=== PATIENT | male | born 1945 | race Two or more races ===

== ENCOUNTER 2016-03-14 21:24 | Inpatient (IN) | payer MEDICARE, MEDICAID ==
[~2016-03-14] VITALS: Ht 162.6 cm; Wt 75.9 kg
[~2016-03-14 21:24] MED LIST: ASPI-266 PO; CLON0.1T PO; DONE5TAB11 OR; ENAL-3 PO; FAMO10TA9 PO; GABA100C PO; GINK500C PO; METF-312 PO; NITROGLYCERIN SL; TAM04C PO; [UNRECOGNIZED DRUG - CODE] PO
[2016-03-14 22:21] LABS: Basophils # (auto) 0 uL; Basophils % (auto) 0.7 % (0.0-2.0); Eosinophils # (auto) 0.2 uL; Eosinophils % (auto) 3.2 % (0.0-7.0); Hematocrit 42.3 % (41.0-53.0); Hemoglobin 13.4 g/dL (13.5-17.5); Lymphocytes # (auto) 1.4 uL; Lymphocytes % (auto) 23.8 % (10.0-50.0); Mean Corpuscular Hemoglobin 27.8 pg (28.0-32.0); Mean Corpuscular Hgb Conc. 31.6 g/dL (32.0-36.0); Mean Corpuscular Volume 88.1 fL (80.0-100.0); Mean Platelet Volume 7.7 fL (7.4-10.4); Monocytes # (auto) 0.7 uL; Monocytes % (auto) 11.3 % (0.0-12.0); Neutrophils # (auto) 3.7 uL; Platelet Count (auto) 230 10^3/uL (140-450); Red Cell Distribution Width 15.7 % (11.6-16.0)
[2016-03-14] MEDS ORDERED: IOHEXOL 300 MG/ML 100ML BOTTLE IJ ONE (22:37)
[2016-03-14 22:38] LABS: Albumin 3.6 g/dL (3.4-5.0); BUN/Creatinine Ratio 35.9; Calcium 8.4 mg/dL (8.5-10.1); Partial Thromboplastin Time 28.3 sec (22.64-33.71); Prothrombin Time 10.3 sec (9.37-12.3)
[2016-03-14 22:41] LABS: Bilirubin, Total 0.4 mg/dL (0.2-1.0); Total Protein 7.1 g/dL (6.4-8.2)
[2016-03-15] MEDS ORDERED: cloNIDine HCL 0.1 MG TAB PO PRN (01:15)
[2016-03-15] MEDS ORDERED: DEXTROSE (50%) 50ML SYRG IV PRN (01:30)
[2016-03-15] MEDS ORDERED: NITROGLYCERIN 0.4 MG SL TAB SL PRN (01:30)
[2016-03-15] MEDS ORDERED: MORPHINE SULF INJ 2 MG/ML SYRINGE 1ML IV PRN (01:30)
[2016-03-15] MEDS ORDERED: LACTULOSE 20Gm/30ML SOLN PO PRN (01:30)
[2016-03-15] MEDS: SODIUM CHLORIDE 0.9% 1,000 ML IV SCH ×2 (02:00→13:44)
[2016-03-15] MEDS: ACCU-CHEK COMFORT CURVE STRIP VI SCH ×3 (06:04→17:46)
[2016-03-15] MEDS: PIPERACILLIN-TAZOB 3.375GM 100 ML IV SCH ×4 (06:04→23:39)
[2016-03-15] MEDS: ALPRAZolam 0.5 MG TAB PO SCH ×3 (06:04→22:09)
[2016-03-15] MEDS: GABAPENTIN 100 MG CAP PO SCH ×3 (06:04→22:08)
[2016-03-15] MEDS: InsuLIN REG 1unit/0.01ml Soln (100units/ml) SC SCH ×4 (06:13→23:52)
[2016-03-15] MEDS: PANTOPRAZOLE SODIUM 40 MG/10 ML VIAL IV SCH (10:00)
[2016-03-15] MEDS ORDERED: ENOXAPARIN SOD 30 MG/0.3 ML SYRINGE SC SCH (10:00)
[2016-03-15] MEDS: NITROGLYCERIN 0.2MG/HR TOPICAL PATCH TD SCH ×2 (10:00→10:26)
[2016-03-15] MEDS: ENOXAPARIN SOD 40 MG/0.4 ML SYRINGE SC SCH (10:25)
[2016-03-15] MEDS: CARVEDILOL 3.125 MG TAB PO SCH ×2 (10:26→22:09)
[2016-03-15] MEDS: ENALAPRIL MALEATE 10 MG TAB PO SCH (10:27)
[2016-03-15] MEDS: METOPROLOL TARTRATE 25 MG TAB PO SCH ×2 (10:27→22:08)
[2016-03-15] MEDS: ASPirin 81 mg TAB PO SCH (10:28)
[2016-03-15] MEDS ORDERED: FUROSEMIDE 40 MG/4 ML VIAL IV ONE (13:15)
[2016-03-15] MEDS ORDERED: POTASSIUM CHL 10% (20 MEQ/15ML) ORAL SOLN PO ONE (13:15)
[2016-03-15] MEDS: HCTZ 25 MG TAB PO SCH (13:37)
[2016-03-15] MEDS ORDERED: TAMSULOSIN HYDROCHLORIDE 0.4 MG CAP PO SCH (18:00)
[2016-03-15 20:00] VITALS: BP 118/77
[2016-03-15 21:30] VITALS: BP 118/77
[2016-03-15] MEDS ORDERED: ATORVASTATIN 20 MG TAB PO SCH (22:00)
[2016-03-15] MEDS ORDERED: DONEPEZIL HYDROCHLORIDE 5 MG TAB PO SCH (22:00)
[2016-03-16] MEDS: ACCU-CHEK COMFORT CURVE STRIP VI SCH ×3 (00:05→12:28)
[2016-03-16] MEDS: SODIUM CHLORIDE 0.9% 1,000 ML IV SCH ×2 (02:17→14:47)
[2016-03-16 05:00] VITALS: BP 101/64
[2016-03-16] MEDS: GABAPENTIN 100 MG CAP PO SCH ×2 (05:47→14:55)
[2016-03-16] MEDS: ALPRAZolam 0.5 MG TAB PO SCH ×2 (05:47→14:55)
[2016-03-16] MEDS: PIPERACILLIN-TAZOB 3.375GM 100 ML IV SCH ×2 (05:48→12:00)
[2016-03-16 06:03] LABS: Albumin 3.4 g/dL (3.4-5.0); BUN/Creatinine Ratio 21.1; Calcium 8.5 mg/dL (8.5-10.1); Potassium 4.1 mmol/L (3.5-5.1)
[2016-03-16 06:05] LABS: Bilirubin, Total 0.9 mg/dL (0.2-1.0); Total Protein 7.2 g/dL (6.4-8.2)
[2016-03-16 06:08] LABS: Basophils # (auto) 0 uL; Basophils % (auto) 0.5 % (0.0-2.0); Eosinophils # (auto) 0.2 uL; Eosinophils % (auto) 3.5 % (0.0-7.0); Hematocrit 46.2 % (41.0-53.0); Hemoglobin 14.5 g/dL (13.5-17.5); Lymphocytes # (auto) 1.3 uL; Lymphocytes % (auto) 20.6 % (10.0-50.0); Mean Corpuscular Hemoglobin 27.9 pg (28.0-32.0); Mean Corpuscular Hgb Conc. 31.5 g/dL (32.0-36.0); Mean Corpuscular Volume 88.6 fL (80.0-100.0); Mean Platelet Volume 7.8 fL (7.4-10.4); Monocytes # (auto) 0.6 uL; Monocytes % (auto) 10.2 % (0.0-12.0); Neutrophils # (auto) 4.1 uL; Neutrophils % (auto) 65.2 % (37.0-80.0); Platelet Count (auto) 241 10^3/uL (140-450); Red Cell Distribution Width 15.8 % (11.6-16.0); White Blood Cell 6.3 10^3/uL (4.4-10.8)
[2016-03-16] MEDS: InsuLIN REG 1unit/0.01ml Soln (100units/ml) SC SCH ×2 (06:44→12:00)
[2016-03-16 08:51] VITALS: BP 120/75
[2016-03-16] MEDS: NITROGLYCERIN 0.2MG/HR TOPICAL PATCH TD SCH (10:00)
[2016-03-16] MEDS ORDERED: POTASSIUM CHL 20 Meq TABLET PO SCH (10:00)
[2016-03-16] MEDS ORDERED: FUROSEMIDE 40 MG TAB PO SCH (10:00)
[2016-03-16] MEDS: ENALAPRIL MALEATE 10 MG TAB PO SCH (10:23)
[2016-03-16] MEDS: HCTZ 25 MG TAB PO SCH (10:25)
[2016-03-16] MEDS: CARVEDILOL 3.125 MG TAB PO SCH (10:25)
[2016-03-16] MEDS: ENOXAPARIN SOD 40 MG/0.4 ML SYRINGE SC SCH (10:26)
[2016-03-16] MEDS: METOPROLOL TARTRATE 25 MG TAB PO SCH (10:26)
[2016-03-16] MEDS: ASPirin 81 mg TAB PO SCH (10:26)
[2016-03-16] MEDS: PANTOPRAZOLE SODIUM 40 MG/10 ML VIAL IV SCH (10:27)
[2016-03-16 13:01] VITALS: BP 119/67
== END 2016-03-16 16:44 | disposition home or self-care (01) | DRG 291 ==
LOC: ER 21:31 → TELE 21:32 → TELE-E-ADS 03-15 08:55 → TELE-WESTW 03-15 10:12
PROVIDERS: ADMIT Family Medicine; ATTEND Family Medicine
DX: I13.0 Hypertensive heart and chronic kidney disease with heart failure and stage 1 through stage 4 chronic kidney disease, or unspecified chronic kidney disease (principal); I50.33 Acute on chronic diastolic (congestive) heart failure; E03.9 Hypothyroidism, unspecified; E11.22 Type 2 diabetes mellitus with diabetic chronic kidney disease; E78.5 Hyperlipidemia, unspecified; F03.90 Unspecified dementia, unspecified severity, without behavioral disturbance, psychotic disturbance, mood disturbance, and anxiety; R07.89 Other chest pain; G47.33 Obstructive sleep apnea (adult) (pediatric); I27.2 Other secondary pulmonary hypertension; I71.4 Abdominal aortic aneurysm, without rupture; J44.9 Chronic obstructive pulmonary disease, unspecified; M19.90 Unspecified osteoarthritis, unspecified site; N18.2 Chronic kidney disease, stage 2 (mild); N40.0 Benign prostatic hyperplasia without lower urinary tract symptoms; F41.9 Anxiety disorder, unspecified; I25.10 Atherosclerotic heart disease of native coronary artery without angina pectoris; Z79.899 Other long term (current) drug therapy; Z79.82 Long term (current) use of aspirin; Z90.49 Acquired absence of other specified parts of digestive tract; Z83.3 Family history of diabetes mellitus; Z86.14 Personal history of Methicillin resistant Staphylococcus aureus infection; Z86.79 Personal history of other diseases of the circulatory system; Z95.1 Presence of aortocoronary bypass graft; Z87.891 Personal history of nicotine dependence; Z98.890 Other specified postprocedural states
CPT/HCPCS: 36415; 71260; 74177; 80053; 80061; 82962; 83036; 84484; 85025; 85610; 85730; 87081; 93005; 96374; C9113; J1815; J2543

== ENCOUNTER 2016-11-30 19:12 | Emergency (ER) | payer MEDICARE, MEDICAID ==
[~2016-11-30] VITALS: Ht 170.2 cm; Wt 74.4 kg
[~2016-11-30 19:12] MED LIST changes: +CARV6.2551 PO; -METF-312 PO; +METF-370 PO
[2016-11-30 20:21] LABS: Basophils # (auto) 0.1 uL; Eosinophils # (auto) 0.2 uL; Eosinophils % (auto) 4.5 % (0.0-7.0); Hematocrit 43.7 % (41.0-53.0); Hemoglobin 14.5 g/dL (13.5-17.5); Lymphocytes # (auto) 1.3 uL; Lymphocytes % (auto) 24.1 % (10.0-50.0); Mean Corpuscular Hemoglobin 30.1 pg (28.0-32.0); Mean Corpuscular Hgb Conc. 33.2 g/dL (32.0-36.0); Mean Corpuscular Volume 90.7 fL (80.0-100.0); Mean Platelet Volume 7.4 fL (6.9-10.8); Monocytes # (auto) 0.6 uL; Monocytes % (auto) 11.3 % (0.0-12.0); Neutrophils # (auto) 3.2 uL; Neutrophils % (auto) 59.1 % (37.0-80.0); Nucleated Red Blood Cells % 0.1 %; Platelet Count (auto) 224 10^3/uL (140-450); Red Cell Distribution Width 15.5 % (11.8-14.3); White Blood Cell 5.4 10^3/uL (4.4-10.8)
[2016-11-30 20:44] LABS: Albumin 3.8 g/dL (3.4-5.0); Alkaline Phosphatase 128 U/L (45-117); Amylase 37 U/L (25-115); Anion Gap 10 (5-15); Aspartate Aminotransferase 11 U/L (15-37); BUN/Creatinine Ratio 21.2; Bilirubin, Total 0.7 mg/dL (0.2-1.0); Blood Urea Nitrogen 18 mg/dL (7-18); Calcium 8.9 mg/dL (8.5-10.1); Carbon Dioxide 26 mmol/L (21-32); Chloride 105 mmol/L (98-107); GFR African American 114 mL/min; GFR Non-African American 94 mL/min; Glucose 130 mg/dL (74-106); Potassium 4.8 mmol/L (3.5-5.1); Sodium 141 mmol/L (136-145); Total Protein 7.8 g/dL (6.4-8.2)
[2016-12-01 10:07] VITALS: BP 131/78
== END 2016-12-01 09:33 | disposition home or self-care (01) ==
LOC: EDBD 19:12 → ER 19:15
DX: K80.20 Calculus of gallbladder without cholecystitis without obstruction (principal); K80.50 Calculus of bile duct without cholangitis or cholecystitis without obstruction; E11.9 Type 2 diabetes mellitus without complications; I10 Essential (primary) hypertension; E78.5 Hyperlipidemia, unspecified; I20.9 Angina pectoris, unspecified; Z95.1 Presence of aortocoronary bypass graft; Z90.89 Acquired absence of other organs
CPT/HCPCS: 36415; 76705; 80053; 82150; 83690; 84484; 85025; 93005

== ENCOUNTER 2017-06-27 20:30 | Emergency (ER) | payer MEDICARE, MEDICAID ==
[~2017-06-27] VITALS: Ht 167.6 cm; Wt 72.6 kg
[2017-06-28 01:42] LABS: Albumin 3.7 g/dL (3.4-5.0); Anion Gap 8 (5-15); Blood Urea Nitrogen 25 mg/dL (7-18); Calcium 8.7 mg/dL (8.5-10.1); Carbon Dioxide 26 mmol/L (21-32); Chloride 106 mmol/L (98-107); Glucose 138 mg/dL (74-106); Magnesium 2.1 mg/dL (1.6-2.6); Potassium 3.9 mmol/L (3.5-5.1); Sodium 140 mmol/L (136-145)
[2017-06-28 01:44] LABS: Alanine Aminotransferase 21 U/L (16-61); Aspartate Aminotransferase 6 U/L (15-37); BUN/Creatinine Ratio 36.2; GFR African American 145 mL/min; GFR Non-African American 120 mL/min
[2017-06-28 01:48] LABS: Alkaline Phosphatase 88 U/L (45-117); Bilirubin, Total 0.6 mg/dL (0.2-1.0); Total Protein 7.4 g/dL (6.4-8.2)
[2017-06-28 01:50] LABS: INR 0.97 (0.9-1.15); Partial Thromboplastin Time 27.4 sec (22.64-33.71); Prothrombin Time 10.6 sec (9.37-12.3)
[2017-06-28 01:51] LABS: Basophils # (auto) 0 uL; Basophils % (auto) 0.7 % (0.0-2.0); Eosinophils # (auto) 0.2 uL; Eosinophils % (auto) 3.7 % (0.0-7.0); Hematocrit 44.5 % (41.0-53.0); Hemoglobin 14.7 g/dL (13.5-17.5); Lymphocytes # (auto) 1.8 uL; Lymphocytes % (auto) 26.9 % (10.0-50.0); Mean Corpuscular Volume 90.8 fL (80.0-100.0); Monocytes # (auto) 0.6 uL; Monocytes % (auto) 9.3 % (0.0-12.0); Neutrophils # (auto) 3.9 uL; Neutrophils % (auto) 59.4 % (37.0-80.0); Platelet Count (auto) 203 10^3/uL (140-450); Red Cell Distribution Width 14.7 % (11.8-14.3); White Blood Cell 6.6 10^3/uL (4.4-10.8)
[2017-06-28 05:31] VITALS: BP 146/90
[2017-06-28] MEDS ORDERED: IOHEXOL 350 MG/ML 100ML IJ ONE (06:05)
== END 2017-06-28 09:11 | disposition home or self-care (01) ==
LOC: ER 20:35
DX: I10 Essential (primary) hypertension (principal); R07.9 Chest pain, unspecified; R79.1 Abnormal coagulation profile; R06.02 Shortness of breath; I25.810 Atherosclerosis of coronary artery bypass graft(s) without angina pectoris; E78.5 Hyperlipidemia, unspecified; E11.9 Type 2 diabetes mellitus without complications; Z95.1 Presence of aortocoronary bypass graft; Z79.82 Long term (current) use of aspirin; Z90.49 Acquired absence of other specified parts of digestive tract
CPT/HCPCS: 36415; 71046; 71275; 80053; 83735; 84484; 85025; 85379; 85610; 85730; 93005

== ENCOUNTER 2017-06-30 17:15 | Inpatient (IN) | payer MEDICARE, MEDICAID ==
[~2017-06-30] VITALS: Ht 170.2 cm; Wt 75.6 kg
[2017-06-30] MEDS ORDERED: SODIUM CHLORIDE 0.9% 1,000 ML IV ONE (17:48)
[2017-06-30] MEDS ORDERED: ONDANSETRON HCL 4 MG/2 ML VIAL IV ONE (18:00)
[2017-06-30] MEDS ORDERED: MORPHINE SULFATE 4 MG/ML SYR/VIAL IV ONE (18:00)
[2017-06-30 18:11] LABS: Basophils # (auto) 0.1 uL; Basophils % (auto) 1.7 % (0.0-2.0); Eosinophils # (auto) 0.2 uL; Eosinophils % (auto) 3.8 % (0.0-7.0); Hematocrit 42.9 % (41.0-53.0); Lymphocytes # (auto) 1.2 uL; Lymphocytes % (auto) 19.4 % (10.0-50.0); Mean Corpuscular Hemoglobin 29.9 pg (28.0-32.0); Mean Corpuscular Hgb Conc. 32.7 g/dL (32.0-36.0); Mean Corpuscular Volume 91.6 fL (80.0-100.0); Monocytes # (auto) 0.7 uL; Monocytes % (auto) 10.7 % (0.0-12.0); Neutrophils % (auto) 64.4 % (37.0-80.0); Nucleated Red Blood Cells % 0.1 %; Platelet Count (auto) 208 10^3/uL (140-450); Red Blood Cells 4.69 10^6/uL (4.5-5.90); Red Cell Distribution Width 14.8 % (11.8-14.3); White Blood Cell 6.2 10^3/uL (4.4-10.8)
[2017-06-30 18:41] LABS: Alanine Aminotransferase 20 U/L (16-61); Albumin 3.7 g/dL (3.4-5.0); Alkaline Phosphatase 95 U/L (45-117); Anion Gap 9 (5-15); Aspartate Aminotransferase 13 U/L (15-37); BUN/Creatinine Ratio 32.5; Bilirubin, Total 0.6 mg/dL (0.2-1.0); Blood Urea Nitrogen 25 mg/dL (7-18); Calcium 8.2 mg/dL (8.5-10.1); Carbon Dioxide 24 mmol/L (21-32); Chloride 109 mmol/L (98-107); GFR African American 128 mL/min; GFR Non-African American 106 mL/min; Glucose 145 mg/dL (74-106); Magnesium 2.3 mg/dL (1.6-2.6); Potassium 4.5 mmol/L (3.5-5.1); Sodium 142 mmol/L (136-145); Total Protein 7.1 g/dL (6.4-8.2)
[2017-06-30 18:45] LABS: INR 0.94 (0.9-1.15); Partial Thromboplastin Time 27.5 sec (23.78-33.04); Prothrombin Time 10.1 sec (9.27-12.13)
[2017-06-30] MEDS ORDERED: MORPHINE SULFATE INJECTION 1 ML ONE (18:46)
[2017-06-30] MEDS ORDERED: MORPHINE SULFATE 8mg/ml INJ SDV IV ONE (19:15)
[2017-06-30] MEDS ORDERED: IOHEXOL 350 MG/ML 100ML IJ ONE (19:31)
[2017-06-30] MEDS ORDERED: ONDANSETRON HCL 4 MG/2 ML VIAL IV PRN (19:45)
[2017-06-30] MEDS ORDERED: ALUM & MAG HYDROX-SIMETH LIQ(MAALOX) 30 ML PO ONE (19:45)
[2017-06-30] MEDS ORDERED: cloNIDine HCL 0.1 MG TAB PO PRN (19:45)
[2017-06-30] MEDS ORDERED: DEXTROSE (50%) 50ML SYRG IV PRN (19:45)
[2017-06-30] MEDS ORDERED: LORazepam 0.5 MG TAB PO PRN (19:45)
[2017-06-30] MEDS ORDERED: NITROGLYCERIN 0.4 MG SL TAB SL PRN ×2 (19:45)
[2017-06-30] MEDS ORDERED: ACETAMINOPHEN 325 MG TAB PO PRN (19:45)
[2017-06-30] MEDS ORDERED: MORPHINE SULFATE 4 MG/ML SYR/VIAL IV PRN ×2 (19:45)
[2017-06-30] MEDS: DONEPEZIL HYDROCHLORIDE 5 MG TAB PO SCH (22:00)
[2017-06-30] MEDS: CARVEDILOL 3.125 MG TAB PO SCH (22:00)
[2017-06-30] MEDS: ATORVASTATIN 20 MG TAB PO SCH (23:36)
[2017-06-30] MEDS: GABAPENTIN 100 MG CAP PO SCH (23:38)
[2017-07-01] VITALS (7 sets, daily range): BP systolic 121–158; BP diastolic 66–91
[2017-07-01] MEDS: SODIUM CHLOR 0.9% PF (SALINE LOCK) 10ML VIAL/SYR IV SCH ×4 (00:05→21:44)
[2017-07-01] MEDS: ACCU-CHEK COMFORT CURVE STRIP VI SCH ×5 (00:06→21:48)
[2017-07-01] MEDS: InsuLIN REG 1unit/0.01ml Soln (100units/ml) SC SCH ×6 (00:06→21:47)
[2017-07-01] MEDS: ZOLPIDEM TARTRATE 5 MG TAB PO PRN ×2 (01:07→23:36)
[2017-07-01 05:54] LABS: Basophils # (auto) 0 uL; Basophils % (auto) 0.7 % (0.0-2.0); Eosinophils # (auto) 0.3 uL; Eosinophils % (auto) 4.8 % (0.0-7.0); Hemoglobin 13.3 g/dL (13.5-17.5); Lymphocytes # (auto) 1.3 uL; Lymphocytes % (auto) 22.9 % (10.0-50.0); Mean Corpuscular Hemoglobin 30.4 pg (28.0-32.0); Mean Corpuscular Hgb Conc. 33.2 g/dL (32.0-36.0); Mean Corpuscular Volume 91.7 fL (80.0-100.0); Monocytes # (auto) 0.6 uL; Monocytes % (auto) 10.9 % (0.0-12.0); Neutrophils # (auto) 3.4 uL; Neutrophils % (auto) 60.7 % (37.0-80.0); Nucleated Red Blood Cells % 0.1 %; Platelet Count (auto) 179 10^3/uL (140-450); Red Blood Cells 4.37 10^6/uL (4.5-5.90); Red Cell Distribution Width 14.7 % (11.8-14.3); White Blood Cell 5.6 10^3/uL (4.4-10.8)
[2017-07-01 06:13] LABS: Albumin 3.3 g/dL (3.4-5.0); BUN/Creatinine Ratio 27.6; Bilirubin, Total 0.5 mg/dL (0.2-1.0); Calcium 8.1 mg/dL (8.5-10.1); Potassium 4.3 mmol/L (3.5-5.1); Total Protein 6.3 g/dL (6.4-8.2)
[2017-07-01] MEDS: GABAPENTIN 100 MG CAP PO SCH ×3 (06:29→21:47)
[2017-07-01 09:57] LABS: Urine Bacteria NONE SEEN /hpf (None Seen); Urine Blood Negative /uL (Negative); Urine Specific Gravity 1.018 (1.001-1.035); Urine WBC 1 /hpf (0 - 3)
[2017-07-01] MEDS: ASPirin 81 mg TAB PO SCH (10:20)
[2017-07-01] MEDS: DOCUSATE SOD 100 MG CAP PO SCH (10:20)
[2017-07-01] MEDS: CLOPIDOGREL BISULFATE 75 MG TAB PO SCH (10:21)
[2017-07-01] MEDS: LISINOPRIL 20 MG TAB PO SCH (10:21)
[2017-07-01] MEDS: CARVEDILOL 3.125 MG TAB PO SCH ×2 (10:21→21:46)
[2017-07-01] MEDS ORDERED: TAMSULOSIN HYDROCHLORIDE 0.4 MG CAP PO SCH (18:00)
[2017-07-01] MEDS: DONEPEZIL HYDROCHLORIDE 5 MG TAB PO SCH (21:45)
[2017-07-01] MEDS: ATORVASTATIN 20 MG TAB PO SCH (21:47)
[2017-07-02 04:50] VITALS: BP 135/77
[2017-07-02] MEDS: SODIUM CHLOR 0.9% PF (SALINE LOCK) 10ML VIAL/SYR IV SCH (06:15)
[2017-07-02] MEDS: GABAPENTIN 100 MG CAP PO SCH (06:36)
[2017-07-02] MEDS: InsuLIN REG 1unit/0.01ml Soln (100units/ml) SC SCH ×2 (07:29→12:21)
[2017-07-02] MEDS: ACCU-CHEK COMFORT CURVE STRIP VI SCH ×2 (07:29→12:22)
[2017-07-02 08:51] VITALS: BP 138/84
[2017-07-02] MEDS: DOCUSATE SOD 100 MG CAP PO SCH (09:43)
[2017-07-02] MEDS: CLOPIDOGREL BISULFATE 75 MG TAB PO SCH (09:43)
[2017-07-02] MEDS: ASPirin 81 mg TAB PO SCH (09:43)
[2017-07-02] MEDS: LISINOPRIL 20 MG TAB PO SCH (09:44)
[2017-07-02] MEDS: CARVEDILOL 3.125 MG TAB PO SCH (09:45)
[2017-07-02 12:59] VITALS: BP 154/78
== END 2017-07-02 16:25 | disposition home or self-care (01) | DRG 309 ==
LOC: EDBD 17:15 → ER 17:16 → TELE 17:18 → TELE-WESTW 22:25 → UNDODISIN 07-01 10:38
PROVIDERS: ADMIT Internal Medicine; ATTEND Internal Medicine
DX: I48.1 Persistent atrial fibrillation (principal); D68.69 Other thrombophilia; E11.9 Type 2 diabetes mellitus without complications; I25.10 Atherosclerotic heart disease of native coronary artery without angina pectoris; I48.92 Unspecified atrial flutter; E83.51 Hypocalcemia; E78.5 Hyperlipidemia, unspecified; I10 Essential (primary) hypertension; F41.9 Anxiety disorder, unspecified; I71.4 Abdominal aortic aneurysm, without rupture; Z83.3 Family history of diabetes mellitus; Z95.1 Presence of aortocoronary bypass graft; Z90.49 Acquired absence of other specified parts of digestive tract
CPT/HCPCS: 36415; 71045; 71046; 71275; 80053; 80061; 81001; 82962; 83036; 83735; 83880; 84443; 84484; 85025; 85379; 85610; 85730; 87086; 93005; 94761; 96361; 96374; 96375; 96376; J1815; J2270; J2405

== ENCOUNTER 2017-10-25 22:29 | Inpatient (IN) | payer MEDICARE, MEDICAID ==
[~2017-10-25] VITALS: Ht 170.2 cm; Wt 77.8 kg
[2017-10-25 23:09] LABS: Basophils # (auto) 0 uL; Basophils % (auto) 0.7 % (0.0-2.0); Eosinophils # (auto) 0.1 uL; Eosinophils % (auto) 1.9 % (0.0-7.0); Hematocrit 43.7 % (41.0-53.0); Hemoglobin 14.2 g/dL (13.5-17.5); Lymphocytes # (auto) 1.3 uL; Lymphocytes % (auto) 19.7 % (10.0-50.0); Mean Corpuscular Hemoglobin 30.3 pg (28.0-32.0); Mean Corpuscular Hgb Conc. 32.6 g/dL (32.0-36.0); Monocytes # (auto) 0.7 uL; Neutrophils # (auto) 4.6 uL; Neutrophils % (auto) 67.7 % (37.0-80.0); Nucleated Red Blood Cells % 0.1 %; Platelet Count (auto) 217 10^3/uL (140-450); Red Blood Cells 4.69 10^6/uL (4.5-5.90); Red Cell Distribution Width 13.9 % (11.8-14.3); White Blood Cell 6.8 10^3/uL (4.4-10.8)
[2017-10-25 23:24] LABS: Partial Thromboplastin Time 28.1 sec (23.78-33.04); Prothrombin Time 10.7 sec (9.27-12.13)
[2017-10-25 23:25] LABS: Albumin 3.5 g/dL (3.4-5.0); Anion Gap 9 (5-15); BUN/Creatinine Ratio 31.4; Blood Urea Nitrogen 27 mg/dL (7-18); Calcium 7.9 mg/dL (8.5-10.1); Carbon Dioxide 25 mmol/L (21-32); Chloride 108 mmol/L (98-107); GFR African American 112 mL/min; GFR Non-African American 93 mL/min; Glucose 150 mg/dL (74-106); Magnesium 1.9 mg/dL (1.6-2.6); Potassium 3.7 mmol/L (3.5-5.1); Sodium 142 mmol/L (136-145)
[2017-10-25 23:31] LABS: Alanine Aminotransferase 23 U/L (16-61); Alkaline Phosphatase 91 U/L (45-117); Aspartate Aminotransferase 10 U/L (15-37); Bilirubin, Total 0.7 mg/dL (0.2-1.0)
[2017-10-26] MEDS ORDERED: IOHEXOL 350 MG/ML 100ML IJ ONE (04:06)
[2017-10-26] MEDS ORDERED: MORPHINE SULF INJ 2 MG/ML SYRINGE 1ML IV PRN (05:30)
[2017-10-26] MEDS ORDERED: NITROGLYCERIN 0.4 MG SL TAB SL PRN (05:30)
[2017-10-26] MEDS ORDERED: ONDANSETRON HCL 4 MG/2 ML VIAL IV PRN (06:00)
[2017-10-26] MEDS ORDERED: cloNIDine HCL 0.1 MG TAB PO PRN (06:00)
[2017-10-26] MEDS ORDERED: ACETAMINOPHEN 500 MG TAB PO PRN (06:00)
[2017-10-26] MEDS ORDERED: HYDROcodone-ACET 5/325MG TAB PO PRN (06:00)
[2017-10-26] MEDS: GABAPENTIN 300 MG CAP PO SCH ×3 (06:35→21:48)
[2017-10-26] MEDS ORDERED: DEXTROSE (50%) 50ML SYRG IV PRN (07:45)
[2017-10-26 08:36] VITALS: BP 153/74
[2017-10-26 08:40] VITALS: BP 153/74
[2017-10-26] MEDS: CARVEDILOL 3.125 MG TAB PO SCH ×2 (10:00→21:47)
[2017-10-26] MEDS: ASPirin-EC 81 mg tab PO SCH (11:13)
[2017-10-26] MEDS: ACCU-CHEK COMFORT CURVE STRIP VI SCH ×3 (11:14→21:49)
[2017-10-26] MEDS: InsuLIN REG 1unit/0.01ml Soln (100units/ml) SC SCH ×3 (11:14→21:49)
[2017-10-26 11:28] LABS: Basophils # (auto) 0 uL; Basophils % (auto) 0.8 % (0.0-2.0); Eosinophils # (auto) 0.1 uL; Eosinophils % (auto) 2.9 % (0.0-7.0); Hematocrit 44.7 % (41.0-53.0); Hemoglobin 14.9 g/dL (13.5-17.5); Lymphocytes # (auto) 1.2 uL; Lymphocytes % (auto) 23.4 % (10.0-50.0); Mean Corpuscular Hgb Conc. 33.3 g/dL (32.0-36.0); Mean Corpuscular Volume 92.9 fL (80.0-100.0); Monocytes # (auto) 0.5 uL; Neutrophils # (auto) 3.3 uL; Neutrophils % (auto) 63.9 % (37.0-80.0); Nucleated Red Blood Cells % 0.1 %; Platelet Count (auto) 210 10^3/uL (140-450); Red Blood Cells 4.81 10^6/uL (4.5-5.90); Red Cell Distribution Width 14.1 % (11.8-14.3); White Blood Cell 5.2 10^3/uL (4.4-10.8)
[2017-10-26 11:59] LABS: BUN/Creatinine Ratio 28.9; Calcium 8.6 mg/dL (8.5-10.1)
[2017-10-26 12:07] LABS: Cholesterol 117 mg/dL (< 200); HDL Cholesterol 53 mg/dL (40-59); LDL Cholesterol 67 mg/dL (< 100); Triglycerides 37 mg/dL (< 150)
[2017-10-26 12:51] VITALS: BP 122/70
[2017-10-26] MEDS: PIPERACILLIN-TAZOB 3.375GM 100 ML IV SCH ×2 (15:00→17:45)
[2017-10-26 17:42] VITALS: BP 140/77
[2017-10-26] MEDS ORDERED: TAMSULOSIN HYDROCHLORIDE 0.4 MG CAP PO SCH (18:00)
[2017-10-26 18:57] LABS: Urine Bacteria NONE SEEN /hpf (None Seen); Urine Blood Negative /uL (Negative); Urine Specific Gravity 1.034 (1.001-1.035); Urine WBC 1 /hpf (0 - 3)
[2017-10-26 21:32] VITALS: BP 140/69
[2017-10-26] MEDS ORDERED: ATORVASTATIN 20 MG TAB PO SCH (22:00)
[2017-10-27] MEDS: PIPERACILLIN-TAZOB 3.375GM 100 ML IV SCH ×3 (00:16→12:03)
[2017-10-27 05:30] VITALS: BP 130/74
[2017-10-27] MEDS: GABAPENTIN 300 MG CAP PO SCH ×2 (05:39→14:00)
[2017-10-27] MEDS: ACCU-CHEK COMFORT CURVE STRIP VI SCH ×3 (06:43→15:51)
[2017-10-27] MEDS: InsuLIN REG 1unit/0.01ml Soln (100units/ml) SC SCH ×3 (06:43→15:51)
[2017-10-27 08:44] VITALS: BP 117/66
[2017-10-27] MEDS ORDERED: ADENOSINE 65 MG in GIVE UN-DILUTED 0 ML IV STA (08:52)
[2017-10-27 09:30] VITALS: BP 137/77
[2017-10-27] MEDS: CARVEDILOL 3.125 MG TAB PO SCH (10:54)
[2017-10-27] MEDS: ASPirin-EC 81 mg tab PO SCH (10:55)
[2017-10-27 13:00] VITALS: BP 128/73
[2017-10-27 13:51] VITALS: BP 128/73
== END 2017-10-27 17:22 | disposition home or self-care (01) | DRG 309 ==
LOC: ER 22:29 → EDBD 22:29 → TELE 22:30 → TELE-CENTR 10-26 08:34
PROVIDERS: ADMIT Nurse Practitioner Family; ATTEND Family Medicine
DX: I48.91 Unspecified atrial fibrillation (principal); J44.1 Chronic obstructive pulmonary disease with (acute) exacerbation; I10 Essential (primary) hypertension; I25.10 Atherosclerotic heart disease of native coronary artery without angina pectoris; R07.89 Other chest pain; I71.4 Abdominal aortic aneurysm, without rupture; E78.5 Hyperlipidemia, unspecified; E78.00 Pure hypercholesterolemia, unspecified; E11.42 Type 2 diabetes mellitus with diabetic polyneuropathy; N28.9 Disorder of kidney and ureter, unspecified; F41.9 Anxiety disorder, unspecified; G89.29 Other chronic pain; M54.9 Dorsalgia, unspecified; N40.0 Benign prostatic hyperplasia without lower urinary tract symptoms; I25.2 Old myocardial infarction; Z79.84 Long term (current) use of oral hypoglycemic drugs; Z80.0 Family history of malignant neoplasm of digestive organs; Z82.49 Family history of ischemic heart disease and other diseases of the circulatory system; Z82.5 Family history of asthma and other chronic lower respiratory diseases; Z83.3 Family history of diabetes mellitus; Z85.05 Personal history of malignant neoplasm of liver; Z86.79 Personal history of other diseases of the circulatory system; Z91.19 Patient's noncompliance with other medical treatment and regimen; Z95.1 Presence of aortocoronary bypass graft
CPT/HCPCS: 36415; 71045; 71275; 74176; 78452; 80048; 80053; 80061; 81001; 82962; 83036; 83735; 83880; 84154; 84443; 84484; 85025; 85379; 85610; 85730; 93005; 93017; 93306; 93886; 94761; J0153; J1815; J2543

== ENCOUNTER 2018-05-16 17:40 | Emergency (ER) | payer MEDICARE, MEDICAID ==
[~2018-05-16] VITALS: Ht 170.2 cm; Wt 74.4 kg
[~2018-05-16 17:40] MED LIST changes: -DONE5TAB11 OR; -[UNRECOGNIZED DRUG - CODE] PO
[2018-05-16] MEDS ORDERED: SODIUM CHLORIDE 0.9% 500 ML IV ONE (19:00)
[2018-05-16] MEDS ORDERED: IOHEXOL 300 MG/ML 100ML BOTTLE IJ ONE (19:39)
[2018-05-16 20:14] LABS: Basophils # (auto) 0 uL; Basophils % (auto) 0.8 % (0.0-2.0); Eosinophils # (auto) 0.2 uL; Eosinophils % (auto) 2.8 % (0.0-7.0); Hematocrit 43.2 % (41.0-53.0); Hemoglobin 14.3 g/dL (13.5-17.5); Lymphocytes # (auto) 1.4 uL; Lymphocytes % (auto) 23.5 % (10.0-50.0); Mean Corpuscular Hemoglobin 29.9 pg (28.0-32.0); Mean Corpuscular Volume 90.4 fL (80.0-100.0); Monocytes # (auto) 0.8 uL; Monocytes % (auto) 13.6 % (0.0-12.0); Neutrophils # (auto) 3.6 uL; Neutrophils % (auto) 59.3 % (37.0-80.0); Nucleated Red Blood Cells % 0.1 %; Platelet Count (auto) 225 10^3/uL (140-450); Red Blood Cells 4.78 10^6/uL (4.5-5.90); Red Cell Distribution Width 14.6 % (11.8-14.3); White Blood Cell 6.1 10^3/uL (4.4-10.8)
[2018-05-16 20:29] LABS: Albumin 3.7 g/dL (3.4-5.0); Calcium 9.2 mg/dL (8.5-10.1)
[2018-05-16 20:34] LABS: BUN/Creatinine Ratio 36.7; Bilirubin, Total 0.4 mg/dL (0.2-1.0); Total Protein 7.4 g/dL (6.4-8.2)
[2018-05-16 21:03] VITALS: BP 114/54
== END 2018-05-16 22:15 | disposition home or self-care (01) ==
LOC: MERGE 17:40 → ER 17:40
DX: S30.1XXA Contusion of abdominal wall, initial encounter (principal); M25.551 Pain in right hip; E11.9 Type 2 diabetes mellitus without complications; I10 Essential (primary) hypertension; I25.2 Old myocardial infarction; Z95.1 Presence of aortocoronary bypass graft; V49.9XXA Car occupant (driver) (passenger) injured in unspecified traffic accident, initial encounter; Y93.89 Activity, other specified; Y92.89 Other specified places as the place of occurrence of the external cause; Y99.8 Other external cause status
CPT/HCPCS: 36415; 72100; 73502; 74177; 80053; 82962; 85025; 93005; 99284; J7040; Q9967; 96360

== ENCOUNTER 2018-12-06 14:04 | Inpatient (IN) | payer MEDICARE, MEDICAID ==
[~2018-12-06] VITALS: Ht 170.2 cm; Wt 78.5 kg
[~2018-12-06 14:04] MED LIST changes: -ENAL-3 PO; +ENAL10TA2 PO
[2018-12-06] MEDS ORDERED: SODIUM CHLORIDE 0.9% 1,000 ML IV ONE (14:15)
[2018-12-06 16:37] LABS: Basophils # (auto) 0.1 uL; Basophils % (auto) 0.8 % (0.0-2.0); Eosinophils # (auto) 0.1 uL; Eosinophils % (auto) 1.5 % (0.0-7.0); Hematocrit 44.1 % (41.0-53.0); Hemoglobin 14.7 g/dL (13.5-17.5); Lymphocytes # (auto) 1.1 uL; Lymphocytes % (auto) 15.8 % (10.0-50.0); Mean Corpuscular Hemoglobin 30.6 pg (28.0-32.0); Mean Corpuscular Hgb Conc. 33.3 g/dL (32.0-36.0); Mean Corpuscular Volume 91.9 fL (80.0-100.0); Monocytes # (auto) 0.5 uL; Monocytes % (auto) 8.3 % (0.0-12.0); Neutrophils # (auto) 4.9 uL; Neutrophils % (auto) 73.6 % (37.0-80.0); Platelet Count (auto) 198 10^3/uL (140-450); Red Cell Distribution Width 13.6 % (11.8-14.3); White Blood Cell 6.7 10^3/uL (4.4-10.8)
[2018-12-06 16:56] LABS: Alanine Aminotransferase 19 U/L (16-61); Albumin 3.3 g/dL (3.4-5.0); Anion Gap 6 (5-15); Blood Urea Nitrogen 23 mg/dL (7-18); Calcium 8.4 mg/dL (8.5-10.1); Carbon Dioxide 26 mmol/L (21-32); Chloride 109 mmol/L (98-107); Glucose 118 mg/dL (74-106); Potassium 3.9 mmol/L (3.5-5.1); Sodium 141 mmol/L (136-145)
[2018-12-06 17:01] LABS: Alkaline Phosphatase 97 U/L (45-117); Aspartate Aminotransferase 10 U/L (15-37); BUN/Creatinine Ratio 29.9; Bilirubin, Total 0.4 mg/dL (0.2-1.0); GFR African American 127 mL/min; GFR Non-African American 105 mL/min; Total Protein 6.8 g/dL (6.4-8.2)
[2018-12-06 17:04] LABS: INR 0.99 (0.9-1.15); Partial Thromboplastin Time 28.2 sec (23.64-32.05)
[2018-12-06] MEDS ORDERED: LABETALOL HCL 5 MG/ML ML 20ML VIAL IV PRN (19:30)
[2018-12-06] MEDS ORDERED: MORPHINE SULF INJ 2 MG/ML SYRINGE 1ML IV PRN ×2 (19:30)
[2018-12-06] MEDS ORDERED: ONDANSETRON HCL 4 MG/2 ML VIAL IV PRN (19:30)
[2018-12-06] MEDS ORDERED: NITROGLYCERIN 0.4 MG SL TAB SL PRN (19:30)
[2018-12-06] MEDS ORDERED: HYDROcodone-ACET 5/325MG TAB PO PRN (19:30)
[2018-12-06] MEDS ORDERED: ACETAMINOPHEN 500 MG TAB PO PRN (19:30)
[2018-12-06] MEDS: CARVEDILOL 3.125 MG TAB PO SCH (22:00)
[2018-12-06] MEDS: ATORVASTATIN 20 MG TAB PO SCH (22:00)
[2018-12-06 22:01] VITALS: BP 133/64
--- NOTE | 2018-12-06 22:15 | NUR ---
MS admit from MARIA VICTORIA JETT admitted to tele/MS. Patient oriented to Karine PachecoRN primary RN, unit, room, bed, and unit policies regarding patient care and visiting hours. AAOx4, ambulatory and on room air. No acute S/S of distress, SOB or pain. Patient weighed by bed scale and encouraged to call if they need something. All questions and concerns addressed, patient verbalized understanding. Bed in lowest locked position, side rails up x2, call light within reach. Will continue to monitor every hour and as needed.
[2018-12-07 05:30] VITALS: BP 103/70
[2018-12-07 07:02] LABS: Basophils # (auto) 0.1 uL; Basophils % (auto) 0.9 % (0.0-2.0); Eosinophils # (auto) 0.1 uL; Eosinophils % (auto) 2.2 % (0.0-7.0); Hematocrit 45.5 % (41.0-53.0); Lymphocytes # (auto) 1.2 uL; Lymphocytes % (auto) 20.8 % (10.0-50.0); Mean Corpuscular Hemoglobin 30.6 pg (28.0-32.0); Mean Corpuscular Hgb Conc. 32.9 g/dL (32.0-36.0); Mean Corpuscular Volume 92.9 fL (80.0-100.0); Monocytes # (auto) 0.6 uL; Monocytes % (auto) 10.8 % (0.0-12.0); Neutrophils # (auto) 3.7 uL; Neutrophils % (auto) 65.3 % (37.0-80.0); Platelet Count (auto) 193 10^3/uL (140-450); Red Cell Distribution Width 13.5 % (11.8-14.3); White Blood Cell 5.7 10^3/uL (4.4-10.8)
[2018-12-07 07:16] LABS: INR 0.98 (0.9-1.15); Partial Thromboplastin Time 27.9 sec (23.64-32.05)
[2018-12-07 07:25] LABS: Anion Gap 7 (5-15); Blood Urea Nitrogen 22 mg/dL (7-18); Calcium 8.8 mg/dL (8.5-10.1); Carbon Dioxide 27 mmol/L (21-32); Chloride 109 mmol/L (98-107); Glucose 147 mg/dL (74-106); Potassium 4.2 mmol/L (3.5-5.1); Sodium 143 mmol/L (136-145)
[2018-12-07 07:31] LABS: BUN/Creatinine Ratio 27.8; GFR African American 124 mL/min; GFR Non-African American 102 mL/min
[2018-12-07 08:02] VITALS: BP 115/61
[2018-12-07 08:50] VITALS: BP 115/61
[2018-12-07] MEDS: ENALAPRIL MALEATE 2.5 MG TAB PO SCH (10:00)
[2018-12-07] MEDS: FAMOTIDINE 20 MG TAB PO SCH (10:30)
[2018-12-07] MEDS: ASPirin-EC 81 mg tab PO SCH (10:30)
[2018-12-07] MEDS: CARVEDILOL 3.125 MG TAB PO SCH ×2 (10:32→21:12)
[2018-12-07] MEDS ORDERED: ENOXAPARIN SOD 80 MG/0.8ML SYRINGE SC ONE (11:00)
--- NOTE | 2018-12-07 12:00 | NUR ---
Performed EKG; normal sinus rhythm, hospitalist aware and signed off, and informed Damian MENCHACA of results.
--- NOTE | 2018-12-07 12:00 | NUR ---
Dr. Metz, Hospitalist, at bedside; new orders received.
[2018-12-07] MEDS ORDERED: DEXTROSE (50%) 50ML SYRG IV PRN (12:15)
[2018-12-07 13:00] VITALS: BP 138/73
--- NOTE | 2018-12-07 14:35 | NUR ---
Patient states "I would like to go home, I do not feel any more chest pressure and am ready to be released". Notified , Dr. Metz, and MD came to bedside and updated pt on POC. Patient verbalized understanding and states he will remain in the hospital until cleared.
--- NOTE | 2018-12-07 14:43 | NUR ---
Opening Shift Note Assumed care of patient, awake and alert. No S/S of distress/SOB or pain. Instructed on POC and to call for assist PRN, will continue to monitor for changes Q1hr and PRN. Bed set in lowest locked position with call light within reach. Addendum: 12/07/18 at 1452 by ADELE WELCH RN RN Time on note above should read 0730.
[2018-12-07 16:54] VITALS: BP 147/79
[2018-12-07] MEDS: InsuLIN REG 1unit/0.01ml Soln (100units/ml) SC SCH ×2 (17:17→21:38)
[2018-12-07] MEDS: ACCU-CHEK COMFORT CURVE STRIP VI SCH ×2 (17:17→21:13)
--- NOTE | 2018-12-07 17:35 | NUR ---
Received medical record of previous echocardiogram and stress test from Dr. Carlitos Camejo MD via fax; informed Damian Apodaca NP, of receipt of documents.
[2018-12-07] MEDS: ATORVASTATIN 20 MG TAB PO SCH (21:12)
[2018-12-07] MEDS: ENOXAPARIN SOD 80 MG/0.8ML SYRINGE SC SCH (21:13)
[2018-12-07 21:52] VITALS: BP 151/80
[2018-12-07] MEDS ORDERED: TEMAZEPAM 15 MG CAP PO ONE (22:45)
[2018-12-08 05:00] VITALS: BP 126/73
[2018-12-08 05:57] LABS: Basophils # (auto) 0.1 uL; Basophils % (auto) 1.1 % (0.0-2.0); Eosinophils # (auto) 0.2 uL; Eosinophils % (auto) 2.7 % (0.0-7.0); Hematocrit 47.5 % (41.0-53.0); Lymphocytes # (auto) 1.5 uL; Lymphocytes % (auto) 23.4 % (10.0-50.0); Mean Corpuscular Hgb Conc. 33.6 g/dL (32.0-36.0); Mean Corpuscular Volume 92.3 fL (80.0-100.0); Monocytes # (auto) 0.7 uL; Monocytes % (auto) 11.2 % (0.0-12.0); Neutrophils # (auto) 4.1 uL; Neutrophils % (auto) 61.6 % (37.0-80.0); Platelet Count (auto) 208 10^3/uL (140-450); Red Blood Cells 5.15 10^6/uL (4.5-5.90); Red Cell Distribution Width 13.6 % (11.8-14.3); White Blood Cell 6.6 10^3/uL (4.4-10.8)
[2018-12-08 06:08] LABS: Chloride 107 mmol/L (98-107); Potassium 4.7 mmol/L (3.5-5.1); Sodium 141 mmol/L (136-145)
[2018-12-08 06:20] LABS: Anion Gap 5 (5-15); BUN/Creatinine Ratio 20.5; Blood Urea Nitrogen 18 mg/dL (7-18); Calcium 9.2 mg/dL (8.5-10.1); Carbon Dioxide 29 mmol/L (21-32); GFR African American 109 mL/min; GFR Non-African American 90 mL/min; Glucose 128 mg/dL (74-106)
[2018-12-08] MEDS: ACCU-CHEK COMFORT CURVE STRIP VI SCH ×2 (06:56→13:10)
[2018-12-08] MEDS: InsuLIN REG 1unit/0.01ml Soln (100units/ml) SC SCH ×2 (06:56→13:10)
--- NOTE | 2018-12-08 07:00 | NUR ---
Opening Shift Note Received report on the patient. Awake lying in bed. Patient shows no signs of distress at this time. Discussed plan of care with the patient. Bed is in the lowest position, side rails up x2, and call light is within reach. Will continue to monitor.
[2018-12-08 09:00] VITALS: BP 142/86
--- NOTE | 2018-12-08 09:30 | NUR ---
DOCTOR CALDWELL AT BEDSIDE.
[2018-12-08] MEDS: ENOXAPARIN SOD 80 MG/0.8ML SYRINGE SC SCH (10:13)
[2018-12-08] MEDS: FAMOTIDINE 20 MG TAB PO SCH (10:14)
[2018-12-08] MEDS: ASPirin-EC 81 mg tab PO SCH (10:14)
[2018-12-08] MEDS: ENALAPRIL MALEATE 2.5 MG TAB PO SCH (10:14)
[2018-12-08] MEDS: CARVEDILOL 3.125 MG TAB PO SCH (10:15)
[2018-12-08 13:00] VITALS: BP 136/80
== END 2018-12-08 14:45 | disposition home or self-care (01) | DRG 309 ==
LOC: ER 14:04 → EDBD 14:04 → TELE 14:05 → TELE-WESTW 21:23
PROVIDERS: ADMIT Nurse Practitioner Acute Care; ATTEND Internal Medicine
DX: I48.92 Unspecified atrial flutter (principal); I50.42 Chronic combined systolic (congestive) and diastolic (congestive) heart failure; I48.0 Paroxysmal atrial fibrillation; E11.21 Type 2 diabetes mellitus with diabetic nephropathy; I11.0 Hypertensive heart disease with heart failure; I08.1 Rheumatic disorders of both mitral and tricuspid valves; I25.10 Atherosclerotic heart disease of native coronary artery without angina pectoris; K43.9 Ventral hernia without obstruction or gangrene; F41.9 Anxiety disorder, unspecified; I70.0 Atherosclerosis of aorta; Z79.84 Long term (current) use of oral hypoglycemic drugs; Z86.79 Personal history of other diseases of the circulatory system; Z95.1 Presence of aortocoronary bypass graft; Z90.49 Acquired absence of other specified parts of digestive tract; Z79.899 Other long term (current) drug therapy; Z79.82 Long term (current) use of aspirin
CPT/HCPCS: 36415; 71045; 80048; 80053; 82306; 82962; 83735; 83880; 84443; 84484; 85025; 85610; 85730; 86141; 93005; 93306; G0378; J1815

== ENCOUNTER 2018-12-21 01:47 | Emergency (ER) | payer MEDICARE, MEDICAID ==
[~2018-12-21] VITALS: Ht 170.2 cm; Wt 77.1 kg
[2018-12-21] MEDS ORDERED: ASPirin 81 mg TAB PO ONE (02:15)
[2018-12-21] MEDS ORDERED: NITROGLYCERIN 0.4 MG SL TAB SL PRN (02:15)
[2018-12-21 02:30] LABS: Basophils # (auto) 0.1 uL; Basophils % (auto) 0.9 % (0.0-2.0); Eosinophils # (auto) 0.1 uL; Eosinophils % (auto) 2.1 % (0.0-7.0); Hematocrit 43.9 % (41.0-53.0); Hemoglobin 14.8 g/dL (13.5-17.5); Lymphocytes # (auto) 1.4 uL; Lymphocytes % (auto) 21.2 % (10.0-50.0); Mean Corpuscular Hemoglobin 30.7 pg (28.0-32.0); Mean Corpuscular Hgb Conc. 33.6 g/dL (32.0-36.0); Mean Corpuscular Volume 91.4 fL (80.0-100.0); Monocytes # (auto) 0.6 uL; Monocytes % (auto) 9.6 % (0.0-12.0); Neutrophils # (auto) 4.3 uL; Neutrophils % (auto) 66.2 % (37.0-80.0); Platelet Count (auto) 195 10^3/uL (140-450); Red Cell Distribution Width 13.5 % (11.8-14.3); White Blood Cell 6.5 10^3/uL (4.4-10.8)
[2018-12-21 02:47] LABS: Albumin 3.7 g/dL (3.4-5.0); Anion Gap 4 (5-15); Blood Urea Nitrogen 25 mg/dL (7-18); Calcium 8.5 mg/dL (8.5-10.1); Carbon Dioxide 27 mmol/L (21-32); Chloride 108 mmol/L (98-107); Glucose 154 mg/dL (74-106); Sodium 139 mmol/L (136-145)
[2018-12-21 02:49] LABS: Alanine Aminotransferase 19 U/L (16-61); Aspartate Aminotransferase 7 U/L (15-37); BUN/Creatinine Ratio 31.6; GFR African American 124 mL/min; GFR Non-African American 102 mL/min; INR 0.95 (0.9-1.15); Partial Thromboplastin Time 26.8 sec (23.64-32.05)
[2018-12-21 02:52] LABS: Alkaline Phosphatase 112 U/L (45-117); Bilirubin, Total 0.6 mg/dL (0.2-1.0); Total Protein 7.2 g/dL (6.4-8.2)
[2018-12-21 10:15] VITALS: BP 119/75
== END 2018-12-21 10:15 | disposition home or self-care (01) ==
LOC: ER 02:01
DX: K29.70 Gastritis, unspecified, without bleeding (principal); R07.89 Other chest pain; E11.9 Type 2 diabetes mellitus without complications; E78.5 Hyperlipidemia, unspecified; I10 Essential (primary) hypertension; Z95.1 Presence of aortocoronary bypass graft; Z88.6 Allergy status to analgesic agent; Z79.899 Other long term (current) drug therapy
CPT/HCPCS: 36415; 71045; 80053; 80329; 82962; 83880; 84484; 85025; 85379; 85610; 85730; 93005

== ENCOUNTER 2019-02-13 23:15 | Emergency (ER) | payer MEDICARE, MEDICAID ==
[~2019-02-13] VITALS: Ht 170.2 cm; Wt 77.6 kg
[2019-02-14 02:25] LABS: Basophils # (auto) 0.1 uL; Basophils % (auto) 1.6 % (0.0-2.0); Eosinophils # (auto) 0.1 uL; Eosinophils % (auto) 1.6 % (0.0-7.0); Hematocrit 41.1 % (41.0-53.0); Hemoglobin 13.3 g/dL (13.5-17.5); Lymphocytes # (auto) 1.5 uL; Lymphocytes % (auto) 20.7 % (10.0-50.0); Mean Corpuscular Hgb Conc. 32.4 g/dL (32.0-36.0); Mean Corpuscular Volume 92.6 fL (80.0-100.0); Monocytes # (auto) 0.6 uL; Monocytes % (auto) 8.7 % (0.0-12.0); Neutrophils % (auto) 67.4 % (37.0-80.0); Platelet Count (auto) 184 10^3/uL (140-450); Red Blood Cells 4.44 10^6/uL (4.5-5.90); Red Cell Distribution Width 14.6 % (11.8-14.3); White Blood Cell 7.4 10^3/uL (4.4-10.8)
[2019-02-14 02:34] LABS: Alanine Aminotransferase 18 U/L (16-61); Albumin 3.3 g/dL (3.4-5.0); Anion Gap 7 (5-15); Aspartate Aminotransferase 11 U/L (15-37); BUN/Creatinine Ratio 30.9; Blood Urea Nitrogen 30 mg/dL (7-18); Calcium 8.6 mg/dL (8.5-10.1); Carbon Dioxide 23 mmol/L (21-32); Chloride 112 mmol/L (98-107); GFR African American 98 mL/min; GFR Non-African American 81 mL/min; Glucose 151 mg/dL (74-106); Potassium 4.3 mmol/L (3.5-5.1); Sodium 142 mmol/L (136-145)
[2019-02-14 02:40] LABS: Alkaline Phosphatase 118 U/L (45-117); Bilirubin, Total 0.7 mg/dL (0.2-1.0); Total Protein 6.5 g/dL (6.4-8.2)
[2019-02-14 07:15] VITALS: BP 113/63
== END 2019-02-14 07:35 | disposition home or self-care (01) ==
LOC: EDBD 23:15 → EDUNIT# 23:15 → ER 23:19
DX: R00.2 Palpitations (principal); I25.10 Atherosclerotic heart disease of native coronary artery without angina pectoris; I49.1 Atrial premature depolarization; E11.9 Type 2 diabetes mellitus without complications; I10 Essential (primary) hypertension; E78.00 Pure hypercholesterolemia, unspecified; Z95.1 Presence of aortocoronary bypass graft; Z90.49 Acquired absence of other specified parts of digestive tract; Z90.89 Acquired absence of other organs; Z88.5 Allergy status to narcotic agent; Z79.82 Long term (current) use of aspirin; Z79.899 Other long term (current) drug therapy
CPT/HCPCS: 36415; 71045; 80053; 83735; 83880; 84484; 85025; 93005

== ENCOUNTER 2023-12-07 20:38 | Inpatient (IN) | payer MEDICARE, MEDICAID ==
[~2023-12-07] VITALS: Ht 170.2 cm; Wt 70.2 kg
[~2023-12-07 20:38] MED LIST changes: -ASPI-266 PO; +ASPI81TA28 PO; -ENAL10TA2 PO; +ENAL1TAB47 PO; -GINK500C PO; -TAM04C PO; +TAMS-35 PO; +[UNRECOGNIZED DRUG - CODE] PO
--- NOTE | 2023-12-07 21:04 | ED.PDOC ---
History of Present Illness HPI Comments 78 y/o M, with a Hx of AAA, AFIB, anemia, angina, atherosclerotic vascular disease, BPH, CABG, CAD, prostate CA, CHF, COPD, DM II w/neuropathy, GERD, HLD, MN, pacemaker, is BIBA for c/o ALOC, today. Per EMS report, patient is a resident of [facility] and was brought after faculty staff found the patient in altered state from his usual baseline of A&Ox3 in addition to being hypotensive since this morning. On scene, patient was found A&Ox1, not following command and answering questions with his name in response in addition to having a blood glucose of 166. Patient was stated to have been found tachycardic and hypotensive, with staff endorsing on patient no receiving any of his medications, earlier. Patient is stated on not having any known recent injuries, sick contact, travel, spoiled food intake, or substance use/exposure. Patient has no reported additional symptoms or modifiers at this time. Time Seen by MD: 20:45 Primary Care Provider: JHONATAN Reviewed Notes: Nurses Notes, Crotch Breaker Notes, Medications, Allergies Allergies: Coded Allergies: Morphine (Verified Allergy, Unknown, 12/21/18) Home Meds Reported Medications Carvedilol (Carvedilol) 6.25 Mg Tab, 6.25 MG PO BID, TAB 05/08/16 Ginkgo Biloba Leigh (GINKGO BILOBA) 500 Mg Cap, 100 MG PO DAILY, CAP 11/10/15 Tamsulosin Hcl (Flomax) 0.4 Mg Cap, 0.4 MG PO QPM, CAP 11/10/15 [Nitrostat Sub 0.4MGNITROSTA] No Conflict Check, SL PRN 08/29/12 [Clonidine Hcl0.1 Mg] (Clonidine Hcl) 0.1 MG TAB No Conflict Check, MG PO DAILYPRN 08/29/12 Metformin Hydrochloride (Metformin Hcl) 500 Mg Tab, 2 TAB PO TWICE DAILY 02/22/12 [Aspirin Ec81 Mg] (Aspirin Ec) 81 MG TAB No Conflict Check, 81 MG PO DAILY, 0 Refills 02/22/12 [Enalapril Malea10 Mg] (Enalapril Maleate) 10 MG TAB No Conflict Check, 10 MG PO DAILY, 0 Refills 02/22/12 Famotidine (Acid Controller) 10 Mg Tab, PO DAILY 01/24/10 Gabapentin (Neurontin) 100 Mg Cap, 100 MG PO TID 09/08/09 Information Source: Patient, Emergency Med Personnel Mode of Arrival: EMS Severity: Moderate Timing: Hours Duration: Since onset Prehospital treatment: 12 Lead EKG, Accucheck (166), 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 Past Medical History PAST MEDICAL HISTORY: AFIB, Anemia, Angina, Anxiety, CAD, Cancer (prostate CA ), CHF, COPD, DM (type II w/neuropathy), GERD, High Lipids, HTN, MN Past Medical History (Other): AAA, atherosclerotic vascular disease, BPH Surgical History: Appendectomy, CABG, Hernia Repair, Pacemaker, Tonsillectomy Surgical History (Other): aortic aneurysm repair, gastric bypass, right hip repair Family History Family History: No family hx of DM, Unobtainable Social History Smoker: Non-Smoker Alcohol: Denies ETOH Use Drugs: Denies Drug Use Lives In: Detention Constitutional: denies: chills, diaphoresis, fatigue, fever, malaise, sweats, weakness, others EENTM: denies: blurred vision, double vision, ear bleeding, ear discharge, ear drainage, ear pain, ear ringing, eye pain, eye redness, hearing loss, mouth pain, mouth swelling, nasal discharge, nose bleeding, nose congestion, nose pain, photophobia, tearing, throat pain, throat swelling, voice changes, others Respiratory: denies: cough, hemoptysis, orthopnea, SOB at rest, shortness of breath, SOB with excertion, stridor, wheezing, others Cardiovascular: denies: chest pain, dizzy spells, diaphoresis, Dyspnea on exertion, edema, irregular heart beat, left arm pain, lightheadedness, palpitations, PND, syncope, others Gastrointestinal: denies: abdomen distended, abdominal pain, blood streaked bowels, constipated, diarrhea, dysphagia, difficulty swallowing, hematemesis, melena, nausea, poor appetite, poor fluid intake, rectal bleeding, rectal pain, vomiting, others Genitourinary: denies: burning, dysuria, flank pain, frequency, hematuria, incontinence, penile discharge, penile sore, pain, testicle pain, testicle swelling, urgency, others Neurological: reports: others (ALOC); denies: dizziness, fainting, headache, left sided numbness, left sided weakness, numbness, paresthesia, pre-existing deficit, right sided numbness, right sided weakness, seizure, speech problems, tingling, tremors, weakness Musculoskeletal: denies: back pain, gout, joint pain, joint swelling, muscle pain, muscle stiffness, neck pain, others Integumetry: denies: bruises, change in color, change in hair/nails, dryness, laceration, lesions, lumps, rash, wounds, others Allergic/Immunocompromised: denies: Difficulty Healing, Frequent Infections, Hives, Itching, others Hematologic/Lymphatic: denies: anemia, blood clots, easy bleeding, easy bruising, swollen glands, others Endocrine: denies: excessive hunger, excessive sweating, excessive thirst, excessive urination, flushing, intolerance to cold, intolerance to heat, unexplained weight gain, unexplained weight loss, others Psychiatric: denies: anxiety, bipolar disorder, depression, hopeless, panic di sorder, schizophrenia, sleepless, suicidal, others All Other Systems: Reviewed and Negative Physical Exam General Appearance: No Apparent Distress, Normal HEENT: Normal ENT Inspection, PERRL/EOMI (1mm bilateral pupils), Pharynx Normal, TMs Normal Neck: Full Range of Motion, Non-Tender, Normal, Normal Inspection Respiratory: Chest Non-Tender, Lungs Clear, No Accessory Muscle Use, No Respi ratory Distress, Normal Breath Sounds Cardiovascular: No Edema, No JVD, No Murmur, No Gallop, Normal Peripheral Pulses, Regular Rate/Rhythm Breast Exam: Deferred Gastrointestinal: No Organomegaly, Non Tender, No Pulsatile Mass, Normal Bowel Sounds, Soft Genitalia: Deferred Pelvic: Deferred Rectal: Deferred Extremities: No calf tenderness, Normal capillary refill, Normal inspection, Normal range of motion, Non-tender, No pedal edema Musculoskeletal : Apperance: Normal Neurologic: service officer II-XII nml as Tested, No Motor Deficits, No Sensory Deficits, Other (arousable but confused to tactile stimuli ) Cerebellar Function: Normal Reflexes: Normal Skin: Dry, Normal Color, Warm Lymphatic: No Adenopathy Was a procedure done? Was a procedure done?: No Differential Dx Considerations may include: electrolyte imbalance, dehydration, encephalopathy, viral syndrome, sepsis, hypoglycemia, sepsis, cva, intracranial bleed, intracranial mass, dementia with delirium X-Ray, Labs, Meds, VS Vital Signs Date Time Temp Pulse Resp B/P (MAP) Pulse Ox O2 Delivery O2 Flow Rate FiO2 12/07/23 21:25 100.6 105 12 94/47 (63) 89 100.6 12/07/23 21:20 105 12 89 Nasal Cannula* 4 36 12/07/23 20:47 98.6 109 22 96/58 (71) 93 12/07/23 20:38 107 Lab Test 12/07/23 21:01 Range/Units White Blood Count 5.5 4.4-10.8 10^3/uL Red Blood Count 2.93 L 4.5-5.90 10^6/uL Hemoglobin 8.3 L 13.5-17.5 g/dL Hematocrit 26.2 L 41.0-53.0 % Mean Corpuscular Volume 89.3 80.0-100.0 fL Mean Corpuscular Hemoglobin 28.4 28.0-32.0 pg Mean Corpuscular Hemoglobin Concent 31.7 L 32.0-36.0 g/dL Red Cell Distribution Width 18.1 H 11.8-14.3 % Platelet Count 220 140-450 10^3/uL Mean Platelet Volume 6.7 L 6.9-10.8 fL Neutrophils (%) (Auto) 37.0-80.0 % Lymphocytes (%) (Auto) 10.0-50.0 % Monocytes (%) (Auto) 0.0-12.0 % Basophils (%) (Auto) 0.0-2.0 % Neutrophils # (Auto) 1.6-8.6 10 ^3/uL Lymphocytes # (Auto) 0.4-5.4 10 ^3/uL Monocytes # (Auto) 0-1.3 10 ^3/uL Differential Total Cells Counted 100.0 100 Neutrophils % (Manual) 72 37.0-80.0 Band Neutrophils % (Manual) 2 Lymphocytes % (Manual) 19 10.0-50.0 Monocytes % (Manual) 7 0-12 Eosinophils % (Manual) 0 0-7 Basophils % (Manual) 0 0.0-2.0 Metamyelocytes % (manual) 0 Myelocytes % (Manual) 0 Promyelocytes % (Manual) 0 Blast Cells % (Manual) 0 Reactive Lymphocytes 0 Platelet Estimate Adequate Anisocytosis (manual) Slight Prothrombin Time Pending Prothrombin Time INR Pending Activated Partial Thromboplast Time Pending Sodium Level 136 136-145 mmol/L Potassium Level 5.3 H 3.5-5.1 mmol/L Chloride Level 105 98-107 mmol/L Carbon Dioxide Level 23 20-31 mmol/L Anion Gap 8 5-15 Blood Urea Nitrogen 20 9-23 mg/dL Creatinine 0.70 0.700-1.30 mg/dL Glomerular Filtration Rate Calc 94 >90 mL/min BUN/Creatinine Ratio 28.6 H 10.0-20.0 Serum Glucose 177 H 74-106 mg/dL Calcium Level 8.3 L 8.7-10.4 mg/dL Total Bilirubin 0.4 0.2-1.0 mg/dL Aspartate Amino Transferase (AST) 34 13-40 U/L Alanine Aminotransferase (ALT) 9 7-40 U/L Alkaline Phosphatase 315 H 46-116 U/L Troponin I High Sensitivity 4 </=54 ng/L Total Protein 6.4 5.7-8.2 g/dL Albumin 3.5 3.2-4.8 g/dL Plasma/Serum Blood Alcohol < 3.0 <10 mg/dL Current Medications Medications (Trade) Dose Ordered Sig/Evgeny Route Start Time Stop Time Status Last Admin Sodium Chloride 500 ml @ 500 mls/hr Q1H ONCE IVB 12/07/23 21:00 12/07/23 21:59 DC 12/07/23 21:20 Tried to reach all contact members listed on the patient's SNF medical record to no answer. No voicemail to leave a message either. Time of 1ST Reevaluation: 21:15 Reevaluation 1ST: Unchanged Time of 2ND Reevaluation: 22:51 (patient is awake and alert, denies any complaints and was seen having a conversation with his nurse) Reevaluation 2ND: Improved Time of 3RD Reevaluation: 23:34 Reevaluation 3RD: Improved Patient Education/Counseling: Other (patient is altered ) Family Education/Counseling: No Family Present Additional Information pt presented with altered mental status. however, he is now awake, alert and conversational. he does have severe sepsis with hypotension and a large left sided infiltrate on the cxr. due to this obvious cause for the hypoxia and other symptoms, and his instability on pressors, i willdc the cta for now. also, with him being alert and oriented now, the head ct will also be unnecessary. pt will be admitted for severe sepsis due to pneumonia, with shock Sepsis Sepsis Reasesment Focused Exam Sepsis focused exam: focus exam completed, time: (2333) Departure 1 Departure Time of Disposition: 23:38 Impression: Primary Impression: Severe sepsis Additional Impressions: Septic shock Anemia Qualified Codes: D64.9 - Anemia, unspecified Altered awareness, transient Pneumonitis Respiratory failure with hypoxia Qualified Codes: J96.01 - Acute respiratory failure with hypoxia Disposition: ADMITTED INPATIENT Admit to: ICU Condition: Serious Critical Care Note Critical Care Time?: Yes (55 min-critical care time only) Critical care comment: due to the possibility of acute deterioration of pt's condition, his care required my highest level of attention. i assessed him and formulated a care plan, communicated with medical personnel, and reviewed his results, reassessed him and provided updates. total time excludes any procedures Stability Stability form required: No Heart Score Heart Score: Heart Score Response (Comments) Value History N/A 0 EKG N/A 0 Age N/A 0 Risk Factors N/A 0 Troponin N/A 0 Total 0 I personally scribed for BABAK KNIGTH MD ([email or web address]) on 12/07/23 at 21:04. Electronically submitted by Torin Pagan ([email or web address]). I personally scribed for BABAK KNIGHT MD ([email or web address]) on 12/07/23 at 21:51. Electronically submitted by Torin Pagan ([email or web address]). I personally scribed for BABAK KNIGHT MD ([email or web address]) on 12/07/23 at 21:52. Electronically submitted by Torin Pagan ([email or web address]). I personally scribed for BABAK KNIGHT MD (KORY) on 12/07/23 at 22:52. Electronically submitted by Torin Pagan ([email or web address]). BABAK KNIGHT MD Dec 07, 2023 21:04
[2023-12-07] MEDS: IOHEXOL 350 MG/ML 100ML IJ ONE (21:06)
[2023-12-07 21:15] LABS: Hemoglobin 8.3 g/dL (13.5-17.5)
[2023-12-07 21:17] LABS: Hematocrit 26.2 % (41.0-53.0); Mean Corpuscular Hemoglobin 28.4 pg (28.0-32.0); Mean Corpuscular Hgb Conc. 31.7 g/dL (32.0-36.0); Mean Corpuscular Volume 89.3 fL (80.0-100.0); Platelet Count (auto) 220 10^3/uL (140-450); Red Blood Cells 2.93 10^6/uL (4.5-5.90); Red Cell Distribution Width 18.1 % (11.8-14.3); White Blood Cell 5.5 10^3/uL (4.4-10.8)
[2023-12-07 21:20] VITALS: PULSE 105; RESP 12; O2SAT 89
[2023-12-07 21:20] LABS: Basophils % (manual) 0 (0.0-2.0); Blast Cells 0; Eosinophils % (manual) 0 (0-7); Metamyelocytes % 0; Myelocytes % 0; Promyelocytes % 0; Reactive Lymphocytes 0
[2023-12-07] MEDS: SODIUM CHLORIDE 0.9% 500 ML IVB ONE (21:20)
[2023-12-07 21:36] LABS: Albumin 3.5 g/dL (3.2-4.8); Alkaline Phosphatase 315 U/L (46-116); Anion Gap 8 (5-15); Aspartate Aminotransferase 34 U/L (13-40); BUN/Creatinine Ratio 28.6 (10.0-20.0); Blood Alcohol < 3.0 mg/dL (<10); Blood Urea Nitrogen 20 mg/dL (9-23); Calcium 8.3 mg/dL (8.7-10.4); Carbon Dioxide 23 mmol/L (20-31); Chloride 105 mmol/L (98-107); Glucose 177 mg/dL (74-106); Potassium 5.3 mmol/L (3.5-5.1); Sodium 136 mmol/L (136-145)
[2023-12-07 21:37] LABS: Bilirubin, Total 0.4 mg/dL (0.2-1.0); Total Protein 6.4 g/dL (5.7-8.2)
[2023-12-07 21:38] LABS: Alanine Aminotransferase 9 U/L (7-40)
[2023-12-07 21:44] LABS: Anisocytosis Slight; Band Neutrophils % (manual) 2; Lymphocytes % (manual) 19 (10.0-50.0); Monocytes % (manual) 7 (0-12); Platelet Estimate Adequate
[2023-12-07] MEDS ORDERED: VANCOMYCIN 1GM/200ML PREMIX 200 ML IV SCH (22:00)
[2023-12-07] MEDS ORDERED: NITROGLYCERIN 0.4 MG SL TAB SL PRN (22:00)
[2023-12-07] MEDS ORDERED: MORPHINE SULFATE INJ 2 MG/ml SYRG IV PRN (22:00)
[2023-12-07] MEDS: NOREPINEPHRINE 8 MG/250ML KIT 250 ML IV SCH (22:00)
[2023-12-07 22:30] VITALS: PULSE 107; RESP 11; O2SAT 92
[2023-12-07] MEDS ORDERED: PIPERACILLIN-TAZOB 3.375GM 100 ML IV ONE ×2 (22:30)
[2023-12-07] MEDS: SODIUM CHLORIDE 0.9% 2,000 ML IV ONE (22:45)
[2023-12-07] MEDS ORDERED: VANCOMYCIN 1GM/200ML PREMIX IV ONE (23:00)
[2023-12-07] MEDS: LORazepam 2MG/ML-1ML VIAL IV ONE (23:19)
[2023-12-07] MEDS: PIPERACILLIN-TAZO 4.5GM 100 ML IV ONE (23:20)
[2023-12-07] MEDS: ALBUTEROL SULF 2.5 MG/0.5ML(0.5%) NEB SOLN NEB ONE (23:21)
[2023-12-07] MEDS: VANCOMYCIN 1GM/200ML PREMIX 200 ML IV ONE (23:45)
--- NOTE | 2023-12-08 00:07 | DVH ---
CLINICAL HISTORY: altered TECHNIQUE: Helical imaging carried out from skull base to vertex without intravenous contrast. This e xam was performed according to our departmental dose optimization program. Up-to-date CT equipment an d radiation dose reduction techniques are utilized as appropriate. CTDIVol: [CTDIvol] mGy DLP: 1483.05 mGy-cm WID: COMPARISON: CT head from 11/11/2023 FINDINGS: Generalized cerebral volume loss with concordant prominence of the subarachnoid spaces and ventricles . There is mild patchy low attenuation in the cerebral white matter consistent with nonspecific white matter disease. Calcified plaque in the intracranial internal carotid and vertebral arteries. There is a small chronic left cerebellar infarct. There is a small chronic lacunar infarct in the right cau date head and anterior right basal ganglia. There is no midline shift or mass effect. The petty white matter interfaces are maintained. The basal cisterns are patent. There is no evidence of acute intracranial hemorrhage or extra-axial fluid justin ection. Small bilateral mastoid air cell effusions. There is mild paranasal sinus mucosal thickening and mucous retention cyst or polyps in the bilateral maxillary sinuses, larger on the right. The rica ent is edentulous in the maxilla. IMPRESSION: 1. No acute intracranial abnormality. 2. Generalized cerebral volume loss and mild chronic microvascular ischemic change 3. Chronic lacunar infarcts in the right caudate head and anterior right basal ganglia. 4. Small chronic left cerebellar infarct.
--- NOTE | 2023-12-08 00:18 | DVH ---
EXAM: XY CHEST PORTABLE CLINICAL HISTORY: altered mental status TECHNIQUE: Single AP view of the chest WID: COMPARISON: CTA chest from same day FINDINGS: Lines and tubes: There is a left-sided dual lead pacemaker in place. Prior median sternotomy and CAB G. Chest: Mild cardiomegaly with mild pulmonary vascular congestion. There are bilateral pleural effusions mode rate on the left. Patchy airspace opacities throughout the bilateral lungs also greater on the left. No pneumothorax. The osseous structures are grossly intact. Multilevel thoracic spondylosis. IMPRESSION: 1. Cardiomegaly and pulmonary vascular congestion. 2. Zxfe-[id number]-bopf-right pleural effusions and patchy opacities throughout the roxw-[id number]-[id number]-ri ght lungs which could reflect atelectasis.
[2023-12-08 00:45] LABS: Urine Bacteria MANY /hpf (None Seen); Urine Blood 1+ /uL (Negative); Urine Budding Yeast MODERATE /hpf (None Seen); Urine Clarity Turbid (Clear); Urine Color Light-Yellow (Yellow); Urine Mucus FEW (None Seen); Urine Protein, UAD 1+ (Negative); Urine Specific Gravity 1.033 (1.001-1.035); Urine Urobilinogen Normal (Negative); Urine WBC 127 /hpf (0 - 3); Urine WBC Clumps PRESENT /hpf (None Seen); Urine pH 5.5 (5.0-9.0)
[2023-12-08 00:48] LABS: Rapid Influenza A Negative (Negative)
[2023-12-08 00:52] LABS: INR 1.32 (0.9-1.15); Partial Thromboplastin Time 38.4 SEC (24.5-34.5); Prothrombin Time 13.7 sec (9.3-11.8)
[2023-12-08 00:54] LABS: COVID19 ANTIGEN SOFIA FIA POSITIVE (NEGATIVE); Rapid Influenza B Positive (Negative)
--- NOTE | 2023-12-08 00:56 | ECG ---
[facility] Test Date: 2023-12-07 Test Time: 23:15:18 Pat Name: MARIA VICTORIA ROJAS Department: ED Room: 0238T Gender: M Literacy Coach: IVÁN : 1945 Requested By: BABAK KNIGHT Order Number: [id number] Reading MD: Paul Machado Measurements Intervals Shanks Rate: 113 P: 35 MI: 142 QRS: 46 QRSD: 85 T: 257 QT: 328 QTc: 450 Interpretive Statements Sinus tachycardia Atrial premature complex Probable left atrial enlargement Nonspecific T abnormalities, diffuse leads Electronically Signed On 12-11-2023 14:27:32 PDT by Paul Machado Please click the below link to view image of tracing.
--- NOTE | 2023-12-08 01:54 | DVH ---
Patient Name: MARIA VICTORIA ROJAS Patient : 1945 Patient Gender: Male Patient Class: Inpatient Patient Location: [facility] Reading Location: [facility] Signed Date: 12/08/2023 Ord. Doc: BABAK KNIGHT DOS: 12/07/2023 Status: Draft Procedure: CT CT ANGIO CHEST CONTRAST CLINICAL HISTORY: r/o pe TECHNIQUE: CT angiogram of the chest was performed with intravenous contrast. ml of was administered intravenously. 3D MIP reconstructed images were created and archived on the PACS system. This exam was performed according to our departmental dose optimization program. Up-to-date CT equipment and radiation dose reduction techniques are utilized as appropriate. CTDI: [CTDIvol] DLP: WID: COMPARISON: None FINDINGS: Lower Neck: Unremarkable Axilla, Mediastinum and Eloisa: Unremarkable. Heart and Great Vessels: Unremarkable. Airway, Lungs and Pleura: Unremarkable. Chest Wall and Osseous Structures: Unremarkable. Upper abdomen: Unremarkable IMPRESSION: G TRINIDAD
[2023-12-08] MEDS: PIPERACILLIN-TAZO 4.5GM 100 ML IV SCH (06:00)
[2023-12-08] MEDS: PIPERACILLIN-TAZO 4.5GM 100 ML IV ONE (06:01)
--- NOTE | 2023-12-08 07:34 | DVHHP2 ---
Admitting Diagnosis: ALOC History of Present Illness Patient is a 78 year old male presenting to the ED with ALOC. Patient has a history of AFIB, angina, BPH, CABG, CAD, prostate CA, CHF, COPD, GERD, DMII with neuropathy, pacemaker, AL, atherosclerotic vascular disease, AAA and HLD. Patient is a resident from [facility] and EMS was called due to staff finding the pt in an altered state from his usal baseline of alert and oriented x3. Patient was not following commands nor was answering questions with EMS. Patient is stated on not having any known recent injuries, sick contact, travel, spoiled food intake, or substance use/exposure. Patient has no reported additional symptoms or modifiers at this time. While in the emergency department the patient was evaluated by the provider, Labs, vital signs, and imagining monitored. Patient will be admitted for further evaluation and treatment. I discussed admission with the patient/family and is in agreement to treatment plan. Patient Family History: Chronic obstructive lung disease (situation) G8 FATHER FH: liver cancer Family history: Cardiovascular disease G8 MOTHER Family history: Diabetes mellitus G8 MOTHER 19 CHILD Allergies: Coded Allergies: Morphine (Verified Allergy, Unknown, 12/21/18) Home Meds Reported Medications Carvedilol (Carvedilol) 6.25 Mg Tab, 6.25 MG PO BID, TAB 05/08/16 Ginkgo Biloba [place] (GINKGO BILOBA) 500 Mg Cap, 100 MG PO DAILY, CAP 11/10/15 Tamsulosin Hcl (Flomax) 0.4 Mg Cap, 0.4 MG PO QPM, CAP 11/10/15 [Nitrostat Sub 0.4MGNITROSTA] No Conflict Check, SL PRN 08/29/12 [Clonidine Hcl0.1 Mg] (Clonidine Hcl) 0.1 MG TAB No Conflict Check, MG PO DAILYPRN 08/29/12 Metformin Hydrochloride (Metformin Hcl) 500 Mg Tab, 2 TAB PO TWICE DAILY 02/22/12 [Aspirin Ec81 Mg] (Aspirin Ec) 81 MG TAB No Conflict Check, 81 MG PO DAILY, 0 Refills 02/22/12 [Enalapril Malea10 Mg] (Enalapril Maleate) 10 MG TAB No Conflict Check, 10 MG PO DAILY, 0 Refills 02/22/12 Famotidine (Acid Controller) 10 Mg Tab, PO DAILY 01/24/10 Gabapentin (Neurontin) 100 Mg Cap, 100 MG PO TID 09/08/09 Current Medications Current Medications Medications (Trade) Dose Ordered Sig/Evgeny Route PRN Reason Start Time Stop Time Status Last Admin Norepinephrine Bitartrate 250 ml @ 3.75 mls/hr Q24H IV 12/07/23 22:00 12/08/23 07:58 DC Vancomycin HCl 200 ml @ 200 mls/hr Q12HR IV 12/07/23 22:00 UNV Piperacillin Sod/ Tazobactam Sod 100 ml @ 25 mls/hr Q8HR IV 12/08/23 06:00 12/08/23 14:47 Nitroglycerin (Ntrostat Sublingual) 0.4 mg Q5MINP PRN SL FOR CHEST PAIN 12/07/23 22:00 Morphine Sulfate 2 mg Q30M PRN IV FOR CHEST PAIN 12/07/23 22:00 Ondansetron HCl (Zofran) 4 mg Q4HP PRN IV NAUSEA / VOMITING 12/08/23 07:45 Nitroglycerin (Ntrostat Sublingual) 0.4 mg Q5MINP PRN SL FOR CHEST PAIN 12/08/23 07:45 Morphine Sulfate 2 mg Q30M PRN IV FOR CHEST PAIN 12/08/23 07:45 12/08/23 08:46 DC Oseltamivir Phosphate (Tamiflu 75MG Capsule) 75 mg BID PO 12/08/23 10:00 12/13/23 09:59 12/08/23 10:04 Albuterol (Ventolin Hfa) 90 mcg TID IN 12/08/23 14:00 Hydromorphone HCl (Dilaudid Injection) 0.5 mg Q4HP PRN IV PAIN SCALE 7 THRU 10 12/08/23 08:15 Oxycodone/ Acetaminophen (Percocet 5/ 325MG Tablet) 1 tab Q4HP PRN PO MODERATE PAIN (4-6 PAIN SCALE) 12/08/23 08:15 12/08/23 14:53 Apixaban (Eliquis) 5 mg BID PO 12/08/23 10:00 12/08/23 10:03 Ferrous Sulfate 325 mg BID PO 12/08/23 10:00 12/08/23 10:03 Tamsulosin HCl (Flomax) 0.4 mg QPM PO 10/28/24 18:00 12/08/23 17:00 Enalapril Maleate (Vasotec Tablet) 10 mg DAILY PO 12/08/23 10:00 12/08/23 10:04 Carvedilol (Coreg Tablet) 6.25 mg BID PO 12/08/23 10:00 12/08/23 15:31 DC 12/08/23 10:05 Diagnostic Test (Pha) (Accu-Chek Comfort Curve T) 1 strip ACHS 12/08/23 11:30 12/08/23 16:53 Insulin Human Regular (InsuLIN R) HS SC 12/08/23 22:00 Insulin Human Regular (InsuLIN R) AC SC 12/08/23 11:30 12/08/23 13:02 Dextrose 50 ml UD PRN IV Blood Sugar LESS THAN 60 12/08/23 09:30 Vancomycin HCl 0 ml @ 0 mls/hr UD IV 12/08/23 10:15 Vancomycin HCl 150 ml @ 150 mls/hr Q12H IV 12/08/23 11:00 12/08/23 13:01 Polyethylene Glycol (Miralax 17GM Powder) 17 gm DAILY PO 12/09/23 10:00 Ascorbic Acid (Vitamin C Tablet) 500 mg DAILY PO 12/09/23 10:00 Cholecalciferol (Vitamin D3 Tablet) 1,000 unit DAILY PO 12/09/23 10:00 Zinc Sulfate 220 mg DAILY PO 12/09/23 10:00 Sucralfate (Carafate Susp) 1 gm QID@0600,1130,1700,2200 GT 12/08/23 17:00 12/08/23 17:00 Sodium Chloride 1,000 ml @ 100 mls/hr Q10H IV 12/08/23 12:30 12/08/23 13:03 Amiodarone HCl (Cordarone Tablet) 200 mg Q12HR PO 12/08/23 22:00 Metoprolol Succinate (Toprol Xl) 25 mg DAILY PO 12/09/23 10:00 Review of Systems Constitutional: denies chills, denies fever, denies malaise Eyes: denies eye pain, denies vision change ENT: denies ear pain, denies headache, denies nasal congestion, denies painful swallowing, denies voice change Cardiovascular: denies chest pain, denies edema, denies orthopnea, denies palpitations, denies paroxysmal nocturnal dyspnea Respiratory: denies cough, denies shortness of breath Gastrointestinal: denies constipation, denies diarrhea, denies nausea, denies vomiting Genitourinary: denies dysuria, denies frequent urination, denies urethral discharge Musculoskeletal: denies back pain, denies joint pain, denies muscle pain Skin: denies bruising, denies itching, denies rash Neurological: denies focal weakness, denies headache, denies sensory changes Psychiatric: denies anxiety, denies depression Endocrine: denies polydipsia, denies polyuria Hematologic/Lymphatic: denies easy bleeding, denies easy bruising, denies enlarged lymph nodes Allergic/Immunologic: denies allergy, denies hives Vital Signs Vital Signs Date Time Temp Pulse Resp B/P (MAP) Pulse Ox O2 Delivery O2 Flow Rate FiO2 12/08/23 16:00 95 12/08/23 16:00 19 121/63 (82) 95 12/08/23 14:07 97.8 3.0 32 97.8 12/08/23 14:00 Nasal Cannula* Physical Exam General Appearance: alert, no distress HEENT: EOMI, PERRLA, normal external inspect of ears, no icterus, no nasal drainage Neck: no carotid bruit, no jugular venous distention (JVD), no lymphadenopathy Chest: normal thorax Respiratory: clear to auscultation Cardiovascular: no diastolic murmur, no jugular venous distention (JVD), no rub, no systolic murmur Abdominal: soft, no hepatomegaly, no mass, no splenomegaly, no tenderness Genitourinary: grossly normal external Musculoskeletal: no joint tenderness, no swelling Extremities: normal pulses, no calf tenderness, no clubbing, no cyanosis, no edema Skin: no bruising, no jaundice, no rash Results Labs Test 12/08/23 16:56 12/08/23 16:29 12/08/23 00:10 12/08/23 00:02 Range/Units POC Glucose 76 70-106 mg/dl White Blood Count 5.5 4.4-10.8 10^3/uL Red Blood Count 3.09 L 4.5-5.90 10^6/uL Hemoglobin 8.7 L 13.5-17.5 g/dL Hematocrit 27.8 L 41.0-53.0 % Mean Corpuscular Volume 90.0 80.0-100.0 fL Mean Corpuscular Hemoglobin 28.2 28.0-32.0 pg Mean Corpuscular Hemoglobin Concent 31.3 L 32.0-36.0 g/dL Red Cell Distribution Width 18.4 H 11.8-14.3 % Platelet Count 211 140-450 10^3/uL Mean Platelet Volume 6.8 L 6.9-10.8 fL Neutrophils (%) (Auto) 37.0-80.0 % Lymphocytes (%) (Auto) 10.0-50.0 % Monocytes (%) (Auto) 0.0-12.0 % Basophils (%) (Auto) 0.0-2.0 % Neutrophils # (Auto) 1.6-8.6 10 ^3/uL Lymphocytes # (Auto) 0.4-5.4 10 ^3/uL Monocytes # (Auto) 0-1.3 10 ^3/uL Sodium Level 140 136-145 mmol/L Potassium Level 4.0 3.5-5.1 mmol/L Chloride Level 107 98-107 mmol/L Carbon Dioxide Level 23 20-31 mmol/L Anion Gap 10 5-15 Hemoglobin A1c 7.1 H <5.7 % A1C Calcium Level 7.8 L 8.7-10.4 mg/dL Prothrombin Time 13.7 H 9.3-11.8 sec Prothrombin Time INR 1.32 H 0.9-1.15 Activated Partial Thromboplast Time 38.4 H 24.5-34.5 SEC Lactic Acid Level 1.4 0.4-2.0 mmol/L Troponin I High Sensitivity 5 </=54 ng/L Influenza Type A Antigen Negative Negative Influenza Type B Antigen Positive Negative SARS-CoV-2 Antigen (Rapid) Positive *A NEGATIVE Test 12/07/23 23:54 12/07/23 21:01 Range/Units Urine Color Light-yellow Yellow Urine Clarity Turbid H Clear Urine pH 5.5 5.0-9.0 Urine Specific [place] 1.033 1.001-1.035 Urine Protein 1+ H Negative Urine Ketones Trace Negative Urine Blood 1+ H Negative /uL Urine Nitrite Negative Negative Urine Bilirubin Negative Negative Urine Urobilinogen Normal Negative mg/dL Urine Leukocyte Esterase 3+ Negative /uL Urine RBC 9 0 - 3 /hpf Urine WBC 127 0 - 3 /hpf Urine WBC Clumps Present None Seen /hpf Urine Squamous Epithelial Cells Few <5 /hpf Urine Bacteria Many H None Seen /hpf Urine Mucus Few None Seen Urine Yeast (Budding) Moderate None Seen /hpf Urine Glucose Normal Normal mg/dL Anisocytosis (manual) Slight Total Bilirubin 0.4 0.2-1.0 mg/dL Aspartate Amino Transferase (AST) 34 13-40 U/L Alanine Aminotransferase (ALT) 9 7-40 U/L Alkaline Phosphatase 315 H 46-116 U/L B-Type Natriuretic Peptide 288.16 0-100 pg/mL Total Protein 6.4 5.7-8.2 g/dL Albumin 3.5 3.2-4.8 g/dL Plasma/Serum Blood Alcohol < 3.0 <10 mg/dL Admitting Diagnosis: 1. Severe sepsis ID Consult, meds 2. Septic Shock ID consult 3. Paroxysmal AFIB Cardiology Consult 4. CAD Cardiology consult 5. Prostate cancer with mets to bone Medication, monitoring 6. HX of CABG Cardiology consult 7. Chronic Anticoagulation Medication, monitoring 8. Anemia of chronic disease Supplemental O2 9. Influenza B Restart Home meds 10. COVID 19 Covid trial meds, Monitoring 11. DMI w/ neuropathy Insulin Sliding Scale 12. Metabolic Encephalopathy neurology consult Plan discussed with: Patient, Other ALEXYS DAIGLE NP Dec 08, 2023 07:34
[2023-12-08] MEDS ORDERED: NITROGLYCERIN 0.4 MG SL TAB SL PRN (07:45)
[2023-12-08] MEDS ORDERED: MORPHINE SULFATE INJ 2 MG/ml SYRG IV PRN (07:45)
[2023-12-08] MEDS ORDERED: ACCU-CHEK COMFORT CURVE STRIP VI ONE (08:30)
[2023-12-08] MEDS ORDERED: DEXTROSE (50%) 50ML SYRG IV ONE (08:30)
[2023-12-08] MEDS: InsuLIN REG 1unit/0.01ml Soln (100units/ml) SC ONE (09:26)
[2023-12-08] MEDS ORDERED: DEXTROSE (50%) 50ML SYRG IV PRN (09:30)
[2023-12-08] MEDS: APIXABAN 5 MG TAB PO SCH (10:03)
[2023-12-08] MEDS: FERROUS SULFATE 325mg EC TAB PO SCH (10:03)
[2023-12-08] MEDS: OSELTAMIVIR 75 MG CAP PO SCH (10:04)
[2023-12-08] MEDS: PANTOPRAZOLE 40 MG TAB PO ONE (10:04)
[2023-12-08] MEDS: ENALAPRIL MALEATE 10 MG TAB PO SCH (10:04)
[2023-12-08] MEDS: CARVEDILOL 3.125 MG TAB PO SCH (10:05)
[2023-12-08] MEDS ORDERED: VANCOMYCIN PER PHARMACY 0 MG IV SCH (10:15)
[2023-12-08] MEDS: ACCU-CHEK COMFORT CURVE STRIP VI SCH (11:30)
[2023-12-08] MEDS: VANCOMYCIN 750mg/150ml 150 ML IV SCH (13:01)
[2023-12-08] MEDS: InsuLIN REG 1unit/0.01ml Soln (100units/ml) SC SCH (13:02)
[2023-12-08] MEDS: SODIUM CHLORIDE 0.9% 1,000 ML IV SCH (13:03)
[2023-12-08 14:00] VITALS: O2SAT 98
[2023-12-08] MEDS: ALBUTEROL SULF HFA 90MCG INH 200DOSE IN SCH (14:00)
[2023-12-08 14:07] VITALS: PULSE 106; RESP 18; TEMP 97.8; O2SAT 98
[2023-12-08] MEDS: OXYCODONE W/ ACETAMINOPHEN 5/325MG TABLET PO PRN (14:53)
--- NOTE | 2023-12-08 15:32 | DVHINCON2 ---
Date Seen: Dec 08, 2023 Referring Physician NIKOLAI Bowling Reason for Consultation Tachycardia, hx of Afib History of Present Illness This is a 78-year-old male patient who presents to the emergency room for chief complaint of altered level mentation. The patient was brought in from [facility] when the staff noticed that the patient was altered. EMS was called and the patient was brought to the emergency room. Cardiology has now been consulted for sinus tachycardia with a history of atrial fibrillation. Initial twelve lead electrocardiogram reveals sinus tachycardia with nonspecific ST depression to anterolateral leads and prolonged QTc at 510. The patient denies any cardiac symptoms such as chest pain, palpitations, or shortness of breath at time of assessment. Serial troponin levels have been negative. At the time of assessment, the patient alert and oriented to self and place only. Past medical history obtained from patient's medical records. Significant past medical history includes severe coronary artery disease s/p triple-vessel CABG in 2011, hypertension, paroxysmal atrial fibrillation (on Eliquis and Amiodarone), AAA repair, presence of permanent pacemaker (Medtronic), type 2 diabetes mellitus, BPH, and prostate cancer with metastasis to bones. Patient reports he sees harmonica maker in the outpatient setting. Of note, the patient was found to be positive for influenza type B and COVID on this admission. Past Medical History Past medical history reviewed. No other significant than mentioned above. Past Surgical History Triple-vessel CABG in 2011 Permanent pacemaker (Medtronic) Family History: Chronic obstructive lung disease (situation) G8 FATHER FH: liver cancer Family history: Cardiovascular disease G8 MOTHER Family history: Diabetes mellitus G8 MOTHER 19 CHILD Family History Family history reviewed. Social History Denies the use of tobacco, alcohol or illicit drugs. Allergies: Coded Allergies: Morphine (Verified Allergy, Unknown, 12/21/18) Home Meds Reported Medications Carvedilol (Carvedilol) 6.25 Mg Tab, 6.25 MG PO BID, TAB 05/08/16 Ginkgo Biloba [place] (GINKGO BILOBA) 500 Mg Cap, 100 MG PO DAILY, CAP 11/10/15 Tamsulosin Hcl (Flomax) 0.4 Mg Cap, 0.4 MG PO QPM, CAP 11/10/15 [Nitrostat Sub 0.4MGNITROSTA] No Conflict Check, SL PRN 08/29/12 [Clonidine Hcl0.1 Mg] (Clonidine Hcl) 0.1 MG TAB No Conflict Check, MG PO DAILYPRN 08/29/12 Metformin Hydrochloride (Metformin Hcl) 500 Mg Tab, 2 TAB PO TWICE DAILY 02/22/12 [Aspirin Ec81 Mg] (Aspirin Ec) 81 MG TAB No Conflict Check, 81 MG PO DAILY, 0 Refills 02/22/12 [Enalapril Malea10 Mg] (Enalapril Maleate) 10 MG TAB No Conflict Check, 10 MG PO DAILY, 0 Refills 02/22/12 Famotidine (Acid Controller) 10 Mg Tab, PO DAILY 01/24/10 Gabapentin (Neurontin) 100 Mg Cap, 100 MG PO TID 09/08/09 Home Meds Home medications reviewed. Current Medications Current Medications Medications (Trade) Dose Ordered Sig/Evgeny Route PRN Reason Start Time Stop Time Status Last Admin Norepinephrine Bitartrate 250 ml @ 3.75 mls/hr Q24H IV 12/07/23 22:00 12/08/23 07:58 DC Vancomycin HCl 200 ml @ 200 mls/hr Q12HR IV 12/07/23 22:00 UNV Piperacillin Sod/ Tazobactam Sod 100 ml @ 25 mls/hr Q8HR IV 12/08/23 06:00 12/08/23 14:47 Nitroglycerin (Ntrostat Sublingual) 0.4 mg Q5MINP PRN SL FOR CHEST PAIN 12/07/23 22:00 Morphine Sulfate 2 mg Q30M PRN IV FOR CHEST PAIN 12/07/23 22:00 Ondansetron HCl (Zofran) 4 mg Q4HP PRN IV NAUSEA / VOMITING 12/08/23 07:45 Nitroglycerin (Ntrostat Sublingual) 0.4 mg Q5MINP PRN SL FOR CHEST PAIN 12/08/23 07:45 Morphine Sulfate 2 mg Q30M PRN IV FOR CHEST PAIN 12/08/23 07:45 12/08/23 08:46 DC Oseltamivir Phosphate (Tamiflu 75MG Capsule) 75 mg BID PO 12/08/23 10:00 12/13/23 09:59 12/08/23 10:04 Albuterol (Ventolin Hfa) 90 mcg TID IN 12/08/23 14:00 Hydromorphone HCl (Dilaudid Injection) 0.5 mg Q4HP PRN IV PAIN SCALE 7 THRU 10 12/08/23 08:15 Oxycodone/ Acetaminophen (Percocet 5/ 325MG Tablet) 1 tab Q4HP PRN PO MODERATE PAIN (4-6 PAIN SCALE) 12/08/23 08:15 Apixaban (Eliquis) 5 mg BID PO 12/08/23 10:00 12/08/23 10:03 Ferrous Sulfate 325 mg BID PO 12/08/23 10:00 12/08/23 10:03 Tamsulosin HCl (Flomax) 0.4 mg QPM PO 12/08/23 18:00 Enalapril Maleate (Vasotec Tablet) 10 mg DAILY PO 12/08/23 10:00 12/08/23 10:04 Carvedilol (Coreg Tablet) 6.25 mg BID PO 12/08/23 10:00 12/08/23 10:05 Diagnostic Test (Pha) (Accu-Chek Comfort Curve T) 1 strip ACHS 12/08/23 11:30 12/08/23 11:30 Insulin Human Regular (InsuLIN R) HS SC 12/08/23 22:00 Insulin Human Regular (InsuLIN R) AC SC 12/08/23 11:30 12/08/23 13:02 Dextrose 50 ml UD PRN IV Blood Sugar LESS THAN 60 12/08/23 09:30 Vancomycin HCl 0 ml @ 0 mls/hr UD IV 12/08/23 10:15 Vancomycin HCl 150 ml @ 150 mls/hr Q12H IV 12/08/23 11:00 12/08/23 13:01 Polyethylene Glycol (Miralax 17GM Powder) 17 gm DAILY PO 12/09/23 10:00 Ascorbic Acid (Vitamin C Tablet) 500 mg DAILY PO 12/09/23 10:00 Cholecalciferol (Vitamin D3 Tablet) 1,000 unit DAILY PO 12/09/23 10:00 Zinc Sulfate 220 mg DAILY PO 12/09/23 10:00 Sucralfate (Carafate Susp) 1 gm QID@0600,1130,1700,2200 GT 12/08/23 17:00 Sodium Chloride 1,000 ml @ 100 mls/hr Q10H IV 12/08/23 12:30 12/08/23 13:03 Review of Systems Constitutional: No symptom reported Ears, Nose, & Throat: No symptom reported Eyes: No symptom reported Neurological: Altered level of mentation Pulmonary/Respiratory: No symptoms reported Cardiovascular: No symptom reported Gastrointestinal: No symptom reported Genitourinary: No symptom reported Musculoskeletal: No symptom reported Skin: No symptom reported Psychiatric: No symptom reported Endocrine: No symptom reported Hematologic/Lymphatic: No symptom reported Vital Signs Vital Signs Date Time Temp Pulse Resp B/P (MAP) Pulse Ox O2 Delivery O2 Flow Rate FiO2 12/08/23 12:07 110 135/60 12/08/23 12:00 18 98 12/08/23 08:00 97.8 97.8 12/08/23 07:20 Nasal Cannula* 3 32 Physical Exam General Appearance: Cooperative. Well-developed. Well-nourished. No acute distress. Pulmonary/Respiratory: Diminished bilateral lower lobes. Cardiovascular/Chest: Regular rate and rhythm. Peripheral Pulses: 2+ Radial (R). 2+ Radial (L). 2+ Pedal (R). 2+ Pedal (L) Abdominal Exam: Normal bowel sounds. Ankle Exam: Negative ankle edema Lower extremities: Negative lower extremity edema Neuro/Mental Status: A/OX2, confused Thoughts/Psych: Appropriate mood and affect Appearance: No acute distress. Skin Exam: Normal inspection. Normal color. Warm and dry. Labs/Diagnostic Data Labs Test 12/08/23 00:10 12/08/23 00:02 12/07/23 23:54 12/07/23 21:01 Range/Units Prothrombin Time 13.7 H 9.3-11.8 sec Prothrombin Time INR 1.32 H 0.9-1.15 Activated Partial Thromboplast Time 38.4 H 24.5-34.5 SEC Lactic Acid Level 1.4 0.4-2.0 mmol/L Troponin I High Sensitivity 5 </=54 ng/L Influenza Type A Antigen Negative Negative Influenza Type B Antigen Positive Negative SARS-CoV-2 Antigen (Rapid) Positive *A NEGATIVE Urine Color Light-yellow Yellow Urine Clarity Turbid H Clear Urine pH 5.5 5.0-9.0 Urine Specific [place] 1.033 1.001-1.035 Urine Protein 1+ H Negative Urine Ketones Trace Negative Urine Blood 1+ H Negative /uL Urine Nitrite Negative Negative Urine Bilirubin Negative Negative Urine Urobilinogen Normal Negative mg/dL Urine Leukocyte Esterase 3+ Negative /uL Urine RBC 9 0 - 3 /hpf Urine WBC 127 0 - 3 /hpf Urine WBC Clumps Present None Seen /hpf Urine Squamous Epithelial Cells Few <5 /hpf Urine Bacteria Many H None Seen /hpf Urine Mucus Few None Seen Urine Yeast (Budding) Moderate None Seen /hpf Urine Glucose Normal Normal mg/dL White Blood Count 5.5 4.4-10.8 10^3/uL Red Blood Count 2.93 L 4.5-5.90 10^6/uL Hemoglobin 8.3 L 13.5-17.5 g/dL Hematocrit 26.2 L 41.0-53.0 % Mean Corpuscular Volume 89.3 80.0-100.0 fL Mean Corpuscular Hemoglobin 28.4 28.0-32.0 pg Mean Corpuscular Hemoglobin Concent 31.7 L 32.0-36.0 g/dL Red Cell Distribution Width 18.1 H 11.8-14.3 % Platelet Count 220 140-450 10^3/uL Mean Platelet Volume 6.7 L 6.9-10.8 fL Neutrophils (%) (Auto) 37.0-80.0 % Lymphocytes (%) (Auto) 10.0-50.0 % Monocytes (%) (Auto) 0.0-12.0 % Basophils (%) (Auto) 0.0-2.0 % Neutrophils # (Auto) 1.6-8.6 10 ^3/uL Lymphocytes # (Auto) 0.4-5.4 10 ^3/uL Monocytes # (Auto) 0-1.3 10 ^3/uL Differential Total Cells Counted 100.0 100 Neutrophils % (Manual) 72 37.0-80.0 Band Neutrophils % (Manual) 2 Lymphocytes % (Manual) 19 10.0-50.0 Monocytes % (Manual) 7 0-12 Eosinophils % (Manual) 0 0-7 Basophils % (Manual) 0 0.0-2.0 Metamyelocytes % (manual) 0 Myelocytes % (Manual) 0 Promyelocytes % (Manual) 0 Blast Cells % (Manual) 0 Reactive Lymphocytes 0 Platelet Estimate Adequate Anisocytosis (manual) Slight Sodium Level 136 136-145 mmol/L Potassium Level 5.3 H 3.5-5.1 mmol/L Chloride Level 105 98-107 mmol/L Carbon Dioxide Level 23 20-31 mmol/L Anion Gap 8 5-15 Blood Urea Nitrogen 20 9-23 mg/dL Creatinine 0.70 0.700-1.30 mg/dL Glomerular Filtration Rate Calc 94 >90 mL/min BUN/Creatinine Ratio 28.6 H 10.0-20.0 Serum Glucose 177 H 74-106 mg/dL Calcium Level 8.3 L 8.7-10.4 mg/dL Total Bilirubin 0.4 0.2-1.0 mg/dL Aspartate Amino Transferase (AST) 34 13-40 U/L Alanine Aminotransferase (ALT) 9 7-40 U/L Alkaline Phosphatase 315 H 46-116 U/L B-Type Natriuretic Peptide 288.16 0-100 pg/mL Total Protein 6.4 5.7-8.2 g/dL Albumin 3.5 3.2-4.8 g/dL Plasma/Serum Blood Alcohol < 3.0 <10 mg/dL Assessment Sinus tachycardia likely secondary to COVID and influenza B Severe coronary artery disease status post triple-vessel CABG Rule out structural heart disease Paroxysmal atrial fibrillation, Stage 3A(on Eliquis and Amiodarone) Hypertension AAA repair Type 2 diabetes mellitus Prostate cancer with metastasis to bones Plan/Recommendation We will continue with the following plan/recommendations (Dr. Bass): We will proceed with obtaining a transthoracic echocardiogram to evaluate cardiac function. Sinus tachycardia likely secondary to confirmed COVID and influenza B infection. We will recommend to treat the underlying cause of tachycardia. We will also reinitiate patient's Eliquis, amiodarone, and metoprolol for paroxysmal atrial fibrillation. Continue single antiplatelet therapy and lipid-lowering agent. In the setting of an unremarkable transthoracic echocardiogram, there is no further inpatient cardiac workup indicated at this time. Patient to follow up with his primary harmonica maker Dr. Camejo in the outpatient setting in 1-2 weeks post discharge. Thank you for allowing us to care for this patient. Please call with any questions or concerns. Critical care time spent: 40 minutes This medical document was created using an electronic medical record system with voice recognition software and computerized dictation system. Although this document has been carefully reviewed, there might still be some phonetic and typographical errors. Occasional wrong-word or ``sound-alike substitutions may have occurred due to the inherent limitations of voice recognition software. These areas are purely typographical due to imperfections of the software programs and do not reflect any compromise in the patient's medical care. Please read the chart carefully and recognize, using context, where these substitutions have occurred. Plan discussed with: Patient, Other (Bedside RN) Date of Service: Dec 08, 2023 Billing Provider: FELICIA BASS MD Cardiology Common Codes: [id number] INP/OBS CARE (High) AMISHA MAIER SENIOR PROCESS ENGINEER Dec 08, 2023 15:32
[2023-12-08] MEDS: TAMSULOSIN HYDROCHLORIDE 0.4 MG CAP PO SCH (17:00)
[2023-12-08] MEDS: SUCRALFATE 1 GM/10 ML ORAL SUSP GT SCH (17:00)
[2023-12-08 17:02] LABS: Hematocrit 27.8 % (41.0-53.0); Hemoglobin 8.7 g/dL (13.5-17.5); Mean Corpuscular Hemoglobin 28.2 pg (28.0-32.0); Mean Corpuscular Hgb Conc. 31.3 g/dL (32.0-36.0); Platelet Count (auto) 211 10^3/uL (140-450); Red Blood Cells 3.09 10^6/uL (4.5-5.90); Red Cell Distribution Width 18.4 % (11.8-14.3); White Blood Cell 5.5 10^3/uL (4.4-10.8)
[2023-12-08 17:18] LABS: Chloride 107 mmol/L (98-107); Sodium 140 mmol/L (136-145)
[2023-12-08 17:19] LABS: Anion Gap 10 (5-15); Basophils % (manual) 0 (0.0-2.0); Blast Cells 0; Calcium 7.8 mg/dL (8.7-10.4); Carbon Dioxide 23 mmol/L (20-31); Myelocytes % 0; Promyelocytes % 0; Reactive Lymphocytes 0
[2023-12-08 17:24] LABS: BUN/Creatinine Ratio 23.6 (10.0-20.0); Blood Urea Nitrogen 13 mg/dL (9-23); Glucose 85 mg/dL (74-106)
[2023-12-08 17:25] LABS: Magnesium 1.7 mg/dL (1.6-2.6)
[2023-12-08 17:51] LABS: Band Neutrophils % (manual) 8; Eosinophils % (manual) 1 (0-7); Lymphocytes % (manual) 11 (10.0-50.0); Metamyelocytes % 2; Monocytes % (manual) 9 (0-12); Platelet Estimate Adequate
[2023-12-08 17:57] LABS: Triglycerides 117 mg/dL (< 150)
[2023-12-08 17:58] LABS: LDL Cholesterol 89 mg/dL (< 100)
[2023-12-08 17:59] LABS: Cholesterol 141 mg/dL (< 200); HDL Cholesterol 29 mg/dL (40-59)
[2023-12-08 19:40] VITALS: PULSE 94; RESP 14; O2SAT 97
--- NOTE | 2023-12-08 20:31 | DVHINCON2 ---
Date of service: Dec 08, 2023 Referring Physician Deyanira Reason for Consultation metabolic encephalopathy History of Present Illness Mr. Cash is a 78 years old gentleman with a history of hypertension, diabetes, dyslipidemia, coronary artery disease, heart attack, atrial fibrillation, congestive heart failure, AAA, peripheral vascular disease, COPD, anxiety, prostate cancer, BPH, he was admitted to the [facility] on 12/07 23 with a chief company of altered mental status, at that time, the patient was is awake, oriented to person, place, he knows year, but is a poor historian. He said he was here because somebody send him to the hospital. According to ER documentation, the patient was was found to be more mentally altered compared to his baseline, which was oriented x3, in addition, the patient was found to be hypotensive since the morning on 12/07/23, EMS personnel reported the patient was oriented x1 only. He reports a lot of pain in the left ankle, knee and hip, with the hip more affected as a result, he does not want to move the left leg In the ER, the patient was found to have COVID-19, UTI [phone], not in service, , no answer, it is an office number SARS-CoV-2 antigen, 12/08/2023: Positive UDS, 12/07/2023: Plasma alcohol, normal Urinalysis, 12/07/2023: WBC: 127/urine leukocyte esterase: 3+ WBC/HB/PLT/MCV, 12/08/2023: 5.5/8.7/211/90 PT/INR/PTT, 12/08/2023: 13.7/1.32/38.4 HGB A1c, 12/08/2023: 7.1 Liver function tests, 12/07/2023: Unremarkable TG/HDL/LDL/HDL, 12/08/2023: 117/141/89/29 TSH, 12/08/2023: 0.6 CT head, 12/08/2023: 1. No acute intracranial abnormality. 2. Generalized cerebral volume loss and mild chronic microvascular ischemic change 3. Chronic lacunar infarcts in the right caudate head and anterior right basal ganglia. 4. Small chronic left cerebellar infarct. Past Medical History Hypertension, diabetes, dyslipidemia, coronary artery disease, heart attack, atrial fibrillation, congestive heart failure, AAA, peripheral vascular disease, COPD, GERD, anxiety, prostate cancer, BPH Past Surgical History Appendectomy, CABG, hernia repair, pacemaker insertion, tonsillectomy, aorta aneurysm repair, gastric bypass, right hip surgery Family History: Chronic obstructive lung disease (situation) G8 FATHER FH: liver cancer Family history: Cardiovascular disease G8 MOTHER Family history: Diabetes mellitus G8 MOTHER 19 CHILD Family History Diabetes, heart disease, liver cancer Social History Smoker: Non-Smoker Alcohol: Denies ETOH Use Drugs: Denies Drug Use Lives In: Detention Allergies: Coded Allergies: Morphine (Verified Allergy, Unknown, 12/21/18) Home Meds Reported Medications Carvedilol (Carvedilol) 6.25 Mg Tab, 6.25 MG PO BID, TAB 05/08/16 Ginkgo Biloba [place] (GINKGO BILOBA) 500 Mg Cap, 100 MG PO DAILY, CAP 11/10/15 Tamsulosin Hcl (Flomax) 0.4 Mg Cap, 0.4 MG PO QPM, CAP 11/10/15 [Nitrostat Sub 0.4MGNITROSTA] No Conflict Check, SL PRN 08/29/12 [Clonidine Hcl0.1 Mg] (Clonidine Hcl) 0.1 MG TAB No Conflict Check, MG PO DAILYPRN 08/29/12 Metformin Hydrochloride (Metformin Hcl) 500 Mg Tab, 2 TAB PO TWICE DAILY 02/22/12 [Aspirin Ec81 Mg] (Aspirin Ec) 81 MG TAB No Conflict Check, 81 MG PO DAILY, 0 Refills 02/22/12 [Enalapril Malea10 Mg] (Enalapril Maleate) 10 MG TAB No Conflict Check, 10 MG PO DAILY, 0 Refills 02/22/12 Famotidine (Acid Controller) 10 Mg Tab, PO DAILY 01/24/10 Gabapentin (Neurontin) 100 Mg Cap, 100 MG PO TID 09/08/09 Current Medications Current Medications Medications (Trade) Dose Ordered Sig/Evgeny Route PRN Reason Start Time Stop Time Status Last Admin Norepinephrine Bitartrate 250 ml @ 3.75 mls/hr Q24H IV 12/07/23 22:00 12/08/23 07:58 DC Vancomycin HCl 200 ml @ 200 mls/hr Q12HR IV 12/07/23 22:00 UNV Piperacillin Sod/ Tazobactam Sod 100 ml @ 25 mls/hr Q8HR IV 12/08/23 06:00 12/08/23 14:47 Nitroglycerin (Ntrostat Sublingual) 0.4 mg Q5MINP PRN SL FOR CHEST PAIN 12/07/23 22:00 Morphine Sulfate 2 mg Q30M PRN IV FOR CHEST PAIN 12/07/23 22:00 Ondansetron HCl (Zofran) 4 mg Q4HP PRN IV NAUSEA / VOMITING 12/08/23 07:45 Nitroglycerin (Ntrostat Sublingual) 0.4 mg Q5MINP PRN SL FOR CHEST PAIN 12/08/23 07:45 Morphine Sulfate 2 mg Q30M PRN IV FOR CHEST PAIN 12/08/23 07:45 12/08/23 08:46 DC Oseltamivir Phosphate (Tamiflu 75MG Capsule) 75 mg BID PO 12/08/23 10:00 12/13/23 09:59 12/08/23 10:04 Albuterol (Ventolin Hfa) 90 mcg TID IN 12/08/23 14:00 Hydromorphone HCl (Dilaudid Injection) 0.5 mg Q4HP PRN IV PAIN SCALE 7 THRU 10 12/08/23 08:15 Oxycodone/ Acetaminophen (Percocet 5/ 325MG Tablet) 1 tab Q4HP PRN PO MODERATE PAIN (4-6 PAIN SCALE) 12/08/23 08:15 12/08/23 14:53 Apixaban (Eliquis) 5 mg BID PO 12/08/23 10:00 12/08/23 10:03 Ferrous Sulfate 325 mg BID PO 12/08/23 10:00 12/08/23 10:03 Tamsulosin HCl (Flomax) 0.4 mg QPM PO 12/08/23 18:00 12/08/23 17:00 Enalapril Maleate (Vasotec Tablet) 10 mg DAILY PO 12/08/23 10:00 12/08/23 10:04 Carvedilol (Coreg Tablet) 6.25 mg BID PO 12/08/23 10:00 12/08/23 15:31 DC 12/08/23 10:05 Diagnostic Test (Pha) (Accu-Chek Comfort Curve T) 1 strip ACHS 12/08/23 11:30 12/08/23 16:53 Insulin Human Regular (InsuLIN R) HS SC 12/08/23 22:00 Insulin Human Regular (InsuLIN R) AC SC 12/08/23 11:30 12/08/23 13:02 Dextrose 50 ml UD PRN IV Blood Sugar LESS THAN 60 12/08/23 09:30 Vancomycin HCl 0 ml @ 0 mls/hr UD IV 12/08/23 10:15 Vancomycin HCl 150 ml @ 150 mls/hr Q12H IV 12/08/23 11:00 12/08/23 13:01 Polyethylene Glycol (Miralax 17GM Powder) 17 gm DAILY PO 12/09/23 10:00 Ascorbic Acid (Vitamin C Tablet) 500 mg DAILY PO 12/09/23 10:00 Cholecalciferol (Vitamin D3 Tablet) 1,000 unit DAILY PO 12/09/23 10:00 Zinc Sulfate 220 mg DAILY PO 12/09/23 10:00 Sucralfate (Carafate Susp) 1 gm QID@0600,1130,1700,2200 GT 12/08/23 17:00 12/08/23 17:00 Sodium Chloride 1,000 ml @ 100 mls/hr Q10H IV 12/08/23 12:30 12/08/23 13:03 Amiodarone HCl (Cordarone Tablet) 200 mg Q12HR PO 12/08/23 22:00 Metoprolol Succinate (Toprol Xl) 25 mg DAILY PO 12/09/23 10:00 Atorvastatin Calcium (Lipitor) 40 mg HS PO 12/08/23 22:00 Review of Systems Unobtainable Vital Signs Vital Signs Date Time Temp Pulse Resp B/P (MAP) Pulse Ox O2 Delivery O2 Flow Rate FiO2 12/08/23 18:00 93 17 119/55 (76) 95 12/08/23 14:07 97.8 3.0 32 97.8 12/08/23 14:00 Nasal Cannula* Physical Exam GENERAL EXAM: General: the patient is well developed and nourished. No acute distress. HEENT: Normocephalic, neck is supple, no carotid bruits. No mass. RESPIRATORY: Normal respiratory effort with symmetrical lung expansion. Lungs clear to auscultation. CARDIOVASCULAR: Regular rate and rhythm with no murmurs. S1, S2. ABDOMEN: Soft, nontender, normal bowel sound Tenderness in the left hip, knee and ankle NEUROLOGICAL: MENTAL STATUS: Awake and alert. Oriented to person, place, he knows year, poor historian SPEECH, LANGUAGE, HIGHER CORTICAL FUNCTION: no aphasia or dysathria. CRANIAL NERVES: #2: Intact visual piper to confrontation. The optic discs were sharp. #3,4,6: Pupils are equal, round and reactive. EOMs full and conjugate. No nystagmus. #5: Facial sensation intact in all three divisions bilaterally. Mandibular strength intact. #7: Facial muscles symmetrical and strength intact. #8: Hearing grossly normal to voice. #9,10: Uvula and soft palate rise in the midline. Swallow and voice are normal. #11: Trapezius and sternomastoid strength intact bilaterally. #12: Tongue midline. No fasciculations or atrophy. SENSATION: Sensation to touch and pinprick is normal. MOTOR: Normal tone in the upper and lower extremity. Normal muscle bulk. No fasciculations. No abnormal movements or posturing. Muscle strength of the major groups in the upper extremities is 5/5. Muscle strength of the major groups in the lower extremities is: Rt: 4/5, Lt: 2/5. REFLEXES: Deep tendon reflexes are symmetrical. No pathological reflexes. CEREBELLAR/COORDINATION: Finger to nose and heel to becerra are normal bilaterally. GAIT/STATION: deferred. Labs/Diagnostic Data Labs Test 12/08/23 16:56 12/08/23 16:29 12/08/23 00:10 12/08/23 00:02 Range/Units POC Glucose 76 70-106 mg/dl White Blood Count 5.5 4.4-10.8 10^3/uL Red Blood Count 3.09 L 4.5-5.90 10^6/uL Hemoglobin 8.7 L 13.5-17.5 g/dL Hematocrit 27.8 L 41.0-53.0 % Mean Corpuscular Volume 90.0 80.0-100.0 fL Mean Corpuscular Hemoglobin 28.2 28.0-32.0 pg Mean Corpuscular Hemoglobin Concent 31.3 L 32.0-36.0 g/dL Red Cell Distribution Width 18.4 H 11.8-14.3 % Platelet Count 211 140-450 10^3/uL Mean Platelet Volume 6.8 L 6.9-10.8 fL Neutrophils (%) (Auto) 37.0-80.0 % Lymphocytes (%) (Auto) 10.0-50.0 % Monocytes (%) (Auto) 0.0-12.0 % Basophils (%) (Auto) 0.0-2.0 % Neutrophils # (Auto) 1.6-8.6 10 ^3/uL Lymphocytes # (Auto) 0.4-5.4 10 ^3/uL Monocytes # (Auto) 0-1.3 10 ^3/uL Differential Total Cells Counted 100.0 100 Neutrophils % (Manual) 69 37.0-80.0 Band Neutrophils % (Manual) 8 Lymphocytes % (Manual) 11 10.0-50.0 Monocytes % (Manual) 9 0-12 Eosinophils % (Manual) 1 0-7 Basophils % (Manual) 0 0.0-2.0 Metamyelocytes % (manual) 2 Myelocytes % (Manual) 0 Promyelocytes % (Manual) 0 Blast Cells % (Manual) 0 Reactive Lymphocytes 0 Platelet Estimate Adequate Sodium Level 140 136-145 mmol/L Potassium Level 4.0 3.5-5.1 mmol/L Chloride Level 107 98-107 mmol/L Carbon Dioxide Level 23 20-31 mmol/L Anion Gap 10 5-15 Blood Urea Nitrogen 13 9-23 mg/dL Creatinine 0.55 L 0.700-1.30 mg/dL Glomerular Filtration Rate Calc 101 >90 mL/min BUN/Creatinine Ratio 23.6 H 10.0-20.0 Serum Glucose 85 74-106 mg/dL Hemoglobin A1c 7.1 H <5.7 % A1C Calcium Level 7.8 L 8.7-10.4 mg/dL Magnesium Level 1.7 1.6-2.6 mg/dL Triglycerides Level 117 < 150 mg/dL Cholesterol Level 141 < 200 mg/dL LDL Cholesterol 89 < 100 mg/dL HDL Cholesterol 29 L 40-59 mg/dL Thyroid Stimulating Hormone (TSH) 0.60 0.55-4.78 uIU/mL Prothrombin Time 13.7 H 9.3-11.8 sec Prothrombin Time INR 1.32 H 0.9-1.15 Activated Partial Thromboplast Time 38.4 H 24.5-34.5 SEC Lactic Acid Level 1.4 0.4-2.0 mmol/L Troponin I High Sensitivity 5 </=54 ng/L Influenza Type A Antigen Negative Negative Influenza Type B Antigen Positive Negative SARS-CoV-2 Antigen (Rapid) Positive *A NEGATIVE Test 12/07/23 23:54 12/07/23 21:01 Range/Units Urine Color Light-yellow Yellow Urine Clarity Turbid H Clear Urine pH 5.5 5.0-9.0 Urine Specific [place] 1.033 1.001-1.035 Urine Protein 1+ H Negative Urine Ketones Trace Negative Urine Blood 1+ H Negative /uL Urine Nitrite Negative Negative Urine Bilirubin Negative Negative Urine Urobilinogen Normal Negative mg/dL Urine Leukocyte Esterase 3+ Negative /uL Urine RBC 9 0 - 3 /hpf Urine WBC 127 0 - 3 /hpf Urine WBC Clumps Present None Seen /hpf Urine Squamous Epithelial Cells Few <5 /hpf Urine Bacteria Many H None Seen /hpf Urine Mucus Few None Seen Urine Yeast (Budding) Moderate None Seen /hpf Urine Glucose Normal Normal mg/dL Anisocytosis (manual) Slight Total Bilirubin 0.4 0.2-1.0 mg/dL Aspartate Amino Transferase (AST) 34 13-40 U/L Alanine Aminotransferase (ALT) 9 7-40 U/L Alkaline Phosphatase 315 H 46-116 U/L B-Type Natriuretic Peptide 288.16 0-100 pg/mL Total Protein 6.4 5.7-8.2 g/dL Albumin 3.5 3.2-4.8 g/dL Plasma/Serum Blood Alcohol < 3.0 <10 mg/dL Assessment Altered mental status, likely metabolic encephalopathy Metabolic encephalopathy secondary to urinary tract infection and COVID-19 Urinary tract infection COVID-19 Sepsis Septic shock Hypotension secondary to septic shock AFib Pain in the left hip, knee and ankle Plan/Recommendation Monitoring Supportive treatment VIT B12, FOLIC ACID EEG Left hip CT scan ICU care Aerosol isolation Stabilize vitals Respiratory support p.r.n. IV antibiotics Eliquis 5 mg daily Vitamin-C Vitamin-D Zinc sulfate Lipitor 40 mg daily More recommendation per clinical course Progress: Critical This medical document was created using an electronic medical record system with [employer] dictation system. Although this document has been carefully reviewed, there may still be some phonetic and typographical errors. These areas are purely typographical due to imperfections of the software programs, and do not reflect any compromise in the patient's medical care. Plan discussed with: Other BRANDY MEYERS MD Dec 08, 2023 20:31
--- NOTE | 2023-12-08 21:29 | DVHINCON2 ---
Date of service: Dec 08, 2023 Referring Physician NIKOLAI Bowling Reason for Consultation Septic shock Pneumonia Acute hypoxic respiratory failure History of Present Illness 70-year-old man history of atrial fibrillation, anemia, angina, BPH, CAD status post CABG, prostate cancer, CHF, COPD, diabetes mellitus type 2 with neuropathy, GERD, hyperlipidemia he was brought in for altered level of consciousness initially. He was a resident of [facility]. He was found to be tachycardic and hypotensive. Pulmonary consultation is called for evaluation of septic shock, pneumonitis, and acute hypoxic respiratory failure. Review of systems: 14 point review of systems is negative unless otherwise noted above. Past medical history: atrial fibrillation, anemia, angina, BPH, CAD status post CABG, prostate cancer, CHF, COPD, diabetes mellitus type 2 with neuropathy, GERD, hyperlipidemia Past surgical history: Appendectomy, CAD status post CABG, hernia repair, pacemaker, tonsillectomy, aortic aneurysm repair, gastric bypass, right hip repair Medications: Reviewed Allergies: Morphine Family history: No family history of premature CAD. No family history of lung disease Social history: Nonsmoker. No alcohol or illicit drug use. Resident at [facility] Family History: Chronic obstructive lung disease (situation) G8 FATHER FH: liver cancer Family history: Cardiovascular disease G8 MOTHER Family history: Diabetes mellitus G8 MOTHER 19 CHILD Allergies: Coded Allergies: Morphine (Verified Allergy, Unknown, 12/21/18) Home Meds Reported Medications Carvedilol (Carvedilol) 6.25 Mg Tab, 6.25 MG PO BID, TAB 05/08/16 Ginkgo Biloba [place] (GINKGO BILOBA) 500 Mg Cap, 100 MG PO DAILY, CAP 11/10/15 Tamsulosin Hcl (Flomax) 0.4 Mg Cap, 0.4 MG PO QPM, CAP 11/10/15 [Nitrostat Sub 0.4MGNITROSTA] No Conflict Check, SL PRN 08/29/12 [Clonidine Hcl0.1 Mg] (Clonidine Hcl) 0.1 MG TAB No Conflict Check, MG PO DAILYPRN 08/29/12 Metformin Hydrochloride (Metformin Hcl) 500 Mg Tab, 2 TAB PO TWICE DAILY 02/22/12 [Aspirin Ec81 Mg] (Aspirin Ec) 81 MG TAB No Conflict Check, 81 MG PO DAILY, 0 Refills 02/22/12 [Enalapril Malea10 Mg] (Enalapril Maleate) 10 MG TAB No Conflict Check, 10 MG PO DAILY, 0 Refills 02/22/12 Famotidine (Acid Controller) 10 Mg Tab, PO DAILY 01/24/10 Gabapentin (Neurontin) 100 Mg Cap, 100 MG PO TID 09/08/09 Current Medications Current Medications Medications (Trade) Dose Ordered Sig/Evgeny Route PRN Reason Start Time Stop Time Status Last Admin Norepinephrine Bitartrate 250 ml @ 3.75 mls/hr Q24H IV 12/07/23 22:00 12/08/23 07:58 DC Vancomycin HCl 200 ml @ 200 mls/hr Q12HR IV 12/07/23 22:00 UNV Piperacillin Sod/ Tazobactam Sod 100 ml @ 25 mls/hr Q8HR IV 12/08/23 06:00 12/08/23 14:47 Nitroglycerin (Ntrostat Sublingual) 0.4 mg Q5MINP PRN SL FOR CHEST PAIN 12/07/23 22:00 Morphine Sulfate 2 mg Q30M PRN IV FOR CHEST PAIN 12/07/23 22:00 Ondansetron HCl (Zofran) 4 mg Q4HP PRN IV NAUSEA / VOMITING 12/08/23 07:45 Nitroglycerin (Ntrostat Sublingual) 0.4 mg Q5MINP PRN SL FOR CHEST PAIN 12/08/23 07:45 Morphine Sulfate 2 mg Q30M PRN IV FOR CHEST PAIN 12/08/23 07:45 12/08/23 08:46 DC Oseltamivir Phosphate (Tamiflu 75MG Capsule) 75 mg BID PO 12/08/23 10:00 12/13/23 09:59 12/08/23 10:04 Albuterol (Ventolin Hfa) 90 mcg TID IN 12/08/23 14:00 Hydromorphone HCl (Dilaudid Injection) 0.5 mg Q4HP PRN IV PAIN SCALE 7 THRU 10 12/08/23 08:15 Oxycodone/ Acetaminophen (Percocet 5/ 325MG Tablet) 1 tab Q4HP PRN PO MODERATE PAIN (4-6 PAIN SCALE) 12/08/23 08:15 12/08/23 14:53 Apixaban (Eliquis) 5 mg BID PO 12/08/23 10:00 12/08/23 10:03 Ferrous Sulfate 325 mg BID PO 12/08/23 10:00 12/08/23 10:03 Tamsulosin HCl (Flomax) 0.4 mg QPM PO 12/08/23 18:00 12/08/23 17:00 Enalapril Maleate (Vasotec Tablet) 10 mg DAILY PO 12/08/23 10:00 12/08/23 10:04 Carvedilol (Coreg Tablet) 6.25 mg BID PO 12/08/23 10:00 12/08/23 15:31 DC 12/08/23 10:05 Diagnostic Test (Pha) (Accu-Chek Comfort Curve T) 1 strip ACHS 12/08/23 11:30 12/08/23 16:53 Insulin Human Regular (InsuLIN R) HS SC 12/08/23 22:00 Insulin Human Regular (InsuLIN R) AC SC 12/08/23 11:30 12/08/23 13:02 Dextrose 50 ml UD PRN IV Blood Sugar LESS THAN 60 12/08/23 09:30 Vancomycin HCl 0 ml @ 0 mls/hr UD IV 12/08/23 10:15 Vancomycin HCl 150 ml @ 150 mls/hr Q12H IV 12/08/23 11:00 12/08/23 13:01 Polyethylene Glycol (Miralax 17GM Powder) 17 gm DAILY PO 12/09/23 10:00 Ascorbic Acid (Vitamin C Tablet) 500 mg DAILY PO 12/09/23 10:00 Cholecalciferol (Vitamin D3 Tablet) 1,000 unit DAILY PO 12/09/23 10:00 Zinc Sulfate 220 mg DAILY PO 12/09/23 10:00 Sucralfate (Carafate Susp) 1 gm QID@0600,1130,1700,2200 GT 12/08/23 17:00 12/08/23 17:00 Sodium Chloride 1,000 ml @ 100 mls/hr Q10H IV 12/08/23 12:30 12/08/23 13:03 Amiodarone HCl (Cordarone Tablet) 200 mg Q12HR PO 12/08/23 22:00 Metoprolol Succinate (Toprol Xl) 25 mg DAILY PO 12/09/23 10:00 Atorvastatin Calcium (Lipitor) 40 mg HS PO 12/08/23 22:00 Vital Signs Vital Signs Date Time Temp Pulse Resp B/P (MAP) Pulse Ox O2 Delivery O2 Flow Rate FiO2 12/08/23 20:00 86 12/08/23 20:00 14 117/59 (78) 97 12/08/23 19:40 Nasal Cannula* 3 32 12/08/23 19:25 98.9 98.9 Physical Exam Gen.: Patient lying in bed in no apparent distress. On supplemental oxygen. Head: Normocephalic, atraumatic Eyes: EOMI/PERRLA. Ears: Normal hearing. Normal anatomy. Neck/trachea: Trachea midline, supple. Nose: Normal external anatomy. Mouth: Moist mucous membranes. Chest: Fair air entry bilaterally. No wheezing or rhonchi. Cardio vascular: Positive S1, positive S2. Regular rate and rhythm. Abdomen: Positive bowel sounds in all 4 quadrants. Soft, non-tender, non- distended. : Deferred. Rectal: Deferred Skin: Warm, dry. Extremities: 2+ radial pulses bilaterally. No lower extremity edema. Neuro: Awake, alert, oriented x2. No gross motor or sensory deficits. Cranial nerves II through XII intact. Gait not assessed. Labs/Diagnostic Data Labs Test 12/08/23 16:56 12/08/23 16:29 12/08/23 00:10 12/08/23 00:02 Range/Units POC Glucose 76 70-106 mg/dl White Blood Count 5.5 4.4-10.8 10^3/uL Red Blood Count 3.09 L 4.5-5.90 10^6/uL Hemoglobin 8.7 L 13.5-17.5 g/dL Hematocrit 27.8 L 41.0-53.0 % Mean Corpuscular Volume 90.0 80.0-100.0 fL Mean Corpuscular Hemoglobin 28.2 28.0-32.0 pg Mean Corpuscular Hemoglobin Concent 31.3 L 32.0-36.0 g/dL Red Cell Distribution Width 18.4 H 11.8-14.3 % Platelet Count 211 140-450 10^3/uL Mean Platelet Volume 6.8 L 6.9-10.8 fL Neutrophils (%) (Auto) 37.0-80.0 % Lymphocytes (%) (Auto) 10.0-50.0 % Monocytes (%) (Auto) 0.0-12.0 % Basophils (%) (Auto) 0.0-2.0 % Neutrophils # (Auto) 1.6-8.6 10 ^3/uL Lymphocytes # (Auto) 0.4-5.4 10 ^3/uL Monocytes # (Auto) 0-1.3 10 ^3/uL Differential Total Cells Counted 100.0 100 Neutrophils % (Manual) 69 37.0-80.0 Band Neutrophils % (Manual) 8 Lymphocytes % (Manual) 11 10.0-50.0 Monocytes % (Manual) 9 0-12 Eosinophils % (Manual) 1 0-7 Basophils % (Manual) 0 0.0-2.0 Metamyelocytes % (manual) 2 Myelocytes % (Manual) 0 Promyelocytes % (Manual) 0 Blast Cells % (Manual) 0 Reactive Lymphocytes 0 Platelet Estimate Adequate Sodium Level 140 136-145 mmol/L Potassium Level 4.0 3.5-5.1 mmol/L Chloride Level 107 98-107 mmol/L Carbon Dioxide Level 23 20-31 mmol/L Anion Gap 10 5-15 Blood Urea Nitrogen 13 9-23 mg/dL Creatinine 0.55 L 0.700-1.30 mg/dL Glomerular Filtration Rate Calc 101 >90 mL/min BUN/Creatinine Ratio 23.6 H 10.0-20.0 Serum Glucose 85 74-106 mg/dL Hemoglobin A1c 7.1 H <5.7 % A1C Calcium Level 7.8 L 8.7-10.4 mg/dL Magnesium Level 1.7 1.6-2.6 mg/dL Triglycerides Level 117 < 150 mg/dL Cholesterol Level 141 < 200 mg/dL LDL Cholesterol 89 < 100 mg/dL HDL Cholesterol 29 L 40-59 mg/dL Thyroid Stimulating Hormone (TSH) 0.60 0.55-4.78 uIU/mL Prothrombin Time 13.7 H 9.3-11.8 sec Prothrombin Time INR 1.32 H 0.9-1.15 Activated Partial Thromboplast Time 38.4 H 24.5-34.5 SEC Lactic Acid Level 1.4 0.4-2.0 mmol/L Troponin I High Sensitivity 5 </=54 ng/L Influenza Type A Antigen Negative Negative Influenza Type B Antigen Positive Negative SARS-CoV-2 Antigen (Rapid) Positive *A NEGATIVE Test 12/07/23 23:54 12/07/23 21:01 Range/Units Urine Color Light-yellow Yellow Urine Clarity Turbid H Clear Urine pH 5.5 5.0-9.0 Urine Specific [place] 1.033 1.001-1.035 Urine Protein 1+ H Negative Urine Ketones Trace Negative Urine Blood 1+ H Negative /uL Urine Nitrite Negative Negative Urine Bilirubin Negative Negative Urine Urobilinogen Normal Negative mg/dL Urine Leukocyte Esterase 3+ Negative /uL Urine RBC 9 0 - 3 /hpf Urine WBC 127 0 - 3 /hpf Urine WBC Clumps Present None Seen /hpf Urine Squamous Epithelial Cells Few <5 /hpf Urine Bacteria Many H None Seen /hpf Urine Mucus Few None Seen Urine Yeast (Budding) Moderate None Seen /hpf Urine Glucose Normal Normal mg/dL Anisocytosis (manual) Slight Total Bilirubin 0.4 0.2-1.0 mg/dL Aspartate Amino Transferase (AST) 34 13-40 U/L Alanine Aminotransferase (ALT) 9 7-40 U/L Alkaline Phosphatase 315 H 46-116 U/L B-Type Natriuretic Peptide 288.16 0-100 pg/mL Total Protein 6.4 5.7-8.2 g/dL Albumin 3.5 3.2-4.8 g/dL Plasma/Serum Blood Alcohol < 3.0 <10 mg/dL Assessment Impression: Severe sepsis Acute hypoxic respiratory failure Pneumonitis Anemia COVID-19 infection Influenza type A positive Plan: On supplemental oxygen, 3 liters/minute via nasal cannula. Keep O2 saturation above 92%. IV fluid hydration with normal saline at 100 mL an hour. Decadron course Continue antibiotics Follow up cultures ID recommendations appreciated. Albuterol HFA inhaler t.i.d. Atrial fibrillation On Eliquis 5 mg p.o. b.i.d. On amiodarone 200 mg p.o. q.12 hours Accu-Cheks, insulin sliding scale Tamiflu course for influenza type a DVT prophylaxis- Eliquis Condition: Critical Prognosis: Poor given multiple comorbidities. Rest of plan per hospitalist and other consultants. Thank you NIKOLAI Bowling for allowing me to participate in this patient's care. Further recommendations will depend on patient's clinical course. Please do not hesitate to contact me if you have any questions or concerns. This medical document was created using an electronic medical record system with [employer] dictation system. Although this document has been carefully reviewed, there may still be some phonetic and typographical errors. These areas are purely typographical due to imperfections of the software programs, and do not reflect any compromise in the patient's medical care. Plan discussed with: Patient, Other (RN, ADMINISTRATIVE PROGRAM SPECIALIST) WES BURNS MD Dec 08, 2023 21:29
[2023-12-08 22:00] VITALS: O2SAT 95
[2023-12-08 22:10] VITALS: BP 124/65; PULSE 98; RESP 18; TEMP 98.1; O2SAT 98
[2023-12-08 22:16] LABS: Folate (Folic Acid) 9.28 ng/mL (>5.38)
[2023-12-08] MEDS: AMIODARONE HCL 200 MG TAB PO SCH (23:46)
[2023-12-08] MEDS: ATORVASTATIN 20 MG TAB PO SCH (23:47)
[2023-12-09] VITALS (10 sets, daily range): BP systolic 121–129; BP diastolic 60–74; PULSE 81–112; RESP 17–20; TEMP 97.1–98.4; O2SAT 93–98
[2023-12-09] MEDS: InsuLIN REG 1unit/0.01ml Soln (100units/ml) SC SCH (00:22)
[2023-12-09] MEDS: PIPERACILLIN-TAZO 4.5GM 100 ML IV SCH (01:03)
[2023-12-09 05:44] LABS: Hemoglobin 8.3 g/dL (13.5-17.5); Platelet Count (auto) 214 10^3/uL (140-450)
[2023-12-09 05:47] LABS: Hematocrit 25.2 % (41.0-53.0); Mean Corpuscular Hemoglobin 29.1 pg (28.0-32.0); Mean Corpuscular Hgb Conc. 32.8 g/dL (32.0-36.0); Mean Corpuscular Volume 88.8 fL (80.0-100.0); Red Blood Cells 2.84 10^6/uL (4.5-5.90); Red Cell Distribution Width 17.7 % (11.8-14.3); White Blood Cell 5.9 10^3/uL (4.4-10.8)
[2023-12-09 05:50] LABS: Band Neutrophils % (manual) 0; Basophils % (manual) 0 (0.0-2.0); Blast Cells 0; Promyelocytes % 0; Reactive Lymphocytes 0
[2023-12-09 06:03] LABS: Alanine Aminotransferase 12 U/L (7-40); Albumin 3.4 g/dL (3.2-4.8); Alkaline Phosphatase 317 U/L (46-116); Anion Gap 13 (5-15); Aspartate Aminotransferase 45 U/L (13-40); BUN/Creatinine Ratio 20.4 (10.0-20.0); Blood Urea Nitrogen 11 mg/dL (9-23); Calcium 8.4 mg/dL (8.7-10.4); Carbon Dioxide 20 mmol/L (20-31); Chloride 105 mmol/L (98-107); Glucose 154 mg/dL (74-106); Potassium 3.7 mmol/L (3.5-5.1); Sodium 138 mmol/L (136-145)
[2023-12-09 06:04] LABS: Bilirubin, Total 0.6 mg/dL (0.2-1.0); Total Protein 6.3 g/dL (5.7-8.2)
[2023-12-09 06:53] LABS: Eosinophils % (manual) 1 (0-7); Lymphocytes % (manual) 13 (10.0-50.0); Metamyelocytes % 2; Monocytes % (manual) 11 (0-12); Myelocytes % 1; Platelet Estimate Adequate
[2023-12-09 06:54] LABS: Anisocytosis Slight
--- NOTE | 2023-12-09 07:16 | DVHPN2 ---
Progress Note - Dictate Date Seen: Dec 09, 2023 Medical Necessity Reason Pt with a Central, PICC or Fol: No vital signs Vital Sign Date Time Temp Pulse Resp B/P (MAP) Pulse Ox O2 Delivery O2 Flow Rate FiO2 12/09/23 05:00 98.4 89 17 128/68 (88) 95 98.4 12/08/23 22:00 Nasal Cannula* 3 32 Total Intake and Output 12/08/23 12/08/23 12/09/23 15:00 23:00 07:00 Intake Total 325 ml 800 ml 400 ml Output Total 600 ml Balance 325 ml 800 ml -200 ml medications Current Medications Medications Dose Ordered Sig/Evgeny Route Start Time Stop Time Status Last Admin Dose Admin Vancomycin HCl 200 ml @ 200 mls/hr Q12HR IV 12/07/23 22:00 UNV Nitroglycerin 0.4 mg Q5MINP PRN SL 12/07/23 22:00 Morphine Sulfate 2 mg Q30M PRN IV 12/07/23 22:00 Ondansetron HCl 4 mg Q4HP PRN IV 12/08/23 07:45 Nitroglycerin 0.4 mg Q5MINP PRN SL 12/08/23 07:45 Oseltamivir Phosphate 75 mg BID PO 12/08/23 10:00 12/13/23 09:59 12/08/23 23:47 75 MG Albuterol 90 mcg TID IN 12/08/23 14:00 12/08/23 22:00 90 MCG Hydromorphone HCl 0.5 mg Q4HP PRN IV 12/08/23 08:15 Oxycodone/ Acetaminophen 1 tab Q4HP PRN PO 12/08/23 08:15 12/09/23 00:17 1 TAB Apixaban 5 mg BID PO 12/08/23 10:00 12/08/23 23:46 5 MG Ferrous Sulfate 325 mg BID PO 12/08/23 10:00 12/08/23 23:45 325 MG Tamsulosin HCl 0.4 mg QPM PO 12/08/23 18:00 12/08/23 17:00 0.4 MG Enalapril Maleate 10 mg DAILY PO 12/08/23 10:00 12/08/23 10:04 10 MG Diagnostic Test (Pha) 1 strip ACHS 12/08/23 11:30 12/09/23 06:54 1 STRIP Insulin Human Regular HS SC 12/08/23 22:00 12/09/23 00:22 2 UNITS Insulin Human Regular AC SC 12/08/23 11:30 12/09/23 06:59 3 UNITS Dextrose 50 ml UD PRN IV 12/08/23 09:30 Vancomycin HCl 0 ml @ 0 mls/hr UD IV 12/08/23 10:15 Vancomycin HCl 150 ml @ 150 mls/hr Q12H IV 12/08/23 11:00 12/08/23 13:01 150 MLS/HR Polyethylene Glycol 17 gm DAILY PO 12/09/23 10:00 Ascorbic Acid 500 mg DAILY PO 12/09/23 10:00 Cholecalciferol 1,000 unit DAILY PO 12/09/23 10:00 Zinc Sulfate 220 mg DAILY PO 12/09/23 10:00 Sucralfate 1 gm QID@0600,1130,1700,2200 GT 12/08/23 17:00 12/09/23 05:15 1 GM Amiodarone HCl 200 mg Q12HR PO 12/08/23 22:00 12/08/23 23:46 200 MG Metoprolol Succinate 25 mg DAILY PO 12/09/23 10:00 Atorvastatin Calcium 40 mg HS PO 12/08/23 22:00 12/08/23 23:47 40 MG Dexamethasone 6 mg DAILY PO 12/09/23 10:00 12/19/23 09:59 Piperacillin Sod/ Tazobactam Sod 100 ml @ 25 mls/hr Q8HR IV 12/09/23 01:00 12/09/23 01:03 25 MLS/HR objective General Appearance: alert, no distress HEENT: EOMI, PERRLA, normal external inspect of ears, no icterus, no nasal drainage Neck: no carotid bruit, no jugular venous distention (JVD), no lymphadenopathy Chest: normal thorax Respiratory: clear to auscultation, normal air movement Cardiovascular: regular rate and rhythm, no diastolic murmur, no jugular venous distention (JVD), no rub, no systolic murmur Abdominal: soft, no hepatomegaly, no mass, no splenomegaly, no tenderness Genitourinary: grossly normal external Musculoskeletal: no joint tenderness, no swelling Extremities: normal pulses, no calf tenderness, no clubbing, no cyanosis, no edema Skin: no bruising, no jaundice, no rash Neurological: alert, No focal deficit laboratory and microbiology Laboratory Tests 12/09/23 05:07 Test 12/09/23 05:07 Range/Units Serum Glucose 154 H 74-106 mg/dL Problem List 1. Severe sepsis ID Consult, meds 2. Septic Shock ID consult 3. Paroxysmal AFIB Cardiology Consult 4. CAD Cardiology consult 5. Prostate cancer with mets to bone Medication, monitoring 6. HX of CABG Cardiology consult 7. Chronic Anticoagulation Medication, monitoring 8. Anemia of chronic disease Supplemental O2 9. Influenza B Restart Home meds 10. COVID 19 Covid trial meds, Monitoring 11. DMI w/ neuropathy Insulin Sliding Scale 12. Metabolic Encephalopathy neurology consult Assessment/Plan Subjective Patient is awake and alert. Objective Patient's mentation is at baseline. I spoke with patient and patient's separately at bedside. Patient has prostate cancer with mets to his bones. Patient has been declining over the past several months. Patient has had prolonged hospital stays at [facility] and was only at [facility] for 3 days. Patient is now positive for influenza and COVID. Patient is very deconditioned and has not walked for some time. Plan Physical therapy evaluation. does not want patient to return to [facility]. She is wanting home health with physical therapy. Patient will need to increase his appetite and can start physical therapy here in the hospital prior to discharge. Continue Med-Neb treatments and IV antibiotics for sepsis. Plan discussed with: Patient, Other ALEXYS DAIGLE NP Dec 09, 2023 07:16
[2023-12-09] MEDS ORDERED: DOCU-94 PO (08:16)
[2023-12-09] MEDS ORDERED: APIX5TAB PO (08:16)
[2023-12-09] MEDS ORDERED: ATOR10TA52 PO (08:16)
[2023-12-09] MEDS ORDERED: CLON0.1T PO (08:17)
[2023-12-09] MEDS ORDERED: METO25TA5 PO (08:17)
[2023-12-09] MEDS ORDERED: AMIO200T33 PO (08:17)
[2023-12-09] MEDS ORDERED: MORP1TAB14 PO (08:18)
[2023-12-09] MEDS ORDERED: TRAZ-227 PO (08:19)
[2023-12-09] MEDS ORDERED: ALPR0.254 PO (08:19)
[2023-12-09] MEDS: DexAMETHasone 4 MG TAB PO SCH (08:48)
[2023-12-09] MEDS: ZINC SULFATE 220mg CAP or TAB PO SCH (08:49)
[2023-12-09] MEDS: CHOLECALCIFEROL (VITD3) 1,000UNIT=25mCg TAB PO SCH (08:49)
[2023-12-09] MEDS: ASCORBIC ACID 500 MG TAB PO SCH (08:49)
[2023-12-09] MEDS: METOPROLOL SUCCINATE XL 50 MG TAB PO SCH (08:54)
[2023-12-09] MEDS: HYDROmorphone HCL 2 MG/ML VL/or syr IV PRN (08:55)
--- NOTE | 2023-12-09 09:18 | DVHSR ---
APPROVED REPORT EXAM: Two-dimensional and M-mode echocardiogram with Doppler and color Doppler. Blood Pressure: 135/60 mmHg INDICATION Evaluate cardiac function Surgery/Intervention Pacemaker: RISK FACTORS Height: 5'7", Weight: 180 DIMENSIONS LVDd4.5 (3.8-5.7cm)LA (2D) (1.9-4.0cm)Aortic Root3.7 (2.0-3.7cm) LVDs2.9 (2.5-4.0cm)LA (MM) (1.9-4.0cm)Aortic Cusp Exc2.0 (1.5-2.0cm) EF (%) 65.0 (55-70%)Rt. Atrium (1.9-4.0cm)Asc. Aorta cm IVSd1.1 (0.7-1.1cm)RV (D) (1.8-2.4cm) PWd1.0 (0.7-1.1cm) Mitral Valve MitralMitral Stenosis E wave0.68m/sMV Mean GR.mmHg A wave0.65m/sMV Peak GR.mmHg E/A ratio1.02D MVAcm2 DECEL [id number] 1/2 Timems Aortic Valve Aortic ValveAortic Stenosis V10.80m/Aamir Mean GR.3mmHg V21.19m/Aamir Peak GR.6mmHg LVOT Diameter2.2 (1.8-2.4cm)Doppler AVA2.55cm2 Pulmonic Valve V20.91m/s Tricuspid Valve TR Velocity3.64m/s [id number] Other Information Quality : Technically LimitedRhythm : Technically limited study due to body habitus, patient lying flat. Conclusion Normal left ventricular size and dimension. Normal left ventricular systolic function estimated ejec tion fraction 55%. There is a grade2 diastolic dysfunction. Normal right ventricular size and dimension. Normal right ventricular systolic function. Severely e levated right ventricular systolic pressure 60 mm of mercury. Normal biatrial size and dimension. Normal aortic valve structure and function. Normal mitral valve structure and function. Normal tricuspid valve structure and function. The pulmonary valve is grossly normal. No pericardial effusion.
--- NOTE | 2023-12-09 11:36 | ECG ---
[facility] Test Date: 2023-12-07 Test Time: 20:36:52 Pat Name: MARIA VICTORIA ROJAS Department: ED Room: 0238T A Gender: M [employer] Measurer: IVÁN : 1945 Requested By: BABAK KNIGHT Order Number: [id number] Reading MD: Paul Machado Measurements Intervals [place] Rate: 107 P: 52 PA: 150 QRS: 52 QRSD: 76 T: 242 QT: 382 QTc: 510 Interpretive Statements Sinus tachycardia Probable left atrial enlargement Abnrm T, consider ischemia, anterolateral lds Prolonged QT interval Electronically Signed On 12-11-2023 14:26:45 PDT by Paul Machado Please click the below link to view image of tracing.
[2023-12-09] MEDS: POLYETHYLENE GLYCOL 17 GM PWDR PO SCH (12:17)
[2023-12-09] MEDS ORDERED: ALPRAZolam 0.25 MG TAB PO SCH (14:00)
--- NOTE | 2023-12-09 17:09 | DVH ---
CT CT L HIP WITH OUT CONTRAST INDICATION: Hip pain EXAM DATE: 12/09/2023 03:53 PM COMPARISON: CT HEAD WITHOUT CONTRAST on DOS: 12/07/23, CT CT ANGIO CHEST CONTRAST on DOS: 12/07/23 RADIATION DOSE: CTDIvol: 15.55 mGy, DLP: 491.37 mGy*cm PROCEDURE: Helical CT images were obtained of the left hip without intravenous contrast. Sagittal an d coronal reconstructions are provided. ADDITIONAL IMAGES: None FINDINGS: BONES: No fracture.Normal anatomic alignment. Multiple round sclerotic lesions throughout the pelvis, sacrum, acetabulum, and left femur JOINT SPACES: Maintained. No joint effusion. SOFT TISSUES: within normal limits. VESSELS: Atherosclerotic. IMPRESSION: Multiple round sclerotic lesions throughout the pelvis, sacrum, acetabulum, and left femur could be m etastatic disease. No acute fracture seen.
[2023-12-09] MEDS: metFORMIN HYDROCHLORIDE 500 MG TAB PO SCH (18:05)
[2023-12-09] MEDS: MEGESTROL ACET 400MG/10ML ORAL SUSP GT SCH (18:05)
[2023-12-09] MEDS: fentaNYL 25MCG/HR 25 MCG/HR PAT TD SCH (18:09)
[2023-12-09] MEDS: Glucerna Carbsteady SHAKE Stawberry 8oz PO SCH (18:10)
--- NOTE | 2023-12-09 18:36 | DVHPN2 ---
Progress Note - Dictate Date Seen: Dec 09, 2023 Medical Necessity Reason Pt with a Central, PICC or Fol: Yes The following are medically ne: Barksdale Catheter Reason for barksdale catheter: Strict I&O Subjective Patient seen and examined at bedside. Breathing comfortably on room air. Overnight events reviewed. vital signs Vital Sign Date Time Temp Pulse Resp B/P (MAP) Pulse Ox O2 Delivery O2 Flow Rate FiO2 12/09/23 18:09 123/67 12/09/23 17:00 97.1 93 20 95 97.1 12/09/23 14:07 Nasal Cannula* 3 32 Total Intake and Output 12/08/23 12/08/23 12/09/23 15:00 23:00 07:00 Intake Total 325 ml 800 ml 640 ml Output Total 1240 ml Balance 325 ml 800 ml -600 ml medications Current Medications Medications Dose Ordered Sig/Evgeny Route Start Time Stop Time Status Last Admin Dose Admin Vancomycin HCl 200 ml @ 200 mls/hr Q12HR IV 12/07/23 22:00 UNV Nitroglycerin 0.4 mg Q5MINP PRN SL 12/07/23 22:00 Morphine Sulfate 2 mg Q30M PRN IV 12/07/23 22:00 Ondansetron HCl 4 mg Q4HP PRN IV 12/08/23 07:45 Nitroglycerin 0.4 mg Q5MINP PRN SL 12/08/23 07:45 Oseltamivir Phosphate 75 mg BID PO 12/08/23 10:00 12/13/23 09:59 12/09/23 08:49 75 MG Albuterol 90 mcg TID IN 12/08/23 14:00 12/09/23 14:07 90 MCG Hydromorphone HCl 0.5 mg Q4HP PRN IV 12/08/23 08:15 12/09/23 15:43 0.5 MG Oxycodone/ Acetaminophen 1 tab Q4HP PRN PO 12/08/23 08:15 12/09/23 12:11 1 TAB Apixaban 5 mg BID PO 12/08/23 10:00 12/09/23 08:48 5 MG Ferrous Sulfate 325 mg BID PO 12/08/23 10:00 12/09/23 08:48 325 MG Tamsulosin HCl 0.4 mg QPM PO 12/08/23 18:00 12/09/23 18:05 0.4 MG Enalapril Maleate 10 mg DAILY PO 12/08/23 10:00 12/09/23 08:54 10 MG Diagnostic Test (Pha) 1 strip ACHS 12/08/23 11:30 12/09/23 18:09 1 STRIP Insulin Human Regular HS SC 12/08/23 22:00 12/09/23 00:22 2 UNITS Insulin Human Regular AC SC 12/08/23 11:30 12/09/23 12:09 3 UNITS Dextrose 50 ml UD PRN IV 12/08/23 09:30 Vancomycin HCl 0 ml @ 0 mls/hr UD IV 12/08/23 10:15 Polyethylene Glycol 17 gm DAILY PO 12/09/23 10:00 12/09/23 12:17 17 GM Ascorbic Acid 500 mg DAILY PO 12/09/23 10:00 12/09/23 08:49 500 MG Cholecalciferol 1,000 unit DAILY PO 12/09/23 10:00 12/09/23 08:49 1,000 UNIT Zinc Sulfate 220 mg DAILY PO 12/09/23 10:00 12/09/23 08:49 220 MG Sucralfate 1 gm QID@0600,1130,1700,2200 GT 12/08/23 17:00 12/09/23 18:05 1 GM Amiodarone HCl 200 mg Q12HR PO 12/08/23 22:00 12/09/23 08:49 200 MG Metoprolol Succinate 25 mg DAILY PO 12/09/23 10:00 12/09/23 08:54 25 MG Atorvastatin Calcium 40 mg HS PO 12/08/23 22:00 12/08/23 23:47 40 MG Dexamethasone 6 mg DAILY PO 12/09/23 10:00 12/19/23 09:59 12/09/23 08:48 6 MG Piperacillin Sod/ Tazobactam Sod 100 ml @ 25 mls/hr Q8HR IV 12/09/23 01:00 12/09/23 18:05 25 MLS/HR Phenol/Menthol 1 spr Q2HP PRN MT 12/09/23 07:30 Vancomycin HCl 150 ml @ 150 mls/hr Q12H IV 12/09/23 20:30 Fentanyl 25 mcg Q72H TD 12/09/23 12:15 12/09/23 18:09 25 MCG Megestrol Acetate 400 mg BID GT 12/09/23 12:30 12/09/23 18:05 400 MG Alprazolam 0.25 mg TID PO 12/09/23 14:00 Hold Docusate Sodium 100 mg BID PO 12/09/23 22:00 Metformin HCl 1,000 mg BIDAC PO 12/09/23 17:00 12/09/23 18:05 1,000 MG Enteral Nutritional Formula 240 ml TIDWM PO 12/09/23 18:00 12/09/23 18:10 240 ML objective Gen.: Patient lying in bed in no apparent distress. Breathing on room air. Head: Normocephalic, atraumatic. Eyes: EOMI/PERRLA. Ears: Normal hearing. Normal anatomy. Neck/trachea: Trachea midline, supple. Nose: Normal external anatomy. Mouth: Moist mucous membranes. Chest: Decreased air entry bilaterally. No wheezing or rhonchi. Cardiovascular: Positive S1, positive S2. Regular rate and rhythm. Abdomen: Positive bowel sounds in all 4 quadrants. Soft, non-tender, non- distended. : Deferred. Rectal: Deferred. Skin: Warm, dry. Intact. Extremities: 2+ radial pulses bilaterally. No lower extremity edema. Neuro: Awake, alert, oriented x3. No gross motor or sensory deficits. Cranial nerves II through XII intact. Gait not assessed. laboratory and microbiology Laboratory Tests 12/09/23 05:07 Test 12/09/23 05:07 Range/Units Serum Glucose 154 H 74-106 mg/dL Assessment/Plan Impression: Severe sepsis Acute hypoxic respiratory failure Pneumonitis Anemia COVID-19 infection Influenza type A positive Events: Breathing on room air No respiratory distress. Continue antibiotics - vancomycin, Zosyn Tamiflu Continue Decadron Incentive spirometry Pain control Avoid oversedation Labs and imaging reviewed. Rest of plan as noted below. Plan: Supplemental oxygen PRN. Keep O2 saturation above 92%. IV fluid hydration with normal saline at 100 mL an hour. Decadron course Continue antibiotics Follow up cultures ID recommendations appreciated. Albuterol HFA inhaler t.i.d. Atrial fibrillation On Eliquis 5 mg p.o. b.i.d. On amiodarone 200 mg p.o. q.12 hours Accu-Cheks, insulin sliding scale Tamiflu course for influenza type a DVT prophylaxis- Eliquis Prognosis: Guarded given multiple comorbidities. Rest of plan per hospitalist and other consultants. Thank you NIKOLAI Bowling for allowing me to participate in this patient's care. Further recommendations will depend on patient's clinical course. Please do not hesitate to contact me if you have any questions or concerns. This medical document was created using an electronic medical record system with [employer] dictation system. Although this document has been carefully reviewed, there may still be some phonetic and typographical errors. These areas are purely typographical due to imperfections of the software programs, and do not reflect any compromise in the patient's medical care. Plan discussed with: Patient, Other (RN) WES BURNS MD Dec 09, 2023 18:36
[2023-12-09] MEDS: VANCOMYCIN 750mg/150ml 150 ML IV SCH (20:43)
[2023-12-09] MEDS: DOCUSATE SOD 100 MG CAP PO SCH (23:11)
[2023-12-10] VITALS (12 sets, daily range): BP systolic 108–130; BP diastolic 58–69; PULSE 84–105; RESP 14–20; TEMP 97.3–98.7; O2SAT 93–99
--- NOTE | 2023-12-10 00:08 | DVHPN2 ---
Progress Note - Dictate Date Seen: Dec 09, 2023 Medical Necessity Reason Pt with a Central, PICC or Fol: No Subjective Mr. Cash is a 78 years old gentleman with a history of hypertension, diabetes, dyslipidemia, coronary artery disease, heart attack, atrial fibrillation, congestive heart failure, AAA, peripheral vascular disease, COPD, anxiety, prostate cancer, BPH, he was admitted to the [facility] on 12/07/23 with a chief company of altered mental status I have seen and examined the patient, I have talked to his nurse and other medical staff, he is alert, oriented to person, place, he tells me he came to the hospital this to returned to work, he was complained that eight one asked him about the place, the hours, he request to light him walking SARS-CoV-2 antigen, 12/08/2023: Positive UDS, 12/07/2023: Plasma alcohol, normal Urinalysis, 12/07/2023: WBC: 127/urine leukocyte esterase: 3+ WBC/HB/PLT/MCV, 12/08/2023: 5.5/8.7/211/90 PT/INR/PTT, 12/08/2023: 13.7/1.32/38.4 HGB A1c, 12/08/2023: 7.1 Liver function tests, 12/07/2023: Unremarkable TG/HDL/LDL/HDL, 12/08/2023: 117/141/89/29 VIT B12, 11/2023: 346 FOLIC ACID, 11/2023: 9.28 TSH, 12/08/2023: 0.6 CT head, 12/08/2023: 1. No acute intracranial abnormality. 2. Generalized cerebral volume loss and mild chronic microvascular ischemic change 3. Chronic lacunar infarcts in the right caudate head and anterior right basal ganglia. 4. Small chronic left cerebellar infarct. CT, left hip, 12/09/2023: Multiple round sclerotic lesions throughout the pelvis, sacrum, acetabulum, and left femur could be metastatic disease. No acute fracture seen vital signs Vital Sign Date Time Temp Pulse Resp B/P (MAP) Pulse Ox O2 Delivery O2 Flow Rate FiO2 12/09/23 21:00 94 19 124/63 (83) 95 12/09/23 18:56 Room Air* 0 21 12/09/23 17:00 97.1 97.1 Total Intake and Output 12/09/23 12/09/23 12/10/23 15:00 23:00 07:00 Intake Total 240 ml 220 ml Output Total 350 ml Balance 240 ml -130 ml medications Current Medications Medications Dose Ordered Sig/Evgeny Route Start Time Stop Time Status Last Admin Dose Admin Vancomycin HCl 200 ml @ 200 mls/hr Q12HR IV 12/07/23 22:00 UNV Nitroglycerin 0.4 mg Q5MINP PRN SL 12/07/23 22:00 Morphine Sulfate 2 mg Q30M PRN IV 12/07/23 22:00 Ondansetron HCl 4 mg Q4HP PRN IV 12/08/23 07:45 Nitroglycerin 0.4 mg Q5MINP PRN SL 12/08/23 07:45 Oseltamivir Phosphate 75 mg BID PO 12/08/23 10:00 12/13/23 09:59 12/09/23 23:13 75 MG Albuterol 90 mcg TID IN 12/08/23 14:00 12/09/23 18:57 90 MCG Hydromorphone HCl 0.5 mg Q4HP PRN IV 12/08/23 08:15 12/09/23 15:43 0.5 MG Oxycodone/ Acetaminophen 1 tab Q4HP PRN PO 12/08/23 08:15 12/09/23 23:14 1 TAB Apixaban 5 mg BID PO 12/08/23 10:00 12/09/23 23:12 5 MG Ferrous Sulfate 325 mg BID PO 12/08/23 10:00 12/09/23 23:10 325 MG Tamsulosin HCl 0.4 mg QPM PO 12/08/23 18:00 12/09/23 18:05 0.4 MG Enalapril Maleate 10 mg DAILY PO 12/08/23 10:00 12/09/23 08:54 10 MG Diagnostic Test (Pha) 1 strip ACHS 12/08/23 11:30 12/09/23 23:39 1 STRIP Insulin Human Regular HS SC 12/08/23 22:00 12/09/23 23:47 6 UNITS Insulin Human Regular AC SC 12/08/23 11:30 12/09/23 12:09 3 UNITS Dextrose 50 ml UD PRN IV 12/08/23 09:30 Vancomycin HCl 0 ml @ 0 mls/hr UD IV 12/08/23 10:15 Polyethylene Glycol 17 gm DAILY PO 12/09/23 10:00 12/09/23 12:17 17 GM Ascorbic Acid 500 mg DAILY PO 12/09/23 10:00 12/09/23 08:49 500 MG Cholecalciferol 1,000 unit DAILY PO 12/09/23 10:00 12/09/23 08:49 1,000 UNIT Zinc Sulfate 220 mg DAILY PO 12/09/23 10:00 12/09/23 08:49 220 MG Sucralfate 1 gm QID@0600,1130,1700,2200 GT 12/08/23 17:00 12/09/23 23:07 1 GM Amiodarone HCl 200 mg Q12HR PO 12/08/23 22:00 12/09/23 23:11 200 MG Metoprolol Succinate 25 mg DAILY PO 12/09/23 10:00 12/09/23 08:54 25 MG Atorvastatin Calcium 40 mg HS PO 12/08/23 22:00 12/09/23 23:28 40 MG Dexamethasone 6 mg DAILY PO 12/09/23 10:00 12/19/23 09:59 12/09/23 08:48 6 MG Piperacillin Sod/ Tazobactam Sod 100 ml @ 25 mls/hr Q8HR IV 12/09/23 01:00 12/09/23 23:10 25 MLS/HR Phenol/Menthol 1 spr Q2HP PRN MT 12/09/23 07:30 Vancomycin HCl 150 ml @ 150 mls/hr Q12H IV 12/09/23 20:30 12/09/23 20:43 150 MLS/HR Fentanyl 25 mcg Q72H TD 12/09/23 12:15 12/09/23 18:09 25 MCG Megestrol Acetate 400 mg BID GT 12/09/23 12:30 12/09/23 23:09 400 MG Alprazolam 0.25 mg TID PO 12/09/23 14:00 Hold Docusate Sodium 100 mg BID PO 12/09/23 22:00 12/09/23 23:11 100 MG Metformin HCl 1,000 mg BIDAC PO 12/09/23 17:00 12/09/23 18:05 1,000 MG Enteral Nutritional Formula 240 ml TIDWM PO 12/09/23 18:00 12/09/23 18:10 240 ML objective General: the patient is well developed and nourished. No acute distress. MENTAL STATUS: Awake and alert. Oriented to person, place, he knows year, poor historian SPEECH, LANGUAGE, HIGHER CORTICAL FUNCTION: no aphasia or dysathria. CRANIAL NERVES: Pupils are equal, round and reactive. EOMs full and conjugate. No nystagmus. Facial sensation intact in all three divisions bilaterally. Mandibular strength intact. Facial muscles symmetrical and strength intact. SENSATION: Sensation to touch and pinprick is normal. MOTOR: Normal tone in the upper and lower extremity. Normal muscle bulk. No fasciculations. No abnormal movements or posturing. Muscle strength of the major groups in the upper extremities is 5/5. Muscle strength of the major groups in the lower extremities is: Rt: 4/5, Lt: 2/5. REFLEXES: Deep tendon reflexes are symmetrical. No pathological reflexes. CEREBELLAR/COORDINATION: Finger to nose and heel to becerra are normal bilaterally. GAIT/STATION: deferred. laboratory and microbiology Laboratory Tests 12/09/23 05:07 Test 12/09/23 05:07 Range/Units Serum Glucose 154 H 74-106 mg/dL Problem List Altered mental status, likely metabolic encephalopathy Metabolic encephalopathy secondary to urinary tract infection and COVID-19 Urinary tract infection COVID-19 Sepsis Septic shock Hypotension secondary to septic shock AFib Prostatic cancer Pain in the left hip, knee and ankle, ? Secondary to metastatic cancer Assessment/Plan Monitoring Supportive treatment EEG Telemetry IV antibiotics Eliquis 5 mg daily Lipitor 40 mg daily Haldol 2.5 mg IM Q 8 hours p.r.n. for agitation Oncology evaluation More recommendation per clinical course This medical document was created using an electronic medical record system with [employer] dictation system. Although this document has been carefully reviewed, there may still be some phonetic and typographical errors. These areas are purely typographical due to imperfections of the software programs, and do not reflect any compromise in the patient's medical care Prognosis poor Plan discussed with: Other Critical Care Time(min): 40 BRANDY MEYERS MD Dec 10, 2023 00:08
--- NOTE | 2023-12-10 00:50 | DVHEEG2 ---
Neurology EEG Procedural Note Procedural Note EXAM DATE: 12/09/23 REFERRING DOCTOR: Dr. Meyers TECHNIQUE: Eighteen channels of EEG, 2 channels of EOG, and 1 channel of EKG were recorded using the [employer] 10/20 system. CLINICAL DATA: The patient was referred for an EEG evaluation for the evidence of seizure disorder. MEDICATIONS: See chart BACKGROUND ACTIVITY: There was significant amount of artifacts. While the patient was awake, the background activity consisted of fairly regulated 9Hz rhythmic waveforms, symmetrically distributed over both posterior quadrants and was reactive to eye opening. ACTIVATION: Hyperventilation: Not done Photic Stimulation: Not done Sleep: Not seen IMPRESSION: This is a normal EEG. No focal, lateralized, or epileptiform features are noted. If clinically indicated to rule out a seizure disorder, recommend repeat EEG with sleep deprivation. The EKG channel showed an irregular heart rate of 96 per minute[place] [address] BRANDY MEYERS MD Dec 10, 2023 00:50
[2023-12-10 05:47] LABS: Hematocrit 28.3 % (41.0-53.0); Hemoglobin 8.8 g/dL (13.5-17.5); Mean Corpuscular Hgb Conc. 31.2 g/dL (32.0-36.0); Platelet Count (auto) 262 10^3/uL (140-450); Red Blood Cells 3.15 10^6/uL (4.5-5.90); Red Cell Distribution Width 18.4 % (11.8-14.3); White Blood Cell 7.1 10^3/uL (4.4-10.8)
[2023-12-10 06:00] LABS: Basophils % (manual) 0 (0.0-2.0); Blast Cells 0; Eosinophils % (manual) 0 (0-7); Metamyelocytes % 0; Myelocytes % 0; Promyelocytes % 0; Reactive Lymphocytes 0
[2023-12-10] MEDS: SORE THROAT SPRAY 6OZ BOTTLE MT PRN (09:00)
[2023-12-10 09:01] LABS: Band Neutrophils % (manual) 3; Lymphocytes % (manual) 21 (10.0-50.0); Monocytes % (manual) 7 (0-12); Platelet Estimate Adequate
[2023-12-10] MEDS: ONDANSETRON HCL 4 MG/2 ML VIAL IV PRN (10:53)
--- NOTE | 2023-12-10 10:53 | DVHPN2 ---
Progress Note - Dictate Date Seen: Dec 10, 2023 Medical Necessity Reason Pt with a Central, PICC or Fol: No Subjective Mr. Cash is a 78 years old gentleman with a history of hypertension, diabetes, dyslipidemia, coronary artery disease, heart attack, atrial fibrillation, congestive heart failure, AAA, peripheral vascular disease, COPD, anxiety, prostate cancer, BPH, he was admitted to the [facility] on 12/07/23 with a chief company of altered mental status I have seen and examined the patient, I have talked to his nurse. He was doing better, oriented x 2-3, feeling hot with a good conversation, he was confused last night, better this morning, he talked about that he needed to work this morning I have discussed the case with Dr. Gomez Re: Prostate cancer with metastasis SARS-CoV-2 antigen, 12/08/2023: Positive UDS, 12/07/2023: Plasma alcohol, normal Urinalysis, 12/07/2023: WBC: 127/urine leukocyte esterase: 3+ WBC/HB/PLT/MCV, 12/08/2023: 5.5/8.7/211/90 PT/INR/PTT, 12/08/2023: 13.7/1.32/38.4 HGB A1c, 12/08/2023: 7.1 Liver function tests, 12/07/2023: Unremarkable TG/HDL/LDL/HDL, 12/08/2023: 117/141/89/29 VIT B12, 11/2023: 346 FOLIC ACID, 11/2023: 9.28 TSH, 12/08/2023: 0.6 EEG, 12/09/2023: Normal CT head, 12/08/2023: 1. No acute intracranial abnormality. 2. Generalized cerebral volume loss and mild chronic microvascular ischemic change 3. Chronic lacunar infarcts in the right caudate head and anterior right basal ganglia. 4. Small chronic left cerebellar infarct. CT, left hip, 12/09/2023: Multiple round sclerotic lesions throughout the pelvis, sacrum, acetabulum, and left femur could be metastatic disease. No acute fracture seen vital signs Vital Sign Date Time Temp Pulse Resp B/P (MAP) Pulse Ox O2 Delivery O2 Flow Rate FiO2 12/10/23 09:56 94 18 114/59 12/10/23 09:00 97.6 99 97.6 12/10/23 07:15 Nasal Cannula 3.0 12/10/23 07:15 32 Total Intake and Output 12/09/23 12/09/23 12/10/23 15:00 23:00 07:00 Intake Total 240 ml 220 ml 225 ml Output Total 350 ml 375 ml Balance 240 ml -130 ml -150 ml medications Current Medications Medications Dose Ordered Sig/Evgeny Route Start Time Stop Time Status Last Admin Dose Admin Vancomycin HCl 200 ml @ 200 mls/hr Q12HR IV 12/07/23 22:00 UNV Nitroglycerin 0.4 mg Q5MINP PRN SL 12/07/23 22:00 Morphine Sulfate 2 mg Q30M PRN IV 12/07/23 22:00 Ondansetron HCl 4 mg Q4HP PRN IV 12/08/23 07:45 Nitroglycerin 0.4 mg Q5MINP PRN SL 12/08/23 07:45 Oseltamivir Phosphate 75 mg BID PO 12/08/23 10:00 12/13/23 09:59 12/10/23 09:19 75 MG Albuterol 90 mcg TID IN 12/08/23 14:00 12/10/23 07:15 90 MCG Hydromorphone HCl 0.5 mg Q4HP PRN IV 12/08/23 08:15 12/10/23 08:50 0.5 MG Oxycodone/ Acetaminophen 1 tab Q4HP PRN PO 12/08/23 08:15 12/10/23 06:28 1 TAB Apixaban 5 mg BID PO 12/08/23 10:00 12/10/23 09:19 5 MG Ferrous Sulfate 325 mg BID PO 12/08/23 10:00 12/10/23 09:19 325 MG Tamsulosin HCl 0.4 mg QPM PO 12/08/23 18:00 12/09/23 18:05 0.4 MG Enalapril Maleate 10 mg DAILY PO 12/08/23 10:00 12/09/23 08:54 10 MG Diagnostic Test (Pha) 1 strip ACHS 12/08/23 11:30 12/10/23 08:03 1 STRIP Insulin Human Regular HS SC 12/08/23 22:00 12/09/23 23:47 6 UNITS Insulin Human Regular AC SC 12/08/23 11:30 12/10/23 08:08 6 UNITS Dextrose 50 ml UD PRN IV 12/08/23 09:30 Vancomycin HCl 0 ml @ 0 mls/hr UD IV 12/08/23 10:15 Polyethylene Glycol 17 gm DAILY PO 12/09/23 10:00 12/10/23 09:18 17 GM Ascorbic Acid 500 mg DAILY PO 12/09/23 10:00 12/10/23 09:19 500 MG Cholecalciferol 1,000 unit DAILY PO 12/09/23 10:00 12/10/23 09:19 1,000 UNIT Zinc Sulfate 220 mg DAILY PO 12/09/23 10:00 12/10/23 09:19 220 MG Sucralfate 1 gm QID@0600,1130,1700,2200 GT 12/08/23 17:00 12/10/23 06:26 1 GM Amiodarone HCl 200 mg Q12HR PO 12/08/23 22:00 12/10/23 09:19 200 MG Metoprolol Succinate 25 mg DAILY PO 12/09/23 10:00 12/09/23 08:54 25 MG Atorvastatin Calcium 40 mg HS PO 12/08/23 22:00 12/09/23 23:28 40 MG Dexamethasone 6 mg DAILY PO 12/09/23 10:00 12/19/23 09:59 12/10/23 09:19 6 MG Piperacillin Sod/ Tazobactam Sod 100 ml @ 25 mls/hr Q8HR IV 12/09/23 01:00 12/10/23 06:26 25 MLS/HR Phenol/Menthol 1 spr Q2HP PRN MT 12/09/23 07:30 Vancomycin HCl 150 ml @ 150 mls/hr Q12H IV 12/09/23 20:30 12/10/23 09:18 150 MLS/HR Fentanyl 25 mcg Q72H TD 12/09/23 12:15 12/09/23 18:09 25 MCG Megestrol Acetate 400 mg BID GT 12/09/23 12:30 12/10/23 09:20 400 MG Alprazolam 0.25 mg TID PO 12/09/23 14:00 Hold Docusate Sodium 100 mg BID PO 12/09/23 22:00 12/10/23 09:19 100 MG Metformin HCl 1,000 mg BIDAC PO 12/09/23 17:00 12/10/23 06:27 1,000 MG Enteral Nutritional Formula 240 ml TIDWM PO 12/09/23 18:00 12/10/23 08:00 240 ML Haloperidol Lactate 2.5 mg Q8HP PRN IM 12/10/23 00:45 objective General: the patient is well developed and nourished. No acute distress. MENTAL STATUS: Subjective SPEECH, LANGUAGE, HIGHER CORTICAL FUNCTION: no aphasia or dysathria. CRANIAL NERVES: Pupils are equal, round and reactive. EOMs full and conjugate. No nystagmus. Facial sensation intact in all three divisions bilaterally. Mandibular strength intact. Facial muscles symmetrical and strength intact. SENSATION: Sensation to touch and pinprick is normal. MOTOR: Normal tone in the upper and lower extremity. Normal muscle bulk. No fasciculations. No abnormal movements or posturing. Muscle strength of the major groups in the upper extremities is 5/5. Muscle strength of the major groups in the lower extremities is: Rt: 4/5, Lt: 2/5. REFLEXES: Deep tendon reflexes are symmetrical. No pathological reflexes. CEREBELLAR/COORDINATION: Finger to nose and heel to becerra are normal bilaterally. GAIT/STATION: deferred. laboratory and microbiology Laboratory Tests 12/10/23 05:05 12/09/23 05:07 Test 12/09/23 05:07 Range/Units Serum Glucose 154 H 74-106 mg/dL Problem List Altered mental status, likely metabolic encephalopathy Metabolic encephalopathy secondary to urinary tract infection and COVID-19 Urinary tract infection COVID-19 Sepsis Septic shock Hypotension secondary to septic shock AFib Prostatic cancer Pain in the left hip, knee and ankle, Secondary to metastatic cancer Assessment/Plan Monitoring Supportive treatment Telemetry IV antibiotics Eliquis 5 mg daily Lipitor 40 mg daily Haldol 2.5 mg IM Q 8 hours p.r.n. for agitation Oncology on case More recommendation per clinical course This medical document was created using an electronic medical record system with [employer] dictation system. Although this document has been carefully reviewed, there may still be some phonetic and typographical errors. These areas are purely typographical due to imperfections of the software programs, and do not reflect any compromise in the patient's medical care Prognosis poor Dietary Evaluation Review Comments: 1) Consider Mayo BID for promoting wound healing, 2)Follow current diet regimen prescribed as 2g NA CCHO and Cardiac Lofat LoChol diet plus nepro 240ml PO supplement. 3) Monitor PO intake to reach at least 75% of his needs. Expected Outcomes/Goals: Controlled DM, healed wounds and maintain current Body Weight. Plan discussed with: Other Total Time (mins): 35 BRANDY MEYERS MD Dec 10, 2023 10:53
--- NOTE | 2023-12-10 11:45 | DVHPN2 ---
Progress Note - Dictate Date Seen: Dec 10, 2023 Medical Necessity Reason Pt with a Central, PICC or Fol: No vital signs Vital Sign Date Time Temp Pulse Resp B/P (MAP) Pulse Ox O2 Delivery O2 Flow Rate FiO2 12/10/23 09:56 94 18 114/59 12/10/23 09:00 97.6 99 97.6 12/10/23 07:15 Nasal Cannula 3.0 12/10/23 07:15 32 Total Intake and Output 12/09/23 12/09/23 12/10/23 15:00 23:00 07:00 Intake Total 240 ml 220 ml 225 ml Output Total 350 ml 375 ml Balance 240 ml -130 ml -150 ml medications Current Medications Medications Dose Ordered Sig/Evgeny Route Start Time Stop Time Status Last Admin Dose Admin Vancomycin HCl 200 ml @ 200 mls/hr Q12HR IV 12/07/23 22:00 UNV Nitroglycerin 0.4 mg Q5MINP PRN SL 12/07/23 22:00 Morphine Sulfate 2 mg Q30M PRN IV 12/07/23 22:00 Ondansetron HCl 4 mg Q4HP PRN IV 12/08/23 07:45 12/10/23 10:53 4 MG Nitroglycerin 0.4 mg Q5MINP PRN SL 12/08/23 07:45 Oseltamivir Phosphate 75 mg BID PO 12/08/23 10:00 12/13/23 09:59 12/10/23 09:19 75 MG Albuterol 90 mcg TID IN 12/08/23 14:00 12/10/23 07:15 90 MCG Hydromorphone HCl 0.5 mg Q4HP PRN IV 12/08/23 08:15 12/10/23 08:50 0.5 MG Oxycodone/ Acetaminophen 1 tab Q4HP PRN PO 12/08/23 08:15 12/10/23 06:28 1 TAB Apixaban 5 mg BID PO 12/08/23 10:00 12/10/23 09:19 5 MG Ferrous Sulfate 325 mg BID PO 12/08/23 10:00 12/10/23 09:19 325 MG Tamsulosin HCl 0.4 mg QPM PO 12/08/23 18:00 12/09/23 18:05 0.4 MG Enalapril Maleate 10 mg DAILY PO 12/08/23 10:00 12/09/23 08:54 10 MG Diagnostic Test (Pha) 1 strip ACHS 12/08/23 11:30 12/10/23 08:03 1 STRIP Insulin Human Regular HS SC 12/08/23 22:00 12/09/23 23:47 6 UNITS Insulin Human Regular AC SC 12/08/23 11:30 12/10/23 08:08 6 UNITS Dextrose 50 ml UD PRN IV 12/08/23 09:30 Vancomycin HCl 0 ml @ 0 mls/hr UD IV 12/08/23 10:15 Polyethylene Glycol 17 gm DAILY PO 12/09/23 10:00 12/10/23 09:18 17 GM Ascorbic Acid 500 mg DAILY PO 12/09/23 10:00 12/10/23 09:19 500 MG Cholecalciferol 1,000 unit DAILY PO 12/09/23 10:00 12/10/23 09:19 1,000 UNIT Zinc Sulfate 220 mg DAILY PO 12/09/23 10:00 12/10/23 09:19 220 MG Sucralfate 1 gm QID@0600,1130,1700,2200 GT 12/08/23 17:00 12/10/23 06:26 1 GM Amiodarone HCl 200 mg Q12HR PO 12/08/23 22:00 12/10/23 09:19 200 MG Metoprolol Succinate 25 mg DAILY PO 12/09/23 10:00 12/09/23 08:54 25 MG Atorvastatin Calcium 40 mg HS PO 12/08/23 22:00 12/09/23 23:28 40 MG Dexamethasone 6 mg DAILY PO 12/09/23 10:00 12/19/23 09:59 12/10/23 09:19 6 MG Piperacillin Sod/ Tazobactam Sod 100 ml @ 25 mls/hr Q8HR IV 12/09/23 01:00 12/10/23 06:26 25 MLS/HR Phenol/Menthol 1 spr Q2HP PRN MT 12/09/23 07:30 Vancomycin HCl 150 ml @ 150 mls/hr Q12H IV 12/09/23 20:30 12/10/23 09:18 150 MLS/HR Fentanyl 25 mcg Q72H TD 12/09/23 12:15 12/09/23 18:09 25 MCG Megestrol Acetate 400 mg BID GT 12/09/23 12:30 12/10/23 09:20 400 MG Alprazolam 0.25 mg TID PO 12/09/23 14:00 Hold Docusate Sodium 100 mg BID PO 12/09/23 22:00 12/10/23 09:19 100 MG Metformin HCl 1,000 mg BIDAC PO 12/09/23 17:00 12/10/23 06:27 1,000 MG Enteral Nutritional Formula 240 ml TIDWM PO 12/09/23 18:00 12/10/23 08:00 240 ML Haloperidol Lactate 2.5 mg Q8HP PRN IM 12/10/23 00:45 objective General Appearance: alert, no distress HEENT: EOMI, PERRLA, normal external inspect of ears, no icterus, no nasal drainage Neck: no carotid bruit, no jugular venous distention (JVD), no lymphadenopathy Chest: normal thorax Respiratory: clear to auscultation, normal air movement Cardiovascular: regular rate and rhythm, no diastolic murmur, no jugular venous distention (JVD), no rub, no systolic murmur Abdominal: soft, no hepatomegaly, no mass, no splenomegaly, no tenderness Genitourinary: grossly normal external Musculoskeletal: no joint tenderness, no swelling Extremities: normal pulses, no calf tenderness, no clubbing, no cyanosis, no edema Skin: no bruising, no jaundice, no rash Neurological: alert, No focal deficit laboratory and microbiology Laboratory Tests 12/10/23 05:05 12/09/23 05:07 Test 12/09/23 05:07 Range/Units Serum Glucose 154 H 74-106 mg/dL Problem List 1. Severe sepsis ID Consult, meds 2. Septic Shock ID consult 3. Paroxysmal AFIB Cardiology Consult 4. CAD Cardiology consult 5. Prostate cancer with mets to bone Medication, monitoring 6. HX of CABG Cardiology consult 7. Chronic Anticoagulation Medication, monitoring 8. Anemia of chronic disease Supplemental O2 9. Influenza B Restart Home meds 10. COVID 19 Covid trial meds, Monitoring 11. DMI w/ neuropathy Insulin Sliding Scale 12. Metabolic Encephalopathy neurology consult Assessment/Plan Subjective Patient is awake and alert. Objective I spoke with patient at length about plan of care. Physical therapy stated patient had previously charted. Patient did not want to transfer to a chair but patient states he does not remember working with any physical therapy and he is requesting physical therapy in order to get better. Patient states he has been bedbound for 1 month but he was in the hospital for at [facility] due to small bowel obstruction. And he was too weak to ambulate at that time. Patient was previously ambulating. Patient and patient's are refusing to go back to his prison facility and are requesting physical therapy evaluation. Patient is currently eating 25% of his diet. Patient has prostate cancer with metastasis to bone. Patient was placed on a fentanyl patch yesterday he states his pain is better controlled. Patient is positive for influenza and COVID. [facility] prior to admission to the hospital. Plan Continue current treatment. Continue current pain medication regimen. Physical therapy to work with patient twice a day. DC planning home with home health and PT. Dietary Evaluation Review Comments: 1) Consider Mayo BID for promoting wound healing, 2)Follow current diet regimen prescribed as 2g NA CCHO and Cardiac Lofat LoChol diet plus nepro 240ml PO supplement. 3) Monitor PO intake to reach at least 75% of his needs. Expected Outcomes/Goals: Controlled DM, healed wounds and maintain current Body Weight. Plan discussed with: Patient, Other ALEXYS DAIGLE NP Dec 10, 2023 11:45
--- NOTE | 2023-12-10 14:04 | MEDREC ---
[facility] ASP Intervention Section I [facility] ASP Intervention: Review courses of therapy (PLEASE CONSIDER ADDING MICAFUNGIN BASED ON THE URINE CULTURE) SARITA JOYCE PHARMACIST Dec 10, 2023 14:04
[2023-12-10] MEDS: HALOPERIDOL LACTATE 5 MG/ML INJ VIAL IM PRN (15:21)
--- NOTE | 2023-12-10 22:27 | DVHPN2 ---
Progress Note - Dictate Date Seen: Dec 10, 2023 Medical Necessity Reason Pt with a Central, PICC or Fol: Yes The following are medically ne: Barksdale Catheter Reason for barksdale catheter: Strict I&O Subjective Patient seen and examined at bedside. Breathing comfortably on room air. Overnight events reviewed. vital signs Vital Sign Date Time Temp Pulse Resp B/P (MAP) Pulse Ox O2 Delivery O2 Flow Rate FiO2 12/10/23 22:20 100 20 121/67 12/10/23 21:18 94 Room Air 0.0 12/10/23 21:18 21 12/10/23 16:43 98.6 98.6 Total Intake and Output 12/09/23 12/09/23 12/10/23 15:00 23:00 07:00 Intake Total 240 ml 220 ml 225 ml Output Total 350 ml 375 ml Balance 240 ml -130 ml -150 ml medications Current Medications Medications Dose Ordered Sig/Evgeny Route Start Time Stop Time Status Last Admin Dose Admin Vancomycin HCl 200 ml @ 200 mls/hr Q12HR IV 12/07/23 22:00 UNV Nitroglycerin 0.4 mg Q5MINP PRN SL 12/07/23 22:00 Morphine Sulfate 2 mg Q30M PRN IV 12/07/23 22:00 Ondansetron HCl 4 mg Q4HP PRN IV 12/08/23 07:45 12/10/23 18:40 4 MG Nitroglycerin 0.4 mg Q5MINP PRN SL 12/08/23 07:45 Oseltamivir Phosphate 75 mg BID PO 12/08/23 10:00 12/13/23 09:59 12/10/23 22:18 75 MG Albuterol 90 mcg TID IN 12/08/23 14:00 12/10/23 21:18 90 MCG Hydromorphone HCl 0.5 mg Q4HP PRN IV 12/08/23 08:15 12/10/23 22:20 0.5 MG Oxycodone/ Acetaminophen 1 tab Q4HP PRN PO 12/08/23 08:15 12/10/23 20:52 1 TAB Apixaban 5 mg BID PO 12/08/23 10:00 12/10/23 22:21 5 MG Ferrous Sulfate 325 mg BID PO 12/08/23 10:00 12/10/23 22:19 325 MG Tamsulosin HCl 0.4 mg QPM PO 12/08/23 18:00 12/10/23 17:55 0.4 MG Enalapril Maleate 10 mg DAILY PO 12/08/23 10:00 12/09/23 08:54 10 MG Diagnostic Test (Pha) 1 strip ACHS 12/08/23 11:30 12/10/23 22:09 1 STRIP Insulin Human Regular HS SC 12/08/23 22:00 12/09/23 23:47 6 UNITS Insulin Human Regular AC SC 12/08/23 11:30 12/10/23 18:42 9 UNITS Dextrose 50 ml UD PRN IV 12/08/23 09:30 Vancomycin HCl 0 ml @ 0 mls/hr UD IV 12/08/23 10:15 Polyethylene Glycol 17 gm DAILY PO 12/09/23 10:00 12/10/23 09:18 17 GM Ascorbic Acid 500 mg DAILY PO 12/09/23 10:00 12/10/23 09:19 500 MG Cholecalciferol 1,000 unit DAILY PO 12/09/23 10:00 12/10/23 09:19 1,000 UNIT Zinc Sulfate 220 mg DAILY PO 12/09/23 10:00 12/10/23 09:19 220 MG Sucralfate 1 gm QID@0600,1130,1700,2200 GT 12/08/23 17:00 12/10/23 17:56 1 GM Amiodarone HCl 200 mg Q12HR PO 12/08/23 22:00 12/10/23 22:19 200 MG Metoprolol Succinate 25 mg DAILY PO 12/09/23 10:00 12/09/23 08:54 25 MG Atorvastatin Calcium 40 mg HS PO 12/08/23 22:00 12/10/23 22:18 40 MG Dexamethasone 6 mg DAILY PO 12/09/23 10:00 12/19/23 09:59 12/10/23 09:19 6 MG Piperacillin Sod/ Tazobactam Sod 100 ml @ 25 mls/hr Q8HR IV 12/09/23 01:00 12/10/23 22:21 25 MLS/HR Phenol/Menthol 1 spr Q2HP PRN MT 12/09/23 07:30 12/10/23 09:00 1 SPR Vancomycin HCl 150 ml @ 150 mls/hr Q12H IV 12/09/23 20:30 12/10/23 20:52 150 MLS/HR Fentanyl 25 mcg Q72H TD 12/09/23 12:15 12/09/23 18:09 25 MCG Megestrol Acetate 400 mg BID GT 12/09/23 12:30 12/10/23 22:18 400 MG Alprazolam 0.25 mg TID PO 12/09/23 14:00 Hold Docusate Sodium 100 mg BID PO 12/09/23 22:00 12/10/23 22:18 100 MG Metformin HCl 1,000 mg BIDAC PO 12/09/23 17:00 12/10/23 17:55 1,000 MG Enteral Nutritional Formula 240 ml TIDWM PO 12/09/23 18:00 12/10/23 18:12 240 ML Haloperidol Lactate 2.5 mg Q8HP PRN IM 12/10/23 00:45 12/10/23 15:21 2.5 MG objective Gen.: Patient lying in bed in no apparent distress. Breathing on room air. Head: Normocephalic, atraumatic. Eyes: EOMI/PERRLA. Ears: Normal hearing. Normal anatomy. Neck/trachea: Trachea midline, supple. Nose: Normal external anatomy. Mouth: Moist mucous membranes. Chest: Decreased air entry bilaterally. No wheezing or rhonchi. Cardiovascular: Positive S1, positive S2. Regular rate and rhythm. Abdomen: Positive bowel sounds in all 4 quadrants. Soft, non-tender, non- distended. : Deferred. Rectal: Deferred. Skin: Warm, dry. Intact. Extremities: 2+ radial pulses bilaterally. No lower extremity edema. Neuro: Awake, alert, oriented x3. No gross motor or sensory deficits. Cranial nerves II through XII intact. Gait not assessed. laboratory and microbiology Laboratory Tests 12/10/23 05:05 12/09/23 05:07 Test 12/09/23 05:07 Range/Units Serum Glucose 154 H 74-106 mg/dL Assessment/Plan Impression: Severe sepsis Acute hypoxic respiratory failure Pneumonitis Anemia COVID-19 infection Influenza type A positive Events: Breathing on room air No respiratory distress. Continue antibiotics - vancomycin, Zosyn Tamiflu d/t influenza Continue Decadron Incentive spirometry Pain control Avoid oversedation Labs and imaging reviewed. Rest of plan as noted below. Plan: Supplemental oxygen PRN. Keep O2 saturation above 92%. IV fluid hydration with normal saline at 100 mL an hour. Decadron course Continue antibiotics Follow up cultures ID recommendations appreciated. Albuterol HFA inhaler t.i.d. Atrial fibrillation On Eliquis 5 mg p.o. b.i.d. On amiodarone 200 mg p.o. q.12 hours Accu-Cheks, insulin sliding scale Tamiflu course for influenza type a DVT prophylaxis- Eliquis Prognosis: Guarded given multiple comorbidities. Rest of plan per hospitalist and other consultants. Thank you NIKOLAI Bowling for allowing me to participate in this patient's care. Further recommendations will depend on patient's clinical course. Please do not hesitate to contact me if you have any questions or concerns. This medical document was created using an electronic medical record system with [employer] dictation system. Although this document has been carefully reviewed, there may still be some phonetic and typographical errors. These areas are purely typographical due to imperfections of the software programs, and do not reflect any compromise in the patient's medical care. Dietary Evaluation Review Comments: 1) Consider Mayo BID for promoting wound healing, 2)Follow current diet regimen prescribed as 2g NA CCHO and Cardiac Lofat LoChol diet plus nepro 240ml PO supplement. 3) Monitor PO intake to reach at least 75% of his needs. Expected Outcomes/Goals: Controlled DM, healed wounds and maintain current Body Weight. Plan discussed with: Patient, Other (ROVERTO De Leon) WES BURNS MD Dec 10, 2023 22:27
[2023-12-11] VITALS (13 sets, daily range): BP systolic 115–136; BP diastolic 62–71; PULSE 92–104; RESP 8–20; TEMP 97.5–98.1; O2SAT 91–98
--- NOTE | 2023-12-11 09:05 | DVHINCON2 ---
Date of service: Dec 11, 2023 Referring Physician Maegan Bowling Reason for Consultation Metastatic prostate cancer History of Present Illness 78 years old gentleman who has a history of Metastatic prostate carcinoma with extensive bony mets since August 2019. The patient having pains in the hips and ankles shoulders and losing weight. S/p radiation therapy Started Lupron and Casodex and Zometa BRCA negative [ Status post Xtandi At present he is getting treatment like Lupron and Xtandi He recently fell down and hurt his hip and had altered level of consciousness. He was found to be hypotensive on 12/07/2023. At present the patient is not complaining of any significant pains. He wishes to walk. He is found to have COVID-19 positivity. The patient is oriented at present. Does complain of some nausea vomiting. Had a CT of the brain which showed chronic lacunar infarcts in the right caudate head and anterior right basal ganglia His CBC showed a white count of 7.1 hemoglobin 8.8 platelets 262 Insert normal renal functions. Lactic acid 1.4 normal liver functions. Alkaline phosphatase 317 total protein 6.3 albumin 3.4 B12 346 folic acid 9.28 TSH 0.6 Has a history of coronary artery disease status post bypass surgery, diabetes, hypertension, abdominal aortic aneurysm, dyslipidemia, diabetes, history of KS, history of AFib and congestive heart failure and peripheral arterial disease, COPD Past Medical History DVTs, hypertension, dyslipidemia, coronary artery disease bypass surgery, KS, AFib, congestive heart failure, abdominal aortic aneurysm, peripheral arterial disease, COPD, anxiety, prostate cancer History of appendectomy, pacemaker and aortic aneurysm repair right hip surgery Family History: Chronic obstructive lung disease (situation) G8 FATHER FH: liver cancer Family history: Cardiovascular disease G8 MOTHER Family history: Diabetes mellitus G8 MOTHER 19 CHILD Family History On the market for malignancy or hematological disorders Social History No smoking. Occasionally does drink wine Allergies: Coded Allergies: Morphine (Verified Allergy, Unknown, 12/21/18) Home Meds Reported Medications Trazodone Hcl (Trazodone Hcl) 50 Mg Tab, 50 MG PO, MG 12/09/23 Alprazolam (Alprazolam) 0.25 Mg Tab, 1 TAB PO TID, #90 TAB 12/09/23 Morphine Sulfate (Morphine Sulfate Er) 60 Mg Tab, 30 MG PO, TAB 12/09/23 Metoprolol Tartrate (Metoprolol Tartrate) 25 Mg Tab, 25 MG PO for 30 Days, MG 12/09/23 Clonidine Hydrochloride (Clonidine Hcl) 0.1 Mg Tab, 0.1 MG PO BID for 30 Days, MG 12/09/23 Amiodarone Hcl (Amiodarone Hcl) 200 Mg Tab, 200 MG PO DAILY for 30 Days 12/09/23 Docusate Sodium (Colace) 100 Mg Cap, 1 CAP PO BID, #30 CAP 12/09/23 Apixaban Base (ELIQUIS) 5 Mg Tab, 5 MG PO BID, TAB 12/09/23 Atorvastatin Calcium (ATORVASTATIN CALCIUM) 10 Mg Tab, 1 TAB PO DAILY, #30 TAB 5 Refills 12/09/23 Carvedilol (Carvedilol) 6.25 Mg Tab, 6.25 MG PO BID, TAB 05/08/16 Ginkgo Biloba Galva (GINKGO BILOBA) 500 Mg Cap, 100 MG PO DAILY, CAP 11/10/15 Tamsulosin Hcl (Flomax) 0.4 Mg Cap, 0.4 MG PO QPM, CAP 11/10/15 [Nitrostat Sub 0.4MGNITROSTA] No Conflict Check, SL PRN 08/29/12 [Clonidine Hcl0.1 Mg] (Clonidine Hcl) 0.1 MG TAB No Conflict Check, MG PO DAILYPRN 08/29/12 Metformin Hydrochloride (Metformin Hcl) 500 Mg Tab, 2 TAB PO TWICE DAILY 02/22/12 [Aspirin Ec81 Mg] (Aspirin Ec) 81 MG TAB No Conflict Check, 81 MG PO DAILY, 0 Refills 02/22/12 [Enalapril Malea10 Mg] (Enalapril Maleate) 10 MG TAB No Conflict Check, 10 MG PO DAILY, 0 Refills 02/22/12 Famotidine (Acid Controller) 10 Mg Tab, PO DAILY 01/24/10 Gabapentin (Neurontin) 100 Mg Cap, 100 MG PO TID 09/08/09 Vital Signs Vital Signs Date Time Temp Pulse Resp B/P (MAP) Pulse Ox O2 Delivery O2 Flow Rate FiO2 12/11/23 07:03 93 Room Air 0.0 12/11/23 07:03 100 16 12/11/23 07:03 21 12/11/23 05:00 97.9 129/69 (89) 97.9 Physical Exam Moderately built and nourished, in no acute distress, alert and oriented. No jaundice Head and neck: Unremarkable for any masses or neck nodes. No conjunctival or mucosal hemorrhage Lungs: Clear Cardiovascular: S1-S2 heard well Abdomen: No organomegaly, tenderness or ascites. Bowel sounds are present. Extremities: No clubbing edema cyanosis or calf tenderness. Skin: Unremarkable for petechia purpura ecchymosis Lymphadenopathy: None Neurological exam: No focal deficit Labs/Diagnostic Data Labs Test 12/11/23 07:01 12/10/23 19:25 12/10/23 05:05 12/09/23 05:07 Range/Units POC Glucose 126 H 70-106 mg/dl Vancomycin Level Trough 15.3 H 5-10 ug/mL White Blood Count 7.1 4.4-10.8 10^3/uL Red Blood Count 3.15 L 4.5-5.90 10^6/uL Hemoglobin 8.8 L 13.5-17.5 g/dL Hematocrit 28.3 #L 41.0-53.0 % Mean Corpuscular Volume 90.0 80.0-100.0 fL Mean Corpuscular Hemoglobin 28.0 28.0-32.0 pg Mean Corpuscular Hemoglobin Concent 31.2 L 32.0-36.0 g/dL Red Cell Distribution Width 18.4 H 11.8-14.3 % Platelet Count 262 140-450 10^3/uL Mean Platelet Volume 6.7 L 6.9-10.8 fL Neutrophils (%) (Auto) 37.0-80.0 % Lymphocytes (%) (Auto) 10.0-50.0 % Monocytes (%) (Auto) 0.0-12.0 % Basophils (%) (Auto) 0.0-2.0 % Neutrophils # (Auto) 1.6-8.6 10 ^3/uL Lymphocytes # (Auto) 0.4-5.4 10 ^3/uL Monocytes # (Auto) 0-1.3 10 ^3/uL Differential Total Cells Counted 100.0 100 Neutrophils % (Manual) 69 37.0-80.0 Band Neutrophils % (Manual) 3 Lymphocytes % (Manual) 21 10.0-50.0 Monocytes % (Manual) 7 0-12 Eosinophils % (Manual) 0 0-7 Basophils % (Manual) 0 0.0-2.0 Metamyelocytes % (manual) 0 Myelocytes % (Manual) 0 Promyelocytes % (Manual) 0 Blast Cells % (Manual) 0 Reactive Lymphocytes 0 Platelet Estimate Adequate Creatinine 0.58 L 0.700-1.30 mg/dL Glomerular Filtration Rate Calc 100 >90 mL/min Nucleated Red Blood Cells 1.0 % Anisocytosis (manual) Slight Schistocytes Few Sodium Level 138 136-145 mmol/L Potassium Level 3.7 3.5-5.1 mmol/L Chloride Level 105 98-107 mmol/L Carbon Dioxide Level 20 20-31 mmol/L Anion Gap 13 5-15 Blood Urea Nitrogen 11 9-23 mg/dL BUN/Creatinine Ratio 20.4 H 10.0-20.0 Serum Glucose 154 H 74-106 mg/dL Calcium Level 8.4 L 8.7-10.4 mg/dL Total Bilirubin 0.6 0.2-1.0 mg/dL Aspartate Amino Transferase (AST) 45 H 13-40 U/L Alanine Aminotransferase (ALT) 12 7-40 U/L Alkaline Phosphatase 317 H 46-116 U/L Total Protein 6.3 5.7-8.2 g/dL Albumin 3.4 3.2-4.8 g/dL Test 12/08/23 16:29 12/08/23 00:10 12/08/23 00:02 12/07/23 23:54 Range/Units Hemoglobin A1c 7.1 H <5.7 % A1C Magnesium Level 1.7 1.6-2.6 mg/dL Triglycerides Level 117 < 150 mg/dL Cholesterol Level 141 < 200 mg/dL LDL Cholesterol 89 < 100 mg/dL HDL Cholesterol 29 L 40-59 mg/dL Vitamin B12 Level 346 211-911 pg/mL Folic Acid 9.28 >5.38 ng/mL Thyroid Stimulating Hormone (TSH) 0.60 0.55-4.78 uIU/mL Prothrombin Time 13.7 H 9.3-11.8 sec Prothrombin Time INR 1.32 H 0.9-1.15 Activated Partial Thromboplast Time 38.4 H 24.5-34.5 SEC Lactic Acid Level 1.4 0.4-2.0 mmol/L Troponin I High Sensitivity 5 </=54 ng/L Influenza Type A Antigen Negative Negative Influenza Type B Antigen Positive Negative SARS-CoV-2 Antigen (Rapid) Positive *A NEGATIVE Urine Color Light-yellow Yellow Urine Clarity Turbid H Clear Urine pH 5.5 5.0-9.0 Urine Specific Matthews 1.033 1.001-1.035 Urine Protein 1+ H Negative Urine Ketones Trace Negative Urine Blood 1+ H Negative /uL Urine Nitrite Negative Negative Urine Bilirubin Negative Negative Urine Urobilinogen Normal Negative mg/dL Urine Leukocyte Esterase 3+ Negative /uL Urine RBC 9 0 - 3 /hpf Urine WBC 127 0 - 3 /hpf Urine WBC Clumps Present None Seen /hpf Urine Squamous Epithelial Cells Few <5 /hpf Urine Bacteria Many H None Seen /hpf Urine Mucus Few None Seen Urine Yeast (Budding) Moderate None Seen /hpf Urine Glucose Normal Normal mg/dL Test 12/07/23 21:01 Range/Units B-Type Natriuretic Peptide 288.16 0-100 pg/mL Plasma/Serum Blood Alcohol < 3.0 <10 mg/dL Microbiology Date/Time Source Procedure Growth Status 12/07/23 23:54 Urine - [place] Urine Culture - Preliminary Yeast, not Faith albicans Resulted 12/07/23 22:28 Blood Blood Culture - Preliminary NO GROWTH AFTER 72 HOURS OF INCUBATION. Resulted Assessment 1. History of metastatic prostate cancer into the bone since 2019 and is status post Lupron Casodex and Zometa and Xtandi and follows me the his oncologist as an outpatient Admitted altered level of consciousness which has improved concern about sepsis 3. Atrial fibrillation 4. Coronary artery disease 5. CABG 6. anemia which could be multifactorial secondary to the prostate cancer 7.COVID-19 positive 8. Diabetes mellitus Plan/Recommendation We will check direct Carlos Alberto LDH reticulocyte count iron panel ferritin Physical therapy to help him walk The patient to follow as an outpatient Plan discussed with: Patient KRISTI RÍOS MD Dec 11, 2023 09:05
[2023-12-11 11:30] LABS: % Iron Saturation 43.5 % (20-55)
--- NOTE | 2023-12-11 14:53 | DVHPN2 ---
Progress Note - Dictate Date Seen: Dec 11, 2023 Medical Necessity Reason Pt with a Central, PICC or Fol: Yes The following are medically ne: Barksdale Catheter Reason for barksdale catheter: Strict I&O vital signs Vital Sign Date Time Temp Pulse Resp B/P (MAP) Pulse Ox O2 Delivery O2 Flow Rate FiO2 12/11/23 14:05 97 16 131/67 93 0.0 21 12/11/23 09:00 97.7 97.7 12/11/23 07:03 Room Air Total Intake and Output 12/10/23 12/10/23 12/11/23 15:00 23:00 07:00 Intake Total 550 ml 620 ml Output Total 250 ml 450 ml Balance 300 ml 170 ml medications Current Medications Medications Dose Ordered Sig/Evgeny Route Start Time Stop Time Status Last Admin Dose Admin Vancomycin HCl 200 ml @ 200 mls/hr Q12HR IV 12/07/23 22:00 UNV Nitroglycerin 0.4 mg Q5MINP PRN SL 12/07/23 22:00 Morphine Sulfate 2 mg Q30M PRN IV 12/07/23 22:00 Ondansetron HCl 4 mg Q4HP PRN IV 12/08/23 07:45 12/11/23 04:03 4 MG Nitroglycerin 0.4 mg Q5MINP PRN SL 12/08/23 07:45 Oseltamivir Phosphate 75 mg BID PO 12/08/23 10:00 12/13/23 09:59 12/11/23 09:19 75 MG Albuterol 90 mcg TID IN 12/08/23 14:00 12/11/23 14:07 90 MCG Hydromorphone HCl 0.5 mg Q4HP PRN IV 12/08/23 08:15 12/11/23 12:36 0.5 MG Oxycodone/ Acetaminophen 1 tab Q4HP PRN PO 12/08/23 08:15 12/11/23 02:19 1 TAB Apixaban 5 mg BID PO 12/08/23 10:00 12/11/23 09:18 5 MG Ferrous Sulfate 325 mg BID PO 12/08/23 10:00 12/11/23 09:18 325 MG Tamsulosin HCl 0.4 mg QPM PO 12/08/23 18:00 12/10/23 17:55 0.4 MG Enalapril Maleate 10 mg DAILY PO 12/08/23 10:00 12/11/23 09:21 10 MG Diagnostic Test (Pha) 1 strip ACHS 12/08/23 11:30 12/11/23 11:59 1 STRIP Insulin Human Regular HS SC 12/08/23 22:00 12/10/23 22:00 3 UNITS Insulin Human Regular AC SC 12/08/23 11:30 12/10/23 18:42 9 UNITS Dextrose 50 ml UD PRN IV 12/08/23 09:30 Vancomycin HCl 0 ml @ 0 mls/hr UD IV 12/08/23 10:15 Polyethylene Glycol 17 gm DAILY PO 12/09/23 10:00 12/11/23 09:22 17 GM Ascorbic Acid 500 mg DAILY PO 12/09/23 10:00 12/11/23 09:18 500 MG Cholecalciferol 1,000 unit DAILY PO 12/09/23 10:00 12/11/23 09:19 1,000 UNIT Zinc Sulfate 220 mg DAILY PO 12/09/23 10:00 12/11/23 09:18 220 MG Sucralfate 1 gm QID@0600,1130,1700,2200 GT 12/08/23 17:00 12/11/23 05:39 1 GM Amiodarone HCl 200 mg Q12HR PO 12/08/23 22:00 12/11/23 09:18 200 MG Metoprolol Succinate 25 mg DAILY PO 12/09/23 10:00 12/11/23 09:27 25 MG Atorvastatin Calcium 40 mg HS PO 12/08/23 22:00 12/10/23 22:18 40 MG Dexamethasone 6 mg DAILY PO 12/09/23 10:00 12/19/23 09:59 12/11/23 11:59 6 MG Phenol/Menthol 1 spr Q2HP PRN MT 12/09/23 07:30 12/10/23 09:00 1 SPR Vancomycin HCl 150 ml @ 150 mls/hr Q12H IV 12/09/23 20:30 12/11/23 09:23 150 MLS/HR Fentanyl 25 mcg Q72H TD 12/09/23 12:15 12/09/23 18:09 25 MCG Megestrol Acetate 400 mg BID GT 12/09/23 12:30 12/10/23 09:20 400 MG Alprazolam 0.25 mg TID PO 12/09/23 14:00 Hold Docusate Sodium 100 mg BID PO 12/09/23 22:00 12/11/23 09:19 100 MG Metformin HCl 1,000 mg BIDAC PO 12/09/23 17:00 12/10/23 17:55 1,000 MG Enteral Nutritional Formula 240 ml TIDWM PO 12/09/23 18:00 12/11/23 12:27 240 ML Haloperidol Lactate 2.5 mg Q8HP PRN IM 12/10/23 00:45 12/11/23 02:33 2.5 MG Piperacillin Sod/ Tazobactam Sod 100 ml @ 25 mls/hr Q8HR IV 12/11/23 14:00 objective General Appearance: alert, no distress HEENT: EOMI, PERRLA, normal external inspect of ears, no icterus, no nasal drainage Neck: no carotid bruit, no jugular venous distention (JVD), no lymphadenopathy Chest: normal thorax Respiratory: clear to auscultation, normal air movement Cardiovascular: regular rate and rhythm, no diastolic murmur, no jugular venous distention (JVD), no rub, no systolic murmur Abdominal: soft, no hepatomegaly, no mass, no splenomegaly, no tenderness Genitourinary: grossly normal external Musculoskeletal: no joint tenderness, no swelling Extremities: normal pulses, no calf tenderness, no clubbing, no cyanosis, no edema Skin: no bruising, no jaundice, no rash Neurological: alert, No focal deficit laboratory and microbiology Laboratory Tests 12/10/23 05:05 12/09/23 05:07 Test 12/09/23 05:07 Range/Units Serum Glucose 154 H 74-106 mg/dL Problem List 1. Severe sepsis ID Consult, meds 2. Septic Shock ID consult 3. Paroxysmal AFIB Cardiology Consult 4. CAD Cardiology consult 5. Prostate cancer with mets to bone Medication, monitoring 6. HX of CABG Cardiology consult 7. Chronic Anticoagulation Medication, monitoring 8. Anemia of chronic disease Supplemental O2 9. Influenza B Restart Home meds 10. COVID 19 Covid trial meds, Monitoring 11. DMI w/ neuropathy Insulin Sliding Scale 12. Metabolic Encephalopathy neurology consult Assessment/Plan Subjective: Patient is awake and alert. Objective: The patient was admitted for generalized weakness and previously stayed at [facility] for three days, with a prior admission to [facility]. He has a history of prostate cancer with bone metastases and a recent history of a small bowel obstruction, leading to a 25-day stay at [facility]. He has experienced significant weight loss. The patient is requesting physical therapy for rehabilitation. According to his , they do not plan to return to a shelter facility. Plan: Continue current treatment. Arrange for physical therapy to assist with ambulation or transfer to a chair twice daily. The patient is tolerating Boost supplements, and his diet has increased. Continue Tamiflu treatment and monitor respiratory status, as he is COVID-positive. Pulmonary recommendations are appreciated. Dietary Evaluation Review Comments: 1) Consider Mayo BID for promoting wound healing, 2)Follow current diet regimen prescribed as 2g NA CCHO and Cardiac Lofat LoChol diet plus nepro 240ml PO supplement. 3) Monitor PO intake to reach at least 75% of his needs. Expected Outcomes/Goals: Controlled DM, healed wounds and maintain current Body Weight. Plan discussed with: Patient, Other ALEXYS DAIGLE NP Dec 11, 2023 14:53
[2023-12-11] MEDS: PIPERACILLIN-TAZOB 3.375GM 100 ML IV SCH (15:33)
--- NOTE | 2023-12-11 21:31 | DVHPN2 ---
Progress Note - Dictate Date Seen: Dec 11, 2023 Medical Necessity Reason Pt with a Central, PICC or Fol: Yes The following are medically ne: Barksdale Catheter Reason for barksdale catheter: Strict I&O Subjective Mr. Cash is a 78 years old gentleman with a history of hypertension, diabetes, dyslipidemia, coronary artery disease, heart attack, atrial fibrillation, congestive heart failure, AAA, peripheral vascular disease, COPD, anxiety, prostate cancer, BPH, he was admitted to the [facility] on 12/07/23 with a chief company of altered mental status I have seen and examined the patient, I have talked to his nurse. He is doing better, he is oriented to person, place, knows year and the month, he can hold a good conversation, nurse reports he is confused sometimes SARS-CoV-2 antigen, 12/08/2023: Positive UDS, 12/07/2023: Plasma alcohol, normal Urinalysis, 12/07/2023: WBC: 127/urine leukocyte esterase: 3+ WBC/HB/PLT/MCV, 12/08/2023: 5.5/8.7/211/90 PT/INR/PTT, 12/08/2023: 13.7/1.32/38.4 HGB A1c, 12/08/2023: 7.1 Liver function tests, 12/07/2023: Unremarkable TG/HDL/LDL/HDL, 12/08/2023: 117/141/89/29 VIT B12, 11/2023: 346 FOLIC ACID, 11/2023: 9.28 TSH, 12/08/2023: 0.6 EEG, 12/09/2023: Normal CT head, 12/08/2023: 1. No acute intracranial abnormality. 2. Generalized cerebral volume loss and mild chronic microvascular ischemic change 3. Chronic lacunar infarcts in the right caudate head and anterior right basal ganglia. 4. Small chronic left cerebellar infarct. CT, left hip, 12/09/2023: Multiple round sclerotic lesions throughout the pelvis, sacrum, acetabulum, and left femur could be metastatic disease. No acute fracture seen vital signs Vital Sign Date Time Temp Pulse Resp B/P (MAP) Pulse Ox O2 Delivery O2 Flow Rate FiO2 12/11/23 17:00 97.9 98 17 136/66 (89) 91 97.9 12/11/23 14:07 Room Air* 0 21 Total Intake and Output 12/10/23 12/10/23 12/11/23 15:00 23:00 07:00 Intake Total 550 ml 620 ml Output Total 250 ml 450 ml Balance 300 ml 170 ml medications Current Medications Medications Dose Ordered Sig/Evgeny Route Start Time Stop Time Status Last Admin Dose Admin Vancomycin HCl 200 ml @ 200 mls/hr Q12HR IV 12/07/23 22:00 UNV Nitroglycerin 0.4 mg Q5MINP PRN SL 12/07/23 22:00 Morphine Sulfate 2 mg Q30M PRN IV 12/07/23 22:00 Ondansetron HCl 4 mg Q4HP PRN IV 12/08/23 07:45 12/11/23 04:03 4 MG Nitroglycerin 0.4 mg Q5MINP PRN SL 12/08/23 07:45 Oseltamivir Phosphate 75 mg BID PO 12/08/23 10:00 12/13/23 09:59 12/11/23 09:19 75 MG Albuterol 90 mcg TID IN 12/08/23 14:00 12/11/23 14:07 90 MCG Hydromorphone HCl 0.5 mg Q4HP PRN IV 12/08/23 08:15 12/11/23 12:36 0.5 MG Oxycodone/ Acetaminophen 1 tab Q4HP PRN PO 12/08/23 08:15 12/11/23 02:19 1 TAB Apixaban 5 mg BID PO 12/08/23 10:00 12/11/23 09:18 5 MG Ferrous Sulfate 325 mg BID PO 12/08/23 10:00 12/11/23 09:18 325 MG Tamsulosin HCl 0.4 mg QPM PO 12/08/23 18:00 12/11/23 18:45 0.4 MG Enalapril Maleate 10 mg DAILY PO 12/08/23 10:00 12/11/23 09:21 10 MG Diagnostic Test (Pha) 1 strip ACHS 12/08/23 11:30 12/11/23 18:52 1 STRIP Insulin Human Regular HS SC 12/08/23 22:00 12/10/23 22:00 3 UNITS Insulin Human Regular AC SC 12/08/23 11:30 12/11/23 19:13 15 UNITS Dextrose 50 ml UD PRN IV 12/08/23 09:30 Vancomycin HCl 0 ml @ 0 mls/hr UD IV 12/08/23 10:15 Polyethylene Glycol 17 gm DAILY PO 12/09/23 10:00 12/11/23 09:22 17 GM Ascorbic Acid 500 mg DAILY PO 12/09/23 10:00 12/11/23 09:18 500 MG Cholecalciferol 1,000 unit DAILY PO 12/09/23 10:00 12/11/23 09:19 1,000 UNIT Zinc Sulfate 220 mg DAILY PO 12/09/23 10:00 12/11/23 09:18 220 MG Sucralfate 1 gm QID@0600,1130,1700,2200 GT 12/08/23 17:00 12/11/23 05:39 1 GM Amiodarone HCl 200 mg Q12HR PO 12/08/23 22:00 12/11/23 09:18 200 MG Metoprolol Succinate 25 mg DAILY PO 12/09/23 10:00 12/11/23 09:27 25 MG Atorvastatin Calcium 40 mg HS PO 12/08/23 22:00 12/10/23 22:18 40 MG Dexamethasone 6 mg DAILY PO 12/09/23 10:00 12/19/23 09:59 12/11/23 11:59 6 MG Phenol/Menthol 1 spr Q2HP PRN MT 12/09/23 07:30 12/10/23 09:00 1 SPR Vancomycin HCl 150 ml @ 150 mls/hr Q12H IV 12/09/23 20:30 12/11/23 20:30 150 MLS/HR Fentanyl 25 mcg Q72H TD 12/09/23 12:15 12/09/23 18:09 25 MCG Megestrol Acetate 400 mg BID GT 12/09/23 12:30 12/10/23 09:20 400 MG Alprazolam 0.25 mg TID PO 12/09/23 14:00 Hold Docusate Sodium 100 mg BID PO 12/09/23 22:00 12/11/23 09:19 100 MG Metformin HCl 1,000 mg BIDAC PO 12/09/23 17:00 12/11/23 18:46 1,000 MG Enteral Nutritional Formula 240 ml TIDWM PO 12/09/23 18:00 12/11/23 18:51 240 ML Haloperidol Lactate 2.5 mg Q8HP PRN IM 12/10/23 00:45 12/11/23 02:33 2.5 MG Piperacillin Sod/ Tazobactam Sod 100 ml @ 25 mls/hr Q8HR IV 12/11/23 14:00 12/11/23 15:33 25 MLS/HR objective General: the patient is well developed and nourished. No acute distress. MENTAL STATUS: Subjective SPEECH, LANGUAGE, HIGHER CORTICAL FUNCTION: no aphasia or dysathria. CRANIAL NERVES: Pupils are equal, round and reactive. EOMs full and conjugate. No nystagmus. Facial sensation intact in all three divisions bilaterally. Mandibular strength intact. Facial muscles symmetrical and strength intact. SENSATION: Sensation to touch and pinprick is normal. MOTOR: Normal tone in the upper and lower extremity. Normal muscle bulk. No fasciculations. No abnormal movements or posturing. Muscle strength of the major groups in the upper extremities is 5/5. Muscle strength of the major groups in the lower extremities is: Rt: 4/5, Lt: 2/5. REFLEXES: Deep tendon reflexes are symmetrical. No pathological reflexes. CEREBELLAR/COORDINATION: Finger to nose and heel to becerra are normal bilaterally. GAIT/STATION: deferred. laboratory and microbiology Laboratory Tests 12/10/23 05:05 12/09/23 05:07 Test 12/09/23 05:07 Range/Units Serum Glucose 154 H 74-106 mg/dL Problem List Altered mental status, likely metabolic encephalopathy Metabolic encephalopathy secondary to urinary tract infection and COVID-19 Urinary tract infection COVID-19 Sepsis Septic shock Hypotension secondary to septic shock AFib Prostatic cancer Pain in the left hip, knee and ankle, Secondary to metastatic cancer Assessment/Plan Monitoring Supportive treatment Telemetry IV antibiotics Eliquis 5 mg daily Lipitor 40 mg daily Haldol 2.5 mg IM Q 8 hours p.r.n. for agitation Oncology on case More recommendation per clinical course This medical document was created using an electronic medical record system with [employer] dictation system. Although this document has been carefully reviewed, there may still be some phonetic and typographical errors. These areas are purely typographical due to imperfections of the software programs, and do not reflect any compromise in the patient's medical care Prognosis poor Dietary Evaluation Review Comments: 1) Consider Mayo BID for promoting wound healing, 2)Follow current diet regimen prescribed as 2g NA CCHO and Cardiac Lofat LoChol diet plus nepro 240ml PO supplement. 3) Monitor PO intake to reach at least 75% of his needs. Expected Outcomes/Goals: Controlled DM, healed wounds and maintain current Body Weight. Plan discussed with: Other BRANDY MEYERS MD Dec 11, 2023 21:31
--- NOTE | 2023-12-11 21:41 | DVHPN2 ---
Progress Note - Dictate Date Seen: Dec 11, 2023 Medical Necessity Reason Pt with a Central, PICC or Fol: Yes The following are medically ne: Barksdale Catheter Reason for barksdale catheter: Strict I&O Subjective Patient seen and examined at bedside. Breathing comfortably on room air. Overnight events reviewed. vital signs Vital Sign Date Time Temp Pulse Resp B/P (MAP) Pulse Ox O2 Delivery O2 Flow Rate FiO2 12/11/23 17:00 97.9 98 17 136/66 (89) 91 97.9 12/11/23 14:07 Room Air* 0 21 Total Intake and Output 12/10/23 12/10/23 12/11/23 15:00 23:00 07:00 Intake Total 550 ml 620 ml Output Total 250 ml 450 ml Balance 300 ml 170 ml medications Current Medications Medications Dose Ordered Sig/Evgeny Route Start Time Stop Time Status Last Admin Dose Admin Vancomycin HCl 200 ml @ 200 mls/hr Q12HR IV 12/07/23 22:00 UNV Nitroglycerin 0.4 mg Q5MINP PRN SL 12/07/23 22:00 Morphine Sulfate 2 mg Q30M PRN IV 12/07/23 22:00 Ondansetron HCl 4 mg Q4HP PRN IV 12/08/23 07:45 12/11/23 04:03 4 MG Nitroglycerin 0.4 mg Q5MINP PRN SL 12/08/23 07:45 Oseltamivir Phosphate 75 mg BID PO 12/08/23 10:00 12/13/23 09:59 12/11/23 09:19 75 MG Albuterol 90 mcg TID IN 12/08/23 14:00 12/11/23 21:31 90 MCG Hydromorphone HCl 0.5 mg Q4HP PRN IV 12/08/23 08:15 12/11/23 12:36 0.5 MG Oxycodone/ Acetaminophen 1 tab Q4HP PRN PO 12/08/23 08:15 12/11/23 02:19 1 TAB Apixaban 5 mg BID PO 12/08/23 10:00 12/11/23 09:18 5 MG Ferrous Sulfate 325 mg BID PO 12/08/23 10:00 12/11/23 09:18 325 MG Tamsulosin HCl 0.4 mg QPM PO 12/08/23 18:00 12/11/23 18:45 0.4 MG Enalapril Maleate 10 mg DAILY PO 12/08/23 10:00 12/11/23 09:21 10 MG Diagnostic Test (Pha) 1 strip ACHS 12/08/23 11:30 12/11/23 18:52 1 STRIP Insulin Human Regular HS SC 12/08/23 22:00 12/10/23 22:00 3 UNITS Insulin Human Regular AC SC 12/08/23 11:30 12/11/23 19:13 15 UNITS Dextrose 50 ml UD PRN IV 12/08/23 09:30 Vancomycin HCl 0 ml @ 0 mls/hr UD IV 12/08/23 10:15 Polyethylene Glycol 17 gm DAILY PO 12/09/23 10:00 12/11/23 09:22 17 GM Ascorbic Acid 500 mg DAILY PO 12/09/23 10:00 12/11/23 09:18 500 MG Cholecalciferol 1,000 unit DAILY PO 12/09/23 10:00 12/11/23 09:19 1,000 UNIT Zinc Sulfate 220 mg DAILY PO 12/09/23 10:00 12/11/23 09:18 220 MG Sucralfate 1 gm QID@0600,1130,1700,2200 GT 12/08/23 17:00 12/11/23 05:39 1 GM Amiodarone HCl 200 mg Q12HR PO 12/08/23 22:00 12/11/23 09:18 200 MG Metoprolol Succinate 25 mg DAILY PO 12/09/23 10:00 12/11/23 09:27 25 MG Atorvastatin Calcium 40 mg HS PO 12/08/23 22:00 12/10/23 22:18 40 MG Dexamethasone 6 mg DAILY PO 12/09/23 10:00 12/19/23 09:59 12/11/23 11:59 6 MG Phenol/Menthol 1 spr Q2HP PRN MT 12/09/23 07:30 12/10/23 09:00 1 SPR Vancomycin HCl 150 ml @ 150 mls/hr Q12H IV 12/09/23 20:30 12/11/23 20:30 150 MLS/HR Fentanyl 25 mcg Q72H TD 12/09/23 12:15 12/09/23 18:09 25 MCG Megestrol Acetate 400 mg BID GT 12/09/23 12:30 12/10/23 09:20 400 MG Alprazolam 0.25 mg TID PO 12/09/23 14:00 Hold Docusate Sodium 100 mg BID PO 12/09/23 22:00 12/11/23 09:19 100 MG Metformin HCl 1,000 mg BIDAC PO 12/09/23 17:00 12/11/23 18:46 1,000 MG Enteral Nutritional Formula 240 ml TIDWM PO 12/09/23 18:00 12/11/23 18:51 240 ML Haloperidol Lactate 2.5 mg Q8HP PRN IM 12/10/23 00:45 12/11/23 02:33 2.5 MG Piperacillin Sod/ Tazobactam Sod 100 ml @ 25 mls/hr Q8HR IV 12/11/23 14:00 12/11/23 15:33 25 MLS/HR objective Gen.: Patient lying in bed in no apparent distress. Breathing on room air. Head: Normocephalic, atraumatic. Eyes: EOMI/PERRLA. Ears: Normal hearing. Normal anatomy. Neck/trachea: Trachea midline, supple. Nose: Normal external anatomy. Mouth: Moist mucous membranes. Chest: Decreased air entry bilaterally. No wheezing or rhonchi. Cardiovascular: Positive S1, positive S2. Regular rate and rhythm. Abdomen: Positive bowel sounds in all 4 quadrants. Soft, non-tender, non- distended. : Deferred. Rectal: Deferred. Skin: Warm, dry. Intact. Extremities: 2+ radial pulses bilaterally. No lower extremity edema. Neuro: Awake, alert, oriented x3. No gross motor or sensory deficits. Cranial nerves II through XII intact. Gait not assessed. laboratory and microbiology Laboratory Tests 12/10/23 05:05 12/09/23 05:07 Test 12/09/23 05:07 Range/Units Serum Glucose 154 H 74-106 mg/dL Assessment/Plan Impression: Severe sepsis Acute hypoxic respiratory failure Pneumonitis Anemia COVID-19 infection Influenza type A positive Events: Breathing on room air No respiratory distress. Continue antibiotics - vancomycin, Zosyn Tamiflu d/t influenza Albuterol HFA Continue Decadron Incentive spirometry Pain control Avoid oversedation Labs and imaging reviewed. Rest of plan as noted below. Plan: Supplemental oxygen PRN. Keep O2 saturation above 92%. IV fluid hydration with normal saline at 100 mL an hour. Decadron course Continue antibiotics Follow up cultures ID recommendations appreciated. Albuterol HFA inhaler t.i.d. Atrial fibrillation On Eliquis 5 mg p.o. b.i.d. On amiodarone 200 mg p.o. q.12 hours Accu-Cheks, insulin sliding scale Tamiflu course for influenza type a DVT prophylaxis- Eliquis Prognosis: Guarded given multiple comorbidities. Rest of plan per hospitalist and other consultants. Thank you NIKOLAI Bowling for allowing me to participate in this patient's care. Further recommendations will depend on patient's clinical course. Please do not hesitate to contact me if you have any questions or concerns. This medical document was created using an electronic medical record system with [employer] dictation system. Although this document has been carefully reviewed, there may still be some phonetic and typographical errors. These areas are purely typographical due to imperfections of the software programs, and do not reflect any compromise in the patient's medical care. Dietary Evaluation Review Comments: 1) Consider Mayo BID for promoting wound healing, 2)Follow current diet regimen prescribed as 2g NA CCHO and Cardiac Lofat LoChol diet plus nepro 240ml PO supplement. 3) Monitor PO intake to reach at least 75% of his needs. Expected Outcomes/Goals: Controlled DM, healed wounds and maintain current Body Weight. Plan discussed with: Patient, Other (ROVERTO Quintana) WES BURNS MD Dec 11, 2023 21:41
[2023-12-12] VITALS (12 sets, daily range): BP systolic 96–140; BP diastolic 47–64; PULSE 83–98; RESP 16–19; TEMP 97.5–98.2; O2SAT 92–99
--- NOTE | 2023-12-12 10:41 | DVHPN2 ---
Progress Note - Dictate Date Seen: Dec 12, 2023 Medical Necessity Reason Pt with a Central, PICC or Fol: Yes The following are medically ne: Barksdale Catheter Reason for barksdale catheter: Strict I&O vital signs Vital Sign Date Time Temp Pulse Resp B/P (MAP) Pulse Ox O2 Delivery O2 Flow Rate FiO2 12/12/23 09:00 97.8 98 18 122/47 (72) 96 97.8 12/12/23 06:46 Room Air* 0 21 Total Intake and Output 12/11/23 12/11/23 12/12/23 15:00 23:00 07:00 Intake Total 950 ml 225 ml Output Total 840 ml 1550 ml Balance 110 ml -1325 ml medications Current Medications Medications Dose Ordered Sig/Evgeny Route Start Time Stop Time Status Last Admin Dose Admin Vancomycin HCl 200 ml @ 200 mls/hr Q12HR IV 12/07/23 22:00 UNV Nitroglycerin 0.4 mg Q5MINP PRN SL 12/07/23 22:00 Morphine Sulfate 2 mg Q30M PRN IV 12/07/23 22:00 Ondansetron HCl 4 mg Q4HP PRN IV 12/08/23 07:45 12/11/23 04:03 4 MG Nitroglycerin 0.4 mg Q5MINP PRN SL 12/08/23 07:45 Oseltamivir Phosphate 75 mg BID PO 12/08/23 10:00 12/13/23 09:59 12/12/23 08:42 75 MG Albuterol 90 mcg TID IN 12/08/23 14:00 12/12/23 06:46 90 MCG Hydromorphone HCl 0.5 mg Q4HP PRN IV 12/08/23 08:15 12/12/23 04:26 0.5 MG Oxycodone/ Acetaminophen 1 tab Q4HP PRN PO 12/08/23 08:15 12/12/23 08:51 1 TAB Apixaban 5 mg BID PO 12/08/23 10:00 12/12/23 08:42 5 MG Ferrous Sulfate 325 mg BID PO 12/08/23 10:00 12/12/23 08:43 325 MG Tamsulosin HCl 0.4 mg QPM PO 12/08/23 18:00 12/11/23 18:45 0.4 MG Enalapril Maleate 10 mg DAILY PO 12/08/23 10:00 12/12/23 08:43 10 MG Diagnostic Test (Pha) 1 strip ACHS 12/08/23 11:30 12/12/23 06:13 1 STRIP Insulin Human Regular HS SC 12/08/23 22:00 12/10/23 22:00 3 UNITS Insulin Human Regular AC SC 12/08/23 11:30 12/11/23 19:13 15 UNITS Dextrose 50 ml UD PRN IV 12/08/23 09:30 Vancomycin HCl 0 ml @ 0 mls/hr UD IV 12/08/23 10:15 Polyethylene Glycol 17 gm DAILY PO 12/09/23 10:00 12/12/23 08:41 17 GM Ascorbic Acid 500 mg DAILY PO 12/09/23 10:00 12/12/23 08:42 500 MG Cholecalciferol 1,000 unit DAILY PO 12/09/23 10:00 12/12/23 08:42 1,000 UNIT Zinc Sulfate 220 mg DAILY PO 12/09/23 10:00 12/12/23 08:42 220 MG Sucralfate 1 gm QID@0600,1130,1700,2200 GT 12/08/23 17:00 12/11/23 05:39 1 GM Amiodarone HCl 200 mg Q12HR PO 12/08/23 22:00 12/12/23 08:42 200 MG Metoprolol Succinate 25 mg DAILY PO 12/09/23 10:00 12/12/23 08:43 25 MG Atorvastatin Calcium 40 mg HS PO 12/08/23 22:00 12/11/23 22:26 40 MG Dexamethasone 6 mg DAILY PO 12/09/23 10:00 12/19/23 09:59 12/12/23 08:42 6 MG Phenol/Menthol 1 spr Q2HP PRN MT 12/09/23 07:30 12/10/23 09:00 1 SPR Vancomycin HCl 150 ml @ 150 mls/hr Q12H IV 12/09/23 20:30 12/12/23 08:37 150 MLS/HR Fentanyl 25 mcg Q72H TD 12/09/23 12:15 12/09/23 18:09 25 MCG Megestrol Acetate 400 mg BID GT 12/09/23 12:30 12/10/23 09:20 400 MG Alprazolam 0.25 mg TID PO 12/09/23 14:00 Hold Docusate Sodium 100 mg BID PO 12/09/23 22:00 12/12/23 08:42 100 MG Enteral Nutritional Formula 240 ml TIDWM PO 12/09/23 18:00 12/11/23 18:51 240 ML Haloperidol Lactate 2.5 mg Q8HP PRN IM 12/10/23 00:45 12/11/23 02:33 2.5 MG Piperacillin Sod/ Tazobactam Sod 100 ml @ 25 mls/hr Q8HR IV 12/11/23 14:00 12/12/23 05:44 25 MLS/HR objective General Appearance: alert, no distress HEENT: EOMI, PERRLA, normal external inspect of ears, no icterus, no nasal drainage Neck: no carotid bruit, no jugular venous distention (JVD), no lymphadenopathy Chest: normal thorax Respiratory: clear to auscultation, normal air movement Cardiovascular: regular rate and rhythm, no diastolic murmur, no jugular venous distention (JVD), no rub, no systolic murmur Abdominal: soft, no hepatomegaly, no mass, no splenomegaly, no tenderness Genitourinary: grossly normal external Musculoskeletal: no joint tenderness, no swelling Extremities: normal pulses, no calf tenderness, no clubbing, no cyanosis, no edema Skin: no bruising, no jaundice, no rash Neurological: alert, No focal deficit laboratory and microbiology Laboratory Tests 12/10/23 05:05 12/09/23 05:07 Test 12/09/23 05:07 Range/Units Serum Glucose 154 H 74-106 mg/dL Problem List 1. Severe sepsis ID Consult, meds 2. Septic Shock ID consult 3. Paroxysmal AFIB Cardiology Consult 4. CAD Cardiology consult 5. Prostate cancer with mets to bone Medication, monitoring 6. HX of CABG Cardiology consult 7. Chronic Anticoagulation Medication, monitoring 8. Anemia of chronic disease Supplemental O2 9. Influenza B Restart Home meds 10. COVID 19 Covid trial meds, Monitoring 11. DMI w/ neuropathy Insulin Sliding Scale 12. Metabolic Encephalopathy neurology consult Assessment/Plan Subjective Patient is awake and alert. Objective Patient is somewhat lethargic today. I did speak with RN on plan of care. Patient was sleeping during assessment. She states he has been working with physical therapy twice a day and has been able to take 2 steps and pivot and transfer to a chair. Patient has prostate cancer with mets to the bone. He has been bedbound for about a month due to 25-day stay recently at [facility]. Patient had a small bowel obstruction and was on TPN and clear liquid diet for several weeks. Patient had multiple bowel movements here. Patient was restarted on his chemo medications Plan Continue current treatment. is refusing for patient to return to [facility] facility. We will plan for discharge with home health and physical therapy outpatient. Dietary Evaluation Review Comments: 1) Consider Mayo BID for promoting wound healing, 2)Follow current diet regimen prescribed as 2g NA CCHO and Cardiac Lofat LoChol diet plus nepro 240ml PO supplement. 3) Monitor PO intake to reach at least 75% of his needs. Expected Outcomes/Goals: Controlled DM, healed wounds and maintain current Body Weight. Plan discussed with: Patient, Other ALEXYS DAIGLE NP Dec 12, 2023 10:41
--- NOTE | 2023-12-12 19:01 | DVHPN2 ---
Progress Note - Dictate Date Seen: Dec 12, 2023 Medical Necessity Reason Pt with a Central, PICC or Fol: Yes The following are medically ne: Barksdale Catheter Reason for barksdale catheter: Strict I&O Subjective ID CONSULT DICTATED [id number] vital signs Vital Sign Date Time Temp Pulse Resp B/P (MAP) Pulse Ox O2 Delivery O2 Flow Rate FiO2 12/12/23 17:00 97.8 85 18 126/58 (80) 99 97.8 12/12/23 14:20 Room Air* 0 21 Total Intake and Output 12/11/23 12/11/23 12/12/23 15:00 23:00 07:00 Intake Total 950 ml 225 ml Output Total 840 ml 1550 ml Balance 110 ml -1325 ml medications Current Medications Medications Dose Ordered Sig/Evgeny Route Start Time Stop Time Status Last Admin Dose Admin Vancomycin HCl 200 ml @ 200 mls/hr Q12HR IV 12/07/23 22:00 UNV Nitroglycerin 0.4 mg Q5MINP PRN SL 12/07/23 22:00 Morphine Sulfate 2 mg Q30M PRN IV 12/07/23 22:00 Ondansetron HCl 4 mg Q4HP PRN IV 12/08/23 07:45 12/12/23 11:34 4 MG Nitroglycerin 0.4 mg Q5MINP PRN SL 12/08/23 07:45 Oseltamivir Phosphate 75 mg BID PO 12/08/23 10:00 12/13/23 09:59 12/12/23 08:42 75 MG Albuterol 90 mcg TID IN 12/08/23 14:00 12/12/23 14:20 90 MCG Hydromorphone HCl 0.5 mg Q4HP PRN IV 12/08/23 08:15 12/12/23 11:49 0.5 MG Oxycodone/ Acetaminophen 1 tab Q4HP PRN PO 12/08/23 08:15 12/12/23 17:07 1 TAB Apixaban 5 mg BID PO 12/08/23 10:00 12/12/23 08:42 5 MG Ferrous Sulfate 325 mg BID PO 12/08/23 10:00 12/12/23 08:43 325 MG Tamsulosin HCl 0.4 mg QPM PO 12/08/23 18:00 12/12/23 17:06 0.4 MG Enalapril Maleate 10 mg DAILY PO 12/08/23 10:00 12/12/23 08:43 10 MG Diagnostic Test (Pha) 1 strip ACHS 12/08/23 11:30 12/12/23 17:12 1 STRIP Insulin Human Regular HS SC 12/08/23 22:00 12/10/23 22:00 3 UNITS Insulin Human Regular AC SC 12/08/23 11:30 12/12/23 17:12 9 UNITS Dextrose 50 ml UD PRN IV 12/08/23 09:30 Vancomycin HCl 0 ml @ 0 mls/hr UD IV 12/08/23 10:15 Polyethylene Glycol 17 gm DAILY PO 12/09/23 10:00 12/12/23 08:41 17 GM Ascorbic Acid 500 mg DAILY PO 12/09/23 10:00 12/12/23 08:42 500 MG Cholecalciferol 1,000 unit DAILY PO 12/09/23 10:00 12/12/23 08:42 1,000 UNIT Zinc Sulfate 220 mg DAILY PO 12/09/23 10:00 12/12/23 08:42 220 MG Sucralfate 1 gm QID@0600,1130,1700,2200 GT 12/08/23 17:00 12/12/23 17:12 1 GM Amiodarone HCl 200 mg Q12HR PO 12/08/23 22:00 12/12/23 08:42 200 MG Metoprolol Succinate 25 mg DAILY PO 12/09/23 10:00 12/12/23 08:43 25 MG Atorvastatin Calcium 40 mg HS PO 12/08/23 22:00 12/11/23 22:26 40 MG Dexamethasone 6 mg DAILY PO 12/09/23 10:00 12/19/23 09:59 12/12/23 08:42 6 MG Phenol/Menthol 1 spr Q2HP PRN MT 12/09/23 07:30 12/10/23 09:00 1 SPR Vancomycin HCl 150 ml @ 150 mls/hr Q12H IV 12/09/23 20:30 12/12/23 08:37 150 MLS/HR Fentanyl 25 mcg Q72H TD 12/09/23 12:15 12/09/23 18:09 25 MCG Megestrol Acetate 400 mg BID GT 12/09/23 12:30 12/12/23 11:54 400 MG Alprazolam 0.25 mg TID PO 12/09/23 14:00 Hold Docusate Sodium 100 mg BID PO 12/09/23 22:00 12/12/23 08:42 100 MG Enteral Nutritional Formula 240 ml TIDWM PO 12/09/23 18:00 12/12/23 12:00 240 ML Haloperidol Lactate 2.5 mg Q8HP PRN IM 12/10/23 00:45 12/11/23 02:33 2.5 MG Piperacillin Sod/ Tazobactam Sod 100 ml @ 25 mls/hr Q8HR IV 12/11/23 14:00 12/12/23 14:50 25 MLS/HR laboratory and microbiology Laboratory Tests 12/10/23 05:05 12/09/23 05:07 Test 12/09/23 05:07 Range/Units Serum Glucose 154 H 74-106 mg/dL Dietary Evaluation Review Comments: 1) Consider Mayo BID for promoting wound healing, 2)Follow current diet regimen prescribed as 2g NA CCHO and Cardiac Lofat LoChol diet plus nepro 240ml PO supplement. 3) Monitor PO intake to reach at least 75% of his needs. Expected Outcomes/Goals: Controlled DM, healed wounds and maintain current Body Weight. Plan discussed with: Patient CHRIS ASCENCIO MD Dec 12, 2023 19:01
[2023-12-12] MEDS: REMDESIVIR 200 MG in NS 210ml LOADING DOSE ADULT IV ONE (20:12)
--- NOTE | 2023-12-12 22:27 | DVHPN2 ---
Progress Note - Dictate Date Seen: Dec 12, 2023 Medical Necessity Reason Pt with a Central, PICC or Fol: Yes The following are medically ne: Barksdale Catheter Reason for barksdale catheter: Strict I&O vital signs Vital Sign Date Time Temp Pulse Resp B/P (MAP) Pulse Ox O2 Delivery O2 Flow Rate FiO2 12/12/23 21:00 97.8 83 19 136/64 (88) 99 97.8 12/12/23 18:53 Room Air 0.0 12/12/23 18:53 21 Total Intake and Output 12/11/23 12/11/23 12/12/23 14:59 22:59 06:59 Intake Total 950 ml 225 ml Output Total 840 ml 1550 ml Balance 110 ml -1325 ml medications Current Medications Medications Dose Ordered Sig/Evgeny Route Start Time Stop Time Status Last Admin Dose Admin Vancomycin HCl 200 ml @ 200 mls/hr Q12HR IV 12/07/23 22:00 UNV Nitroglycerin 0.4 mg Q5MINP PRN SL 12/07/23 22:00 Morphine Sulfate 2 mg Q30M PRN IV 12/07/23 22:00 Ondansetron HCl 4 mg Q4HP PRN IV 12/08/23 07:45 12/12/23 20:53 4 MG Nitroglycerin 0.4 mg Q5MINP PRN SL 12/08/23 07:45 Oseltamivir Phosphate 75 mg BID PO 12/08/23 10:00 12/13/23 09:59 12/12/23 20:53 75 MG Albuterol 90 mcg TID IN 12/08/23 14:00 12/12/23 18:53 90 MCG Hydromorphone HCl 0.5 mg Q4HP PRN IV 12/08/23 08:15 12/12/23 11:49 0.5 MG Oxycodone/ Acetaminophen 1 tab Q4HP PRN PO 12/08/23 08:15 12/12/23 21:17 1 TAB Apixaban 5 mg BID PO 12/08/23 10:00 12/12/23 20:52 5 MG Ferrous Sulfate 325 mg BID PO 12/08/23 10:00 12/12/23 20:52 325 MG Tamsulosin HCl 0.4 mg QPM PO 12/08/23 18:00 12/12/23 17:06 0.4 MG Enalapril Maleate 10 mg DAILY PO 12/08/23 10:00 12/12/23 08:43 10 MG Diagnostic Test (Pha) 1 strip ACHS 12/08/23 11:30 12/12/23 17:12 1 STRIP Insulin Human Regular HS SC 12/08/23 22:00 12/12/23 21:43 2 UNITS Insulin Human Regular AC SC 12/08/23 11:30 12/12/23 17:12 9 UNITS Dextrose 50 ml UD PRN IV 12/08/23 09:30 Vancomycin HCl 0 ml @ 0 mls/hr UD IV 12/08/23 10:15 Polyethylene Glycol 17 gm DAILY PO 12/09/23 10:00 12/12/23 08:41 17 GM Ascorbic Acid 500 mg DAILY PO 12/09/23 10:00 12/12/23 08:42 500 MG Cholecalciferol 1,000 unit DAILY PO 12/09/23 10:00 12/12/23 08:42 1,000 UNIT Zinc Sulfate 220 mg DAILY PO 12/09/23 10:00 12/12/23 08:42 220 MG Sucralfate 1 gm QID@0600,1130,1700,2200 GT 12/08/23 17:00 12/12/23 20:58 1 GM Amiodarone HCl 200 mg Q12HR PO 12/08/23 22:00 12/12/23 20:53 200 MG Metoprolol Succinate 25 mg DAILY PO 12/09/23 10:00 12/12/23 08:43 25 MG Atorvastatin Calcium 40 mg HS PO 12/08/23 22:00 12/12/23 20:53 40 MG Dexamethasone 6 mg DAILY PO 12/09/23 10:00 12/19/23 09:59 12/12/23 08:42 6 MG Phenol/Menthol 1 spr Q2HP PRN MT 12/09/23 07:30 12/10/23 09:00 1 SPR Vancomycin HCl 150 ml @ 150 mls/hr Q12H IV 12/09/23 20:30 12/12/23 20:47 150 MLS/HR Fentanyl 25 mcg Q72H TD 12/09/23 12:15 12/12/23 18:46 25 MCG Megestrol Acetate 400 mg BID GT 12/09/23 12:30 12/12/23 20:52 400 MG Alprazolam 0.25 mg TID PO 12/09/23 14:00 Hold Docusate Sodium 100 mg BID PO 12/09/23 22:00 12/12/23 08:42 100 MG Enteral Nutritional Formula 240 ml TIDWM PO 12/09/23 18:00 12/12/23 18:00 240 ML Haloperidol Lactate 2.5 mg Q8HP PRN IM 12/10/23 00:45 12/11/23 02:33 2.5 MG Piperacillin Sod/ Tazobactam Sod 100 ml @ 25 mls/hr Q8HR IV 12/11/23 14:00 12/12/23 14:50 25 MLS/HR Remdesivir 100 mg/ Sodium Chloride 250 ml @ 250 mls/hr DAILY@1500 IV 12/13/23 15:00 12/16/23 15:59 laboratory and microbiology Laboratory Tests 12/10/23 05:05 12/09/23 05:07 Test 12/09/23 05:07 Range/Units Serum Glucose 154 H 74-106 mg/dL Dietary Evaluation Review Comments: 1) Consider Mayo BID for promoting wound healing, 2)Follow current diet regimen prescribed as 2g NA CCHO and Cardiac Lofat LoChol diet plus nepro 240ml PO supplement. 3) Monitor PO intake to reach at least 75% of his needs. Expected Outcomes/Goals: Controlled DM, healed wounds and maintain current Body Weight. NICOLE COLLINS [facility] Dec 12, 2023 22:27
[2023-12-13] VITALS (12 sets, daily range): BP systolic 111–125; BP diastolic 54–69; PULSE 66–105; RESP 15–20; TEMP 97.3–98.4; O2SAT 92–99
--- NOTE | 2023-12-13 00:18 | DVHINCON2 ---
DATE OF CONSULTATION: 12/12/2023 ATTENDING PHYSICIAN: Dr. Flores. CONSULTING PHYSICIAN: Dr. Salina Chowdary. REASON FOR CONSULTATION: Pneumonia. HISTORY OF PRESENT ILLNESS: The patient is a 78-year-old gentleman with a past medical history of diabetes mellitus, history of chronic obstructive pulmonary disease, patient has AFib angina, BPH, coronary artery bypass graft, prostate cancer, CHF, COPD, GERD, diabetic neuropathy and pacemaker. The patient was brought in here from [facility] because of the altered level of consciousness. The patient also has shortness of breath, but he is denying any cough. The patient's started developing altered mental status, noticed by the staff and the patient was not following commands over there, so they called ambulance and the patient's was brought in to the [facility] where he was evaluated in the ER and got admitted. His further workup reveals he has COVID test positive as well as influenza test is positive. The patient denies any headache. No vision change. No abdominal pain, nausea, vomiting, diarrhea or urinary symptoms. The patient has shortness of breath and is on oxygen. PAST MEDICAL HISTORY: Significant for AFib, angina. The patient has coronary artery disease, diabetes mellitus, COPD, CHF, gastroesophageal reflux disease, abdominal aortic aneurysm, hypercholesterolemia. PAST SURGICAL HISTORY: Unremarkable. ALLERGIES: MORPHINE. FAMILY HISTORY: Father has COPD and the liver cancer. Mother has diabetes mellitus and cardiovascular disease. MEDICATIONS: I have reviewed the medication reconciliation list. SOCIAL HISTORY: No history of smoking, ETOH, or IV drug abuse. REVIEW OF SYSTEMS: Negative for 10 review of system except as mentioned in the HPI. PHYSICAL EXAMINATION: Includes GENERAL APPEARANCE: This is a 78 years old gentleman, not in any acute distress. VITAL SIGNS: Temperature 97-98, respirations 16-18, the pulse 84, blood pressure is 126/58. HEENT: PERRLA. Conjunctivae pink. Sclerae anicteric. NECK: Supple. There is no JVD. There is no lymphadenopathy. LUNGS: The patient has bilaterally diminished breath sounds with a few basal rales. HEART: S1, S2 is regular. There is no murmur or gallops. ABDOMEN: Soft. Bowel sound is present. There is no tenderness. There is no rebound. EXTREMITIES: The patient has no pitting edema. Pedal pulses 2+. CENTRAL NERVOUS SYSTEM: The patient is alert and awake and no focal deficit. LABORATORY FINDINGS: Include the patient's white blood cell count is 7.1, hemoglobin is 8.8, hematocrit 28.3, platelet is 262. The patient has 69% neutrophils. The patient's chemistry shows potassium is 3.7, BUN is 11, creatinine 0.54, and glucose is 154. The patient's calcium is 8.4. AST is 45, ALT is 12 and a total bilirubin is 0.6, vitamin B12 level is 346. Folic acid is 9.28. UA shows bacteria, many and the patient's alcohol level in the blood is less than 3. Vancomycin trough level is 15.3. The patient's influenza B is positive and COVID test is positive. The patient's urine culture shows presumptive Faith tropicalis. Blood culture is negative for 72 hours. The patient's chest x-ray done and it shows cardiomegaly with pulmonary vascular congestion, left greater than the right pleural effusion and patchy opacity throughout the left greater than the right lungs which could reflect atelectasis. The patient has a CT chest angiogram done and CT chest angiogram shows chest wall and osseous structures unremarkable. Airway, lungs and pleura unremarkable. CT scan of the head done and shows no acute intracranial abnormality. Chronic lacunar infarct in the right caudate head and the anterior right basal ganglia. The patient has a small chronic left cerebellar infarct. The patient also has a CT scan of the hips done and the hips shows multiple round sclerotic lesions throughout the pelvis, sacrum, acetabulum and the left femur, could be metastatic disease. No acute fractures seen. ASSESSMENT: On this patient at this time, diagnoses: * Pneumonia from COVID-19 infections as well as influenza B. The patient is not vaccinated for the COVID. The patient never had COVID before. * Possible bacterial pneumonia is there along with viral pneumonia. * Urinary tract infection. * Prostate cancer with metastasis to the bone. * Coronary artery disease. * COPD. * Congestive heart failure. * Diabetes mellitus. * Altered mental status, could be metabolic encephalopathy. PLAN OF ACTION: At this point is: * To keep the patient on droplet precaution. * The patient is on 2 liters oxygen by nasal cannula. Continue monitor the oxygen saturation to keep the saturation above 90%. * IV or oral hydration. * Nutritional support. * Continue Zosyn 3.375 grams IV q. 8 hours. * To continue vancomycin. The patient is receiving 750 mg IV q. 12 hours. * Pharmacy to monitor vancomycin trough and adjust the dose. * The patient is getting Tamiflu 75 mg p.o. b.i.d., use this for 5 days total. * Pharmacy to monitor vancomycin trough. Keep the trough between 10 to 15 and adjust the dose as needed. * Since this patient is immunocompromised patient due to his age of 78 plus patient has diabetes and cardiac issues and the patient's also has malignancies of the prostate cancer with metastasis. In view of these, patients will be given remdesivir as per the protocol, initial dose of 200 mg, first dose followed by 100 mg IV daily for the next 4 days, total of 5 days course. It depends on the patient's clinical response also. * I discussed with the pharmacy and they will place an order for remdesivir for me. If the patient spiked any temperature, please do the blood culture x2. Further treatment will depend on the patient's clinical response and above test results. MD DEON Carlos/CHE TID: [id number] RECEIPT: [id number]
[2023-12-13] MEDS: MEGESTROL ACET 400MG/10ML ORAL SUSP PO SCH (07:45)
[2023-12-13] MEDS: SUCRALFATE 1 GM/10 ML ORAL SUSP PO SCH (09:47)
--- NOTE | 2023-12-13 10:20 | DVHPN2 ---
Progress Note - Dictate Date Seen: Dec 12, 2023 Medical Necessity Reason Pt with a Central, PICC or Fol: Yes The following are medically ne: Barksdale Catheter Reason for barksdale catheter: Strict I&O Subjective Patient seen and examined at bedside. Breathing comfortably on room air. Overnight events reviewed. vital signs Vital Sign Date Time Temp Pulse Resp B/P (MAP) Pulse Ox O2 Delivery O2 Flow Rate FiO2 12/13/23 09:52 88 123/80 12/13/23 09:00 97.5 15 97 97.5 12/13/23 07:07 Nasal Cannula 2.0 12/13/23 07:07 28 Total Intake and Output 12/12/23 12/12/23 12/13/23 15:00 23:00 07:00 Intake Total 150 ml 340 ml 750 ml Output Total 860 ml 700 ml Balance 150 ml -520 ml 50 ml medications Current Medications Medications Dose Ordered Sig/Evgeny Route Start Time Stop Time Status Last Admin Dose Admin Vancomycin HCl 200 ml @ 200 mls/hr Q12HR IV 12/07/23 22:00 UNV Nitroglycerin 0.4 mg Q5MINP PRN SL 12/07/23 22:00 Morphine Sulfate 2 mg Q30M PRN IV 12/07/23 22:00 Ondansetron HCl 4 mg Q4HP PRN IV 12/08/23 07:45 12/12/23 20:53 4 MG Nitroglycerin 0.4 mg Q5MINP PRN SL 12/08/23 07:45 Albuterol 90 mcg TID IN 12/08/23 14:00 12/13/23 07:07 90 MCG Hydromorphone HCl 0.5 mg Q4HP PRN IV 12/08/23 08:15 12/12/23 11:49 0.5 MG Oxycodone/ Acetaminophen 1 tab Q4HP PRN PO 12/08/23 08:15 12/13/23 09:53 1 TAB Apixaban 5 mg BID PO 12/08/23 10:00 12/13/23 09:48 5 MG Ferrous Sulfate 325 mg BID PO 12/08/23 10:00 12/13/23 09:48 325 MG Tamsulosin HCl 0.4 mg QPM PO 12/08/23 18:00 12/12/23 17:06 0.4 MG Enalapril Maleate 10 mg DAILY PO 12/08/23 10:00 12/13/23 09:52 10 MG Diagnostic Test (Pha) 1 strip ACHS 12/08/23 11:30 12/13/23 06:52 1 STRIP Insulin Human Regular HS SC 12/08/23 22:00 12/12/23 21:43 2 UNITS Insulin Human Regular AC SC 12/08/23 11:30 12/12/23 17:12 9 UNITS Dextrose 50 ml UD PRN IV 12/08/23 09:30 Vancomycin HCl 0 ml @ 0 mls/hr UD IV 12/08/23 10:15 Polyethylene Glycol 17 gm DAILY PO 12/09/23 10:00 12/13/23 09:49 17 GM Ascorbic Acid 500 mg DAILY PO 12/09/23 10:00 12/13/23 09:52 500 MG Cholecalciferol 1,000 unit DAILY PO 12/09/23 10:00 12/13/23 09:52 1,000 UNIT Zinc Sulfate 220 mg DAILY PO 12/09/23 10:00 12/13/23 09:52 220 MG Amiodarone HCl 200 mg Q12HR PO 12/08/23 22:00 12/13/23 09:49 200 MG Metoprolol Succinate 25 mg DAILY PO 12/09/23 10:00 12/13/23 09:52 25 MG Atorvastatin Calcium 40 mg HS PO 12/08/23 22:00 12/12/23 20:53 40 MG Dexamethasone 6 mg DAILY PO 12/09/23 10:00 12/19/23 09:59 12/13/23 09:50 6 MG Phenol/Menthol 1 spr Q2HP PRN MT 12/09/23 07:30 12/10/23 09:00 1 SPR Vancomycin HCl 150 ml @ 150 mls/hr Q12H IV 12/09/23 20:30 12/12/23 20:47 150 MLS/HR Fentanyl 25 mcg Q72H TD 12/09/23 12:15 12/12/23 18:46 25 MCG Alprazolam 0.25 mg TID PO 12/09/23 14:00 Hold Docusate Sodium 100 mg BID PO 12/09/23 22:00 12/13/23 09:49 100 MG Enteral Nutritional Formula 240 ml TIDWM PO 12/09/23 18:00 12/13/23 08:00 240 ML Haloperidol Lactate 2.5 mg Q8HP PRN IM 12/10/23 00:45 12/11/23 02:33 2.5 MG Piperacillin Sod/ Tazobactam Sod 100 ml @ 25 mls/hr Q8HR IV 12/11/23 14:00 12/13/23 06:46 25 MLS/HR Remdesivir 100 mg/ Sodium Chloride 250 ml @ 250 mls/hr DAILY@1500 IV 12/13/23 15:00 12/16/23 15:59 Megestrol Acetate 400 mg BID PO 12/13/23 07:45 12/13/23 07:45 400 MG Sucralfate 1 gm QID@0600,1130,1700,2200 PO 12/13/23 08:00 12/13/23 09:47 1 GM objective Gen.: Patient lying in bed in no apparent distress. Breathing on room air. Head: Normocephalic, atraumatic. Eyes: EOMI/PERRLA. Ears: Normal hearing. Normal anatomy. Neck/trachea: Trachea midline, supple. Nose: Normal external anatomy. Mouth: Moist mucous membranes. Chest: Decreased air entry bilaterally. No wheezing or rhonchi. Cardiovascular: Positive S1, positive S2. Regular rate and rhythm. Abdomen: Positive bowel sounds in all 4 quadrants. Soft, non-tender, non- distended. : Deferred. Rectal: Deferred. Skin: Warm, dry. Intact. Extremities: 2+ radial pulses bilaterally. No lower extremity edema. Neuro: Awake, alert, oriented x3. No gross motor or sensory deficits. Cranial nerves II through XII intact. Gait not assessed. laboratory and microbiology Laboratory Tests 12/13/23 05:07 12/10/23 05:05 12/09/23 05:07 Test 12/09/23 05:07 Range/Units Serum Glucose 154 H 74-106 mg/dL Assessment/Plan Impression: Severe sepsis Acute hypoxic respiratory failure Pneumonitis Anemia COVID-19 infection Influenza type A positive Events: Breathing on room air - sat 94% No respiratory distress. No cough Patient feels better. Continue antibiotics - vancomycin, Zosyn Tamiflu d/t influenza Albuterol HFA Continue Decadron Incentive spirometry Pain control Avoid oversedation Labs and imaging reviewed. Rest of plan as noted below. Plan: Supplemental oxygen PRN. Keep O2 saturation above 92%. IV fluid hydration with normal saline at 100 mL an hour. Decadron course Continue antibiotics Follow up cultures ID recommendations appreciated. Albuterol HFA inhaler t.i.d. Atrial fibrillation On Eliquis 5 mg p.o. b.i.d. On amiodarone 200 mg p.o. q.12 hours Accu-Cheks, insulin sliding scale Tamiflu course for influenza type a DVT prophylaxis- Eliquis Prognosis: Guarded given multiple comorbidities. Rest of plan per hospitalist and other consultants. Thank you NIKOLAI Bowling for allowing me to participate in this patient's care. Further recommendations will depend on patient's clinical course. Please do not hesitate to contact me if you have any questions or concerns. This medical document was created using an electronic medical record system with [employer] dictation system. Although this document has been carefully reviewed, there may still be some phonetic and typographical errors. These areas are purely typographical due to imperfections of the software programs, and do not reflect any compromise in the patient's medical care. Dietary Evaluation Review Comments: 1) Consider Mayo BID for promoting wound healing, 2)Follow current diet regimen prescribed as 2g NA CCHO and Cardiac Lofat LoChol diet plus nepro 240ml PO supplement. 3) Monitor PO intake to reach at least 75% of his needs. Expected Outcomes/Goals: Controlled DM, healed wounds and maintain current Body Weight. Plan discussed with: Patient, Other (RN) WES BURNS MD Dec 13, 2023 10:20
--- NOTE | 2023-12-13 15:16 | DVHPN2 ---
Progress Note - Dictate Date Seen: Dec 13, 2023 Medical Necessity Reason Pt with a Central, PICC or Fol: Yes The following are medically ne: Barksdale Catheter Reason for barksdale catheter: Strict I&O vital signs Vital Sign Date Time Temp Pulse Resp B/P (MAP) Pulse Ox O2 Delivery O2 Flow Rate FiO2 12/13/23 14:04 89 18 96 12/13/23 14:04 Room Air 12/13/23 14:04 0 21 12/13/23 12:59 97.3 125/54 (77) 97.3 Total Intake and Output 12/12/23 12/12/23 12/13/23 15:00 23:00 07:00 Intake Total 150 ml 340 ml 750 ml Output Total 860 ml 700 ml Balance 150 ml -520 ml 50 ml medications Current Medications Medications Dose Ordered Sig/Evgeny Route Start Time Stop Time Status Last Admin Dose Admin Vancomycin HCl 200 ml @ 200 mls/hr Q12HR IV 12/07/23 22:00 UNV Nitroglycerin 0.4 mg Q5MINP PRN SL 12/07/23 22:00 Morphine Sulfate 2 mg Q30M PRN IV 12/07/23 22:00 Ondansetron HCl 4 mg Q4HP PRN IV 12/08/23 07:45 12/12/23 20:53 4 MG Nitroglycerin 0.4 mg Q5MINP PRN SL 12/08/23 07:45 Albuterol 90 mcg TID IN 12/08/23 14:00 12/13/23 14:04 90 MCG Hydromorphone HCl 0.5 mg Q4HP PRN IV 12/08/23 08:15 12/12/23 11:49 0.5 MG Oxycodone/ Acetaminophen 1 tab Q4HP PRN PO 12/08/23 08:15 12/13/23 09:53 1 TAB Apixaban 5 mg BID PO 12/08/23 10:00 12/13/23 09:48 5 MG Ferrous Sulfate 325 mg BID PO 12/08/23 10:00 12/13/23 09:48 325 MG Tamsulosin HCl 0.4 mg QPM PO 12/08/23 18:00 12/12/23 17:06 0.4 MG Enalapril Maleate 10 mg DAILY PO 12/08/23 10:00 12/13/23 09:52 10 MG Diagnostic Test (Pha) 1 strip ACHS 12/08/23 11:30 12/13/23 11:43 1 STRIP Insulin Human Regular HS SC 12/08/23 22:00 12/12/23 21:43 2 UNITS Insulin Human Regular AC SC 12/08/23 11:30 12/13/23 11:30 6 UNITS Dextrose 50 ml UD PRN IV 12/08/23 09:30 Vancomycin HCl 0 ml @ 0 mls/hr UD IV 12/08/23 10:15 Polyethylene Glycol 17 gm DAILY PO 12/09/23 10:00 12/13/23 09:49 17 GM Ascorbic Acid 500 mg DAILY PO 12/09/23 10:00 12/13/23 09:52 500 MG Cholecalciferol 1,000 unit DAILY PO 12/09/23 10:00 12/13/23 09:52 1,000 UNIT Zinc Sulfate 220 mg DAILY PO 12/09/23 10:00 12/13/23 09:52 220 MG Amiodarone HCl 200 mg Q12HR PO 12/08/23 22:00 12/13/23 09:49 200 MG Metoprolol Succinate 25 mg DAILY PO 12/09/23 10:00 12/13/23 09:52 25 MG Atorvastatin Calcium 40 mg HS PO 12/08/23 22:00 12/12/23 20:53 40 MG Dexamethasone 6 mg DAILY PO 12/09/23 10:00 12/19/23 09:59 12/13/23 09:50 6 MG Phenol/Menthol 1 spr Q2HP PRN MT 12/09/23 07:30 12/10/23 09:00 1 SPR Vancomycin HCl 150 ml @ 150 mls/hr Q12H IV 12/09/23 20:30 12/13/23 08:30 150 MLS/HR Fentanyl 25 mcg Q72H TD 12/09/23 12:15 12/12/23 18:46 25 MCG Alprazolam 0.25 mg TID PO 12/09/23 14:00 Hold Docusate Sodium 100 mg BID PO 12/09/23 22:00 12/13/23 09:49 100 MG Enteral Nutritional Formula 240 ml TIDWM PO 12/09/23 18:00 12/13/23 08:00 240 ML Haloperidol Lactate 2.5 mg Q8HP PRN IM 12/10/23 00:45 12/11/23 02:33 2.5 MG Piperacillin Sod/ Tazobactam Sod 100 ml @ 25 mls/hr Q8HR IV 12/11/23 14:00 12/13/23 14:00 25 MLS/HR Remdesivir 100 mg/ Sodium Chloride 250 ml @ 250 mls/hr DAILY@1500 IV 12/13/23 15:00 12/16/23 15:59 Megestrol Acetate 400 mg BID PO 12/13/23 07:45 12/13/23 10:00 400 MG Sucralfate 1 gm QID@0600,1130,1700,2200 PO 12/13/23 08:00 12/13/23 11:44 1 GM objective General Appearance: alert, no distress HEENT: EOMI, PERRLA, normal external inspect of ears, no icterus, no nasal drainage Neck: no carotid bruit, no jugular venous distention (JVD), no lymphadenopathy Chest: normal thorax Respiratory: clear to auscultation, normal air movement Cardiovascular: regular rate and rhythm, no diastolic murmur, no jugular venous distention (JVD), no rub, no systolic murmur Abdominal: soft, no hepatomegaly, no mass, no splenomegaly, no tenderness Genitourinary: grossly normal external Musculoskeletal: no joint tenderness, no swelling Extremities: normal pulses, no calf tenderness, no clubbing, no cyanosis, no edema Skin: no bruising, no jaundice, no rash Neurological: alert, No focal deficit laboratory and microbiology Laboratory Tests 12/13/23 05:07 12/10/23 05:05 12/09/23 05:07 Test 12/09/23 05:07 Range/Units Serum Glucose 154 H 74-106 mg/dL Problem List 1. Severe sepsis ID Consult, meds 2. Septic Shock ID consult 3. Paroxysmal AFIB Cardiology Consult 4. CAD Cardiology consult 5. Prostate cancer with mets to bone Medication, monitoring 6. HX of CABG Cardiology consult 7. Chronic Anticoagulation Medication, monitoring 8. Anemia of chronic disease Supplemental O2 9. Influenza B Restart Home meds 10. COVID 19 Covid trial meds, Monitoring 11. DMI w/ neuropathy Insulin Sliding Scale 12. Metabolic Encephalopathy neurology consult Assessment/Plan Subjective Patient is awake and alert. Objective Patient was admitted for generalized weakness. Patient found to be positive for influenza B as well as COVID pneumonia. Patient was recently at [facility] for 2 to 3 days and he was previously at [facility] for 25 days for small bowel obstruction related to chronic pain medication. Patient had working with physical therapy he is eating food and is doing well on Megace. Plan Patient will continue physical therapy and rehab and continue pain medication as needed. I did speak with patient's and she is requesting patient to be able to walk several steps prior to discharge home. Dietary Evaluation Review Comments: 1) Consider Mayo BID for promoting wound healing, 2)Follow current diet regimen prescribed as 2g NA CCHO and Cardiac Lofat LoChol diet plus nepro 240ml PO supplement. 3) Monitor PO intake to reach at least 75% of his needs. Expected Outcomes/Goals: Controlled DM, healed wounds and maintain current Body Weight. Plan discussed with: Patient, Other ALEXYS DAIGLE NP Dec 13, 2023 15:16
[2023-12-13] MEDS: REMDESIVIR 100mg 100 MG in SODIUM CHL 0.9% 230 ML IV SCH (16:07)
[2023-12-13] MEDS: ALPRAZolam 0.25 MG TAB PO SCH (23:00)
[2023-12-14] VITALS (16 sets, daily range): BP systolic 109–142; BP diastolic 52–61; PULSE 81–102; RESP 18–20; TEMP 97.6–98.6; O2SAT 93–99
[2023-12-14 08:36] LABS: Hemoglobin 8.4 g/dL (13.5-17.5)
[2023-12-14 08:37] LABS: Hematocrit 26.3 % (41.0-53.0); Mean Corpuscular Hemoglobin 28.2 pg (28.0-32.0); Mean Corpuscular Hgb Conc. 31.9 g/dL (32.0-36.0); Mean Corpuscular Volume 88.2 fL (80.0-100.0); Platelet Count (auto) 262 10^3/uL (140-450); Red Blood Cells 2.98 10^6/uL (4.5-5.90); Red Cell Distribution Width 17.7 % (11.8-14.3); White Blood Cell 9.2 10^3/uL (4.4-10.8)
[2023-12-14 08:41] LABS: Basophils % (manual) 0 (0.0-2.0); Blast Cells 0; Eosinophils % (manual) 0 (0-7); Metamyelocytes % 0; Myelocytes % 0; Promyelocytes % 0; Reactive Lymphocytes 0
[2023-12-14 09:17] LABS: Band Neutrophils % (manual) 3; Lymphocytes % (manual) 22 (10.0-50.0); Monocytes % (manual) 5 (0-12); Platelet Estimate Adequate
--- NOTE | 2023-12-14 10:21 | DVHPN2 ---
Progress Note - Dictate Date Seen: Dec 14, 2023 Medical Necessity Reason Pt with a Central, PICC or Fol: Yes The following are medically ne: Barksdale Catheter Reason for barksdale catheter: Strict I&O vital signs Vital Sign Date Time Temp Pulse Resp B/P (MAP) Pulse Ox O2 Delivery O2 Flow Rate FiO2 12/14/23 10:00 93 Nasal Cannula 12/14/23 10:00 2 28 12/14/23 09:47 104 142/58 12/14/23 09:14 98.1 19 98.1 Total Intake and Output 12/13/23 12/13/23 12/14/23 15:00 23:00 07:00 Intake Total 950 ml 450 ml Output Total 1250 ml 1500 ml Balance -300 ml -1050 ml medications Current Medications Medications Dose Ordered Sig/Evgeny Route Start Time Stop Time Status Last Admin Dose Admin Vancomycin HCl 200 ml @ 200 mls/hr Q12HR IV 12/07/23 22:00 UNV Ondansetron HCl 4 mg Q4HP PRN IV 12/08/23 07:45 12/13/23 21:57 4 MG Nitroglycerin 0.4 mg Q5MINP PRN SL 12/08/23 07:45 Albuterol 90 mcg TID IN 12/08/23 14:00 12/14/23 07:12 90 MCG Hydromorphone HCl 0.5 mg Q4HP PRN IV 12/08/23 08:15 12/14/23 04:15 0.5 MG Oxycodone/ Acetaminophen 1 tab Q4HP PRN PO 12/08/23 08:15 12/14/23 09:37 1 TAB Apixaban 5 mg BID PO 12/08/23 10:00 12/14/23 09:47 5 MG Ferrous Sulfate 325 mg BID PO 12/08/23 10:00 12/14/23 09:47 325 MG Tamsulosin HCl 0.4 mg QPM PO 12/08/23 18:00 12/13/23 18:05 0.4 MG Enalapril Maleate 10 mg DAILY PO 12/08/23 10:00 12/14/23 09:47 10 MG Diagnostic Test (Pha) 1 strip ACHS 12/08/23 11:30 12/14/23 06:26 1 STRIP Insulin Human Regular HS SC 12/08/23 22:00 12/13/23 22:10 3 UNITS Insulin Human Regular AC SC 12/08/23 11:30 12/14/23 06:33 2 UNITS Dextrose 50 ml UD PRN IV 12/08/23 09:30 Vancomycin HCl 0 ml @ 0 mls/hr UD IV 12/08/23 10:15 Polyethylene Glycol 17 gm DAILY PO 12/09/23 10:00 12/13/23 09:49 17 GM Ascorbic Acid 500 mg DAILY PO 12/09/23 10:00 12/13/23 09:52 500 MG Cholecalciferol 1,000 unit DAILY PO 12/09/23 10:00 12/13/23 09:52 1,000 UNIT Zinc Sulfate 220 mg DAILY PO 12/09/23 10:00 12/13/23 09:52 220 MG Amiodarone HCl 200 mg Q12HR PO 12/08/23 22:00 12/14/23 09:46 200 MG Metoprolol Succinate 25 mg DAILY PO 12/09/23 10:00 12/14/23 09:47 25 MG Atorvastatin Calcium 40 mg HS PO 12/08/23 22:00 12/13/23 21:57 40 MG Dexamethasone 6 mg DAILY PO 12/09/23 10:00 12/19/23 09:59 12/14/23 09:47 6 MG Phenol/Menthol 1 spr Q2HP PRN MT 12/09/23 07:30 12/10/23 09:00 1 SPR Vancomycin HCl 150 ml @ 150 mls/hr Q12H IV 12/09/23 20:30 12/14/23 09:32 150 MLS/HR Fentanyl 25 mcg Q72H TD 12/09/23 12:15 12/12/23 18:46 25 MCG Alprazolam 0.25 mg TID PO 12/09/23 14:00 Cancel Docusate Sodium 100 mg BID PO 12/09/23 22:00 12/13/23 09:49 100 MG Enteral Nutritional Formula 240 ml TIDWM PO 12/09/23 18:00 12/14/23 09:42 240 ML Haloperidol Lactate 2.5 mg Q8HP PRN IM 12/10/23 00:45 12/11/23 02:33 2.5 MG Piperacillin Sod/ Tazobactam Sod 100 ml @ 25 mls/hr Q8HR IV 12/11/23 14:00 12/14/23 06:26 25 MLS/HR Remdesivir 100 mg/ Sodium Chloride 250 ml @ 250 mls/hr DAILY@1500 IV 12/13/23 15:00 12/16/23 15:59 12/13/23 16:07 250 MLS/HR Megestrol Acetate 400 mg BID PO 12/13/23 07:45 12/13/23 22:00 400 MG Sucralfate 1 gm QID@0600,1130,1700,2200 PO 12/13/23 08:00 12/14/23 06:26 1 GM Alprazolam 0.25 mg BID PO 12/13/23 22:00 12/14/23 09:48 0.25 MG objective General Appearance: alert, no distress HEENT: EOMI, PERRLA, normal external inspect of ears, no icterus, no nasal drainage Neck: no carotid bruit, no jugular venous distention (JVD), no lymphadenopathy Chest: normal thorax Respiratory: clear to auscultation, normal air movement Cardiovascular: regular rate and rhythm, no diastolic murmur, no jugular venous distention (JVD), no rub, no systolic murmur Abdominal: soft, no hepatomegaly, no mass, no splenomegaly, no tenderness Genitourinary: grossly normal external Musculoskeletal: no joint tenderness, no swelling Extremities: normal pulses, no calf tenderness, no clubbing, no cyanosis, no edema Skin: no bruising, no jaundice, no rash Neurological: alert, No focal deficit laboratory and microbiology Laboratory Tests 12/14/23 08:05 12/09/23 05:07 Test 12/09/23 05:07 Range/Units Serum Glucose 154 H 74-106 mg/dL Problem List 1. Severe sepsis ID Consult, meds 2. Septic Shock ID consult 3. Paroxysmal AFIB Cardiology Consult 4. CAD Cardiology consult 5. Prostate cancer with mets to bone Medication, monitoring 6. HX of CABG Cardiology consult 7. Chronic Anticoagulation Medication, monitoring 8. Anemia of chronic disease Supplemental O2 9. Influenza B Restart Home meds 10. COVID 19 Covid trial meds, Monitoring 11. DMI w/ neuropathy Insulin Sliding Scale 12. Metabolic Encephalopathy neurology consult Assessment/Plan Subjective Patient is awake and alert. Objective Patient was having some issues with uncontrolled pain. Patient appears to be doing somewhat better today. Patient has prostate cancer with mets to the bone. Patient has been primarily bed-bound. Patient was admitted from [facility]. He was there for 3 days and previously he was at [facility] for 25 days for uncontrolled pain and small bowel obstruction. Patient is very deconditioned. does not want him to return to a [facility] facility. Plan Continue physical therapy. is requesting him to at least take 3 steps prior to discharge home. financial services auditor consult to arrange for home health, physical therapy, and hospital bed. DC planning in 1-2 days. Dietary Evaluation Review Comments: 1) Consider Mayo BID for promoting wound healing, 2)Follow current diet regimen prescribed as 2g NA CCHO and Cardiac Lofat LoChol diet plus nepro 240ml PO supplement. 3) Monitor PO intake to reach at least 75% of his needs. Expected Outcomes/Goals: Controlled DM, healed wounds and maintain current Body Weight. Plan discussed with: Patient, Other ALEXYS DAIGLE NP Dec 14, 2023 10:21
--- NOTE | 2023-12-14 12:06 | DVH ---
CHEST RADIOGRAPH Indication:f/u pna Technique: Single frontal view of the chest was obtained COMPARISON: XY CHEST PORTABLE on DOS: 12/07/23, CHEST XRAY 1 VIEW on DOS: 02/14/19, CHEST PORTABLE on D OS: 12/21/18 FINDINGS: Lines and Tubes: Left chest wall pacemaker. Median sternotomy. Lungs: Multifocal airspace disease, [id number]. Pleura: No effusion. No pneumothorax. Cardiomediastinal contours: Unremarkable Bones: Unremarkable IMPRESSION: Multifocal airspace disease, [id number]. Findings may be slightly improved since 024.
[2023-12-15] VITALS (11 sets, daily range): BP systolic 110–131; BP diastolic 54–79; PULSE 82–103; RESP 18–20; TEMP 97.5–98.6; O2SAT 94–99
[2023-12-15] MEDS ORDERED: ALBUTEROL SULF 2.5 MG/0.5ML(0.5%) NEB SOLN NEB PRN (03:30)
[2023-12-15] MEDS ORDERED: ALBUTEROL SULF HFA 90MCG INH 200DOSE IN PRN (04:00)
[2023-12-15] MEDS: ALBUTEROL SULF HFA 90MCG INH 200DOSE IN PRN (04:57)
[2023-12-15] MEDS ORDERED: ALBUTEROL SULF HFA 90MCG INH 200DOSE IN SCH ×2 (06:00)
[2023-12-15] MEDS: ALBUTEROL SULF HFA 90MCG INH 200DOSE IN SCH (06:30)
[2023-12-15 06:47] LABS: Hemoglobin 8.3 g/dL (13.5-17.5); Platelet Count (auto) 263 10^3/uL (140-450)
[2023-12-15 06:50] LABS: Hematocrit 25.7 % (41.0-53.0); Mean Corpuscular Hemoglobin 28.7 pg (28.0-32.0); Mean Corpuscular Hgb Conc. 32.4 g/dL (32.0-36.0); Mean Corpuscular Volume 88.6 fL (80.0-100.0); Red Blood Cells 2.91 10^6/uL (4.5-5.90); Red Cell Distribution Width 18.3 % (11.8-14.3); White Blood Cell 9.8 10^3/uL (4.4-10.8)
[2023-12-15 07:04] LABS: Basophils % (manual) 0 (0.0-2.0); Blast Cells 0; Eosinophils % (manual) 0 (0-7); Metamyelocytes % 0; Myelocytes % 0; Promyelocytes % 0; Reactive Lymphocytes 0
[2023-12-15 08:39] LABS: Band Neutrophils % (manual) 2; Lymphocytes % (manual) 19 (10.0-50.0); Monocytes % (manual) 5 (0-12)
[2023-12-15 08:40] LABS: Platelet Estimate Adequate
--- NOTE | 2023-12-15 10:18 | DVHPN2 ---
Progress Note - Dictate Date Seen: Dec 15, 2023 Medical Necessity Reason Pt with a Central, PICC or Fol: Yes The following are medically ne: Barksdale Catheter Reason for barksdale catheter: Strict I&O Subjective Mr. Cash is a 78 years old gentleman with a history of hypertension, diabetes, dyslipidemia, coronary artery disease, heart attack, atrial fibrillation, congestive heart failure, AAA, peripheral vascular disease, COPD, anxiety, prostate cancer, BPH, he was admitted to the [facility] on 12/07/23 with a chief company of altered mental status I have seen and examined the patient, I have talked to his nurse. He is doing fine, he is oriented to person, place, knows year and the month, he reports ongoing pain in the hips, shoulders, worse in the left hip SARS-CoV-2 antigen, 12/08/2023: Positive UDS, 12/07/2023: Plasma alcohol, normal Urinalysis, 12/07/2023: WBC: 127/urine leukocyte esterase: 3+ WBC/HB/PLT/MCV, 12/08/2023: 5.5/8.7/211/90 PT/INR/PTT, 12/08/2023: 13.7/1.32/38.4 HGB A1c, 12/08/2023: 7.1 Liver function tests, 12/07/2023: Unremarkable TG/HDL/LDL/HDL, 12/08/2023: 117/141/89/29 VIT B12, 11/2023: 346 FOLIC ACID, 11/2023: 9.28 TSH, 12/08/2023: 0.6 EEG, 12/09/2023: Normal CT head, 12/08/2023: 1. No acute intracranial abnormality. 2. Generalized cerebral volume loss and mild chronic microvascular ischemic change 3. Chronic lacunar infarcts in the right caudate head and anterior right basal ganglia. 4. Small chronic left cerebellar infarct. CT, left hip, 12/09/2023: Multiple round sclerotic lesions throughout the pelvis, sacrum, acetabulum, and left femur could be metastatic disease. No acute fracture seen vital signs Vital Sign Date Time Temp Pulse Resp B/P (MAP) Pulse Ox O2 Delivery O2 Flow Rate FiO2 12/15/23 09:54 97.8 103 19 113/73 (86) 96 97.8 12/15/23 06:30 Nasal Cannula 2.0 12/15/23 06:30 28 Total Intake and Output 12/14/23 12/14/23 12/15/23 15:00 23:00 07:00 Intake Total 150 ml 575 ml 250 ml Output Total 1300 ml Balance 150 ml -725 ml 250 ml medications Current Medications Medications Dose Ordered Sig/Evgeny Route Start Time Stop Time Status Last Admin Dose Admin Vancomycin HCl 200 ml @ 200 mls/hr Q12HR IV 12/07/23 22:00 UNV Ondansetron HCl 4 mg Q4HP PRN IV 12/08/23 07:45 12/15/23 02:17 4 MG Nitroglycerin 0.4 mg Q5MINP PRN SL 12/08/23 07:45 Hydromorphone HCl 0.5 mg Q4HP PRN IV 12/08/23 08:15 12/15/23 04:55 0.5 MG Oxycodone/ Acetaminophen 1 tab Q4HP PRN PO 12/08/23 08:15 12/15/23 08:27 1 TAB Apixaban 5 mg BID PO 12/08/23 10:00 12/15/23 08:28 5 MG Ferrous Sulfate 325 mg BID PO 12/08/23 10:00 12/15/23 08:28 325 MG Tamsulosin HCl 0.4 mg QPM PO 12/08/23 18:00 12/14/23 17:14 0.4 MG Enalapril Maleate 10 mg DAILY PO 12/08/23 10:00 12/15/23 08:30 10 MG Diagnostic Test (Pha) 1 strip ACHS 12/08/23 11:30 12/15/23 06:04 1 STRIP Insulin Human Regular HS SC 12/08/23 22:00 12/14/23 22:00 6 UNITS Insulin Human Regular AC SC 12/08/23 11:30 12/14/23 17:15 6 UNITS Dextrose 50 ml UD PRN IV 12/08/23 09:30 Vancomycin HCl 0 ml @ 0 mls/hr UD IV 12/08/23 10:15 Polyethylene Glycol 17 gm DAILY PO 12/09/23 10:00 12/15/23 08:29 17 GM Ascorbic Acid 500 mg DAILY PO 12/09/23 10:00 12/15/23 08:27 500 MG Cholecalciferol 1,000 unit DAILY PO 12/09/23 10:00 12/15/23 08:28 1,000 UNIT Zinc Sulfate 220 mg DAILY PO 12/09/23 10:00 12/15/23 08:26 220 MG Amiodarone HCl 200 mg Q12HR PO 12/08/23 22:00 12/15/23 08:28 200 MG Metoprolol Succinate 25 mg DAILY PO 12/09/23 10:00 12/15/23 08:28 25 MG Atorvastatin Calcium 40 mg HS PO 12/08/23 22:00 12/14/23 22:43 40 MG Dexamethasone 6 mg DAILY PO 12/09/23 10:00 12/19/23 09:59 12/15/23 08:26 6 MG Phenol/Menthol 1 spr Q2HP PRN MT 12/09/23 07:30 12/10/23 09:00 1 SPR Vancomycin HCl 150 ml @ 150 mls/hr Q12H IV 12/09/23 20:30 12/15/23 08:21 150 MLS/HR Fentanyl 25 mcg Q72H TD 12/09/23 12:15 12/12/23 18:46 25 MCG Alprazolam 0.25 mg TID PO 12/09/23 14:00 Cancel Docusate Sodium 100 mg BID PO 12/09/23 22:00 12/15/23 08:26 100 MG Enteral Nutritional Formula 240 ml TIDWM PO 12/09/23 18:00 12/15/23 08:28 240 ML Haloperidol Lactate 2.5 mg Q8HP PRN IM 12/10/23 00:45 12/11/23 02:33 2.5 MG Piperacillin Sod/ Tazobactam Sod 100 ml @ 25 mls/hr Q8HR IV 12/11/23 14:00 12/15/23 06:16 25 MLS/HR Remdesivir 100 mg/ Sodium Chloride 250 ml @ 250 mls/hr DAILY@1500 IV 12/13/23 15:00 12/16/23 15:59 12/14/23 15:41 250 MLS/HR Megestrol Acetate 400 mg BID PO 12/13/23 07:45 12/14/23 22:43 400 MG Sucralfate 1 gm QID@0600,1130,1700,2200 PO 12/13/23 08:00 12/14/23 22:43 1 GM Alprazolam 0.25 mg BID PO 12/13/23 22:00 12/15/23 09:10 0.25 MG Albuterol 2.5 mg Q6HPRN PRN NEB 12/15/23 03:30 Cancel Albuterol 180 mcg TID IN 12/15/23 06:00 12/15/23 06:30 180 MCG Albuterol 180 mcg TID IN 12/15/23 06:00 UNV Albuterol 180 mcg Q6HPRN PRN IN 12/15/23 04:00 12/15/23 04:57 180 MCG objective General: the patient is well developed and nourished. No acute distress. MENTAL STATUS: Subjective SPEECH, LANGUAGE, HIGHER CORTICAL FUNCTION: no aphasia or dysathria. CRANIAL NERVES: Pupils are equal, round and reactive. EOMs full and conjugate. No nystagmus. Facial sensation intact in all three divisions bilaterally. Mandibular strength intact. Facial muscles symmetrical and strength intact. SENSATION: Sensation to touch and pinprick is normal. MOTOR: Normal tone in the upper and lower extremity. Normal muscle bulk. No fasciculations. No abnormal movements or posturing. Muscle strength of the major groups in the upper extremities is 5/5. Muscle strength of the major groups in the lower extremities is: Rt: 4/5, Lt: 2/5. REFLEXES: Deep tendon reflexes are symmetrical. No pathological reflexes. CEREBELLAR/COORDINATION: Finger to nose and heel to becerra are normal bilaterally. GAIT/STATION: deferred. laboratory and microbiology Laboratory Tests 12/15/23 05:36 12/09/23 05:07 Test 12/09/23 05:07 Range/Units Serum Glucose 154 H 74-106 mg/dL Problem List Altered mental status, likely metabolic encephalopathy Metabolic encephalopathy secondary to urinary tract infection and COVID-19 Urinary tract infection COVID-19 Sepsis Septic shock Hypotension secondary to septic shock AFib Prostatic cancer Pain in the left hip, knee and ankle, Secondary to metastatic cancer Assessment/Plan Monitoring Supportive treatment Telemetry IV antibiotics Eliquis 5 mg daily Lipitor 40 mg daily Haldol 2.5 mg IM Q 8 hours p.r.n. for agitation Infectious disease Oncology on case Cardiology on case More recommendation per clinical course This medical document was created using an electronic medical record system with [employer] dictation system. Although this document has been carefully reviewed, there may still be some phonetic and typographical errors. These areas are purely typographical due to imperfections of the software programs, and do not reflect any compromise in the patient's medical care Prognosis poor Dietary Evaluation Review Comments: 1) Consider Mayo BID for promoting wound healing, 2)Follow current diet regimen prescribed as 2g NA CCHO and Cardiac Lofat LoChol diet plus nepro 240ml PO supplement. 3) Monitor PO intake to reach at least 75% of his needs. Expected Outcomes/Goals: Controlled DM, healed wounds and maintain current Body Weight. Plan discussed with: Other BRANDY MEYERS MD Dec 15, 2023 10:18
--- NOTE | 2023-12-15 12:35 | DVHPN2 ---
Progress Note - Dictate Date Seen: Dec 15, 2023 Medical Necessity Reason Pt with a Central, PICC or Fol: Yes The following are medically ne: Barksdale Catheter Reason for barksdale catheter: Strict I&O Subjective pt has SOB. pt has pain from cancer. Gen weakness. vital signs Vital Sign Date Time Temp Pulse Resp B/P (MAP) Pulse Ox O2 Delivery O2 Flow Rate FiO2 12/15/23 11:12 90 16 114/52 12/15/23 10:00 96 Nasal Cannula 2.0 12/15/23 10:00 28 12/15/23 09:54 97.8 97.8 Total Intake and Output 12/14/23 12/14/23 12/15/23 15:00 23:00 07:00 Intake Total 150 ml 575 ml 250 ml Output Total 1300 ml Balance 150 ml -725 ml 250 ml medications Current Medications Medications Dose Ordered Sig/Evgeny Route Start Time Stop Time Status Last Admin Dose Admin Vancomycin HCl 200 ml @ 200 mls/hr Q12HR IV 12/07/23 22:00 UNV Ondansetron HCl 4 mg Q4HP PRN IV 12/08/23 07:45 12/15/23 02:17 4 MG Nitroglycerin 0.4 mg Q5MINP PRN SL 12/08/23 07:45 Hydromorphone HCl 0.5 mg Q4HP PRN IV 12/08/23 08:15 12/15/23 10:42 0.5 MG Oxycodone/ Acetaminophen 1 tab Q4HP PRN PO 12/08/23 08:15 12/15/23 08:27 1 TAB Apixaban 5 mg BID PO 12/08/23 10:00 12/15/23 08:28 5 MG Ferrous Sulfate 325 mg BID PO 12/08/23 10:00 12/15/23 08:28 325 MG Tamsulosin HCl 0.4 mg QPM PO 12/08/23 18:00 12/14/23 17:14 0.4 MG Enalapril Maleate 10 mg DAILY PO 12/08/23 10:00 12/15/23 08:30 10 MG Diagnostic Test (Pha) 1 strip ACHS 12/08/23 11:30 12/15/23 11:57 1 STRIP Insulin Human Regular HS SC 12/08/23 22:00 12/14/23 22:00 6 UNITS Insulin Human Regular AC SC 12/08/23 11:30 12/15/23 11:57 9 UNITS Dextrose 50 ml UD PRN IV 12/08/23 09:30 Vancomycin HCl 0 ml @ 0 mls/hr UD IV 12/08/23 10:15 Polyethylene Glycol 17 gm DAILY PO 12/09/23 10:00 12/15/23 08:29 17 GM Ascorbic Acid 500 mg DAILY PO 12/09/23 10:00 12/15/23 08:27 500 MG Cholecalciferol 1,000 unit DAILY PO 12/09/23 10:00 12/15/23 08:28 1,000 UNIT Zinc Sulfate 220 mg DAILY PO 12/09/23 10:00 12/15/23 08:26 220 MG Amiodarone HCl 200 mg Q12HR PO 12/08/23 22:00 12/15/23 08:28 200 MG Metoprolol Succinate 25 mg DAILY PO 12/09/23 10:00 12/15/23 08:28 25 MG Atorvastatin Calcium 40 mg HS PO 12/08/23 22:00 12/14/23 22:43 40 MG Dexamethasone 6 mg DAILY PO 12/09/23 10:00 12/19/23 09:59 12/15/23 08:26 6 MG Phenol/Menthol 1 spr Q2HP PRN MT 12/09/23 07:30 12/10/23 09:00 1 SPR Vancomycin HCl 150 ml @ 150 mls/hr Q12H IV 12/09/23 20:30 12/15/23 08:21 150 MLS/HR Fentanyl 25 mcg Q72H TD 12/09/23 12:15 12/12/23 18:46 25 MCG Alprazolam 0.25 mg TID PO 12/09/23 14:00 Cancel Docusate Sodium 100 mg BID PO 12/09/23 22:00 12/15/23 08:26 100 MG Enteral Nutritional Formula 240 ml TIDWM PO 12/09/23 18:00 12/15/23 08:28 240 ML Haloperidol Lactate 2.5 mg Q8HP PRN IM 12/10/23 00:45 12/11/23 02:33 2.5 MG Piperacillin Sod/ Tazobactam Sod 100 ml @ 25 mls/hr Q8HR IV 12/11/23 14:00 12/15/23 06:16 25 MLS/HR Remdesivir 100 mg/ Sodium Chloride 250 ml @ 250 mls/hr DAILY@1500 IV 12/13/23 15:00 12/16/23 15:59 12/14/23 15:41 250 MLS/HR Megestrol Acetate 400 mg BID PO 12/13/23 07:45 12/14/23 22:43 400 MG Sucralfate 1 gm QID@0600,1130,1700,2200 PO 12/13/23 08:00 12/15/23 11:51 1 GM Alprazolam 0.25 mg BID PO 12/13/23 22:00 12/15/23 09:10 0.25 MG Albuterol 2.5 mg Q6HPRN PRN NEB 12/15/23 03:30 Cancel Albuterol 180 mcg TID IN 12/15/23 06:00 12/15/23 06:30 180 MCG Albuterol 180 mcg TID IN 12/15/23 06:00 UNV Albuterol 180 mcg Q6HPRN PRN IN 12/15/23 04:00 12/15/23 04:57 180 MCG objective HEENT GERONIMO, Conj [place], Sclera non icteric Neck supple No JVD or Lymphadenopathy Lung Bilat diminished BS with few basal rales Heart S1S2 regular no Murmur or gallop Abdomen soft BS+, No tenderness no rebound Extremities no pitting edema, pedal pulse 2+ [employer] AxoX3 non focal laboratory and microbiology Laboratory Tests 12/15/23 05:36 12/09/23 05:07 Test 12/09/23 05:07 Range/Units Serum Glucose 154 H 74-106 mg/dL urine culture juliocesar Tropicalis Blood cxs negative. CXR IMPRESSION: Multifocal airspace disease, [id number]. Findings may be slightly improved since 12/07/2023. Problem List ASSESSMENT covid 19 INFECTION hYPOXIA ON OXYGEN SUPPORT Pneumonia Prostate cancer with mets to bone IDDM CHF COPD CAD Plan keep pt on droplet precaution Oxygen support as needed continue IV Vancomycin, Zosyn and Remdesivir as ordered. continue all supportive care once remdesivir course is done pt can be discharged home on oral antibiotic. D/ W [facility] [employer]. Dietary Evaluation Review Comments: 1) Consider Mayo BID for promoting wound healing, 2)Follow current diet regimen prescribed as 2g NA CCHO and Cardiac Lofat LoChol diet plus nepro 240ml PO supplement. 3) Monitor PO intake to reach at least 75% of his needs. Expected Outcomes/Goals: Controlled DM, healed wounds and maintain current Body Weight. Plan discussed with: Patient CHRIS ASCENCIO MD Dec 15, 2023 12:35
--- NOTE | 2023-12-15 12:40 | DVHPN2 ---
Progress Note - Dictate Date Seen: Dec 15, 2023 Medical Necessity Reason Pt with a Central, PICC or Fol: Yes The following are medically ne: Barksdale Catheter Reason for barksdale catheter: Strict I&O vital signs Vital Sign Date Time Temp Pulse Resp B/P (MAP) Pulse Ox O2 Delivery O2 Flow Rate FiO2 12/15/23 11:12 90 16 114/52 12/15/23 10:00 96 Nasal Cannula 2.0 12/15/23 10:00 28 12/15/23 09:54 97.8 97.8 Total Intake and Output 12/14/23 12/14/23 12/15/23 15:00 23:00 07:00 Intake Total 150 ml 575 ml 250 ml Output Total 1300 ml Balance 150 ml -725 ml 250 ml medications Current Medications Medications Dose Ordered Sig/Evgeny Route Start Time Stop Time Status Last Admin Dose Admin Vancomycin HCl 200 ml @ 200 mls/hr Q12HR IV 12/07/23 22:00 UNV Ondansetron HCl 4 mg Q4HP PRN IV 12/08/23 07:45 12/15/23 02:17 4 MG Nitroglycerin 0.4 mg Q5MINP PRN SL 12/08/23 07:45 Hydromorphone HCl 0.5 mg Q4HP PRN IV 12/08/23 08:15 12/15/23 10:42 0.5 MG Oxycodone/ Acetaminophen 1 tab Q4HP PRN PO 12/08/23 08:15 12/15/23 08:27 1 TAB Apixaban 5 mg BID PO 12/08/23 10:00 12/15/23 08:28 5 MG Ferrous Sulfate 325 mg BID PO 12/08/23 10:00 12/15/23 08:28 325 MG Tamsulosin HCl 0.4 mg QPM PO 12/08/23 18:00 12/14/23 17:14 0.4 MG Enalapril Maleate 10 mg DAILY PO 12/08/23 10:00 12/15/23 08:30 10 MG Diagnostic Test (Pha) 1 strip ACHS 12/08/23 11:30 12/15/23 11:57 1 STRIP Insulin Human Regular HS SC 12/08/23 22:00 12/14/23 22:00 6 UNITS Insulin Human Regular AC SC 12/08/23 11:30 12/15/23 11:57 9 UNITS Dextrose 50 ml UD PRN IV 12/08/23 09:30 Vancomycin HCl 0 ml @ 0 mls/hr UD IV 12/08/23 10:15 Polyethylene Glycol 17 gm DAILY PO 12/09/23 10:00 12/15/23 08:29 17 GM Ascorbic Acid 500 mg DAILY PO 12/09/23 10:00 12/15/23 08:27 500 MG Cholecalciferol 1,000 unit DAILY PO 12/09/23 10:00 12/15/23 08:28 1,000 UNIT Zinc Sulfate 220 mg DAILY PO 12/09/23 10:00 12/15/23 08:26 220 MG Amiodarone HCl 200 mg Q12HR PO 12/08/23 22:00 12/15/23 08:28 200 MG Metoprolol Succinate 25 mg DAILY PO 12/09/23 10:00 12/15/23 08:28 25 MG Atorvastatin Calcium 40 mg HS PO 12/08/23 22:00 12/14/23 22:43 40 MG Phenol/Menthol 1 spr Q2HP PRN MT 12/09/23 07:30 12/10/23 09:00 1 SPR Vancomycin HCl 150 ml @ 150 mls/hr Q12H IV 12/09/23 20:30 12/15/23 08:21 150 MLS/HR Fentanyl 25 mcg Q72H TD 12/09/23 12:15 12/12/23 18:46 25 MCG Alprazolam 0.25 mg TID PO 12/09/23 14:00 Cancel Docusate Sodium 100 mg BID PO 12/09/23 22:00 12/15/23 08:26 100 MG Enteral Nutritional Formula 240 ml TIDWM PO 12/09/23 18:00 12/15/23 08:28 240 ML Haloperidol Lactate 2.5 mg Q8HP PRN IM 12/10/23 00:45 12/11/23 02:33 2.5 MG Piperacillin Sod/ Tazobactam Sod 100 ml @ 25 mls/hr Q8HR IV 12/11/23 14:00 12/15/23 06:16 25 MLS/HR Remdesivir 100 mg/ Sodium Chloride 250 ml @ 250 mls/hr DAILY@1500 IV 12/13/23 15:00 12/16/23 15:59 12/14/23 15:41 250 MLS/HR Megestrol Acetate 400 mg BID PO 12/13/23 07:45 12/14/23 22:43 400 MG Sucralfate 1 gm QID@0600,1130,1700,2200 PO 12/13/23 08:00 12/15/23 11:51 1 GM Alprazolam 0.25 mg BID PO 12/13/23 22:00 12/15/23 09:10 0.25 MG Albuterol 2.5 mg Q6HPRN PRN NEB 12/15/23 03:30 Cancel Albuterol 180 mcg TID IN 12/15/23 06:00 12/15/23 06:30 180 MCG Albuterol 180 mcg TID IN 12/15/23 06:00 UNV Albuterol 180 mcg Q6HPRN PRN IN 12/15/23 04:00 12/15/23 04:57 180 MCG objective General Appearance: alert, no distress HEENT: EOMI, PERRLA, normal external inspect of ears, no icterus, no nasal drainage Neck: no carotid bruit, no jugular venous distention (JVD), no lymphadenopathy Chest: normal thorax Respiratory: clear to auscultation, normal air movement Cardiovascular: regular rate and rhythm, no diastolic murmur, no jugular venous distention (JVD), no rub, no systolic murmur Abdominal: soft, no hepatomegaly, no mass, no splenomegaly, no tenderness Genitourinary: grossly normal external Musculoskeletal: no joint tenderness, no swelling Extremities: normal pulses, no calf tenderness, no clubbing, no cyanosis, no edema Skin: no bruising, no jaundice, no rash Neurological: alert, No focal deficit laboratory and microbiology Laboratory Tests 12/15/23 05:36 12/09/23 05:07 Test 12/09/23 05:07 Range/Units Serum Glucose 154 H 74-106 mg/dL Problem List 1. Severe sepsis ID Consult, meds 2. Septic Shock ID consult 3. Paroxysmal AFIB Cardiology Consult 4. CAD Cardiology consult 5. Prostate cancer with mets to bone Medication, monitoring 6. HX of CABG Cardiology consult 7. Chronic Anticoagulation Medication, monitoring 8. Anemia of chronic disease Supplemental O2 9. Influenza B Restart Home meds 10. COVID 19 Covid trial meds, Monitoring 11. DMI w/ neuropathy Insulin Sliding Scale 12. Metabolic Encephalopathy neurology consult Assessment/Plan Subjective Patient is awake and alert. Objective I did encourage patient to increase his oral intake today. I did speak with RN who states patient is taking a lot of pain medication. Patient was admitted from [facility]. He was there for 3 days and prior to that he was admitted at [facility] for 25 days for bowel obstruction. Patient has prostate cancer with mets to his bone. Patient has severe 10 out of 10 pain especially to his left hip. I did speak with pharmacy and fentanyl patch was increased to 50 mics. Patient is on his third dose of remdesivir. Patient tested positive for COVID and influenza B. Plan Continue current treatment. ID recommendations appreciated. Home health physical therapy and hospital bed ordered. DC planning possibly for tomorrow. Patient has unable to ambulate approximately 2 feet. Dietary Evaluation Review Comments: 1) Consider Mayo BID for promoting wound healing, 2)Follow current diet regimen prescribed as 2g NA CCHO and Cardiac Lofat LoChol diet plus nepro 240ml PO supplement. 3) Monitor PO intake to reach at least 75% of his needs. Expected Outcomes/Goals: Controlled DM, healed wounds and maintain current Body Weight. Plan discussed with: Patient, Other ALEXYS DAIGLE NP Dec 15, 2023 12:40
[2023-12-15] MEDS: fentaNYL 25MCG/HR 25 MCG/HR PAT TD ONE (17:54)
--- NOTE | 2023-12-15 19:54 | DVHPN2 ---
Progress Note - Dictate Date Seen: Dec 15, 2023 Medical Necessity Reason Pt with a Central, PICC or Fol: Yes The following are medically ne: Barksdale Catheter Reason for barksdale catheter: Strict I&O Subjective Patient seen and examined at bedside. On supplemental oxygen Overnight events reviewed. vital signs Vital Sign Date Time Temp Pulse Resp B/P (MAP) Pulse Ox O2 Delivery O2 Flow Rate FiO2 12/15/23 18:22 98 Nasal Cannula 3.0 12/15/23 18:22 32 12/15/23 18:22 85 20 12/15/23 17:54 131/57 12/15/23 17:21 97.5 97.5 Total Intake and Output 12/14/23 12/14/23 12/15/23 15:00 23:00 07:00 Intake Total 150 ml 575 ml 250 ml Output Total 1300 ml Balance 150 ml -725 ml 250 ml medications Current Medications Medications Dose Ordered Sig/Evgeny Route Start Time Stop Time Status Last Admin Dose Admin Vancomycin HCl 200 ml @ 200 mls/hr Q12HR IV 12/07/23 22:00 UNV Ondansetron HCl 4 mg Q4HP PRN IV 12/08/23 07:45 12/15/23 02:17 4 MG Nitroglycerin 0.4 mg Q5MINP PRN SL 12/08/23 07:45 Hydromorphone HCl 0.5 mg Q4HP PRN IV 12/08/23 08:15 12/15/23 10:42 0.5 MG Oxycodone/ Acetaminophen 1 tab Q4HP PRN PO 12/08/23 08:15 12/15/23 08:27 1 TAB Apixaban 5 mg BID PO 12/08/23 10:00 12/15/23 08:28 5 MG Ferrous Sulfate 325 mg BID PO 12/08/23 10:00 12/15/23 08:28 325 MG Tamsulosin HCl 0.4 mg QPM PO 12/08/23 18:00 12/15/23 17:19 0.4 MG Enalapril Maleate 10 mg DAILY PO 12/08/23 10:00 12/15/23 08:30 10 MG Diagnostic Test (Pha) 1 strip ACHS 12/08/23 11:30 12/15/23 17:19 1 STRIP Insulin Human Regular HS SC 12/08/23 22:00 12/14/23 22:00 6 UNITS Insulin Human Regular AC SC 12/08/23 11:30 12/15/23 17:23 9 UNITS Dextrose 50 ml UD PRN IV 12/08/23 09:30 Vancomycin HCl 0 ml @ 0 mls/hr UD IV 12/08/23 10:15 Polyethylene Glycol 17 gm DAILY PO 12/09/23 10:00 12/15/23 08:29 17 GM Ascorbic Acid 500 mg DAILY PO 12/09/23 10:00 12/15/23 08:27 500 MG Cholecalciferol 1,000 unit DAILY PO 12/09/23 10:00 12/15/23 08:28 1,000 UNIT Zinc Sulfate 220 mg DAILY PO 12/09/23 10:00 12/15/23 08:26 220 MG Amiodarone HCl 200 mg Q12HR PO 12/08/23 22:00 12/15/23 08:28 200 MG Metoprolol Succinate 25 mg DAILY PO 12/09/23 10:00 12/15/23 08:28 25 MG Atorvastatin Calcium 40 mg HS PO 12/08/23 22:00 12/14/23 22:43 40 MG Phenol/Menthol 1 spr Q2HP PRN MT 12/09/23 07:30 12/10/23 09:00 1 SPR Vancomycin HCl 150 ml @ 150 mls/hr Q12H IV 12/09/23 20:30 12/15/23 08:21 150 MLS/HR Alprazolam 0.25 mg TID PO 12/09/23 14:00 Cancel Docusate Sodium 100 mg BID PO 12/09/23 22:00 12/15/23 08:26 100 MG Enteral Nutritional Formula 240 ml TIDWM PO 12/09/23 18:00 12/15/23 18:00 240 ML Haloperidol Lactate 2.5 mg Q8HP PRN IM 12/10/23 00:45 12/11/23 02:33 2.5 MG Piperacillin Sod/ Tazobactam Sod 100 ml @ 25 mls/hr Q8HR IV 12/11/23 14:00 12/15/23 15:12 25 MLS/HR Remdesivir 100 mg/ Sodium Chloride 250 ml @ 250 mls/hr DAILY@1500 IV 12/13/23 15:00 12/16/23 15:59 12/15/23 15:12 250 MLS/HR Megestrol Acetate 400 mg BID PO 12/13/23 07:45 12/14/23 22:43 400 MG Sucralfate 1 gm QID@0600,1130,1700,2200 PO 12/13/23 08:00 12/15/23 17:19 1 GM Alprazolam 0.25 mg BID PO 12/13/23 22:00 12/15/23 09:10 0.25 MG Albuterol 2.5 mg Q6HPRN PRN NEB 12/15/23 03:30 Cancel Albuterol 180 mcg TID IN 12/15/23 06:00 12/15/23 18:22 180 MCG Albuterol 180 mcg TID IN 12/15/23 06:00 UNV Albuterol 180 mcg Q6HPRN PRN IN 12/15/23 04:00 12/15/23 04:57 180 MCG Fentanyl 50 mcg Q72H TD 12/18/23 12:15 Lidocaine 2 patch DAILY TOP 12/16/23 10:00 objective Gen.: Patient lying in bed in no apparent distress. On supplemental oxygen Head: Normocephalic, atraumatic. Eyes: EOMI/PERRLA. Ears: Normal hearing. Normal anatomy. Neck/trachea: Trachea midline, supple. Nose: Normal external anatomy. Mouth: Moist mucous membranes. Chest: Decreased air entry bilaterally. No wheezing or rhonchi. Cardiovascular: Positive S1, positive S2. Regular rate and rhythm. Abdomen: Positive bowel sounds in all 4 quadrants. Soft, non-tender, non- distended. : Deferred. Rectal: Deferred. Skin: Warm, dry. Intact. Extremities: 2+ radial pulses bilaterally. No lower extremity edema. Neuro: Awake, alert, oriented x3. No gross motor or sensory deficits. Cranial nerves II through XII intact. Gait not assessed. laboratory and microbiology Laboratory Tests 12/15/23 05:36 12/09/23 05:07 Test 12/09/23 05:07 Range/Units Serum Glucose 154 H 74-106 mg/dL Assessment/Plan Impression: Severe sepsis Acute hypoxic respiratory failure Pneumonitis Anemia COVID-19 infection Influenza type A positive Events: Currently on supplemental oxygen 2 LPM NC Taper O2 as tolerated. Continue antibiotics - vancomycin, Zosyn IV Remdesivir Vitamin supplementation Continue bronchodilators Albuterol HFA Completed steroids Incentive spirometry ID recs appreciated. Iron supplementation Monitor hemoglobin Pain control Avoid oversedation Labs and imaging reviewed. Rest of plan as noted below. Plan: Supplemental oxygen 2 LPM NC Keep O2 saturation above 92%. IV fluid hydration with normal saline at 100 mL an hour. Decadron course - completed Continue antibiotics Follow up cultures ID recommendations appreciated. Albuterol HFA inhaler t.i.d. Atrial fibrillation On Eliquis 5 mg p.o. b.i.d. On amiodarone 200 mg p.o. q.12 hours Accu-Cheks, insulin sliding scale Tamiflu course for influenza type a DVT prophylaxis- Eliquis Prognosis: Guarded given multiple comorbidities. Rest of plan per hospitalist and other consultants. Thank you NIKOLAI Bowling for allowing me to participate in this patient's care. Further recommendations will depend on patient's clinical course. Please do not hesitate to contact me if you have any questions or concerns. This medical document was created using an electronic medical record system with [employer] dictation system. Although this document has been carefully reviewed, there may still be some phonetic and typographical errors. These areas are purely typographical due to imperfections of the software programs, and do not reflect any compromise in the patient's medical care. Dietary Evaluation Review Comments: 1) Consider Myao BID for promoting wound healing, 2)Follow current diet regimen prescribed as 2g NA CCHO and Cardiac Lofat LoChol diet plus nepro 240ml PO supplement. 3) Monitor PO intake to reach at least 75% of his needs. Expected Outcomes/Goals: Controlled DM, healed wounds and maintain current Body Weight. Plan discussed with: Patient, Other (ROVERTO Enciso) WES BURNS MD Dec 15, 2023 19:54
[2023-12-16] VITALS (11 sets, daily range): BP systolic 93–140; BP diastolic 46–66; PULSE 73–94; RESP 14–20; TEMP 97.4–99.4; O2SAT 94–98
[2023-12-16 06:39] LABS: Chloride 105 mmol/L (98-107); Potassium 4.9 mmol/L (3.5-5.1); Sodium 137 mmol/L (136-145)
[2023-12-16 06:40] LABS: Anion Gap 12 (5-15); Carbon Dioxide 20 mmol/L (20-31)
[2023-12-16 06:41] LABS: Calcium 8.5 mg/dL (8.7-10.4)
[2023-12-16 06:45] LABS: Glucose 97 mg/dL (74-106)
[2023-12-16 06:46] LABS: BUN/Creatinine Ratio 43.9 (10.0-20.0); Blood Urea Nitrogen 25 mg/dL (9-23)
[2023-12-16 09:40] LABS: Hemoglobin 7.8 g/dL (13.5-17.5)
[2023-12-16 09:42] LABS: Hematocrit 24.5 % (41.0-53.0); Mean Corpuscular Hemoglobin 29.1 pg (28.0-32.0); Mean Corpuscular Volume 90.9 fL (80.0-100.0); Platelet Count (auto) 255 10^3/uL (140-450); Red Cell Distribution Width 18.9 % (11.8-14.3); White Blood Cell 9.2 10^3/uL (4.4-10.8)
[2023-12-16 09:47] LABS: Basophils % (manual) 0 (0.0-2.0); Blast Cells 0; Promyelocytes % 0; Reactive Lymphocytes 0
[2023-12-16] MEDS: LIDOCAINE 5% TOPICAL PATCH TOP SCH (10:09)
--- NOTE | 2023-12-16 10:28 | DVHPN2 ---
Progress Note - Dictate Date Seen: Dec 16, 2023 Medical Necessity Reason Pt with a Central, PICC or Fol: Yes The following are medically ne: Barksdale Catheter Reason for barksdale catheter: Strict I&O Subjective pt has SOB. pt is weak. no cough. vital signs Vital Sign Date Time Temp Pulse Resp B/P (MAP) Pulse Ox O2 Delivery O2 Flow Rate FiO2 12/16/23 10:09 93 140/66 12/16/23 08:05 97 Nasal Cannula 2.0 12/16/23 08:05 14 12/16/23 08:05 28 12/16/23 05:00 97.4 97.4 Total Intake and Output 12/15/23 12/15/23 12/16/23 15:00 23:00 07:00 Intake Total 150 ml 300 ml 0 ml Output Total 1600 ml 800 ml Balance 150 ml -1300 ml -800 ml medications Current Medications Medications Dose Ordered Sig/Evgeny Route Start Time Stop Time Status Last Admin Dose Admin Vancomycin HCl 200 ml @ 200 mls/hr Q12HR IV 12/07/23 22:00 UNV Ondansetron HCl 4 mg Q4HP PRN IV 12/08/23 07:45 12/15/23 02:17 4 MG Nitroglycerin 0.4 mg Q5MINP PRN SL 12/08/23 07:45 Hydromorphone HCl 0.5 mg Q4HP PRN IV 12/08/23 08:15 12/15/23 21:02 0.5 MG Oxycodone/ Acetaminophen 1 tab Q4HP PRN PO 12/08/23 08:15 12/16/23 10:07 1 TAB Apixaban 5 mg BID PO 12/08/23 10:00 12/16/23 10:07 5 MG Ferrous Sulfate 325 mg BID PO 12/08/23 10:00 12/16/23 10:05 325 MG Tamsulosin HCl 0.4 mg QPM PO 12/08/23 18:00 12/15/23 17:19 0.4 MG Enalapril Maleate 10 mg DAILY PO 12/08/23 10:00 12/16/23 10:08 10 MG Diagnostic Test (Pha) 1 strip ACHS 12/08/23 11:30 12/16/23 06:01 1 STRIP Insulin Human Regular HS SC 12/08/23 22:00 12/15/23 22:09 12 UNITS Insulin Human Regular AC SC 12/08/23 11:30 12/15/23 17:23 9 UNITS Dextrose 50 ml UD PRN IV 12/08/23 09:30 Vancomycin HCl 0 ml @ 0 mls/hr UD IV 12/08/23 10:15 Polyethylene Glycol 17 gm DAILY PO 12/09/23 10:00 12/16/23 10:05 17 GM Ascorbic Acid 500 mg DAILY PO 12/09/23 10:00 12/16/23 10:07 500 MG Cholecalciferol 1,000 unit DAILY PO 12/09/23 10:00 12/16/23 10:06 1,000 UNIT Zinc Sulfate 220 mg DAILY PO 12/09/23 10:00 12/16/23 10:05 220 MG Amiodarone HCl 200 mg Q12HR PO 12/08/23 22:00 12/16/23 10:07 200 MG Metoprolol Succinate 25 mg DAILY PO 12/09/23 10:00 12/16/23 10:09 25 MG Atorvastatin Calcium 40 mg HS PO 12/08/23 22:00 12/15/23 21:37 40 MG Phenol/Menthol 1 spr Q2HP PRN MT 12/09/23 07:30 12/10/23 09:00 1 SPR Vancomycin HCl 150 ml @ 150 mls/hr Q12H IV 12/09/23 20:30 12/16/23 10:05 150 MLS/HR Alprazolam 0.25 mg TID PO 12/09/23 14:00 Cancel Docusate Sodium 100 mg BID PO 12/09/23 22:00 12/16/23 10:07 100 MG Enteral Nutritional Formula 240 ml TIDWM PO 12/09/23 18:00 12/16/23 08:30 240 ML Haloperidol Lactate 2.5 mg Q8HP PRN IM 12/10/23 00:45 12/11/23 02:33 2.5 MG Piperacillin Sod/ Tazobactam Sod 100 ml @ 25 mls/hr Q8HR IV 12/11/23 14:00 12/16/23 05:44 25 MLS/HR Remdesivir 100 mg/ Sodium Chloride 250 ml @ 250 mls/hr DAILY@1500 IV 12/13/23 15:00 12/16/23 15:59 12/15/23 15:12 250 MLS/HR Megestrol Acetate 400 mg BID PO 12/13/23 07:45 12/16/23 10:05 400 MG Sucralfate 1 gm QID@0600,1130,1700,2200 PO 12/13/23 08:00 12/16/23 05:19 1 GM Alprazolam 0.25 mg BID PO 12/13/23 22:00 12/16/23 10:07 0.25 MG Albuterol 2.5 mg Q6HPRN PRN NEB 12/15/23 03:30 Cancel Albuterol 180 mcg TID IN 12/15/23 06:00 12/16/23 08:05 180 MCG Albuterol 180 mcg TID IN 12/15/23 06:00 UNV Albuterol 180 mcg Q6HPRN PRN IN 12/15/23 04:00 12/15/23 04:57 180 MCG Fentanyl 50 mcg Q72H TD 12/18/23 12:15 Lidocaine 2 patch DAILY TOP 12/16/23 10:00 12/16/23 10:09 2 PATCH objective HEENT GERONIMO, Conj [place], Sclera non icteric Neck supple No JVD or Lymphadenopathy Lung Bilat diminished BS with few basal rales, no rhonchi Heart S1S2 regular no Murmur or gallop Abdomen soft BS+, No tenderness no rebound Extremities no pitting edema, pedal pulse 2+ VICTIMS ADVOCATE CLERK/SPECIALIST AxoX3 non focal laboratory and microbiology Laboratory Tests 12/16/23 09:24 12/16/23 05:35 Test 12/16/23 05:35 Range/Units Serum Glucose 97 74-106 mg/dL culture report reviewed. CXR multifocal airspace disease. Problem List ASSESSMENT COVID 19 INFECTION hYPOXIA ON OXYGEN SUPPORT Pneumonia Prostate cancer with mets to bone IDDM CHF COPD CAD Plan keep pt on droplet precaution Oxygen support as needed continue IV Vancomycin, Zosyn and Remdesivir as ordered. continue all supportive care once remdesivir course is done pt can be discharged home on oral antibiotic like Azithromycin(Z-PACK) pt need Physical therapy as he is weak. D/ W pt's family and Nurse. Dietary Evaluation Review Comments: 1) Consider Mayo BID for promoting wound healing, 2)Follow current diet regimen prescribed as 2g NA CCHO and Cardiac Lofat LoChol diet plus nepro 240ml PO supplement. 3) Monitor PO intake to reach at least 75% of his needs. Expected Outcomes/Goals: Controlled DM, healed wounds and maintain current Body Weight. Plan discussed with: Patient, Spouse CHRIS ASCENCIO MD Dec 16, 2023 10:28
[2023-12-16 11:02] LABS: Band Neutrophils % (manual) 1; Eosinophils % (manual) 1 (0-7); Lymphocytes % (manual) 9 (10.0-50.0); Metamyelocytes % 3; Monocytes % (manual) 6 (0-12); Myelocytes % 1; Platelet Estimate Adequate
--- NOTE | 2023-12-16 13:45 | DVHPN2 ---
Progress Note - Dictate Date Seen: Dec 16, 2023 Medical Necessity Reason Pt with a Central, PICC or Fol: Yes The following are medically ne: Barksdale Catheter Reason for barksdale catheter: Strict I&O vital signs Vital Sign Date Time Temp Pulse Resp B/P (MAP) Pulse Ox O2 Delivery O2 Flow Rate FiO2 12/16/23 13:24 79 20 110/49 12/16/23 10:00 97 Nasal Cannula* 2 28 12/16/23 09:00 98.1 98.1 Total Intake and Output 12/15/23 12/15/23 12/16/23 15:00 23:00 07:00 Intake Total 150 ml 300 ml 0 ml Output Total 1600 ml 800 ml Balance 150 ml -1300 ml -800 ml medications Current Medications Medications Dose Ordered Sig/Evgeny Route Start Time Stop Time Status Last Admin Dose Admin Vancomycin HCl 200 ml @ 200 mls/hr Q12HR IV 12/07/23 22:00 UNV Ondansetron HCl 4 mg Q4HP PRN IV 12/08/23 07:45 12/15/23 02:17 4 MG Nitroglycerin 0.4 mg Q5MINP PRN SL 12/08/23 07:45 Hydromorphone HCl 0.5 mg Q4HP PRN IV 12/08/23 08:15 12/16/23 13:24 0.5 MG Oxycodone/ Acetaminophen 1 tab Q4HP PRN PO 12/08/23 08:15 12/16/23 10:07 1 TAB Apixaban 5 mg BID PO 12/08/23 10:00 12/16/23 10:07 5 MG Ferrous Sulfate 325 mg BID PO 12/08/23 10:00 12/16/23 10:05 325 MG Tamsulosin HCl 0.4 mg QPM PO 12/08/23 18:00 12/15/23 17:19 0.4 MG Enalapril Maleate 10 mg DAILY PO 12/08/23 10:00 12/16/23 10:08 10 MG Diagnostic Test (Pha) 1 strip ACHS 12/08/23 11:30 12/16/23 11:53 1 STRIP Insulin Human Regular HS SC 12/08/23 22:00 12/15/23 22:09 12 UNITS Insulin Human Regular AC SC 12/08/23 11:30 12/16/23 11:51 9 UNITS Dextrose 50 ml UD PRN IV 12/08/23 09:30 Vancomycin HCl 0 ml @ 0 mls/hr UD IV 12/08/23 10:15 Polyethylene Glycol 17 gm DAILY PO 12/09/23 10:00 12/16/23 10:05 17 GM Ascorbic Acid 500 mg DAILY PO 12/09/23 10:00 12/16/23 10:07 500 MG Cholecalciferol 1,000 unit DAILY PO 12/09/23 10:00 12/16/23 10:06 1,000 UNIT Zinc Sulfate 220 mg DAILY PO 12/09/23 10:00 12/16/23 10:05 220 MG Amiodarone HCl 200 mg Q12HR PO 12/08/23 22:00 12/16/23 10:07 200 MG Metoprolol Succinate 25 mg DAILY PO 12/09/23 10:00 12/16/23 10:09 25 MG Atorvastatin Calcium 40 mg HS PO 12/08/23 22:00 12/15/23 21:37 40 MG Phenol/Menthol 1 spr Q2HP PRN MT 12/09/23 07:30 12/10/23 09:00 1 SPR Vancomycin HCl 150 ml @ 150 mls/hr Q12H IV 12/09/23 20:30 12/16/23 10:05 150 MLS/HR Alprazolam 0.25 mg TID PO 12/09/23 14:00 Cancel Docusate Sodium 100 mg BID PO 12/09/23 22:00 12/16/23 10:07 100 MG Enteral Nutritional Formula 240 ml TIDWM PO 12/09/23 18:00 12/16/23 11:56 240 ML Haloperidol Lactate 2.5 mg Q8HP PRN IM 12/10/23 00:45 12/11/23 02:33 2.5 MG Piperacillin Sod/ Tazobactam Sod 100 ml @ 25 mls/hr Q8HR IV 12/11/23 14:00 12/16/23 13:29 25 MLS/HR Remdesivir 100 mg/ Sodium Chloride 250 ml @ 250 mls/hr DAILY@1500 IV 12/13/23 15:00 12/16/23 15:59 12/15/23 15:12 250 MLS/HR Megestrol Acetate 400 mg BID PO 12/13/23 07:45 12/16/23 10:05 400 MG Sucralfate 1 gm QID@0600,1130,1700,2200 PO 12/13/23 08:00 12/16/23 11:43 1 GM Alprazolam 0.25 mg BID PO 12/13/23 22:00 12/16/23 10:07 0.25 MG Albuterol 2.5 mg Q6HPRN PRN NEB 12/15/23 03:30 Cancel Albuterol 180 mcg TID IN 12/15/23 06:00 12/16/23 08:05 180 MCG Albuterol 180 mcg TID IN 12/15/23 06:00 UNV Albuterol 180 mcg Q6HPRN PRN IN 12/15/23 04:00 12/15/23 04:57 180 MCG Fentanyl 50 mcg Q72H TD 12/18/23 12:15 Lidocaine 2 patch DAILY TOP 12/16/23 10:00 12/16/23 10:09 2 PATCH objective General Appearance: alert, no distress HEENT: EOMI, PERRLA, normal external inspect of ears, no icterus, no nasal drainage Neck: no carotid bruit, no jugular venous distention (JVD), no lymphadenopathy Chest: normal thorax Respiratory: clear to auscultation, normal air movement Cardiovascular: regular rate and rhythm, no diastolic murmur, no jugular venous distention (JVD), no rub, no systolic murmur Abdominal: soft, no hepatomegaly, no mass, no splenomegaly, no tenderness Genitourinary: grossly normal external Musculoskeletal: no joint tenderness, no swelling Extremities: normal pulses, no calf tenderness, no clubbing, no cyanosis, no edema Skin: no bruising, no jaundice, no rash Neurological: alert, No focal deficit laboratory and microbiology Laboratory Tests 12/16/23 09:24 12/16/23 05:35 Test 12/16/23 05:35 Range/Units Serum Glucose 97 74-106 mg/dL Problem List 1. Severe sepsis ID Consult, meds 2. Septic Shock ID consult 3. Paroxysmal AFIB Cardiology Consult 4. CAD Cardiology consult 5. Prostate cancer with mets to bone Medication, monitoring 6. HX of CABG Cardiology consult 7. Chronic Anticoagulation Medication, monitoring 8. Anemia of chronic disease Supplemental O2 9. Influenza B Restart Home meds 10. COVID 19 Covid trial meds, Monitoring 11. DMI w/ neuropathy Insulin Sliding Scale 12. Metabolic Encephalopathy neurology consult Assessment/Plan Subjective: Patient is awake and alert. Objective: The patient was transferred from [facility], where he stayed for three days, following a 25-day admission [address] [facility] for a small bowel obstruction. He currently has COVID and influenza and is receiving remdesivir. The patient is on room air and reports feeling weak and not ready to return home. adult services librarian are arranging for a hospital bed to be delivered to his residence. The patient states he is eating better than before and can ambulate two feet. Plan: Continue physical therapy. Discuss plan of care with the patients . Maintain isolation precautions and continue discharge planning. Dietary Evaluation Review Comments: 1) Consider Mayo BID for promoting wound healing, 2)Follow current diet regimen prescribed as 2g NA CCHO and Cardiac Lofat LoChol diet plus nepro 240ml PO supplement. 3) Monitor PO intake to reach at least 75% of his needs. Expected Outcomes/Goals: Controlled DM, healed wounds and maintain current Body Weight. Plan discussed with: Patient, Other ALEXYS DAIGLE FORMAL WAITER/WAITRESS Dec 16, 2023 13:45
--- NOTE | 2023-12-16 20:54 | DVHPN2 ---
Progress Note - Dictate Date Seen: Dec 16, 2023 Medical Necessity Reason Pt with a Central, PICC or Fol: Yes The following are medically ne: Barksdale Catheter Reason for barksdale catheter: Strict I&O Subjective Patient seen and examined at bedside. On supplemental oxygen Overnight events reviewed. vital signs Vital Sign Date Time Temp Pulse Resp B/P (MAP) Pulse Ox O2 Delivery O2 Flow Rate FiO2 12/16/23 20:14 82 16 95 12/16/23 20:14 Room Air* 0 N/A Nasal Cannula* 12/16/23 18:45 100/45 12/16/23 17:00 98.5 98.5 Total Intake and Output 12/15/23 12/15/23 12/16/23 15:00 23:00 07:00 Intake Total 150 ml 300 ml 0 ml Output Total 1600 ml 800 ml Balance 150 ml -1300 ml -800 ml medications Current Medications Medications Dose Ordered Sig/Evgeny Route Start Time Stop Time Status Last Admin Dose Admin Vancomycin HCl 200 ml @ 200 mls/hr Q12HR IV 12/07/23 22:00 UNV Ondansetron HCl 4 mg Q4HP PRN IV 12/08/23 07:45 12/16/23 17:37 4 MG Nitroglycerin 0.4 mg Q5MINP PRN SL 12/08/23 07:45 Hydromorphone HCl 0.5 mg Q4HP PRN IV 12/08/23 08:15 12/16/23 18:45 0.5 MG Oxycodone/ Acetaminophen 1 tab Q4HP PRN PO 12/08/23 08:15 12/16/23 16:02 1 TAB Apixaban 5 mg BID PO 12/08/23 10:00 12/16/23 10:07 5 MG Ferrous Sulfate 325 mg BID PO 12/08/23 10:00 12/16/23 10:05 325 MG Tamsulosin HCl 0.4 mg QPM PO 12/08/23 18:00 12/16/23 17:57 0.4 MG Enalapril Maleate 10 mg DAILY PO 12/08/23 10:00 12/16/23 10:08 10 MG Diagnostic Test (Pha) 1 strip ACHS 12/08/23 11:30 12/16/23 17:18 1 STRIP Insulin Human Regular HS SC 12/08/23 22:00 12/15/23 22:09 12 UNITS Insulin Human Regular AC SC 12/08/23 11:30 12/16/23 17:49 6 UNITS Dextrose 50 ml UD PRN IV 12/08/23 09:30 Vancomycin HCl 0 ml @ 0 mls/hr UD IV 12/08/23 10:15 Polyethylene Glycol 17 gm DAILY PO 12/09/23 10:00 12/16/23 10:05 17 GM Ascorbic Acid 500 mg DAILY PO 12/09/23 10:00 12/16/23 10:07 500 MG Cholecalciferol 1,000 unit DAILY PO 12/09/23 10:00 12/16/23 10:06 1,000 UNIT Zinc Sulfate 220 mg DAILY PO 12/09/23 10:00 12/16/23 10:05 220 MG Amiodarone HCl 200 mg Q12HR PO 12/08/23 22:00 12/16/23 10:07 200 MG Metoprolol Succinate 25 mg DAILY PO 12/09/23 10:00 12/16/23 10:09 25 MG Atorvastatin Calcium 40 mg HS PO 12/08/23 22:00 12/15/23 21:37 40 MG Phenol/Menthol 1 spr Q2HP PRN MT 12/09/23 07:30 12/10/23 09:00 1 SPR Vancomycin HCl 150 ml @ 150 mls/hr Q12H IV 12/09/23 20:30 12/16/23 20:30 150 MLS/HR Alprazolam 0.25 mg TID PO 12/09/23 14:00 Cancel Docusate Sodium 100 mg BID PO 12/09/23 22:00 12/16/23 10:07 100 MG Enteral Nutritional Formula 240 ml TIDWM PO 12/09/23 18:00 12/16/23 17:58 240 ML Haloperidol Lactate 2.5 mg Q8HP PRN IM 12/10/23 00:45 12/11/23 02:33 2.5 MG Piperacillin Sod/ Tazobactam Sod 100 ml @ 25 mls/hr Q8HR IV 12/11/23 14:00 12/16/23 13:29 25 MLS/HR Megestrol Acetate 400 mg BID PO 12/13/23 07:45 12/16/23 10:05 400 MG Sucralfate 1 gm QID@0600,1130,1700,2200 PO 12/13/23 08:00 12/16/23 17:17 1 GM Alprazolam 0.25 mg BID PO 12/13/23 22:00 12/16/23 10:07 0.25 MG Albuterol 2.5 mg Q6HPRN PRN NEB 12/15/23 03:30 Cancel Albuterol 180 mcg TID IN 12/15/23 06:00 12/16/23 20:14 180 MCG Albuterol 180 mcg TID IN 12/15/23 06:00 UNV Albuterol 180 mcg Q6HPRN PRN IN 12/15/23 04:00 12/15/23 04:57 180 MCG Fentanyl 50 mcg Q72H TD 12/18/23 12:15 Lidocaine 2 patch DAILY TOP 12/16/23 10:00 12/16/23 10:09 2 PATCH Patient Own Medication ENTER--ORAL CHEMO DRUB XTA... DAILY PO 12/17/23 10:00 objective Gen.: Patient lying in bed in no apparent distress. On supplemental oxygen Head: Normocephalic, atraumatic. Eyes: EOMI/PERRLA. Ears: Normal hearing. Normal anatomy. Neck/trachea: Trachea midline, supple. Nose: Normal external anatomy. Mouth: Moist mucous membranes. Chest: Decreased air entry bilaterally. No wheezing or rhonchi. Cardiovascular: Positive S1, positive S2. Regular rate and rhythm. Abdomen: Positive bowel sounds in all 4 quadrants. Soft, non-tender, non- distended. : Deferred. Rectal: Deferred. Skin: Warm, dry. Intact. Extremities: 2+ radial pulses bilaterally. No lower extremity edema. Neuro: Awake, alert, oriented x3. No gross motor or sensory deficits. Cranial nerves II through XII intact. Gait not assessed. laboratory and microbiology Laboratory Tests 12/16/23 09:24 12/16/23 05:35 Test 12/16/23 05:35 Range/Units Serum Glucose 97 74-106 mg/dL Assessment/Plan Impression: Severe sepsis Acute hypoxic respiratory failure Pneumonitis Anemia COVID-19 infection Influenza type A positive Events: Remains on supplemental oxygen 3 LPM NC Taper O2 as tolerated. Continue antibiotics - vancomycin, Zosyn Remdesivir course completed Vitamin supplementation ID recs appreciated. Continue bronchodilators Albuterol HFA Chloraseptic for sore throat. Incentive spirometry Monitor hemoglobin Pain control Avoid oversedation Labs and imaging reviewed. Rest of plan as noted below. Plan: Supplemental oxygen 3 LPM NC Keep O2 saturation above 92%. IV fluid hydration with normal saline at 100 mL an hour. Decadron course - completed Continue antibiotics Follow up cultures ID recommendations appreciated. Albuterol HFA inhaler t.i.d. Atrial fibrillation On Eliquis 5 mg p.o. b.i.d. On amiodarone 200 mg p.o. q.12 hours Accu-Cheks, insulin sliding scale Tamiflu course for influenza type a DVT prophylaxis- Eliquis Prognosis: Guarded given multiple comorbidities. Rest of plan per hospitalist and other consultants. Thank you NIKOLAI Bowling for allowing me to participate in this patient's care. Further recommendations will depend on patient's clinical course. Please do not hesitate to contact me if you have any questions or concerns. This medical document was created using an electronic medical record system with [employer] dictation system. Although this document has been carefully reviewed, there may still be some phonetic and typographical errors. These areas are purely typographical due to imperfections of the software programs, and do not reflect any compromise in the patient's medical care. Dietary Evaluation Review Comments: 1) Consider Mayo BID for promoting wound healing, 2)Follow current diet regimen prescribed as 2g NA CCHO and Cardiac Lofat LoChol diet plus nepro 240ml PO supplement. 3) Monitor PO intake to reach at least 75% of his needs. Expected Outcomes/Goals: Controlled DM, healed wounds and maintain current Body Weight. Plan discussed with: Patient, Other (ROVERTO Aguirre/June) WES BURNS MD Dec 16, 2023 20:54
[2023-12-17] VITALS (13 sets, daily range): BP systolic 96–112; BP diastolic 44–55; PULSE 88–100; RESP 16–22; TEMP 97.3–98.5; O2SAT 94–99
--- NOTE | 2023-12-17 10:57 | DVHPN2 ---
Progress Note - Dictate Date Seen: Dec 17, 2023 Medical Necessity Reason Pt with a Central, PICC or Fol: Yes The following are medically ne: Barksdale Catheter Reason for barksdale catheter: Strict I&O Subjective Mr. Cash is a 78 years old gentleman with a history of hypertension, diabetes, dyslipidemia, coronary artery disease, heart attack, atrial fibrillation, congestive heart failure, AAA, peripheral vascular disease, COPD, anxiety, prostate cancer, BPH, he was admitted to the [facility] on 12/07/23 with a chief company of altered mental status I have seen and examined the patient, I have talked to his nurse. He is doing fine, he is oriented to person, place, knows year and the month, nurse did not report confusion SARS-CoV-2 antigen, 12/08/2023: Positive UDS, 12/07/2023: Plasma alcohol, normal Urinalysis, 12/07/2023: WBC: 127/urine leukocyte esterase: 3+ WBC/HB/PLT/MCV, 12/08/2023: 5.5/8.7/211/90 PT/INR/PTT, 12/08/2023: 13.7/1.32/38.4 HGB A1c, 12/08/2023: 7.1 Liver function tests, 12/07/2023: Unremarkable TG/HDL/LDL/HDL, 12/08/2023: 117/141/89/29 VIT B12, 11/2023: 346 FOLIC ACID, 11/2023: 9.28 TSH, 12/08/2023: 0.6 EEG, 12/09/2023: Normal CT head, 12/08/2023: 1. No acute intracranial abnormality. 2. Generalized cerebral volume loss and mild chronic microvascular ischemic change 3. Chronic lacunar infarcts in the right caudate head and anterior right basal ganglia. 4. Small chronic left cerebellar infarct. CT, left hip, 12/09/2023: Multiple round sclerotic lesions throughout the pelvis, sacrum, acetabulum, and left femur could be metastatic disease. No acute fracture seen vital signs Vital Sign Date Time Temp Pulse Resp B/P (MAP) Pulse Ox O2 Delivery O2 Flow Rate FiO2 12/17/23 08:34 97.9 97 16 108/50 (69) 97 97.9 12/17/23 08:00 Nasal Cannula* 2 28 Total Intake and Output 12/16/23 12/16/23 12/17/23 15:00 23:00 07:00 Intake Total 250 ml 1125 ml 900 ml Output Total 500 ml 1120 ml Balance 250 ml 625 ml -220 ml medications Current Medications Medications Dose Ordered Sig/Evgeny Route Start Time Stop Time Status Last Admin Dose Admin Vancomycin HCl 200 ml @ 200 mls/hr Q12HR IV 12/07/23 22:00 UNV Ondansetron HCl 4 mg Q4HP PRN IV 12/08/23 07:45 12/16/23 23:02 4 MG Nitroglycerin 0.4 mg Q5MINP PRN SL 12/08/23 07:45 Hydromorphone HCl 0.5 mg Q4HP PRN IV 12/08/23 08:15 12/17/23 04:34 0.5 MG Oxycodone/ Acetaminophen 1 tab Q4HP PRN PO 12/08/23 08:15 12/16/23 16:02 1 TAB Apixaban 5 mg BID PO 12/08/23 10:00 12/16/23 22:12 5 MG Ferrous Sulfate 325 mg BID PO 12/08/23 10:00 12/16/23 22:12 325 MG Tamsulosin HCl 0.4 mg QPM PO 12/08/23 18:00 12/16/23 17:57 0.4 MG Enalapril Maleate 10 mg DAILY PO 12/08/23 10:00 12/16/23 10:08 10 MG Diagnostic Test (Pha) 1 strip ACHS 12/08/23 11:30 12/17/23 06:06 1 STRIP Insulin Human Regular HS SC 12/08/23 22:00 12/15/23 22:09 12 UNITS Insulin Human Regular AC SC 12/08/23 11:30 12/17/23 06:07 3 UNITS Dextrose 50 ml UD PRN IV 12/08/23 09:30 Vancomycin HCl 0 ml @ 0 mls/hr UD IV 12/08/23 10:15 Polyethylene Glycol 17 gm DAILY PO 12/09/23 10:00 12/16/23 10:05 17 GM Ascorbic Acid 500 mg DAILY PO 12/09/23 10:00 12/16/23 10:07 500 MG Cholecalciferol 1,000 unit DAILY PO 12/09/23 10:00 12/16/23 10:06 1,000 UNIT Zinc Sulfate 220 mg DAILY PO 12/09/23 10:00 12/16/23 10:05 220 MG Amiodarone HCl 200 mg Q12HR PO 12/08/23 22:00 12/16/23 22:12 200 MG Metoprolol Succinate 25 mg DAILY PO 12/09/23 10:00 12/16/23 10:09 25 MG Atorvastatin Calcium 40 mg HS PO 12/08/23 22:00 12/16/23 22:12 40 MG Phenol/Menthol 1 spr Q2HP PRN MT 12/09/23 07:30 12/10/23 09:00 1 SPR Vancomycin HCl 150 ml @ 150 mls/hr Q12H IV 12/09/23 20:30 12/16/23 20:30 150 MLS/HR Alprazolam 0.25 mg TID PO 12/09/23 14:00 Cancel Docusate Sodium 100 mg BID PO 12/09/23 22:00 12/16/23 22:11 100 MG Enteral Nutritional Formula 240 ml TIDWM PO 12/09/23 18:00 12/17/23 08:16 240 ML Haloperidol Lactate 2.5 mg Q8HP PRN IM 12/10/23 00:45 12/11/23 02:33 2.5 MG Piperacillin Sod/ Tazobactam Sod 100 ml @ 25 mls/hr Q8HR IV 12/11/23 14:00 12/17/23 05:13 25 MLS/HR Megestrol Acetate 400 mg BID PO 12/13/23 07:45 12/16/23 22:11 400 MG Sucralfate 1 gm QID@0600,1130,1700,2200 PO 12/13/23 08:00 12/17/23 05:13 1 GM Alprazolam 0.25 mg BID PO 12/13/23 22:00 12/16/23 22:12 0.25 MG Albuterol 2.5 mg Q6HPRN PRN NEB 12/15/23 03:30 Cancel Albuterol 180 mcg TID IN 12/15/23 06:00 12/17/23 06:54 180 MCG Albuterol 180 mcg TID IN 12/15/23 06:00 UNV Albuterol 180 mcg Q6HPRN PRN IN 12/15/23 04:00 12/15/23 04:57 180 MCG Fentanyl 50 mcg Q72H TD 12/18/23 12:15 Lidocaine 2 patch DAILY TOP 12/16/23 10:00 12/16/23 10:09 2 PATCH Patient Own Medication ENTER--ORAL CHEMO DRUB XTA... DAILY PO 12/17/23 10:00 objective General: the patient is well developed and nourished. No acute distress. MENTAL STATUS: Subjective SPEECH, LANGUAGE, HIGHER CORTICAL FUNCTION: no aphasia or dysathria. CRANIAL NERVES: Pupils are equal, round and reactive. EOMs full and conjugate. No nystagmus. Facial sensation intact in all three divisions bilaterally. Mandibular strength intact. Facial muscles symmetrical and strength intact. SENSATION: Sensation to touch and pinprick is normal. MOTOR: Normal tone in the upper and lower extremity. Normal muscle bulk. No fasciculations. No abnormal movements or posturing. Muscle strength of the major groups in the upper extremities is 5/5. Muscle strength of the major groups in the lower extremities is: Rt: 4/5, Lt: 2/5. REFLEXES: Deep tendon reflexes are symmetrical. No pathological reflexes. CEREBELLAR/COORDINATION: Finger to nose and heel to becerra are normal bilaterally. GAIT/STATION: deferred. laboratory and microbiology Laboratory Tests 12/16/23 09:24 12/16/23 05:35 Test 12/16/23 05:35 Range/Units Serum Glucose 97 74-106 mg/dL Problem List Altered mental status, likely metabolic encephalopathy Metabolic encephalopathy secondary to urinary tract infection and COVID-19 Urinary tract infection COVID-19 Sepsis Septic shock Hypotension secondary to septic shock AFib Prostatic cancer Pain in the left hip, knee and ankle, Secondary to metastatic cancer Assessment/Plan Monitoring Supportive treatment Telemetry IV antibiotics Eliquis 5 mg daily Lipitor 40 mg daily Haldol 2.5 mg IM Q 8 hours p.r.n. for agitation Infectious disease Oncology on case Cardiology on case More recommendation per clinical course This medical document was created using an electronic medical record system with [employer] dictation system. Although this document has been carefully reviewed, there may still be some phonetic and typographical errors. These areas are purely typographical due to imperfections of the software programs, and do not reflect any compromise in the patient's medical care Prognosis poor Dietary Evaluation Review Comments: 1) Consider Mayo BID for promoting wound healing, 2)Follow current diet regimen prescribed as 2g NA CCHO and Cardiac Lofat LoChol diet plus nepro 240ml PO supplement. 3) Monitor PO intake to reach at least 75% of his needs. Expected Outcomes/Goals: Controlled DM, healed wounds and maintain current Body Weight. Plan discussed with: Other BRANDY MEYERS MD Dec 17, 2023 10:57
[2023-12-17] MEDS: XTANDI 40 MG PO SCH (11:17)
--- NOTE | 2023-12-17 11:34 | DVHPN2 ---
Progress Note - Dictate Date Seen: Dec 17, 2023 Medical Necessity Reason Pt with a Central, PICC or Fol: Yes The following are medically ne: Barksdale Catheter Reason for barksdale catheter: Strict I&O Subjective pt has SOB. pt is weak. pt is on Oxygen. vital signs Vital Sign Date Time Temp Pulse Resp B/P (MAP) Pulse Ox O2 Delivery O2 Flow Rate FiO2 12/17/23 11:16 108/50 12/17/23 08:34 97.9 97 16 97 97.9 12/17/23 08:00 Nasal Cannula* 2 28 Total Intake and Output 12/16/23 12/16/23 12/17/23 15:00 23:00 07:00 Intake Total 250 ml 1125 ml 900 ml Output Total 500 ml 1120 ml Balance 250 ml 625 ml -220 ml medications Current Medications Medications Dose Ordered Sig/Evgeny Route Start Time Stop Time Status Last Admin Dose Admin Vancomycin HCl 200 ml @ 200 mls/hr Q12HR IV 12/07/23 22:00 UNV Ondansetron HCl 4 mg Q4HP PRN IV 12/08/23 07:45 12/16/23 23:02 4 MG Nitroglycerin 0.4 mg Q5MINP PRN SL 12/08/23 07:45 Hydromorphone HCl 0.5 mg Q4HP PRN IV 12/08/23 08:15 12/17/23 04:34 0.5 MG Apixaban 5 mg BID PO 12/08/23 10:00 12/17/23 11:14 5 MG Ferrous Sulfate 325 mg BID PO 12/08/23 10:00 12/17/23 11:14 325 MG Tamsulosin HCl 0.4 mg QPM PO 12/08/23 18:00 12/16/23 17:57 0.4 MG Enalapril Maleate 10 mg DAILY PO 12/08/23 10:00 12/17/23 11:16 10 MG Diagnostic Test (Pha) 1 strip ACHS 12/08/23 11:30 12/17/23 11:19 1 STRIP Insulin Human Regular HS SC 12/08/23 22:00 12/15/23 22:09 12 UNITS Insulin Human Regular AC SC 12/08/23 11:30 12/17/23 06:07 3 UNITS Dextrose 50 ml UD PRN IV 12/08/23 09:30 Vancomycin HCl 0 ml @ 0 mls/hr UD IV 12/08/23 10:15 Polyethylene Glycol 17 gm DAILY PO 12/09/23 10:00 12/17/23 11:16 17 GM Ascorbic Acid 500 mg DAILY PO 12/09/23 10:00 12/17/23 11:15 500 MG Cholecalciferol 1,000 unit DAILY PO 12/09/23 10:00 12/16/23 10:06 1,000 UNIT Zinc Sulfate 220 mg DAILY PO 12/09/23 10:00 12/17/23 11:14 220 MG Amiodarone HCl 200 mg Q12HR PO 12/08/23 22:00 12/17/23 11:15 200 MG Metoprolol Succinate 25 mg DAILY PO 12/09/23 10:00 12/16/23 10:09 25 MG Atorvastatin Calcium 40 mg HS PO 12/08/23 22:00 12/16/23 22:12 40 MG Phenol/Menthol 1 spr Q2HP PRN MT 12/09/23 07:30 12/10/23 09:00 1 SPR Vancomycin HCl 150 ml @ 150 mls/hr Q12H IV 12/09/23 20:30 12/16/23 20:30 150 MLS/HR Alprazolam 0.25 mg TID PO 12/09/23 14:00 Cancel Docusate Sodium 100 mg BID PO 12/09/23 22:00 12/17/23 11:14 100 MG Enteral Nutritional Formula 240 ml TIDWM PO 12/09/23 18:00 12/17/23 11:28 240 ML Haloperidol Lactate 2.5 mg Q8HP PRN IM 12/10/23 00:45 12/11/23 02:33 2.5 MG Piperacillin Sod/ Tazobactam Sod 100 ml @ 25 mls/hr Q8HR IV 12/11/23 14:00 12/17/23 05:13 25 MLS/HR Megestrol Acetate 400 mg BID PO 12/13/23 07:45 12/16/23 22:11 400 MG Sucralfate 1 gm QID@0600,1130,1700,2200 PO 12/13/23 08:00 12/17/23 11:25 1 GM Alprazolam 0.25 mg BID PO 12/13/23 22:00 12/17/23 11:14 0.25 MG Albuterol 2.5 mg Q6HPRN PRN NEB 12/15/23 03:30 Cancel Albuterol 180 mcg TID IN 12/15/23 06:00 12/17/23 06:54 180 MCG Albuterol 180 mcg TID IN 12/15/23 06:00 UNV Albuterol 180 mcg Q6HPRN PRN IN 12/15/23 04:00 12/15/23 04:57 180 MCG Fentanyl 50 mcg Q72H TD 12/18/23 12:15 Lidocaine 2 patch DAILY TOP 12/16/23 10:00 12/17/23 11:18 2 PATCH Patient Own Medication ENTER--ORAL CHEMO DRUB XTA... DAILY PO 12/17/23 10:00 12/17/23 11:17 160 objective HEENT GERONIMO, Conj [place], Sclera non icteric Neck supple No JVD or Lymphadenopathy Lung Bilat diminished BS with few rales. no wheezing. Heart S1S2 regular no Murmur or gallop Abdomen soft BS+, No tenderness no rebound Extremities no pitting edema, pedal pulse 2+ M[employer]IM[employer] MA[employer]GER AxoX3 non focal laboratory and microbiology Laboratory Tests 12/16/23 09:24 12/16/23 05:35 Test 12/16/23 05:35 Range/Units Serum Glucose 97 74-106 mg/dL Problem List ASSESSMENT COVID 19 INFECTION hYPOXIA ON OXYGEN SUPPORT Pneumonia Prostate cancer with mets to bone IDDM CHF COPD CAD Plan keep pt on droplet precaution Oxygen support as needed continue IV Vancomycin, Zosyn. pt finished Remdesivir now. continue all supportive care pt can be discharged home on oral antibiotic like Azithromycin(Z-PACK) whenever he is stable. pt need Physical therapy as he is weak. D/ W pt's, ASTRONOMY TEACHER Alejandra and Nurse. Dietary Evaluation Review Comments: 1) Consider Mayo BID for promoting wound healing, 2)Follow current diet regimen prescribed as 2g NA CCHO and Cardiac Lofat LoChol diet plus nepro 240ml PO supplement. 3) Monitor PO intake to reach at least 75% of his needs. Expected Outcomes/Goals: Controlled DM, healed wounds and maintain current Body Weight. Plan discussed with: Patient CHRSI ASCENCIO MD Dec 17, 2023 11:34
--- NOTE | 2023-12-17 12:09 | DVHPN2 ---
Progress Note - Dictate Date Seen: Dec 17, 2023 Medical Necessity Reason Pt with a Central, PICC or Fol: Yes The following are medically ne: Barksdale Catheter Reason for barksdale catheter: Strict I&O vital signs Vital Sign Date Time Temp Pulse Resp B/P (MAP) Pulse Ox O2 Delivery O2 Flow Rate FiO2 12/17/23 11:16 108/50 12/17/23 08:34 97.9 97 16 97 97.9 12/17/23 08:00 Nasal Cannula* 2 28 Total Intake and Output 12/16/23 12/16/23 12/17/23 15:00 23:00 07:00 Intake Total 250 ml 1125 ml 900 ml Output Total 500 ml 1120 ml Balance 250 ml 625 ml -220 ml medications Current Medications Medications Dose Ordered Sig/Evgeny Route Start Time Stop Time Status Last Admin Dose Admin Vancomycin HCl 200 ml @ 200 mls/hr Q12HR IV 12/07/23 22:00 UNV Ondansetron HCl 4 mg Q4HP PRN IV 12/08/23 07:45 12/16/23 23:02 4 MG Nitroglycerin 0.4 mg Q5MINP PRN SL 12/08/23 07:45 Hydromorphone HCl 0.5 mg Q4HP PRN IV 12/08/23 08:15 12/17/23 04:34 0.5 MG Apixaban 5 mg BID PO 12/08/23 10:00 12/17/23 11:14 5 MG Ferrous Sulfate 325 mg BID PO 12/08/23 10:00 12/17/23 11:14 325 MG Tamsulosin HCl 0.4 mg QPM PO 12/08/23 18:00 12/16/23 17:57 0.4 MG Enalapril Maleate 10 mg DAILY PO 12/08/23 10:00 12/17/23 11:16 10 MG Diagnostic Test (Pha) 1 strip ACHS 12/08/23 11:30 12/17/23 11:19 1 STRIP Insulin Human Regular HS SC 12/08/23 22:00 12/15/23 22:09 12 UNITS Insulin Human Regular AC SC 12/08/23 11:30 12/17/23 11:48 6 UNITS Dextrose 50 ml UD PRN IV 12/08/23 09:30 Vancomycin HCl 0 ml @ 0 mls/hr UD IV 12/08/23 10:15 Polyethylene Glycol 17 gm DAILY PO 12/09/23 10:00 12/17/23 11:16 17 GM Ascorbic Acid 500 mg DAILY PO 12/09/23 10:00 12/17/23 11:15 500 MG Cholecalciferol 1,000 unit DAILY PO 12/09/23 10:00 12/17/23 11:44 1,000 UNIT Zinc Sulfate 220 mg DAILY PO 12/09/23 10:00 12/17/23 11:14 220 MG Amiodarone HCl 200 mg Q12HR PO 12/08/23 22:00 12/17/23 11:15 200 MG Metoprolol Succinate 25 mg DAILY PO 12/09/23 10:00 12/16/23 10:09 25 MG Atorvastatin Calcium 40 mg HS PO 12/08/23 22:00 12/16/23 22:12 40 MG Phenol/Menthol 1 spr Q2HP PRN MT 12/09/23 07:30 12/10/23 09:00 1 SPR Vancomycin HCl 150 ml @ 150 mls/hr Q12H IV 12/09/23 20:30 12/16/23 20:30 150 MLS/HR Alprazolam 0.25 mg TID PO 12/09/23 14:00 Cancel Docusate Sodium 100 mg BID PO 12/09/23 22:00 12/17/23 11:14 100 MG Enteral Nutritional Formula 240 ml TIDWM PO 12/09/23 18:00 12/17/23 11:28 240 ML Haloperidol Lactate 2.5 mg Q8HP PRN IM 12/10/23 00:45 12/11/23 02:33 2.5 MG Piperacillin Sod/ Tazobactam Sod 100 ml @ 25 mls/hr Q8HR IV 12/11/23 14:00 12/17/23 05:13 25 MLS/HR Megestrol Acetate 400 mg BID PO 12/13/23 07:45 12/17/23 11:44 400 MG Sucralfate 1 gm QID@0600,1130,1700,2200 PO 12/13/23 08:00 12/17/23 11:25 1 GM Alprazolam 0.25 mg BID PO 12/13/23 22:00 12/17/23 11:14 0.25 MG Albuterol 2.5 mg Q6HPRN PRN NEB 12/15/23 03:30 Cancel Albuterol 180 mcg TID IN 12/15/23 06:00 12/17/23 06:54 180 MCG Albuterol 180 mcg TID IN 12/15/23 06:00 UNV Albuterol 180 mcg Q6HPRN PRN IN 12/15/23 04:00 12/15/23 04:57 180 MCG Fentanyl 50 mcg Q72H TD 12/18/23 12:15 Lidocaine 2 patch DAILY TOP 12/16/23 10:00 12/17/23 11:18 2 PATCH Patient Own Medication ENTER--ORAL CHEMO DRUB XTA... DAILY PO 12/17/23 10:00 12/17/23 11:17 160 objective General Appearance: alert, no distress HEENT: EOMI, PERRLA, normal external inspect of ears, no icterus, no nasal drainage Neck: no carotid bruit, no jugular venous distention (JVD), no lymphadenopathy Chest: normal thorax Respiratory: clear to auscultation, normal air movement Cardiovascular: regular rate and rhythm, no diastolic murmur, no jugular venous distention (JVD), no rub, no systolic murmur Abdominal: soft, no hepatomegaly, no mass, no splenomegaly, no tenderness Genitourinary: grossly normal external Musculoskeletal: no joint tenderness, no swelling Extremities: normal pulses, no calf tenderness, no clubbing, no cyanosis, no edema Skin: no bruising, no jaundice, no rash Neurological: alert, No focal deficit laboratory and microbiology Laboratory Tests 12/16/23 09:24 12/16/23 05:35 Test 12/16/23 05:35 Range/Units Serum Glucose 97 74-106 mg/dL Problem List 1. Severe sepsis ID Consult, meds 2. Septic Shock ID consult 3. Paroxysmal AFIB Cardiology Consult 4. CAD Cardiology consult 5. Prostate cancer with mets to bone Medication, monitoring 6. HX of CABG Cardiology consult 7. Chronic Anticoagulation Medication, monitoring 8. Anemia of chronic disease Supplemental O2 9. Influenza B Restart Home meds 10. COVID 19 Covid trial meds, Monitoring 11. DMI w/ neuropathy Insulin Sliding Scale 12. Metabolic Encephalopathy neurology consult Assessment/Plan Subjective: Patient is awake and alert. Objective: No change to patient status. Patient was admitted for generalized weakness, positive COVID, positive influenza, and failure to thrive. Patient has been working well with physical therapy, is able to take several steps. Patient's appetite is also increasing with Megace. I did speak with patient's Glo, she states she is awaiting to hear from geriatric social worker and for delivery of hospital bed. Patient states old bed will be picked up today. Plan: Continue current treatment. DC planning in 1 to 2 days. Pending delivery of hospital bed. Arranging home health and PT outpatient. Dietary Evaluation Review Comments: 1) Consider Mayo BID for promoting wound healing, 2)Follow current diet regimen prescribed as 2g NA CCHO and Cardiac Lofat LoChol diet plus nepro 240ml PO supplement. 3) Monitor PO intake to reach at least 75% of his needs. Expected Outcomes/Goals: Controlled DM, healed wounds and maintain current Body Weight. Plan discussed with: Patient, Other ALEXYS DAIGLE NP Dec 17, 2023 12:09
[2023-12-17 12:56] LABS: Alanine Aminotransferase 12 U/L (7-40); Albumin 3.3 g/dL (3.2-4.8); Alkaline Phosphatase 320 U/L (46-116); Anion Gap 9 (5-15); Aspartate Aminotransferase 52 U/L (13-40); BUN/Creatinine Ratio 25.7 (10.0-20.0); Blood Urea Nitrogen 19 mg/dL (9-23); Calcium 8.2 mg/dL (8.7-10.4); Carbon Dioxide 20 mmol/L (20-31); Chloride 106 mmol/L (98-107); Glucose 157 mg/dL (74-106); Magnesium 1.9 mg/dL (1.6-2.6); Potassium 4.6 mmol/L (3.5-5.1); Sodium 135 mmol/L (136-145)
[2023-12-17 12:57] LABS: Bilirubin, Total 0.3 mg/dL (0.2-1.0); Phosphorus 2.1 mg/dL (2.4-5.1); Total Protein 5.9 g/dL (5.7-8.2)
[2023-12-17 19:36] LABS: Hematocrit 26.2 % (41.0-53.0); Hemoglobin 8.5 g/dL (13.5-17.5); Mean Corpuscular Hemoglobin 28.2 pg (28.0-32.0); Mean Corpuscular Hgb Conc. 32.3 g/dL (32.0-36.0); Mean Corpuscular Volume 87.5 fL (80.0-100.0); Platelet Count (auto) 292 10^3/uL (140-450); Red Blood Cells 2.99 10^6/uL (4.5-5.90); Red Cell Distribution Width 18.7 % (11.8-14.3); White Blood Cell 9.1 10^3/uL (4.4-10.8)
[2023-12-17 19:49] LABS: Basophils % (manual) 0 (0.0-2.0); Blast Cells 0; Eosinophils % (manual) 0 (0-7); Metamyelocytes % 0; Myelocytes % 0; Promyelocytes % 0; Reactive Lymphocytes 0
--- NOTE | 2023-12-17 19:51 | DVHPN2 ---
Progress Note - Dictate Date Seen: Dec 17, 2023 Medical Necessity Reason Pt with a Central, PICC or Fol: Yes The following are medically ne: Barksdale Catheter Reason for barksdale catheter: Strict I&O Subjective Patient seen and examined at bedside. On supplemental oxygen Overnight events reviewed. vital signs Vital Sign Date Time Temp Pulse Resp B/P (MAP) Pulse Ox O2 Delivery O2 Flow Rate FiO2 12/17/23 17:39 82 16 108/50 12/17/23 17:00 97.7 97 97.7 12/17/23 13:19 Nasal Cannula* 3 32 Total Intake and Output 12/16/23 12/16/23 12/17/23 15:00 23:00 07:00 Intake Total 250 ml 1125 ml 900 ml Output Total 500 ml 1120 ml Balance 250 ml 625 ml -220 ml medications Current Medications Medications Dose Ordered Sig/Evgeny Route Start Time Stop Time Status Last Admin Dose Admin Vancomycin HCl 200 ml @ 200 mls/hr Q12HR IV 12/07/23 22:00 UNV Ondansetron HCl 4 mg Q4HP PRN IV 12/08/23 07:45 12/16/23 23:02 4 MG Nitroglycerin 0.4 mg Q5MINP PRN SL 12/08/23 07:45 Hydromorphone HCl 0.5 mg Q4HP PRN IV 12/08/23 08:15 12/17/23 17:39 0.5 MG Apixaban 5 mg BID PO 12/08/23 10:00 12/17/23 11:14 5 MG Ferrous Sulfate 325 mg BID PO 12/08/23 10:00 12/17/23 11:14 325 MG Tamsulosin HCl 0.4 mg QPM PO 12/08/23 18:00 12/17/23 17:38 0.4 MG Enalapril Maleate 10 mg DAILY PO 12/08/23 10:00 12/17/23 11:16 10 MG Diagnostic Test (Pha) 1 strip ACHS 12/08/23 11:30 12/17/23 17:38 1 STRIP Insulin Human Regular HS SC 12/08/23 22:00 12/15/23 22:09 12 UNITS Insulin Human Regular AC SC 12/08/23 11:30 12/17/23 18:07 2 UNITS Dextrose 50 ml UD PRN IV 12/08/23 09:30 Vancomycin HCl 0 ml @ 0 mls/hr UD IV 12/08/23 10:15 Polyethylene Glycol 17 gm DAILY PO 12/09/23 10:00 12/17/23 11:16 17 GM Ascorbic Acid 500 mg DAILY PO 12/09/23 10:00 12/17/23 11:15 500 MG Cholecalciferol 1,000 unit DAILY PO 12/09/23 10:00 12/17/23 11:44 1,000 UNIT Zinc Sulfate 220 mg DAILY PO 12/09/23 10:00 12/17/23 11:14 220 MG Amiodarone HCl 200 mg Q12HR PO 12/08/23 22:00 12/17/23 11:15 200 MG Metoprolol Succinate 25 mg DAILY PO 12/09/23 10:00 12/16/23 10:09 25 MG Atorvastatin Calcium 40 mg HS PO 12/08/23 22:00 12/16/23 22:12 40 MG Phenol/Menthol 1 spr Q2HP PRN MT 12/09/23 07:30 12/10/23 09:00 1 SPR Vancomycin HCl 150 ml @ 150 mls/hr Q12H IV 12/09/23 20:30 12/17/23 19:41 150 MLS/HR Alprazolam 0.25 mg TID PO 12/09/23 14:00 Cancel Docusate Sodium 100 mg BID PO 12/09/23 22:00 12/17/23 11:14 100 MG Enteral Nutritional Formula 240 ml TIDWM PO 12/09/23 18:00 12/17/23 18:08 240 ML Haloperidol Lactate 2.5 mg Q8HP PRN IM 12/10/23 00:45 12/11/23 02:33 2.5 MG Piperacillin Sod/ Tazobactam Sod 100 ml @ 25 mls/hr Q8HR IV 12/11/23 14:00 12/17/23 14:00 25 MLS/HR Megestrol Acetate 400 mg BID PO 12/13/23 07:45 12/17/23 11:44 400 MG Sucralfate 1 gm QID@0600,1130,1700,2200 PO 12/13/23 08:00 12/17/23 17:38 1 GM Alprazolam 0.25 mg BID PO 12/13/23 22:00 12/17/23 11:14 0.25 MG Albuterol 2.5 mg Q6HPRN PRN NEB 12/15/23 03:30 Cancel Albuterol 180 mcg TID IN 12/15/23 06:00 12/17/23 13:19 180 MCG Albuterol 180 mcg TID IN 12/15/23 06:00 UNV Albuterol 180 mcg Q6HPRN PRN IN 12/15/23 04:00 12/15/23 04:57 180 MCG Fentanyl 50 mcg Q72H TD 12/18/23 12:15 Lidocaine 2 patch DAILY TOP 12/16/23 10:00 12/17/23 11:18 2 PATCH Patient Own Medication ENTER--ORAL CHEMO DRUB XTA... DAILY PO 12/17/23 10:00 12/17/23 11:17 160 objective Gen.: Patient lying in bed in no apparent distress. On supplemental oxygen Head: Normocephalic, atraumatic. Eyes: EOMI/PERRLA. Ears: Normal hearing. Normal anatomy. Neck/trachea: Trachea midline, supple. Nose: Normal external anatomy. Mouth: Moist mucous membranes. Chest: Decreased air entry bilaterally. No wheezing or rhonchi. Cardiovascular: Positive S1, positive S2. Regular rate and rhythm. Abdomen: Positive bowel sounds in all 4 quadrants. Soft, non-tender, non- distended. : Deferred. Rectal: Deferred. Skin: Warm, dry. Intact. Extremities: 2+ radial pulses bilaterally. No lower extremity edema. Neuro: Awake, alert, oriented x3. No gross motor or sensory deficits. Cranial nerves II through XII intact. Gait not assessed. laboratory and microbiology Laboratory Tests 12/17/23 19:19 12/17/23 07:48 Test 12/17/23 07:48 Range/Units Serum Glucose 157 H 74-106 mg/dL Assessment/Plan Impression: Severe sepsis Acute hypoxic respiratory failure Pneumonitis Anemia COVID-19 infection Influenza type A positive Events: Remains on supplemental oxygen 3 LPM NC Taper O2 as tolerated. Note, patient pulled out IV. Completed 3 days of Remdesivir Continue antibiotics - vancomycin, Zosyn Vitamin supplementation - MVI/zinc. ID recs appreciated. Continue bronchodilators Albuterol HFA Incentive spirometry Eliquis BID. Iron supplementation Monitor hemoglobin Accu-Cheks for glycemic monitoring Pain control Avoid oversedation Labs and imaging reviewed. Rest of plan as noted below. Plan: Supplemental oxygen 3 LPM NC Keep O2 saturation above 92%. IV fluid hydration with normal saline at 100 mL an hour. Decadron course - completed Continue antibiotics Follow up cultures ID recommendations appreciated. Albuterol HFA inhaler t.i.d. Atrial fibrillation On Eliquis 5 mg p.o. b.i.d. On amiodarone 200 mg p.o. q.12 hours Accu-Cheks, insulin sliding scale Tamiflu course for influenza type a DVT prophylaxis- Eliquis Prognosis: Guarded given multiple comorbidities. Rest of plan per hospitalist and other consultants. Thank you NIKOLAI Bowling for allowing me to participate in this patient's care. Further recommendations will depend on patient's clinical course. Please do not hesitate to contact me if you have any questions or concerns. This medical document was created using an electronic medical record system with [employer] dictation system. Although this document has been carefully reviewed, there may still be some phonetic and typographical errors. These areas are purely typographical due to imperfections of the software programs, and do not reflect any compromise in the patient's medical care. Dietary Evaluation Review Comments: 1) Consider Mayo BID for promoting wound healing, 2)Follow current diet regimen prescribed as 2g NA CCHO and Cardiac Lofat LoChol diet plus nepro 240ml PO supplement. 3) Monitor PO intake to reach at least 75% of his needs. Expected Outcomes/Goals: Controlled DM, healed wounds and maintain current Body Weight. Plan discussed with: Patient, Other (ROVERTO Aguirre) WES BURNS MD Dec 17, 2023 19:51
[2023-12-17 20:40] LABS: Band Neutrophils % (manual) 2; Lymphocytes % (manual) 21 (10.0-50.0); Monocytes % (manual) 8 (0-12)
[2023-12-17 20:41] LABS: Platelet Estimate Adequate
[2023-12-18] VITALS (14 sets, daily range): BP systolic 89–105; BP diastolic 41–55; PULSE 93–112; RESP 17–19; TEMP 97.3–98.6; O2SAT 93–98
--- NOTE | 2023-12-18 10:19 | DVHPN2 ---
Progress Note - Dictate Date Seen: Dec 18, 2023 Medical Necessity Reason Pt with a Central, PICC or Fol: Yes The following are medically ne: Barksdale Catheter Reason for barksdale catheter: Strict I&O Subjective Mr. Cash is a 78 years old gentleman with a history of hypertension, diabetes, dyslipidemia, coronary artery disease, heart attack, atrial fibrillation, congestive heart failure, AAA, peripheral vascular disease, COPD, anxiety, prostate cancer, BPH, he was admitted to the [facility] on 12/07/23 with a chief company of altered mental status I have seen and examined the patient, I have talked to his nurse. He is doing fine, he is oriented to person, place, knows year and the month, nurse reported confusion intermittent confusion He has pain in the hip and other joints SARS-CoV-2 antigen, 12/08/2023: Positive UDS, 12/07/2023: Plasma alcohol, normal Urinalysis, 12/07/2023: WBC: 127/urine leukocyte esterase: 3+ WBC/HB/PLT/MCV, 12/08/2023: 5.5/8.7/211/90 PT/INR/PTT, 12/08/2023: 13.7/1.32/38.4 HGB A1c, 12/08/2023: 7.1 Liver function tests, 12/07/2023: Unremarkable TG/HDL/LDL/HDL, 12/08/2023: 117/141/89/29 VIT B12, 11/2023: 346 FOLIC ACID, 11/2023: 9.28 TSH, 12/08/2023: 0.6 EEG, 12/09/2023: Normal CT head, 12/08/2023: 1. No acute intracranial abnormality. 2. Generalized cerebral volume loss and mild chronic microvascular ischemic change 3. Chronic lacunar infarcts in the right caudate head and anterior right basal ganglia. 4. Small chronic left cerebellar infarct. CT, left hip, 12/09/2023: Multiple round sclerotic lesions throughout the pelvis, sacrum, acetabulum, and left femur could be metastatic disease. No acute fracture seen vital signs Vital Sign Date Time Temp Pulse Resp B/P (MAP) Pulse Ox O2 Delivery O2 Flow Rate FiO2 12/18/23 09:50 106 102/50 12/18/23 09:28 98.4 17 97 98.4 12/18/23 07:21 Nasal Cannula* 3 32 Total Intake and Output 12/17/23 12/17/23 12/18/23 15:00 23:00 07:00 Intake Total 480 ml 870 ml 240 ml Output Total 550 ml 600 ml Balance 480 ml 320 ml -360 ml medications Current Medications Medications Dose Ordered Sig/Evgeny Route Start Time Stop Time Status Last Admin Dose Admin Vancomycin HCl 200 ml @ 200 mls/hr Q12HR IV 12/07/23 22:00 UNV Ondansetron HCl 4 mg Q4HP PRN IV 12/08/23 07:45 12/17/23 21:55 4 MG Nitroglycerin 0.4 mg Q5MINP PRN SL 12/08/23 07:45 Hydromorphone HCl 0.5 mg Q4HP PRN IV 12/08/23 08:15 12/18/23 02:22 0.5 MG Apixaban 5 mg BID PO 12/08/23 10:00 12/18/23 09:30 5 MG Ferrous Sulfate 325 mg BID PO 12/08/23 10:00 12/18/23 09:30 325 MG Tamsulosin HCl 0.4 mg QPM PO 12/08/23 18:00 12/17/23 17:38 0.4 MG Enalapril Maleate 10 mg DAILY PO 12/08/23 10:00 12/17/23 11:16 10 MG Diagnostic Test (Pha) 1 strip ACHS 12/08/23 11:30 12/18/23 05:44 1 STRIP Insulin Human Regular HS SC 12/08/23 22:00 12/17/23 21:53 2 UNITS Insulin Human Regular AC SC 12/08/23 11:30 12/18/23 06:03 3 UNITS Dextrose 50 ml UD PRN IV 12/08/23 09:30 Vancomycin HCl 0 ml @ 0 mls/hr UD IV 12/08/23 10:15 Polyethylene Glycol 17 gm DAILY PO 12/09/23 10:00 12/18/23 09:33 17 GM Ascorbic Acid 500 mg DAILY PO 12/09/23 10:00 12/18/23 09:30 500 MG Cholecalciferol 1,000 unit DAILY PO 12/09/23 10:00 12/18/23 09:29 1,000 UNIT Zinc Sulfate 220 mg DAILY PO 12/09/23 10:00 11/7/24 09:30 220 MG Amiodarone HCl 200 mg Q12HR PO 12/08/23 22:00 12/18/23 09:30 200 MG Metoprolol Succinate 25 mg DAILY PO 12/09/23 10:00 12/16/23 10:09 25 MG Atorvastatin Calcium 40 mg HS PO 12/08/23 22:00 12/17/23 21:30 40 MG Phenol/Menthol 1 spr Q2HP PRN MT 12/09/23 07:30 12/10/23 09:00 1 SPR Vancomycin HCl 150 ml @ 150 mls/hr Q12H IV 12/09/23 20:30 12/18/23 09:31 150 MLS/HR Alprazolam 0.25 mg TID PO 12/09/23 14:00 Cancel Docusate Sodium 100 mg BID PO 12/09/23 22:00 12/18/23 09:29 100 MG Enteral Nutritional Formula 240 ml TIDWM PO 12/09/23 18:00 12/18/23 08:11 240 ML Haloperidol Lactate 2.5 mg Q8HP PRN IM 12/10/23 00:45 12/11/23 02:33 2.5 MG Piperacillin Sod/ Tazobactam Sod 100 ml @ 25 mls/hr Q8HR IV 12/11/23 14:00 12/18/23 05:43 25 MLS/HR Megestrol Acetate 400 mg BID PO 12/13/23 07:45 12/18/23 09:50 400 MG Sucralfate 1 gm QID@0600,1130,1700,2200 PO 12/13/23 08:00 12/18/23 05:44 1 GM Alprazolam 0.25 mg BID PO 12/13/23 22:00 12/18/23 09:30 0.25 MG Albuterol 2.5 mg Q6HPRN PRN NEB 12/15/23 03:30 Cancel Albuterol 180 mcg TID IN 12/15/23 06:00 12/18/23 07:21 180 MCG Albuterol 180 mcg TID IN 12/15/23 06:00 UNV Albuterol 180 mcg Q6HPRN PRN IN 12/15/23 04:00 12/15/23 04:57 180 MCG Fentanyl 50 mcg Q72H TD 12/18/23 12:15 Lidocaine 2 patch DAILY TOP 12/16/23 10:00 12/18/23 09:32 2 PATCH Patient Own Medication ENTER--ORAL CHEMO DRUB XTA... DAILY PO 12/17/23 10:00 12/17/23 11:17 160 objective General: the patient is well developed and nourished. No acute distress. MENTAL STATUS: Subjective SPEECH, LANGUAGE, HIGHER CORTICAL FUNCTION: no aphasia or dysathria. CRANIAL NERVES: Pupils are equal, round and reactive. EOMs full and conjugate. No nystagmus. Facial sensation intact in all three divisions bilaterally. Mandibular strength intact. Facial muscles symmetrical and strength intact. SENSATION: Sensation to touch and pinprick is normal. MOTOR: Normal tone in the upper and lower extremity. Normal muscle bulk. No fasciculations. No abnormal movements or posturing. Muscle strength of the major groups in the upper extremities is 5/5. Muscle strength of the major groups in the lower extremities is: Rt: 4/5, Lt: 2/5. REFLEXES: Deep tendon reflexes are symmetrical. No pathological reflexes. CEREBELLAR/COORDINATION: Finger to nose and heel to becerra are normal bilaterally. GAIT/STATION: deferred. laboratory and microbiology Laboratory Tests 12/18/23 09:14 12/17/23 19:19 12/17/23 07:48 Test 12/17/23 07:48 Range/Units Serum Glucose 157 H 74-106 mg/dL Problem List Altered mental status, likely metabolic encephalopathy Metabolic encephalopathy secondary to urinary tract infection and COVID-19 Urinary tract infection COVID-19 Sepsis Septic shock Hypotension secondary to septic shock AFib Prostatic cancer Pain in the left hip, knee and ankle, Secondary to metastatic cancer Assessment/Plan Monitoring Supportive treatment Telemetry IV antibiotics Eliquis 5 mg daily Lipitor 40 mg daily Haldol 2.5 mg IM Q 8 hours p.r.n. for agitation Infectious disease Oncology on case Cardiology on case More recommendation per clinical course This medical document was created using an electronic medical record system with [employer] dictation system. Although this document has been carefully reviewed, there may still be some phonetic and typographical errors. These areas are purely typographical due to imperfections of the software programs, and do not reflect any compromise in the patient's medical care Prognosis poor Dietary Evaluation Review Comments: 1) Consider Mayo BID for promoting wound healing, 2)Follow current diet regimen prescribed as 2g NA CCHO and Cardiac Lofat LoChol diet plus nepro 240ml PO supplement. 3) Monitor PO intake to reach at least 75% of his needs. Expected Outcomes/Goals: Controlled DM, healed wounds and maintain current Body Weight. Plan discussed with: Other BRANDY MEYERS MD Dec 18, 2023 10:19
[2023-12-18] MEDS ORDERED: fentaNYL 25MCG/HR 25 MCG/HR PAT TD SCH (12:15)
[2023-12-18] MEDS: fentaNYL 50MCG/HR 50 MCG/HR PAT TD SCH (12:38)
--- NOTE | 2023-12-18 12:51 | DVHPN2 ---
Progress Note - Dictate Date Seen: Dec 18, 2023 Medical Necessity Reason Pt with a Central, PICC or Fol: Yes The following are medically ne: Barksdale Catheter Reason for barksdale catheter: Strict I&O vital signs Vital Sign Date Time Temp Pulse Resp B/P (MAP) Pulse Ox O2 Delivery O2 Flow Rate FiO2 12/18/23 12:42 98.6 112 19 105/55 (72) 98 98.6 12/18/23 07:21 Nasal Cannula* 3 32 Total Intake and Output 12/17/23 12/17/23 12/18/23 15:00 23:00 07:00 Intake Total 480 ml 870 ml 240 ml Output Total 550 ml 600 ml Balance 480 ml 320 ml -360 ml medications Current Medications Medications Dose Ordered Sig/Evgeny Route Start Time Stop Time Status Last Admin Dose Admin Vancomycin HCl 200 ml @ 200 mls/hr Q12HR IV 12/07/23 22:00 UNV Ondansetron HCl 4 mg Q4HP PRN IV 12/08/23 07:45 12/17/23 21:55 4 MG Nitroglycerin 0.4 mg Q5MINP PRN SL 12/08/23 07:45 Hydromorphone HCl 0.5 mg Q4HP PRN IV 12/08/23 08:15 12/18/23 02:22 0.5 MG Apixaban 5 mg BID PO 12/08/23 10:00 12/18/23 09:30 5 MG Ferrous Sulfate 325 mg BID PO 12/08/23 10:00 12/18/23 09:30 325 MG Tamsulosin HCl 0.4 mg QPM PO 12/08/23 18:00 12/17/23 17:38 0.4 MG Enalapril Maleate 10 mg DAILY PO 12/08/23 10:00 12/17/23 11:16 10 MG Diagnostic Test (Pha) 1 strip ACHS 12/08/23 11:30 12/18/23 11:30 1 STRIP Insulin Human Regular HS SC 12/08/23 22:00 12/17/23 21:53 2 UNITS Insulin Human Regular AC SC 12/08/23 11:30 12/18/23 06:03 3 UNITS Dextrose 50 ml UD PRN IV 12/08/23 09:30 Vancomycin HCl 0 ml @ 0 mls/hr UD IV 12/08/23 10:15 Polyethylene Glycol 17 gm DAILY PO 12/09/23 10:00 12/18/23 09:33 17 GM Ascorbic Acid 500 mg DAILY PO 12/09/23 10:00 12/18/23 09:30 500 MG Cholecalciferol 1,000 unit DAILY PO 12/09/23 10:00 12/18/23 09:29 1,000 UNIT Zinc Sulfate 220 mg DAILY PO 12/09/23 10:00 12/18/23 09:30 220 MG Amiodarone HCl 200 mg Q12HR PO 12/08/23 22:00 12/18/23 09:30 200 MG Metoprolol Succinate 25 mg DAILY PO 12/09/23 10:00 12/16/23 10:09 25 MG Atorvastatin Calcium 40 mg HS PO 12/08/23 22:00 12/17/23 21:30 40 MG Phenol/Menthol 1 spr Q2HP PRN MT 12/09/23 07:30 12/10/23 09:00 1 SPR Vancomycin HCl 150 ml @ 150 mls/hr Q12H IV 12/09/23 20:30 12/18/23 09:31 150 MLS/HR Alprazolam 0.25 mg TID PO 12/09/23 14:00 Cancel Docusate Sodium 100 mg BID PO 12/09/23 22:00 12/18/23 09:29 100 MG Enteral Nutritional Formula 240 ml TIDWM PO 12/09/23 18:00 12/18/23 12:07 240 ML Haloperidol Lactate 2.5 mg Q8HP PRN IM 12/10/23 00:45 12/11/23 02:33 2.5 MG Piperacillin Sod/ Tazobactam Sod 100 ml @ 25 mls/hr Q8HR IV 12/11/23 14:00 12/18/23 05:43 25 MLS/HR Megestrol Acetate 400 mg BID PO 12/13/23 07:45 12/18/23 09:50 400 MG Sucralfate 1 gm QID@0600,1130,1700,2200 PO 12/13/23 08:00 12/18/23 11:30 1 GM Alprazolam 0.25 mg BID PO 12/13/23 22:00 12/18/23 09:30 0.25 MG Albuterol 2.5 mg Q6HPRN PRN NEB 12/15/23 03:30 Cancel Albuterol 180 mcg TID IN 12/15/23 06:00 12/18/23 07:21 180 MCG Albuterol 180 mcg TID IN 12/15/23 06:00 UNV Albuterol 180 mcg Q6HPRN PRN IN 12/15/23 04:00 12/15/23 04:57 180 MCG Lidocaine 2 patch DAILY TOP 12/16/23 10:00 12/18/23 09:32 2 PATCH Patient Own Medication ENTER--ORAL CHEMO DRUB XTA... DAILY PO 12/17/23 10:00 12/17/23 11:17 160 Fentanyl 50 mcg Q72H TD 12/18/23 12:45 12/18/23 12:38 50 MCG objective General Appearance: alert, no distress HEENT: EOMI, PERRLA, normal external inspect of ears, no icterus, no nasal drainage Neck: no carotid bruit, no jugular venous distention (JVD), no lymphadenopathy Chest: normal thorax Respiratory: clear to auscultation, normal air movement Cardiovascular: regular rate and rhythm, no diastolic murmur, no jugular venous distention (JVD), no rub, no systolic murmur Abdominal: soft, no hepatomegaly, no mass, no splenomegaly, no tenderness Genitourinary: grossly normal external Musculoskeletal: no joint tenderness, no swelling Extremities: normal pulses, no calf tenderness, no clubbing, no cyanosis, no edema Skin: no bruising, no jaundice, no rash Neurological: alert, No focal deficit laboratory and microbiology Laboratory Tests 12/18/23 09:14 12/17/23 19:19 12/17/23 07:48 Test 12/17/23 07:48 Range/Units Serum Glucose 157 H 74-106 mg/dL Problem List 1. Severe sepsis ID Consult, meds 2. Septic Shock ID consult 3. Paroxysmal AFIB Cardiology Consult 4. CAD Cardiology consult 5. Prostate cancer with mets to bone Medication, monitoring 6. HX of CABG Cardiology consult 7. Chronic Anticoagulation Medication, monitoring 8. Anemia of chronic disease Supplemental O2 9. Influenza B Restart Home meds 10. COVID 19 Covid trial meds, Monitoring 11. DMI w/ neuropathy Insulin Sliding Scale 12. Metabolic Encephalopathy neurology consult Assessment/Plan Subjective: Patient is awake and alert. Objective: I spoke with patient's Glo in regards to plan of care, as well as protective services social worker Margy. Patient was admitted for shortness of breath and generalized weakness. He was recently discharged to [facility]. Patient was found to be positive for influenza B and COVID. Per patient's , he is not returning to the rehab facility. Plan: Have protective services social worker attempt to exchange patient's hospital bed out. states patient's current hospital bed is non-functioning. Continue physical therapy twice per day. Continue pain medication regimen. DC planning for tomorrow. Dietary Evaluation Review Comments: 1) Consider Mayo BID for promoting wound healing, 2)Follow current diet regimen prescribed as 2g NA CCHO and Cardiac Lofat LoChol diet plus nepro 240ml PO supplement. 3) Monitor PO intake to reach at least 75% of his needs. Expected Outcomes/Goals: Controlled DM, healed wounds and maintain current Body Weight. Plan discussed with: Patient, Other ALEXYS DAIGLE NP Dec 18, 2023 12:51
[2023-12-18] MEDS: MIDODRINE HCL 10 MG TAB PO SCH (13:32)
[2023-12-18] MEDS: OXYCODONE W/ ACETAMINOPHEN 5/325MG TABLET PO PRN (13:33)
--- NOTE | 2023-12-18 21:44 | DVHPN2 ---
Progress Note - Dictate Date Seen: Dec 18, 2023 Medical Necessity Reason Pt with a Central, PICC or Fol: Yes The following are medically ne: Barksdale Catheter Reason for barksdale catheter: Strict I&O Subjective Patient seen and examined at bedside. On supplemental oxygen Overnight events reviewed. vital signs Vital Sign Date Time Temp Pulse Resp B/P (MAP) Pulse Ox O2 Delivery O2 Flow Rate FiO2 12/18/23 21:04 94 Nasal Cannula* 3 32 12/18/23 16:26 98.3 96 17 97/42 (60) 98.3 Total Intake and Output 12/17/23 12/17/23 12/18/23 15:00 23:00 07:00 Intake Total 480 ml 870 ml 240 ml Output Total 550 ml 600 ml Balance 480 ml 320 ml -360 ml medications Current Medications Medications Dose Ordered Sig/Evgeny Route Start Time Stop Time Status Last Admin Dose Admin Vancomycin HCl 200 ml @ 200 mls/hr Q12HR IV 12/07/23 22:00 UNV Ondansetron HCl 4 mg Q4HP PRN IV 12/08/23 07:45 12/17/23 21:55 4 MG Nitroglycerin 0.4 mg Q5MINP PRN SL 12/08/23 07:45 Apixaban 5 mg BID PO 12/08/23 10:00 12/18/23 21:36 5 MG Ferrous Sulfate 325 mg BID PO 12/08/23 10:00 12/18/23 21:36 325 MG Tamsulosin HCl 0.4 mg QPM PO 12/08/23 18:00 12/18/23 17:00 0.4 MG Diagnostic Test (Pha) 1 strip ACHS 12/08/23 11:30 12/18/23 17:11 1 STRIP Insulin Human Regular HS SC 12/08/23 22:00 12/17/23 21:53 2 UNITS Insulin Human Regular AC SC 12/08/23 11:30 12/18/23 17:11 9 UNITS Dextrose 50 ml UD PRN IV 12/08/23 09:30 Polyethylene Glycol 17 gm DAILY PO 12/09/23 10:00 12/18/23 09:33 17 GM Ascorbic Acid 500 mg DAILY PO 12/09/23 10:00 12/18/23 09:30 500 MG Cholecalciferol 1,000 unit DAILY PO 12/09/23 10:00 12/18/23 09:29 1,000 UNIT Zinc Sulfate 220 mg DAILY PO 12/09/23 10:00 12/18/23 09:30 220 MG Amiodarone HCl 200 mg Q12HR PO 12/08/23 22:00 12/18/23 21:40 200 MG Metoprolol Succinate 25 mg DAILY PO 12/09/23 10:00 12/16/23 10:09 25 MG Atorvastatin Calcium 40 mg HS PO 12/08/23 22:00 12/18/23 21:36 40 MG Phenol/Menthol 1 spr Q2HP PRN MT 12/09/23 07:30 12/10/23 09:00 1 SPR Alprazolam 0.25 mg TID PO 12/09/23 14:00 Cancel Docusate Sodium 100 mg BID PO 12/09/23 22:00 12/18/23 21:36 100 MG Enteral Nutritional Formula 240 ml TIDWM PO 12/09/23 18:00 12/18/23 17:11 240 ML Haloperidol Lactate 2.5 mg Q8HP PRN IM 12/10/23 00:45 12/11/23 02:33 2.5 MG Megestrol Acetate 400 mg BID PO 12/13/23 07:45 12/18/23 09:50 400 MG Sucralfate 1 gm QID@0600,1130,1700,2200 PO 12/13/23 08:00 12/18/23 21:36 1 GM Alprazolam 0.25 mg BID PO 12/13/23 22:00 12/18/23 21:36 0.25 MG Albuterol 2.5 mg Q6HPRN PRN NEB 12/15/23 03:30 Cancel Albuterol 180 mcg TID IN 12/15/23 06:00 12/18/23 15:00 180 MCG Albuterol 180 mcg TID IN 12/15/23 06:00 UNV Albuterol 180 mcg Q6HPRN PRN IN 12/15/23 04:00 12/15/23 04:57 180 MCG Lidocaine 2 patch DAILY TOP 12/16/23 10:00 12/18/23 09:32 2 PATCH Patient Own Medication ENTER--ORAL CHEMO DRUB XTA... DAILY PO 12/17/23 10:00 12/17/23 11:17 160 Fentanyl 50 mcg Q72H TD 12/18/23 12:45 12/18/23 12:38 50 MCG Oxycodone/ Acetaminophen 1 tab Q4HP PRN PO 12/18/23 13:00 12/18/23 17:00 1 TAB Midodrine 10 mg BID@0600,1800 PO 12/18/23 13:25 12/18/23 13:32 10 MG objective Gen.: Patient lying in bed in no apparent distress. On supplemental oxygen Head: Normocephalic, atraumatic. Eyes: EOMI/PERRLA. Ears: Normal hearing. Normal anatomy. Neck/trachea: Trachea midline, supple. Nose: Normal external anatomy. Mouth: Moist mucous membranes. Chest: Decreased air entry bilaterally. No wheezing or rhonchi. Cardiovascular: Positive S1, positive S2. Regular rate and rhythm. Abdomen: Positive bowel sounds in all 4 quadrants. Soft, non-tender, non- distended. : Deferred. Rectal: Deferred. Skin: Warm, dry. Intact. Extremities: 2+ radial pulses bilaterally. No lower extremity edema. Neuro: Awake, alert, oriented x3. No gross motor or sensory deficits. Cranial nerves II through XII intact. Gait not assessed. laboratory and microbiology Laboratory Tests 12/18/23 09:14 12/17/23 19:19 12/17/23 07:48 Test 12/17/23 07:48 Range/Units Serum Glucose 157 H 74-106 mg/dL Assessment/Plan Impression: Severe sepsis Acute hypoxic respiratory failure Pneumonitis Anemia COVID-19 infection Influenza type A positive Events: Remains on supplemental oxygen 2 LPM NC Improved O2 requirements Taper O2 as tolerated. Completed 3 days of Remdesivir Continue antibiotics - vancomycin, Zosyn Vitamin supplementation - MVI/zinc. ID recs appreciated. Continue bronchodilators Albuterol HFA Incentive spirometry Complete steroid course. Eliquis BID. Iron supplementation Monitor hemoglobin Accu-Cheks for glycemic monitoring Pain control Avoid oversedation Labs and imaging reviewed. Rest of plan as noted below. Plan: Supplemental oxygen 2 LPM NC Keep O2 saturation above 92%. IV fluid hydration with normal saline at 100 mL an hour. Decadron course - completed Continue antibiotics Follow up cultures ID recommendations appreciated. Albuterol HFA inhaler t.i.d. Atrial fibrillation On Eliquis 5 mg p.o. b.i.d. On amiodarone 200 mg p.o. q.12 hours Accu-Cheks, insulin sliding scale Tamiflu course for influenza type a DVT prophylaxis- Eliquis Prognosis: Guarded given multiple comorbidities. Rest of plan per hospitalist and other consultants. Thank you NIKOLAI Bowling for allowing me to participate in this patient's care. Further recommendations will depend on patient's clinical course. Please do not hesitate to contact me if you have any questions or concerns. This medical document was created using an electronic medical record system with [employer] dictation system. Although this document has been carefully reviewed, there may still be some phonetic and typographical errors. These areas are purely typographical due to imperfections of the software programs, and do not reflect any compromise in the patient's medical care. Dietary Evaluation Review Comments: 1) Consider Mayo BID for promoting wound healing, 2)Follow current diet regimen prescribed as 2g NA CCHO and Cardiac Lofat LoChol diet plus nepro 240ml PO supplement. 3) Monitor PO intake to reach at least 75% of his needs. Expected Outcomes/Goals: Controlled DM, healed wounds and maintain current Body Weight. Plan discussed with: Patient, Other (ROVERTO [place] covering for Hilda) WES BURNS MD Dec 18, 2023 21:44
[2023-12-19] VITALS (10 sets, daily range): BP systolic 83–99; BP diastolic 41–47; PULSE 74–107; RESP 16–21; TEMP 97.2–98.2; O2SAT 94–99
[2023-12-19] MEDS ORDERED: FENT50DI2 TD (16:29)
[2023-12-19] MEDS ORDERED: NALO4SPR2 (16:29)
[2023-12-19] MEDS ORDERED: DOCU-94 PO (16:29)
--- NOTE | 2023-12-19 20:06 | DVHDS2 ---
Discharge Summary Date of Admission Dec 08, 2023 at 07:31 Date of Discharge: Dec 19, 2023 Labs/Diagnostic Data: Laboratory Results Test 12/18/23 21:49 12/18/23 09:14 12/17/23 19:19 12/17/23 07:48 POC Glucose 70 mg/dl (70-106) Creatinine 0.59 mg/dL (0.700-1.30) Glomerular Filtration Rate Calc 99 mL/min (>90) White Blood Count 9.1 10^3/uL (4.4-10.8) Red Blood Count 2.99 10^6/uL (4.5-5.90) Hemoglobin 8.5 g/dL (13.5-17.5) Hematocrit 26.2 % (41.0-53.0) Mean Corpuscular Volume 87.5 fL (80.0-100.0) Mean Corpuscular Hemoglobin 28.2 pg (28.0-32.0) Mean Corpuscular Hemoglobin Concent 32.3 g/dL (32.0-36.0) Red Cell Distribution Width 18.7 % (11.8-14.3) Platelet Count 292 10^3/uL (140-450) Mean Platelet Volume 6.8 fL (6.9-10.8) Neutrophils (%) (Auto) % (37.0-80.0) Lymphocytes (%) (Auto) % (10.0-50.0) Monocytes (%) (Auto) % (0.0-12.0) Basophils (%) (Auto) % (0.0-2.0) Neutrophils # (Auto) 10 ^3/uL (1.6-8.6) Lymphocytes # (Auto) 10 ^3/uL (0.4-5.4) Monocytes # (Auto) 10 ^3/uL (0-1.3) Differential Total Cells Counted 100.0 (100) Neutrophils % (Manual) 69 (37.0-80.0) Band Neutrophils % (Manual) 2 Lymphocytes % (Manual) 21 (10.0-50.0) Monocytes % (Manual) 8 (0-12) Eosinophils % (Manual) 0 (0-7) Basophils % (Manual) 0 (0.0-2.0) Metamyelocytes % (manual) 0 Myelocytes % (Manual) 0 Promyelocytes % (Manual) 0 Blast Cells % (Manual) 0 Reactive Lymphocytes 0 Platelet Estimate Adequate Sodium Level 135 mmol/L (136-145) Potassium Level 4.6 mmol/L (3.5-5.1) Chloride Level 106 mmol/L (98-107) Carbon Dioxide Level 20 mmol/L (20-31) Anion Gap 9 (5-15) Blood Urea Nitrogen 19 mg/dL (9-23) BUN/Creatinine Ratio 25.7 (10.0-20.0) Serum Glucose 157 mg/dL (74-106) Calcium Level 8.2 mg/dL (8.7-10.4) Phosphorus Level 2.1 mg/dL (2.4-5.1) Magnesium Level 1.9 mg/dL (1.6-2.6) Total Bilirubin 0.3 mg/dL (0.2-1.0) Aspartate Amino Transferase (AST) 52 U/L (13-40) Alanine Aminotransferase (ALT) 12 U/L (7-40) Alkaline Phosphatase 320 U/L (46-116) Total Protein 5.9 g/dL (5.7-8.2) Albumin 3.3 g/dL (3.2-4.8) Vancomycin Level Trough 19.1 ug/mL (5-10) Test 12/11/23 13:39 12/11/23 10:47 12/09/23 05:07 12/08/23 16:29 Reticulocyte Count (auto) 1.36 % (0.5-1.5) Iron Level 77 ug/dL (65-175) Total Iron Binding Capacity 177 ug/dL (250-425) Percent Iron Saturation 43.5 % (20-55) Ferritin 1721.5 ng/mL (22-322) Lactate Dehydrogenase 418 U/L (120-246) Nucleated Red Blood Cells 1.0 % Anisocytosis (manual) Slight Schistocytes Few Hemoglobin A1c 7.1 % A1C (<5.7) Triglycerides Level 117 mg/dL (< 150) Cholesterol Level 141 mg/dL (< 200) LDL Cholesterol 89 mg/dL (< 100) HDL Cholesterol 29 mg/dL (40-59) Vitamin B12 Level 346 pg/mL (211-911) Folic Acid 9.28 ng/mL (>5.38) Thyroid Stimulating Hormone (TSH) 0.60 uIU/mL (0.55-4.78) Test 12/08/23 00:10 12/08/23 00:02 12/07/23 23:54 12/07/23 21:01 Prothrombin Time 13.7 sec (9.3-11.8) Prothrombin Time INR 1.32 (0.9-1.15) Activated Partial Thromboplast Time 38.4 SEC (24.5-34.5) Lactic Acid Level 1.4 mmol/L (0.4-2.0) Troponin I High Sensitivity 5 ng/L (</=54) Influenza Type A Antigen Negative (Negative) Influenza Type B Antigen Positive (Negative) SARS-CoV-2 Antigen (Rapid) Positive (NEGATIVE) Urine Color Light-yellow (Yellow) Urine Clarity Turbid (Clear) Urine pH 5.5 (5.0-9.0) Urine Specific [place] 1.033 (1.001-1.035) Urine Protein 1+ (Negative) Urine Ketones Trace (Negative) Urine Blood 1+ /uL (Negative) Urine Nitrite Negative (Negative) Urine Bilirubin Negative (Negative) Urine Urobilinogen Normal mg/dL (Negative) Urine Leukocyte Esterase 3+ /uL (Negative) Urine RBC 9 /hpf (0 - 3) Urine WBC 127 /hpf (0 - 3) Urine WBC Clumps Present /hpf (None Seen) Urine Squamous Epithelial Cells Few /hpf (<5) Urine Bacteria Many /hpf (None Seen) Urine Mucus Few (None Seen) Urine Yeast (Budding) Moderate /hpf (None Seen) Urine Glucose Normal mg/dL (Normal) B-Type Natriuretic Peptide 288.16 pg/mL (0-100) Plasma/Serum Blood Alcohol < 3.0 mg/dL (<10) Other Laboratory Tests 12/18/23 09:14 12/17/23 19:19 12/17/23 07:48 Brief Hx & Hospital Course: Patient was admitted for severe sepsis with shock likely from acute cystitis. Patient was subsequently found to be positive for COVID. Patient came from [facility] where he was nursing facility for physical therapy. Patient was seen by infectious disease during hospital stay. Patient received full course of antibiotics during hospital stay. Patient was seen cleared by heel room supervisor for discharge. Patient is respiratory machuca stable. Patient has history of AFib and was seen and cleared by cabinet installer. Patient needed new hospital bed and patient had new hospital bed delivered to to his home. Patient was set up with [facility] for home PT. Patient is to follow up with PCP within one week of discharge Final Diagnosis/Problems List 1. Severe sepsis ID Consult, meds 2. Septic Shock ID consult 3. Paroxysmal AFIB Cardiology Consult 4. CAD Cardiology consult 5. Prostate cancer with mets to bone Medication, monitoring 6. HX of CABG Cardiology consult 7. Chronic Anticoagulation Medication, monitoring 8. Anemia of chronic disease Supplemental O2 9. Influenza B Restart Home meds 10. COVID 19 Covid trial meds, Monitoring 11. DMI w/ neuropathy Insulin Sliding Scale 12. Metabolic Encephalopathy Discharge Disposition: Home with Health Services Discharge Instruct/Medications Diet: Cardiac 2g Na,low cholest Activity: Light activity Follow Up/Referral: pcp within 1 week Discharge Statement: "Patient was advised to return to the ER or call 911 if any headaches, dizziness, shortness of breath, chest pain, abdominal pain, bleeding, fevers, or worsening of medical condition. Patient was counseled about treatment plan, medications, possible side effects, patientverbalized understanding. All questions were answered to the best of my ability. This discharge took greater then 30 minutes in planning, reviewing documentation, counseling the patient, and discussing with other team members." ASSESSMENT ASSESSMENT Assessment 1. Severe sepsis ID Consult, meds 2. Septic Shock ID consult 3. Paroxysmal AFIB Cardiology Consult 4. CAD Cardiology consult 5. Prostate cancer with mets to bone Medication, monitoring 6. HX of CABG Cardiology consult 7. Chronic Anticoagulation Medication, monitoring 8. Anemia of chronic disease Supplemental O2 9. Influenza B Restart Home meds 10. COVID 19 Covid trial meds, Monitoring 11. DMI w/ neuropathy Insulin Sliding Scale 12. Metabolic Encephalopathy BALDEMAR MCNALLY BROACHING MACHINE OPERATOR Dec 19, 2023 20:06
--- NOTE | 2023-12-19 20:31 | DVHPN2 ---
Progress Note - Dictate Date Seen: Dec 19, 2023 Medical Necessity Reason Pt with a Central, PICC or Fol: Yes The following are medically ne: Barksdale Catheter Reason for barksdale catheter: Strict I&O Subjective Patient seen and examined at bedside. On supplemental oxygen Overnight events reviewed. vital signs Vital Sign Date Time Temp Pulse Resp B/P (MAP) Pulse Ox O2 Delivery O2 Flow Rate FiO2 12/19/23 16:51 98.2 101 21 90/42 (58) 99 98.2 12/19/23 14:58 Room Air 0.0 12/19/23 14:58 21 Total Intake and Output 12/18/23 12/18/23 12/19/23 15:00 23:00 07:00 Intake Total 600 ml 650 ml 240 ml Output Total 550 ml 300 ml Balance 600 ml 100 ml -60 ml medications Current Medications Medications Dose Ordered Sig/Evgeny Route Start Time Stop Time Status Last Admin Dose Admin Vancomycin HCl 200 ml @ 200 mls/hr Q12HR IV 12/07/23 22:00 UNV Ondansetron HCl 4 mg Q4HP PRN IV 12/08/23 07:45 12/19/23 05:18 4 MG Nitroglycerin 0.4 mg Q5MINP PRN SL 12/08/23 07:45 Apixaban 5 mg BID PO 12/08/23 10:00 12/19/23 10:31 5 MG Ferrous Sulfate 325 mg BID PO 12/08/23 10:00 12/19/23 10:30 325 MG Tamsulosin HCl 0.4 mg QPM PO 12/08/23 18:00 12/19/23 18:00 0.4 MG Diagnostic Test (Pha) 1 strip ACHS 12/08/23 11:30 12/18/23 21:55 1 STRIP Insulin Human Regular HS SC 12/08/23 22:00 12/17/23 21:53 2 UNITS Insulin Human Regular AC SC 12/08/23 11:30 12/18/23 17:11 9 UNITS Dextrose 50 ml UD PRN IV 12/08/23 09:30 Polyethylene Glycol 17 gm DAILY PO 12/09/23 10:00 12/19/23 10:31 17 GM Ascorbic Acid 500 mg DAILY PO 12/09/23 10:00 12/19/23 10:30 500 MG Cholecalciferol 1,000 unit DAILY PO 12/09/23 10:00 12/19/23 10:31 1,000 UNIT Zinc Sulfate 220 mg DAILY PO 12/09/23 10:00 12/19/23 10:30 220 MG Amiodarone HCl 200 mg Q12HR PO 12/08/23 22:00 12/19/23 10:30 200 MG Metoprolol Succinate 25 mg DAILY PO 12/09/23 10:00 12/16/23 10:09 25 MG Atorvastatin Calcium 40 mg HS PO 12/08/23 22:00 12/18/23 21:36 40 MG Phenol/Menthol 1 spr Q2HP PRN MT 12/09/23 07:30 12/10/23 09:00 1 SPR Alprazolam 0.25 mg TID PO 12/09/23 14:00 Cancel Docusate Sodium 100 mg BID PO 12/09/23 22:00 12/19/23 10:30 100 MG Enteral Nutritional Formula 240 ml TIDWM PO 12/09/23 18:00 12/19/23 18:00 240 ML Haloperidol Lactate 2.5 mg Q8HP PRN IM 12/10/23 00:45 12/11/23 02:33 2.5 MG Megestrol Acetate 400 mg BID PO 12/13/23 07:45 12/18/23 09:50 400 MG Sucralfate 1 gm QID@0600,1130,1700,2200 PO 12/13/23 08:00 12/19/23 17:00 1 GM Alprazolam 0.25 mg BID PO 12/13/23 22:00 12/19/23 10:30 0.25 MG Albuterol 2.5 mg Q6HPRN PRN NEB 12/15/23 03:30 Cancel Albuterol 180 mcg TID IN 12/15/23 06:00 12/19/23 14:58 180 MCG Albuterol 180 mcg TID IN 12/15/23 06:00 UNV Albuterol 180 mcg Q6HPRN PRN IN 12/15/23 04:00 12/15/23 04:57 180 MCG Lidocaine 2 patch DAILY TOP 12/16/23 10:00 12/19/23 10:31 2 PATCH Patient Own Medication ENTER--ORAL CHEMO DRUB XTA... DAILY PO 12/17/23 10:00 12/19/23 10:33 160 Fentanyl 50 mcg Q72H TD 12/18/23 12:45 12/18/23 12:38 50 MCG Oxycodone/ Acetaminophen 1 tab Q4HP PRN PO 12/18/23 13:00 12/19/23 18:43 1 TAB Midodrine 10 mg BID@0600,1800 PO 12/18/23 13:25 12/19/23 18:42 10 MG objective Gen.: Patient lying in bed in no apparent distress. On supplemental oxygen Head: Normocephalic, atraumatic. Eyes: EOMI/PERRLA. Ears: Normal hearing. Normal anatomy. Neck/trachea: Trachea midline, supple. Nose: Normal external anatomy. Mouth: Moist mucous membranes. Chest: Decreased air entry bilaterally. No wheezing or rhonchi. Cardiovascular: Positive S1, positive S2. Regular rate and rhythm. Abdomen: Positive bowel sounds in all 4 quadrants. Soft, non-tender, non- distended. : Deferred. Rectal: Deferred. Skin: Warm, dry. Intact. Extremities: 2+ radial pulses bilaterally. No lower extremity edema. Neuro: Awake, alert, oriented x3. No gross motor or sensory deficits. Cranial nerves II through XII intact. Gait not assessed. laboratory and microbiology Laboratory Tests 12/18/23 09:14 12/17/23 19:19 12/17/23 07:48 Test 12/17/23 07:48 Range/Units Serum Glucose 157 H 74-106 mg/dL Assessment/Plan Impression: Severe sepsis Acute hypoxic respiratory failure Pneumonitis Anemia COVID-19 infection Influenza type A positive Events: Remains on supplemental oxygen 2 LPM NC Taper O2 as tolerated. Complete antibiotics Vitamin supplementation - MVI/zinc. Continue bronchodilators Albuterol HFA Incentive spirometry Eliquis BID. Monitor hemoglobin Accu-Cheks for glycemic monitoring Pain control Avoid oversedation Patient is awaiting bed at intermediate facility. Labs and imaging reviewed. Rest of plan as noted below. Plan: Supplemental oxygen 2 LPM NC Keep O2 saturation above 92%. IV fluid hydration with normal saline at 100 mL an hour. Decadron course - completed Complete antibiotics Follow up cultures ID recommendations appreciated. Albuterol HFA inhaler t.i.d. Atrial fibrillation On Eliquis 5 mg p.o. b.i.d. On amiodarone 200 mg p.o. q.12 hours Accu-Cheks, insulin sliding scale Tamiflu course for influenza type a DVT prophylaxis- Eliquis Prognosis: Guarded given multiple comorbidities. Rest of plan per hospitalist and other consultants. Thank you NIKOLAI Bowling for allowing me to participate in this patient's care. Further recommendations will depend on patient's clinical course. Please do not hesitate to contact me if you have any questions or concerns. This medical document was created using an electronic medical record system with [employer] dictation system. Although this document has been carefully reviewed, there may still be some phonetic and typographical errors. These areas are purely typographical due to imperfections of the software programs, and do not reflect any compromise in the patient's medical care. Dietary Evaluation Review Comments: 1) Consider Mayo BID for promoting wound healing, 2)Follow current diet regimen prescribed as 2g NA CCHO and Cardiac Lofat LoChol diet plus nepro 240ml PO supplement. 3) Monitor PO intake to reach at least 75% of his needs. Expected Outcomes/Goals: Controlled DM, healed wounds and maintain current Body Weight. Plan discussed with: Patient, Other (ROVERTO Stevens) WES BURNS MD Dec 19, 2023 20:31
[2023-12-20] VITALS (9 sets, daily range): BP systolic 105–132; BP diastolic 50–60; PULSE 79–113; RESP 16–20; TEMP 36.4; O2SAT 92–100
--- NOTE | 2023-12-20 13:54 | DVHPN2 ---
Progress Note Date Seen: Dec 19, 2023 Medical Necessity Reason Pt with a Central, PICC or Fol: Yes The following are medically ne: Barksdale Catheter Reason for barksdale catheter: Strict I&O Subjective Patient reports: No new complaints Objective vital signs Vital Sign Date Time Temp Pulse Resp B/P (MAP) Pulse Ox O2 Delivery O2 Flow Rate FiO2 12/20/23 13:00 97.5 96 17 132/60 (84) 99 97.5 12/20/23 11:14 3.0 32 12/20/23 10:00 Nasal Cannula Total Intake and Output 12/19/23 12/19/23 12/20/23 15:00 23:00 07:00 Intake Total 1260 ml 600 ml Output Total 250 ml 800 ml Balance 1010 ml -200 ml medications Current Medications Medications Dose Ordered Sig/Evgeny Route Start Time Stop Time Status Last Admin Dose Admin Vancomycin HCl 200 ml @ 200 mls/hr Q12HR IV 12/07/23 22:00 UNV Ondansetron HCl 4 mg Q4HP PRN IV 12/08/23 07:45 12/19/23 05:18 4 MG Nitroglycerin 0.4 mg Q5MINP PRN SL 12/08/23 07:45 Apixaban 5 mg BID PO 12/08/23 10:00 12/20/23 09:55 5 MG Ferrous Sulfate 325 mg BID PO 12/08/23 10:00 12/20/23 09:55 325 MG Tamsulosin HCl 0.4 mg QPM PO 12/08/23 18:00 12/19/23 18:00 0.4 MG Diagnostic Test (Pha) 1 strip ACHS 12/08/23 11:30 12/20/23 11:30 1 STRIP Insulin Human Regular HS SC 12/08/23 22:00 12/19/23 22:00 4 UNITS Insulin Human Regular AC SC 12/08/23 11:30 12/20/23 11:30 6 UNITS Dextrose 50 ml UD PRN IV 12/08/23 09:30 Polyethylene Glycol 17 gm DAILY PO 12/09/23 10:00 12/20/23 09:48 17 GM Ascorbic Acid 500 mg DAILY PO 12/09/23 10:00 12/20/23 09:52 500 MG Cholecalciferol 1,000 unit DAILY PO 12/09/23 10:00 12/20/23 09:51 1,000 UNIT Zinc Sulfate 220 mg DAILY PO 12/09/23 10:00 12/20/23 09:54 220 MG Amiodarone HCl 200 mg Q12HR PO 12/08/23 22:00 12/20/23 09:52 200 MG Metoprolol Succinate 25 mg DAILY PO 12/09/23 10:00 12/20/23 09:54 25 MG Atorvastatin Calcium 40 mg HS PO 12/08/23 22:00 12/19/23 22:00 40 MG Phenol/Menthol 1 spr Q2HP PRN MT 12/09/23 07:30 12/10/23 09:00 1 SPR Alprazolam 0.25 mg TID PO 12/09/23 14:00 Cancel Docusate Sodium 100 mg BID PO 12/09/23 22:00 12/20/23 09:54 100 MG Enteral Nutritional Formula 240 ml TIDWM PO 12/09/23 18:00 12/20/23 12:06 240 ML Haloperidol Lactate 2.5 mg Q8HP PRN IM 12/10/23 00:45 12/19/23 22:59 2.5 MG Megestrol Acetate 400 mg BID PO 12/13/23 07:45 12/20/23 09:56 400 MG Sucralfate 1 gm QID@0600,1130,1700,2200 PO 12/13/23 08:00 12/20/23 11:54 1 GM Alprazolam 0.25 mg BID PO 12/13/23 22:00 12/20/23 09:49 0.25 MG Albuterol 2.5 mg Q6HPRN PRN NEB 12/15/23 03:30 Cancel Albuterol 180 mcg TID IN 12/15/23 06:00 12/20/23 06:54 180 MCG Albuterol 180 mcg TID IN 12/15/23 06:00 UNV Albuterol 180 mcg Q6HPRN PRN IN 12/15/23 04:00 12/15/23 04:57 180 MCG Lidocaine 2 patch DAILY TOP 12/16/23 10:00 12/20/23 10:18 2 PATCH Patient Own Medication ENTER--ORAL CHEMO DRUB XTA... DAILY PO 12/17/23 10:00 12/20/23 09:56 160 Fentanyl 50 mcg Q72H TD 12/18/23 12:45 12/18/23 12:38 50 MCG Oxycodone/ Acetaminophen 1 tab Q4HP PRN PO 12/18/23 13:00 12/20/23 09:50 1 TAB Midodrine 10 mg BID@0600,1800 PO 12/18/23 13:25 12/19/23 18:42 10 MG Examination: GENERAL:Normal, LUNGS:Normal, CVS:Normal, ABDOMEN:Normal, SKIN:Normal, NEURO:Normal laboratory and microbiology Laboratory Tests 12/18/23 09:14 12/17/23 19:19 12/17/23 07:48 Test 12/17/23 07:48 Range/Units Serum Glucose 157 H 74-106 mg/dL Microbiology Date/Time Source Procedure Growth Status 12/07/23 23:54 Urine - [place] Urine Culture - Final Presumptive Faith tropicalis Complete 12/07/23 22:28 Blood Blood Culture - Final NO GROWTH AFTER 5 DAYS OF INCUBATION. Complete Labs and/or images reviewed: Labs reviewed by me Problem List/Assessment/Plan Problem List/Assessment/Plan 1. Severe sepsis ID Consult, meds 2. Septic Shock ID consult 3. Paroxysmal AFIB Cardiology Consult 4. CAD Cardiology consult 5. Prostate cancer with mets to bone Medication, monitoring 6. HX of CABG Cardiology consult 7. Chronic Anticoagulation Medication, monitoring 8. Anemia of chronic disease Supplemental O2 9. Influenza B Restart Home meds 10. COVID 19 Covid trial meds, Monitoring 11. DMI w/ neuropathy Insulin Sliding Scale 12. Metabolic Encephalopathy neurology consult Assessment/Plan Subjective: Patient is awake and alert. Objective: . Patient was admitted for shortness of breath and generalized weakness. He was recently discharged to [facility]. Patient was found to be positive for influenza B and COVID. Per patient's , he is not returning to the rehab facility. PLAN: Patient was discharged today, bed was delivered to patient's home today. Nurse did not discharge patient for no apparent reason patient was cleared today for discharge on home health. Patient can be discharged Plan discussed with: Patient My Orders My Orders Orders - BALDEMAR MCNALLY Procedure Category Date Status Time * Patcher [place]ling [place] CONS 12/19/23 Transmitted Consult Discharge DISCHARGE 12/19/23 Transmitted 16:25 Mrsa Screen NILS 12/20/23 In Process 07:45 Communication Order ORDERS 12/20/23 Transmitted 07:16 * Patcher [place] CONS 12/20/23 Transmitted Consult Dietary Evaluation Review Comments: 1) Consider Mayo BID for promoting wound healing, 2)Follow current diet regimen prescribed as 2g NA CCHO and Cardiac Lofat LoChol diet plus nepro 240ml PO supplement. 3) Monitor PO intake to reach at least 75% of his needs. Expected Outcomes/Goals: Controlled DM, healed wounds and maintain current Body Weight. Date of Service: Dec 19, 2023 Billing Provider: PRIYA PARKS MD Common Visit Codes: [id number] INP/OBS CARE (MOD) BALDEMAR MCNALLY PAYROLL ADMINISTRATIVE ASSISTANT Dec 20, 2023 13:54
--- NOTE | 2023-12-20 14:14 | DVHDS2 ---
Discharge Summary Date of Admission Dec 08, 2023 at 07:31 Date of Discharge: Dec 19, 2023 Admitting Diagnosis Patient was admitted for severe sepsis with shock likely from acute cystitis. Patient was subsequently found to be positive for COVID. Patient came from [facility] where he was nursing facility for physical therapy. Patient was seen by infectious disease during hospital stay. Patient received full course of antibiotics during hospital stay. Patient was seen cleared by pattern assembler for discharge. Patient is respiratory machuca stable. Patient has history of AFib and was seen and cleared by senior controls analyst. Patient needed new hospital bed and patient had new hospital bed delivered to to his home. Patient was set up with [facility] for home PT. Patient was discharged yesterday, nurse was told that bed was delivered however patient was not discharged yesterday. Once again made nurse today aware patient is discharge and medical transport will be set up for discharge. Patient is to follow up with PCP within one week of discharge. Labs/Diagnostic Data: Laboratory Results Test 12/20/23 11:57 12/18/23 09:14 12/17/23 19:19 12/17/23 07:48 POC Glucose 250 mg/dl (70-106) Creatinine 0.59 mg/dL (0.700-1.30) Glomerular Filtration Rate Calc 99 mL/min (>90) White Blood Count 9.1 10^3/uL (4.4-10.8) Red Blood Count 2.99 10^6/uL (4.5-5.90) Hemoglobin 8.5 g/dL (13.5-17.5) Hematocrit 26.2 % (41.0-53.0) Mean Corpuscular Volume 87.5 fL (80.0-100.0) Mean Corpuscular Hemoglobin 28.2 pg (28.0-32.0) Mean Corpuscular Hemoglobin Concent 32.3 g/dL (32.0-36.0) Red Cell Distribution Width 18.7 % (11.8-14.3) Platelet Count 292 10^3/uL (140-450) Mean Platelet Volume 6.8 fL (6.9-10.8) Neutrophils (%) (Auto) % (37.0-80.0) Lymphocytes (%) (Auto) % (10.0-50.0) Monocytes (%) (Auto) % (0.0-12.0) Basophils (%) (Auto) % (0.0-2.0) Neutrophils # (Auto) 10 ^3/uL (1.6-8.6) Lymphocytes # (Auto) 10 ^3/uL (0.4-5.4) Monocytes # (Auto) 10 ^3/uL (0-1.3) Differential Total Cells Counted 100.0 (100) Neutrophils % (Manual) 69 (37.0-80.0) Band Neutrophils % (Manual) 2 Lymphocytes % (Manual) 21 (10.0-50.0) Monocytes % (Manual) 8 (0-12) Eosinophils % (Manual) 0 (0-7) Basophils % (Manual) 0 (0.0-2.0) Metamyelocytes % (manual) 0 Myelocytes % (Manual) 0 Promyelocytes % (Manual) 0 Blast Cells % (Manual) 0 Reactive Lymphocytes 0 Platelet Estimate Adequate Sodium Level 135 mmol/L (136-145) Potassium Level 4.6 mmol/L (3.5-5.1) Chloride Level 106 mmol/L (98-107) Carbon Dioxide Level 20 mmol/L (20-31) Anion Gap 9 (5-15) Blood Urea Nitrogen 19 mg/dL (9-23) BUN/Creatinine Ratio 25.7 (10.0-20.0) Serum Glucose 157 mg/dL (74-106) Calcium Level 8.2 mg/dL (8.7-10.4) Phosphorus Level 2.1 mg/dL (2.4-5.1) Magnesium Level 1.9 mg/dL (1.6-2.6) Total Bilirubin 0.3 mg/dL (0.2-1.0) Aspartate Amino Transferase (AST) 52 U/L (13-40) Alanine Aminotransferase (ALT) 12 U/L (7-40) Alkaline Phosphatase 320 U/L (46-116) Total Protein 5.9 g/dL (5.7-8.2) Albumin 3.3 g/dL (3.2-4.8) Vancomycin Level Trough 19.1 ug/mL (5-10) Test 12/11/23 13:39 12/11/23 10:47 12/09/23 05:07 12/08/23 16:29 Reticulocyte Count (auto) 1.36 % (0.5-1.5) Iron Level 77 ug/dL (65-175) Total Iron Binding Capacity 177 ug/dL (250-425) Percent Iron Saturation 43.5 % (20-55) Ferritin 1721.5 ng/mL (22-322) Lactate Dehydrogenase 418 U/L (120-246) Nucleated Red Blood Cells 1.0 % Anisocytosis (manual) Slight Schistocytes Few Hemoglobin A1c 7.1 % A1C (<5.7) Triglycerides Level 117 mg/dL (< 150) Cholesterol Level 141 mg/dL (< 200) LDL Cholesterol 89 mg/dL (< 100) HDL Cholesterol 29 mg/dL (40-59) Vitamin B12 Level 346 pg/mL (211-911) Folic Acid 9.28 ng/mL (>5.38) Thyroid Stimulating Hormone (TSH) 0.60 uIU/mL (0.55-4.78) Test 12/08/23 00:10 12/08/23 00:02 12/07/23 23:54 12/07/23 21:01 Prothrombin Time 13.7 sec (9.3-11.8) Prothrombin Time INR 1.32 (0.9-1.15) Activated Partial Thromboplast Time 38.4 SEC (24.5-34.5) Lactic Acid Level 1.4 mmol/L (0.4-2.0) Troponin I High Sensitivity 5 ng/L (</=54) Influenza Type A Antigen Negative (Negative) Influenza Type B Antigen Positive (Negative) SARS-CoV-2 Antigen (Rapid) Positive (NEGATIVE) Urine Color Light-yellow (Yellow) Urine Clarity Turbid (Clear) Urine pH 5.5 (5.0-9.0) Urine Specific [place] 1.033 (1.001-1.035) Urine Protein 1+ (Negative) Urine Ketones Trace (Negative) Urine Blood 1+ /uL (Negative) Urine Nitrite Negative (Negative) Urine Bilirubin Negative (Negative) Urine Urobilinogen Normal mg/dL (Negative) Urine Leukocyte Esterase 3+ /uL (Negative) Urine RBC 9 /hpf (0 - 3) Urine WBC 127 /hpf (0 - 3) Urine WBC Clumps Present /hpf (None Seen) Urine Squamous Epithelial Cells Few /hpf (<5) Urine Bacteria Many /hpf (None Seen) Urine Mucus Few (None Seen) Urine Yeast (Budding) Moderate /hpf (None Seen) Urine Glucose Normal mg/dL (Normal) B-Type Natriuretic Peptide 288.16 pg/mL (0-100) Plasma/Serum Blood Alcohol < 3.0 mg/dL (<10) Other Laboratory Tests 12/18/23 09:14 12/17/23 19:19 12/17/23 07:48 Brief Hx & Hospital Course: Patient was admitted for severe sepsis with shock likely from acute cystitis. Patient was subsequently found to be positive for COVID. Patient came from [facility] where he was nursing facility for physical therapy. Patient was seen by infectious disease during hospital stay. Patient received full course of antibiotics during hospital stay. Patient was seen cleared by pattern assembler for discharge. Patient is respiratory machuca stable. Patient has history of AFib and was seen and cleared by senior controls analyst. Patient needed new hospital bed and patient had new hospital bed delivered to to his home. Patient was set up with home health for home PT. Patient is to follow up with PCP within one week of discharge Condition at Discharge: Fair Final Diagnosis/Problems List 1. Severe sepsis ID Consult, meds 2. Septic Shock ID consult 3. Paroxysmal AFIB Cardiology Consult 4. CAD Cardiology consult 5. Prostate cancer with mets to bone Medication, monitoring 6. HX of CABG Cardiology consult 7. Chronic Anticoagulation Medication, monitoring 8. Anemia of chronic disease Supplemental O2 9. Influenza B Restart Home meds 10. COVID 19 Covid trial meds, Monitoring 11. DMI w/ neuropathy Insulin Sliding Scale 12. Metabolic Encephalopathy Discharge Disposition: Home with Health Services Discharge Instruct/Medications Diet: Cardiac 2g Na,low cholest Activity: Light activity Follow Up/Referral: pcp within 1 week Discharge Statement: "Patient was advised to return to the ER or call 911 if any headaches, dizziness, shortness of breath, chest pain, abdominal pain, bleeding, fevers, or worsening of medical condition. Patient was counseled about treatment plan, medications, possible side effects, patientverbalized understanding. All questions were answered to the best of my ability. This discharge took greater then 30 minutes in planning, reviewing documentation, counseling the patient, and discussing with other team members." ASSESSMENT ASSESSMENT Hospital Course Patient was admitted for severe sepsis with shock likely from acute cystitis. Patient was subsequently found to be positive for COVID. Patient came from [facility] where he was nursing facility for physical therapy. Patient was seen by infectious disease during hospital stay. Patient received full course of antibiotics during hospital stay. Patient was seen cleared by pattern assembler for discharge. Patient is respiratory machuca stable. Patient has history of AFib and was seen and cleared by senior controls analyst. Patient needed new hospital bed and patient had new hospital bed delivered to to his home. Patient was set up with home health for home PT. Patient is to follow up with PCP within one week of discharge Assessment 1. Severe sepsis ID Consult, meds 2. Septic Shock ID consult 3. Paroxysmal AFIB Cardiology Consult 4. CAD Cardiology consult 5. Prostate cancer with mets to bone Medication, monitoring 6. HX of CABG Cardiology consult 7. Chronic Anticoagulation Medication, monitoring 8. Anemia of chronic disease Supplemental O2 9. Influenza B Restart Home meds 10. COVID 19 Covid trial meds, Monitoring 11. DMI w/ neuropathy Insulin Sliding Scale 12. Metabolic Encephalopathy BALDEMAR MCNALLY [facility] Dec 20, 2023 14:14
--- NOTE | 2023-12-20 19:02 | DVHPN2 ---
Progress Note - Dictate Date Seen: Dec 20, 2023 Medical Necessity Reason Pt with a Central, PICC or Fol: Yes The following are medically ne: Barksdale Catheter Reason for barksdale catheter: Strict I&O Subjective Patient seen and examined at bedside. On supplemental oxygen Overnight events reviewed. vital signs Vital Sign Date Time Temp Pulse Resp B/P (MAP) Pulse Ox O2 Delivery O2 Flow Rate FiO2 12/20/23 14:20 95 Nasal Cannula 2.0 12/20/23 14:20 28 12/20/23 14:20 102 20 12/20/23 14:01 36.4 12/20/23 13:00 132/60 (84) Total Intake and Output 12/19/23 12/19/23 12/20/23 15:00 23:00 07:00 Intake Total 1260 ml 600 ml Output Total 250 ml 800 ml Balance 1010 ml -200 ml medications Current Medications Medications Dose Ordered Sig/Evgeny Route Start Time Stop Time Status Last Admin Dose Admin Vancomycin HCl 200 ml @ 200 mls/hr Q12HR IV 12/07/23 22:00 UNV Alprazolam 0.25 mg TID PO 12/09/23 14:00 Cancel Albuterol 2.5 mg Q6HPRN PRN NEB 12/15/23 03:30 Cancel Albuterol 180 mcg TID IN 12/15/23 06:00 UNV objective Gen.: Patient lying in bed in no apparent distress. On supplemental oxygen Head: Normocephalic, atraumatic. Eyes: EOMI/PERRLA. Ears: Normal hearing. Normal anatomy. Neck/trachea: Trachea midline, supple. Nose: Normal external anatomy. Mouth: Moist mucous membranes. Chest: Decreased air entry bilaterally. No wheezing or rhonchi. Cardiovascular: Positive S1, positive S2. Regular rate and rhythm. Abdomen: Positive bowel sounds in all 4 quadrants. Soft, non-tender, non- distended. : Deferred. Rectal: Deferred. Skin: Warm, dry. Intact. Extremities: 2+ radial pulses bilaterally. No lower extremity edema. Neuro: Awake, alert, oriented x3. No gross motor or sensory deficits. Cranial nerves II through XII intact. Gait not assessed. laboratory and microbiology Laboratory Tests 12/18/23 09:14 12/17/23 19:19 12/17/23 07:48 Test 12/17/23 07:48 Range/Units Serum Glucose 157 H 74-106 mg/dL Assessment/Plan Impression: Severe sepsis Acute hypoxic respiratory failure Pneumonitis Anemia COVID-19 infection Influenza type A positive Events: Remains on supplemental oxygen 2 LPM NC Taper O2 as tolerated. Continue bronchodilators Albuterol HFA Vitamin supplementation - MVI/zinc. Incentive spirometry Eliquis BID. Monitor hemoglobin Accu-Cheks for glycemic monitoring Pain control Avoid oversedation Patient is stable for discharge from the pulmonary standpoint. Awaiting bed at alf facility. Labs and imaging reviewed. Rest of plan as noted below. Plan: Supplemental oxygen 2 LPM NC Keep O2 saturation above 92%. IV fluid hydration with normal saline at 100 mL an hour. Decadron course - completed Complete antibiotics Follow up cultures ID recommendations appreciated. Albuterol HFA inhaler t.i.d. Atrial fibrillation On Eliquis 5 mg p.o. b.i.d. On amiodarone 200 mg p.o. q.12 hours Accu-Cheks, insulin sliding scale Tamiflu course for influenza type a DVT prophylaxis- Eliquis Prognosis: Guarded given multiple comorbidities. Rest of plan per hospitalist and other consultants. Thank you NIKOLAI Bowling for allowing me to participate in this patient's care. Further recommendations will depend on patient's clinical course. Please do not hesitate to contact me if you have any questions or concerns. This medical document was created using an electronic medical record system with [employer] dictation system. Although this document has been carefully reviewed, there may still be some phonetic and typographical errors. These areas are purely typographical due to imperfections of the software programs, and do not reflect any compromise in the patient's medical care. Dietary Evaluation Review Comments: 1) Consider Mayo BID for promoting wound healing, 2)Follow current diet regimen prescribed as 2g NA CCHO and Cardiac Lofat LoChol diet plus nepro 240ml PO supplement. 3) Monitor PO intake to reach at least 75% of his needs. Expected Outcomes/Goals: Controlled DM, healed wounds and maintain current Body Weight. Plan discussed with: Patient, Other (ROVERTO Alvarez) WES BURNS MD Dec 20, 2023 19:02
== END 2023-12-20 14:54 | disposition home health service (06) | DRG 871 ==
LOC: EDBD 20:38 → ER 20:38 → TELE 21:51 → UNDOADMIN 21:51 → TELE 21:54 → UNDODEPER 23:56 → TELE 12-08 07:31 → TELE-EAST 12-08 22:10
PROVIDERS: ADMIT Nurse Practitioner; ATTEND Nurse Practitioner
PROC: XW033E5 Introduction of Remdesivir Anti-infective into Peripheral Vein, Percutaneous Approach, New Technology Group 5 (ICD-10-PCS; principal; 2023-12-13)
DX: A41.89 Other specified sepsis (principal); G93.41 Metabolic encephalopathy; U07.1 COVID-19; R65.21 Severe sepsis with septic shock; J96.01 Acute respiratory failure with hypoxia; J12.82 Pneumonia due to coronavirus disease 2019; J10.08 Influenza due to other identified influenza virus with other specified pneumonia; C79.51 Secondary malignant neoplasm of bone; J44.0 Chronic obstructive pulmonary disease with (acute) lower respiratory infection; N30.00 Acute cystitis without hematuria; D63.8 Anemia in other chronic diseases classified elsewhere; J98.4 Other disorders of lung; I95.89 Other hypotension; I48.0 Paroxysmal atrial fibrillation; I25.10 Atherosclerotic heart disease of native coronary artery without angina pectoris; G89.3 Neoplasm related pain (acute) (chronic); I11.0 Hypertensive heart disease with heart failure; I50.9 Heart failure, unspecified; K21.9 Gastro-esophageal reflux disease without esophagitis; N40.0 Benign prostatic hyperplasia without lower urinary tract symptoms; E78.00 Pure hypercholesterolemia, unspecified; E11.40 Type 2 diabetes mellitus with diabetic neuropathy, unspecified; E11.51 Type 2 diabetes mellitus with diabetic peripheral angiopathy without gangrene; Z79.4 Long term (current) use of insulin; I25.2 Old myocardial infarction; Z79.01 Long term (current) use of anticoagulants; Z85.46 Personal history of malignant neoplasm of prostate; Z95.1 Presence of aortocoronary bypass graft; Z86.73 Personal history of transient ischemic attack (TIA), and cerebral infarction without residual deficits; Z79.899 Other long term (current) drug therapy; Z82.5 Family history of asthma and other chronic lower respiratory diseases; Z82.49 Family history of ischemic heart disease and other diseases of the circulatory system; Z80.0 Family history of malignant neoplasm of digestive organs; Z88.5 Allergy status to narcotic agent; Z83.3 Family history of diabetes mellitus; Z95.0 Presence of cardiac pacemaker; Z90.49 Acquired absence of other specified parts of digestive tract; Z98.84 Bariatric surgery status
CPT/HCPCS: 36415; 70450; 71045; 71275; 73700; 80048; 80053; 80061; 80202; 80320; 81001; 82565; 82607; 82728; 82746; 82962; 83036; 83540; 83550; 83605; 83615; 83735; 83880; 84100; 84443; 84484; 85007; 85027; 85045; 85610; 85730; 86880; 87040; 87081; 87086; 87088; 87426; 87804; 93005; 93306; 94640; 95819; 96365; 97110; 97116; 97163; 97530; 99291; G0378; J1815; J2405; J2543